=== PATIENT | male | born 1960 | race American Indian/Alaskan Native ===

== ENCOUNTER 2018-06-30 03:14 | Inpatient (IN) | payer MEDICAID, MEDICARE ==
[2018-06-30] MEDS ORDERED: NACL 0.9% 1000 ML 1,000 ML IV ONE ×2 (04:05)
[2018-06-30] MEDS ORDERED: PROVENTIL IH ONE ×2 (04:20→04:24)
[2018-06-30] MEDS ORDERED: D50W (25GM) Syringe IV PRN (04:20)
[2018-06-30 04:25] LABS: Basophils % (Auto) 0.4 % (0.0-1.8); Hematocrit 51.1 % (35.5-45.6); Hemoglobin 16.5 gm/dl (11.8-15.2); Lymphocytes # (Auto) 0.5 K/mm3 (1.2-5.4); Lymphocytes % (Auto) 5.8 % (13.4-35.0); Mean Corpuscular HGB Conc 32 % (32-34); Mean Corpuscular Volume 94 fl (84-94); Monocytes # (Auto) 0.9 K/mm3 (0.0-0.8); Monocytes % (Auto) 9.7 % (0.0-7.3); Platelet Count 204 K/mm3 (140-440); Red Blood Count 5.44 M/mm3 (3.65-5.03)
--- NOTE | 2018-06-30 04:31 | XRay Report ---
PROCEDURE: XR CHEST 1V AP TECHNIQUE: A portable upright view of the chest was submitted. HISTORY: sob, cp COMPARISONS: None FINDINGS: The heart size is normal. The lungs appear mildly congested. There is mild bilateral interstitial julien ma with patchy airspace disease in the lingula. Pleural fluid is not seen. The skeletal structures do not show any acute changes. IMPRESSION: Mild congestive heart failure. Nonspecific patchy airspace disease in the lingula.. This document is electronically signed by Ricky Valencia MD., June 30 2018 04:29:29 AM ET
[2018-06-30] MEDS: HumuLIN R 100 UNITS in NACL 0.9% 99 ML IV SCH ×2 (04:39→23:35)
[2018-06-30 04:41] LABS: INR 1.08 (0.87-1.13)
[2018-06-30 04:47] LABS: Creatine Kinase MB 2.2 ng/mL (0.0-4.0)
[2018-06-30 04:49] LABS: Alanine Aminotransferase 16 units/L (7-56); Albumin 3.7 g/dL (3.9-5); BUN/Creatinine Ratio 15; Blood Urea Nitrogen 23 mg/dL (9-20); Calcium 9.6 mg/dL (8.4-10.2); Hemolysis Index 9
--- NOTE | 2018-06-30 04:49 | Emergency Department Report ---
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 Upon EMS arrival his glucose was in the 500s. Patient apparently only on oral meds. Compliance is unknown since pt is unable to tell me when his last dose of meds w as. Also presents with significantly elevated blood pressure with unknown compliance. Patient's tachypnea and ill appearing. Complains of polyuria and increased thirst has been feeling ill for the past 2-3 days. There is complaints of chest pain with the shortness of breath but denies nausea, vo miting, diarrhea, or fever. - Related Data Home Medications Medication Instructions Recorded Confirmed Last Taken Cholecalciferol (Vitamin D3) 4,000 unit PO QDAY 06/30/18 06/30/18 Unknown [Vitamin D3 2,000 UNIT CAP] Dabigatran Etexilate Mesylate 150 mg PO BID 06/30/18 06/30/18 Unknown [Pradaxa] Lisinopril [Zestril TAB] 40 mg PO QDAY 06/30/18 06/30/18 Unknown Metformin HCl 1,000 mg PO BID 06/30/18 06/30/18 Unknown Simvastatin 80 mg PO QHS 06/30/18 06/30/18 Unknown Allergies Allergy/AdvReac Type Severity Reaction Status Date / Time No Known Allergies Allergy Unverified 06/30/18 04:16 ED Review of Systems ROS: Stated complaint: NOHEMI/DIBETIC Other details as noted in HPI Comment: All other systems reviewed and negative ED Past Medical Hx - Past Medical History Previous Medical History?: Yes Hx Hypertension: Yes Hx CVA: Yes Hx Diabetes: Yes - Surgical History Past Surgical History?: No - Social History Smoking Status: Never Smoker Substance Use Type: None - Medications Home Medications: Home Medications Medication Instructions Recorded Confirmed Last Taken Type Cholecalciferol (Vitamin D3) 4,000 unit PO QDAY 06/30/18 06/30/18 Unknown History [Vitamin D3 2,000 UNIT CAP] Dabigatran Etexilate Mesylate 150 mg PO BID 06/30/18 06/30/18 Unknown History [Pradaxa] Lisinopril [Zestril TAB] 40 mg PO QDAY 06/30/18 06/30/18 Unknown History Metformin HCl 1,000 mg PO BID 06/30/18 06/30/18 Unknown History Simvastatin 80 mg PO QHS 06/30/18 06/30/18 Unknown History ED Physical Exam - General Limitations: No Limitations - Other Other exam information: General: No limitations, patient is alert in no acute distress Head exam: Atraumatic, normocephalic Eyes exam: Normal appearance, pupils equal reactive to light, extraocular movements intact ENT: Dry mucous membranes Neck exam: Normal inspection, full range of motion, no meningismus nontender Respiratory exam: Tachypnea with clear breath sounds Cardiovascular: Tachycardic regular rhythm Abdomen: Soft, nondistended, and nontender, with normal bowel sounds, no rebound, or guarding Extremity: Full range of motion normal inspection no deformity Back: Normal Inspection, full range of motion, no tenderness Neurologic: Mildly depressed mental status but able to follow commands and answer most questions, cranial nerves intact, mild right-sided weakness compared to the left. Psychiatric: normal affect, normal mood Skin: Warm, dry, intact ED Course Vital Signs 06/30/18 06/30/18 06/30/18 03:46 04:00 04:10 Temperature 97.9 F Pulse Rate 127 H 126 H 130 H Pulse Rate [ Anterior Bilateral Throughout] Respiratory 48 H 33 H 36 H Rate Respiratory Rate [Anterior Bilateral Throughout] Blood Pressure 213/106 200/98 213/106 O2 Sat by Pulse 96 96 96 Oximetry 06/30/18 06/30/18 06/30/18 04:16 04:30 04:46 Temperature Pulse Rate 130 H 133 H Pulse Rate [ 121 H Anterior Bilateral Throughout] Respiratory 43 H 45 H 50 H Rate Respiratory 28 H Rate [Anterior Bilateral Throughout] Blood Pressure 202/83 217/188 206/89 O2 Sat by Pulse 95 97 96 Oximetry 06/30/18 06/30/18 06/30/18 05:01 05:06 05:30 Temperature Pulse Rate 141 H Pulse Rate [ 101 H Anterior Bilateral Throughout] Respiratory 48 H 36 H Rate Respiratory 20 Rate [Anterior Bilateral Throughout] Blood Pressure 211/92 O2 Sat by Pulse 95 96 Oximetry - ABG Interpretation Ph: 7.065 PCO2: 12 PO2: 88 Bicarbonate: 3.5 Interpretation: metabolic acidosis Additional Comments: mild hypoxia performed on room air ED Medical Decision Making - Lab Data Result diagrams: 06/30/18 03:50 06/30/18 03:50 Lab Results 06/30/18 06/30/18 06/30/18 Range/Units 03:50 03:50 03:50 WBC 8.8 (4.5-11.0) K/mm3 RBC 5.44 H (3.65-5.03) M/mm3 Hgb 16.5 H (11.8-15.2) gm/dl Hct 51.1 H (35.5-45.6) % MCV 94 (84-94) fl MCH 30 (28-32) pg MCHC 32 (32-34) % RDW 15.0 (13.2-15.2) % Plt Count 204 (140-440) K/mm3 Lymph % (Auto) 5.8 L (13.4-35.0) % [place] % (Auto) 9.7 H (0.0-7.3) % Eos % (Auto) 0.0 (0.0-4.3) % Baso % (Auto) 0.4 (0.0-1.8) % Lymph # 0.5 L (1.2-5.4) K/mm3 [place] # 0.9 H (0.0-0.8) K/mm3 Eos # 0.0 (0.0-0.4) K/mm3 Baso # 0.0 (0.0-0.1) K/mm3 Seg Neutrophils % 84.1 H (40.0-70.0) % Seg Neutrophils # 7.4 (1.8-7.7) K/mm3 PT 14.7 (12.2-14.9) Sec. INR 1.08 (0.87-1.13) APTT 27.0 (24.2-36.6) Sec. POC ABG pH (7.35-7.45) POC ABG pO2 (80-105) POC ABG HCO3 (22-26 mml/L) POC ABG Total CO2 (23-27mmol/L) POC ABG O2 Sat POC ABG Base Excess ((-2) - (+3)mmol/L) FiO2 % Sodium 133 L (137-145) mmol/L Potassium 5.4 H (3.6-5.0) mmol/L Chloride 94.8 L (98-107) mmol/L Carbon Dioxide 5 L* (22-30) mmol/L Anion Gap 39 mmol/L BUN 23 H (9-20) mg/dL Creatinine 1.5 (0.8-1.5) mg/dL Estimated GFR 48 ml/min BUN/Creatinine Ratio 15 % Glucose 556 H* (75-100) mg/dL Ketones Quantitative Moderate (Negative) Calcium 9.6 (8.4-10.2) mg/dL Total Bilirubin 0.30 (0.1-1.2) mg/dL AST 23 (5-40) units/L ALT 16 (7-56) units/L Alkaline Phosphatase 126 (35-129) units/L Total Creatine Kinase 66 (55-170) units/L CK-MB (CK-2) 2.2 (0.0-4.0) ng/mL CK-MB (CK-2) Rel Index 3.3 (0-4) Troponin T 0.011 (0.00-0.029) ng/mL Total Protein 8.3 H (6.3-8.2) g/dL Albumin 3.7 L (3.9-5) g/dL Albumin/Globulin Ratio 0.8 % Urine Color (Yellow) Urine Turbidity (Clear) Urine pH (5.0-7.0) Ur Specific [place] (1.003-1.030) Urine Protein (Negative) mg/dL Urine Glucose (UA) (Negative) mg/dL Urine Ketones (Negative) mg/dL Urine Blood (Negative) Urine Nitrite (Negative) Urine Bilirubin (Negative) Urine Urobilinogen (<2.0) mg/dL Ur Leukocyte Esterase (Negative) Urine WBC (Auto) (0.0-6.0) /HPF Urine RBC (Auto) (0.0-6.0) /HPF U Epithel Cells (Auto) (0-13.0) /HPF Urine Bacteria (Auto) (Negative) /HPF Urine Mucus /HPF Urine Opiates Screen Urine Methadone Screen Ur Barbiturates Screen Ur Phencyclidine Scrn Ur Amphetamines Screen U Benzodiazepines Scrn Urine Cocaine Screen U Marijuana (THC) Screen Drugs of Abuse Note 06/30/18 06/30/18 06/30/18 Range/Units 04:23 04:47 04:47 WBC (4.5-11.0) K/mm3 RBC (3.65-5.03) M/mm3 Hgb (11.8-15.2) gm/dl Hct (35.5-45.6) % MCV (84-94) fl MCH (28-32) pg MCHC (32-34) % RDW (13.2-15.2) % Plt Count (140-440) K/mm3 Lymph % (Auto) (13.4-35.0) % [place] % (Auto) (0.0-7.3) % Eos % (Auto) (0.0-4.3) % Baso % (Auto) (0.0-1.8) % Lymph # (1.2-5.4) K/mm3 [place] # (0.0-0.8) K/mm3 Eos # (0.0-0.4) K/mm3 Baso # (0.0-0.1) K/mm3 Seg Neutrophils % (40.0-70.0) % Seg Neutrophils # (1.8-7.7) K/mm3 PT (12.2-14.9) Sec. INR (0.87-1.13) APTT (24.2-36.6) Sec. POC ABG pH 7.065 L (7.35-7.45) POC ABG pO2 88 (80-105) POC ABG HCO3 3.5 (22-26 mml/L) POC ABG Total CO2 < 5 (23-27mmol/L) POC ABG O2 Sat 92 POC ABG Base Excess -27 ((-2) - (+3)mmol/L) FiO2 21 % Sodium (137-145) mmol/L Potassium (3.6-5.0) mmol/L Chloride (98-107) mmol/L Carbon Dioxide (22-30) mmol/L Anion Gap mmol/L BUN (9-20) mg/dL Creatinine (0.8-1.5) mg/dL Estimated GFR ml/min BUN/Creatinine Ratio % Glucose (75-100) mg/dL Ketones Quantitative (Negative) Calcium (8.4-10.2) mg/dL Total Bilirubin (0.1-1.2) mg/dL AST (5-40) units/L ALT (7-56) units/L Alkaline Phosphatase (35-129) units/L Total Creatine Kinase (55-170) units/L CK-MB (CK-2) (0.0-4.0) ng/mL CK-MB (CK-2) Rel Index (0-4) Troponin T (0.00-0.029) ng/mL Total Protein (6.3-8.2) g/dL Albumin (3.9-5) g/dL Albumin/Globulin Ratio % Urine Color Straw (Yellow) Urine Turbidity Slightly-cloudy (Clear) Urine pH 5.0 (5.0-7.0) Ur Specific [place] 1.028 (1.003-1.030) Urine Protein 100 mg/dl (Negative) mg/dL Urine Glucose (UA) >=500 (Negative) mg/dL Urine Ketones 80 (Negative) mg/dL Urine Blood Mod (Negative) Urine Nitrite Neg (Negative) Urine Bilirubin Neg (Negative) Urine Urobilinogen < 2.0 (<2.0) mg/dL Ur Leukocyte Esterase Neg (Negative) Urine WBC (Auto) 1.0 (0.0-6.0) /HPF Urine RBC (Auto) 10.0 (0.0-6.0) /HPF U Epithel Cells (Auto) 1.0 (0-13.0) /HPF Urine Bacteria (Auto) 1+ (Negative) /HPF Urine Mucus Few /HPF Urine Opiates Screen Presumptive negative Urine Methadone Screen Presumptive negative Ur Barbiturates Screen Presumptive negative Ur Phencyclidine Scrn Presumptive negative Ur Amphetamines Screen Presumptive negative U Benzodiazepines Scrn Presumptive negative Urine Cocaine Screen Presumptive negative U Marijuana (THC) Screen Presumptive negative Drugs of Abuse Note Disclamer - EKG Data -: EKG Interpreted by Ia EKG shows normal: sinus rhythm, axis (qrs 6), QRS complexes (qrsd 88), ST-T waves (peak t waves) Rate: tachycardia (122) - Radiology Data Radiology results: report reviewed PROCEDURE: XR CHEST 1V AP TECHNIQUE: A portable upright view of the chest was submitted. HISTORY: sob, cp COMPARISONS: None FINDINGS: The heart size is normal. The lungs appear mildly congested. There is mild bilateral interstitial edema with patchy airspace disease in the lingula. Pleural fluid is not seen. The skeletal structures do not show any acute changes. IMPRESSION: Mild congestive heart failure. Nonspecific patchy airspace disease in the lingula.. - Medical Decision Making Patient started on albuterol 10 mg based ON significant acidosis and peaked T waves on EKG as well as 1 amp of bicarbonate. Insulin drip initiated without bolus. Initially 2 L of normal saline ordered. Patient received 1.5 L bolus then rate decrease since x-ray shows signs of failure. Patient is critically ill and requires ICU admission for DKA. Cardiac drip also initiated for uncontrolled blood pressure. - Differential Diagnosis DE, PE, DKA, encephalopathy, infection Critical Care Time: Yes Critical care time in (mins) excluding proc time.: 35 Critical care attestation.: If time is entered above; I have spent that time in minutes in the direct care of this critically ill patient, excluding procedure time. ED Disposition Clinical Impression: DKA (diabetic ketoacidoses), Uncontrolled hypertension Disposition: OP ADMIT IP TO THIS HOSP Is pt being admited?: Yes Condition: Fair Instructions: Hypertension (ED) Time of Disposition: 05:17
[2018-06-30 05:05] LABS: Bacteria,Urine 1+ /HPF (Negative); Bilirubin,Urine NEG (Negative); Blood,Urine MOD (Negative); Color,Urine Straw (Yellow); Mucus,Urine FEW /HPF; Urobilinogen,Urine < 2.0 mg/dL (<2.0)
[2018-06-30 05:07] LABS: Amphetamine Screen,Urine PRESUMPTIVE NEGATIVE; Benzodiazepines Screen,Urine PRESUMPTIVE NEGATIVE; Cannabinoid Screen,Urine PRESUMPTIVE NEGATIVE; Cocaine Screen,Urine PRESUMPTIVE NEGATIVE; Methadone Screen,Urine PRESUMPTIVE NEGATIVE; Opiate Screen,Urine PRESUMPTIVE NEGATIVE
[2018-06-30] MEDS ORDERED: CARDIZEM IV ONE (05:27)
[2018-06-30] MEDS ORDERED: SODIUM CHLORIDE FLUSH SYRINGE 10 ML IV PRN (05:52)
[2018-06-30] MEDS ORDERED: AMBIEN PO PRN (05:52)
[2018-06-30] MEDS ORDERED: ZOFRAN IV PRN (05:52)
[2018-06-30] MEDS ORDERED: TYLENOL PO PRN (05:52)
[2018-06-30] MEDS: CARDENE 50 MG in NACL 0.9% 250ML 230 ML IV SCH ×2 (05:53→21:13)
--- NOTE | 2018-06-30 06:12 | History and Physical Report ---
History of Present Illness Date of examination: 06/30/18 Date of admission: 06/30/18 Chief complaint: Shortness of breath History of present illness: Patient is a 57-year-old -[place] male with a history of diabetes mellitus type 2 who presented to the ED on account of 2-3 days history of worsening shortness of breath. He has associated generalized body aches. He also admits to excessive thirst and polyuria. He denied chest pain, palpitation, fever, chills, cough, sore throat, runny nose or congestion, leg swelling, orthopnea or PND. No headaches, nausea, vomiting, syncope or loss of consciousness. No abdominal pain, constipation, diarrhea, dysuria or frequency. Past History Past Medical History: diabetes, hypertension, hyperlipidemia, stroke Past Surgical History: No surgical history Social history: smoking (patient has 20 years history of cigarette smoking. He currently smokes few sticks per day. He denies alcohol or illicit drug use) Family history: other (reviewed and noncontributory) Medications and Allergies Allergies Allergy/AdvReac Type Severity Reaction Status Date / Time No Known Allergies Allergy Unverified 06/30/18 04:16 Home Medications Medication Instructions Recorded Confirmed Last Taken Type Cholecalciferol (Vitamin D3) 4,000 unit PO QDAY 06/30/18 06/30/18 Unknown History [Vitamin D3 2,000 UNIT CAP] Dabigatran Etexilate Mesylate 150 mg PO BID 06/30/18 06/30/18 Unknown History [Pradaxa] Lisinopril [Zestril TAB] 40 mg PO QDAY 06/30/18 06/30/18 Unknown History Metformin HCl 1,000 mg PO BID 06/30/18 06/30/18 Unknown History Simvastatin 80 mg PO QHS 06/30/18 06/30/18 Unknown History Active Meds: Active Medications Acetaminophen (Tylenol) 650 mg PO Q4H PRN PRN Reason: Pain MILD(1-3)/Fever >100.5/FUNEZ Dextrose (D50w (25gm) Syringe) 0 ml IV PRN PRN PRN Reason: Hypoglycemia Enoxaparin Sodium (Lovenox) 30 mg SUB-Q QDAY JT Famotidine (Pepcid) 10 mg IV BID JT Insulin Human Regular 100 (units/ Sodium Chloride) 100 mls @ 1 mls/hr IV TITR JT; Protocol Last Titration: 06/30/18 05:40 Dose: 7 units/hr, 7 mls/hr Documented by: Nicardipine HCl 50 mg/ Sodium (Chloride) 250 mls @ 25 mls/hr IV TITR JT; Protocol Last Admin: 06/30/18 05:53 Dose: 5 mg/hr, 25 mls/hr Documented by: Morphine Sulfate (Morphine) 2 mg IV Q4H PRN PRN Reason: Pain, Moderate (4-6) Ondansetron HCl (Zofran) 4 mg IV Q8H PRN PRN Reason: Nausea And Vomiting Oxycodone/Acetaminophen (Percocet 5/325) 1 tab PO Q6H PRN PRN Reason: Pain, Moderate (4-6) Sodium Chloride (Sodium Chloride Flush Syringe 10 Ml) 10 ml IV BID JT Sodium Chloride (Sodium Chloride Flush Syringe 10 Ml) 10 ml IV PRN PRN PRN Reason: LINE FLUSH Zolpidem Tartrate (Ambien) 5 mg PO QHS PRN PRN Reason: Insomnia Review of Systems All systems: negative (except as documented in the HPI, all other systems were reviewed and negative) Exam - Constitutional Vitals: Temp Pulse Resp BP Pulse Ox 97.9 F 101 H 20 211/92 96 06/30/18 04:10 06/30/18 05:30 06/30/18 05:30 06/30/18 05:01 06/30/18 05:06 General appearance: Present: well-nourished, other (tachypneic with use of accessory muscles) - EENT Eyes: Present: PERRL, EOM intact ENT: hearing intact, clear oral mucosa - Neck Neck: Present: supple, normal ROM - Respiratory Respiratory effort: labored Respiratory: bilateral: CTA - Cardiovascular Rhythm: regular (with tachycardia) Heart Sounds: Present: S1 & S2. Absent: rub, click - Extremities Extremities: No edema Peripheral Pulses: within normal limits - Abdominal General gastrointestinal: Present: soft, non-tender, non-distended, normal bowel sounds Male genitourinary: Present: deferred - Integumentary Integumentary: Present: clear, warm, dry, rash - Musculoskeletal Musculoskeletal: left sided weakness - Psychiatric Psychiatric: appropriate mood/affect, intact judgment & insight - Neurologic Neurologic: moves all extremities Results - Labs CBC & Chem 7: 06/30/18 03:50 06/30/18 03:50 Labs: Laboratory Last Values WBC 8.8 K/mm3 (4.5-11.0) 06/30/18 03:50 RBC 5.44 M/mm3 (3.65-5.03) H 06/30/18 03:50 Hgb 16.5 gm/dl (11.8-15.2) H 06/30/18 03:50 Hct 51.1 % (35.5-45.6) H 06/30/18 03:50 MCV 94 fl (84-94) 06/30/18 03:50 MCH 30 pg (28-32) 06/30/18 03:50 MCHC 32 % (32-34) 06/30/18 03:50 RDW 15.0 % (13.2-15.2) 06/30/18 03:50 Plt Count 204 K/mm3 (140-440) 06/30/18 03:50 Lymph % (Auto) 5.8 % (13.4-35.0) L 06/30/18 03:50 [place] % (Auto) 9.7 % (0.0-7.3) H 06/30/18 03:50 Eos % (Auto) 0.0 % (0.0-4.3) 06/30/18 03:50 Baso % (Auto) 0.4 % (0.0-1.8) 06/30/18 03:50 Lymph # 0.5 K/mm3 (1.2-5.4) L 06/30/18 03:50 [place] # 0.9 K/mm3 (0.0-0.8) H 06/30/18 03:50 Eos # 0.0 K/mm3 (0.0-0.4) 06/30/18 03:50 Baso # 0.0 K/mm3 (0.0-0.1) 06/30/18 03:50 Seg Neutrophils % 84.1 % (40.0-70.0) H 06/30/18 03:50 Seg Neutrophils # 7.4 K/mm3 (1.8-7.7) 06/30/18 03:50 PT 14.7 Sec. (12.2-14.9) 06/30/18 03:50 INR 1.08 (0.87-1.13) 06/30/18 03:50 APTT 27.0 Sec. (24.2-36.6) 06/30/18 03:50 POC ABG pH 7.065 (7.35-7.45) L 06/30/18 04:23 POC ABG pO2 88 (80-105) 06/30/18 04:23 POC ABG HCO3 3.5 (22-26 mml/L) 06/30/18 04:23 POC ABG Total CO2 < 5 (23-27mmol/L) 06/30/18 04:23 POC ABG O2 Sat 92 06/30/18 04:23 POC ABG Base Excess -27 ((-2) - (+3)mmol/L) 06/30/18 04:23 FiO2 21 % 06/30/18 04:23 Sodium 133 mmol/L (137-145) L 06/30/18 03:50 Potassium 5.4 mmol/L (3.6-5.0) H 06/30/18 03:50 Chloride 94.8 mmol/L (98-107) L 06/30/18 03:50 Carbon Dioxide 5 mmol/L (22-30) L* 06/30/18 03:50 Anion Gap 39 mmol/L 06/30/18 03:50 BUN 23 mg/dL (9-20) H 06/30/18 03:50 Creatinine 1.5 mg/dL (0.8-1.5) 06/30/18 03:50 Estimated GFR 48 ml/min 06/30/18 03:50 BUN/Creatinine Ratio 15 % 06/30/18 03:50 Glucose 556 mg/dL (75-100) H* 06/30/18 03:50 Ketones Quantitative Moderate (Negative) 06/30/18 03:50 Calcium 9.6 mg/dL (8.4-10.2) 06/30/18 03:50 Total Bilirubin 0.30 mg/dL (0.1-1.2) 06/30/18 03:50 AST 23 units/L (5-40) 06/30/18 03:50 ALT 16 units/L (7-56) 06/30/18 03:50 Alkaline Phosphatase 126 units/L (35-129) 06/30/18 03:50 Total Creatine Kinase 66 units/L (55-170) 06/30/18 03:50 CK-MB (CK-2) 2.2 ng/mL (0.0-4.0) 06/30/18 03:50 CK-MB (CK-2) Rel Index 3.3 (0-4) 06/30/18 03:50 Troponin T 0.011 ng/mL (0.00-0.029) 06/30/18 03:50 Total Protein 8.3 g/dL (6.3-8.2) H 06/30/18 03:50 Albumin 3.7 g/dL (3.9-5) L 06/30/18 03:50 Albumin/Globulin Ratio 0.8 % 06/30/18 03:50 Urine Color Straw (Yellow) 06/30/18 04:47 Urine Turbidity Slightly-cloudy (Clear) 06/30/18 04:47 Urine pH 5.0 (5.0-7.0) 06/30/18 04:47 Ur Specific [place] 1.028 (1.003-1.030) 06/30/18 04:47 Urine Protein 100 mg/dl mg/dL (Negative) 06/30/18 04:47 Urine Glucose (UA) >=500 mg/dL (Negative) 06/30/18 04:47 Urine Ketones 80 mg/dL (Negative) 06/30/18 04:47 Urine Blood Mod (Negative) 06/30/18 04:47 Urine Nitrite Neg (Negative) 06/30/18 04:47 Urine Bilirubin Neg (Negative) 06/30/18 04:47 Urine Urobilinogen < 2.0 mg/dL (<2.0) 06/30/18 04:47 Ur Leukocyte Esterase Neg (Negative) 06/30/18 04:47 Urine WBC (Auto) 1.0 /HPF (0.0-6.0) 06/30/18 04:47 Urine RBC (Auto) 10.0 /HPF (0.0-6.0) 06/30/18 04:47 U Epithel Cells (Auto) 1.0 /HPF (0-13.0) 06/30/18 04:47 Urine Bacteria (Auto) 1+ /HPF (Negative) 06/30/18 04:47 Urine Mucus Few /HPF 06/30/18 04:47 Urine Opiates Screen Presumptive negative 06/30/18 04:47 Urine Methadone Screen Presumptive negative 06/30/18 04:47 Ur Barbiturates Screen Presumptive negative 06/30/18 04:47 Ur Phencyclidine Scrn Presumptive negative 06/30/18 04:47 Ur Amphetamines Screen Presumptive negative 06/30/18 04:47 U Benzodiazepines Scrn Presumptive negative 06/30/18 04:47 Urine Cocaine Screen Presumptive negative 06/30/18 04:47 U Marijuana (THC) Screen Presumptive negative 06/30/18 04:47 Drugs of Abuse Note Disclamer 06/30/18 04:47 Assessment and Plan Assessment and plan: DKA -On DKA protocol Hypertensive emergency -On IV nicardipine drip Acute respiratory failure likely secondary to DKA -On neb treatments HLD -Resume statin History of CVA with residual left-sided weakness -Resume medications -Continue supportive care DVT prophylaxis with Lovenox I spent 45 minutes providing critical care to this seriously ill patient who requires frequent reassessments of his respiratory status and metabolic profile
[2018-06-30 07:17] LABS: Calcium 8.5 mg/dL (8.4-10.2)
[2018-06-30] MEDS: XOPENEX IH SCH ×2 (08:42→14:48)
[2018-06-30] MEDS: ATROVENT IH SCH ×2 (08:42→14:48)
[2018-06-30 09:27] LABS: Calcium 8.6 mg/dL (8.4-10.2)
[2018-06-30] MEDS ORDERED: LOVENOX SUB-Q SCH (10:00)
[2018-06-30] MEDS ORDERED: PEPCID IV ONE (11:45)
[2018-06-30] MEDS ORDERED: LOVENOX SUB-Q ONE ×3 (11:45→19:22)
[2018-06-30] MEDS: PEPCID IV SCH (12:07)
[2018-06-30] MEDS: SODIUM CHLORIDE FLUSH SYRINGE 10 ML IV SCH (12:07)
[2018-06-30 12:28] LABS: Calcium 9.4 mg/dL (8.4-10.2)
--- NOTE | 2018-06-30 14:14 | Progress Note ---
Assessment and Plan Assessment and plan: 57-year-old man with past medical history of hypertension, CVA with left-sided weakness, type 2 diabetes, presented to the ER with shortness of breath. Per EMS his glucose was above 500. He was on oral hypoglycemics at home he was not on insulin. The patient also complained of polydipsia, polyuria, generalized weakness, and body aches Labs; show CO2 of 7, UDS negative. Chest x-ray; mild CHF, patchy disease in the lingula Diagnoses DKA Hypertensive urgency Sirs Tobacco abuse Acute respiratory failure Hyperlipidemia History of CVA with left-sided deficit Acute metabolic encephalopathy ? Pneumonia Plan Continue insulin drip, continue IV fluids Infectious workup in progress, UA is negative, chest x-ray shows possible infiltrate in the lingula, will obtain 2 view chest x-ray when patient is more stable, continue empiric antibiotics in the meantime Will do tobacco cessation counseling tomorrow, nicotine patches as needed DVT prophylaxis chemical critical care time 31 minutes History Interval history: Review of systems Constitutional: No fevers, no malaise, no joint pains CVS: No chest pain, no orthopnea, no dyspnea on exertion, no pedal edema GI: No abdominal pain, no diarrhea, no vomiting, no constipation Respiratory: No shortness of breath, no wheezing, no coughing Hospitalist Physical - Physical exam Narrative exam: General.: No obvious distress HEENT: Moist mucous membranes, extraocular muscles intact, no lymphadenopathy Neck: supple Cardiac: S1-S2 heard Lungs: clear to auscultation bilaterally Abdomen: soft , nontender, nondistended, bowel sounds positive Extremities: no edema clubbing or cyanosis Skin: no rash or lesions Neurologic: Left hemiparesis, patient is confused Psych: calm, and cooperative - Constitutional Vitals: Temp Pulse Resp BP Pulse Ox 97.9 F 121 H 36 H 140/87 91 06/30/18 04:10 06/30/18 11:35 06/30/18 11:35 06/30/18 11:35 06/30/18 11:35 General appearance: Present: well-nourished, other (tachypneic with use of accessory muscles) Results - Labs CBC & Chem 7: 06/30/18 03:50 06/30/18 11:43 Labs: Laboratory Last Values WBC 8.8 K/mm3 (4.5-11.0) 06/30/18 03:50 RBC 5.44 M/mm3 (3.65-5.03) H 06/30/18 03:50 Hgb 16.5 gm/dl (11.8-15.2) H 06/30/18 03:50 Hct 51.1 % (35.5-45.6) H 06/30/18 03:50 MCV 94 fl (84-94) 06/30/18 03:50 MCH 30 pg (28-32) 06/30/18 03:50 MCHC 32 % (32-34) 06/30/18 03:50 RDW 15.0 % (13.2-15.2) 06/30/18 03:50 Plt Count 204 K/mm3 (140-440) 06/30/18 03:50 Lymph % (Auto) 5.8 % (13.4-35.0) L 06/30/18 03:50 [place] % (Auto) 9.7 % (0.0-7.3) H 06/30/18 03:50 Eos % (Auto) 0.0 % (0.0-4.3) 06/30/18 03:50 Baso % (Auto) 0.4 % (0.0-1.8) 06/30/18 03:50 Lymph # 0.5 K/mm3 (1.2-5.4) L 06/30/18 03:50 [place] # 0.9 K/mm3 (0.0-0.8) H 06/30/18 03:50 Eos # 0.0 K/mm3 (0.0-0.4) 06/30/18 03:50 Baso # 0.0 K/mm3 (0.0-0.1) 06/30/18 03:50 Seg Neutrophils % 84.1 % (40.0-70.0) H 06/30/18 03:50 Seg Neutrophils # 7.4 K/mm3 (1.8-7.7) 06/30/18 03:50 PT 14.7 Sec. (12.2-14.9) 06/30/18 03:50 INR 1.08 (0.87-1.13) 06/30/18 03:50 APTT 27.0 Sec. (24.2-36.6) 06/30/18 03:50 POC ABG pH 7.065 (7.35-7.45) L 06/30/18 04:23 POC ABG pO2 88 (80-105) 06/30/18 04:23 POC ABG HCO3 3.5 (22-26 mml/L) 06/30/18 04:23 POC ABG Total CO2 < 5 (23-27mmol/L) 06/30/18 04:23 POC ABG O2 Sat 92 06/30/18 04:23 POC ABG Base Excess -27 ((-2) - (+3)mmol/L) 06/30/18 04:23 FiO2 21 % 06/30/18 04:23 Sodium 137 mmol/L (137-145) 06/30/18 11:43 Potassium 5.1 mmol/L (3.6-5.0) H 06/30/18 11:43 Chloride 104.4 mmol/L (98-107) 06/30/18 11:43 Carbon Dioxide 7 mmol/L (22-30) L* 06/30/18 11:43 Anion Gap 31 mmol/L 06/30/18 11:43 BUN 23 mg/dL (9-20) H 06/30/18 11:43 Creatinine 1.5 mg/dL (0.8-1.5) 06/30/18 11:43 Estimated GFR 58 ml/min 06/30/18 11:43 BUN/Creatinine Ratio 15 % 06/30/18 11:43 Glucose 400 mg/dL (75-100) H 06/30/18 11:43 POC Glucose 284 (70-105) H 06/30/18 14:12 Ketones Quantitative Moderate (Negative) 06/30/18 03:50 Calcium 9.4 mg/dL (8.4-10.2) 06/30/18 11:43 Total Bilirubin 0.30 mg/dL (0.1-1.2) 06/30/18 03:50 AST 23 units/L (5-40) 06/30/18 03:50 ALT 16 units/L (7-56) 06/30/18 03:50 Alkaline Phosphatase 126 units/L (35-129) 06/30/18 03:50 Total Creatine Kinase 66 units/L (55-170) 06/30/18 03:50 CK-MB (CK-2) 2.2 ng/mL (0.0-4.0) 06/30/18 03:50 CK-MB (CK-2) Rel Index 3.3 (0-4) 06/30/18 03:50 Troponin T < 0.010 ng/mL (0.00-0.029) 06/30/18 11:43 Total Protein 8.3 g/dL (6.3-8.2) H 06/30/18 03:50 Albumin 3.7 g/dL (3.9-5) L 06/30/18 03:50 Albumin/Globulin Ratio 0.8 % 06/30/18 03:50 Urine Color Straw (Yellow) 06/30/18 04:47 Urine Turbidity Slightly-cloudy (Clear) 06/30/18 04:47 Urine pH 5.0 (5.0-7.0) 06/30/18 04:47 Ur Specific [place] 1.028 (1.003-1.030) 06/30/18 04:47 Urine Protein 100 mg/dl mg/dL (Negative) 06/30/18 04:47 Urine Glucose (UA) >=500 mg/dL (Negative) 06/30/18 04:47 Urine Ketones 80 mg/dL (Negative) 06/30/18 04:47 Urine Blood Mod (Negative) 06/30/18 04:47 Urine Nitrite Neg (Negative) 06/30/18 04:47 Urine Bilirubin Neg (Negative) 06/30/18 04:47 Urine Urobilinogen < 2.0 mg/dL (<2.0) 06/30/18 04:47 Ur Leukocyte Esterase Neg (Negative) 06/30/18 04:47 Urine WBC (Auto) 1.0 /HPF (0.0-6.0) 06/30/18 04:47 Urine RBC (Auto) 10.0 /HPF (0.0-6.0) 06/30/18 04:47 U Epithel Cells (Auto) 1.0 /HPF (0-13.0) 06/30/18 04:47 Urine Bacteria (Auto) 1+ /HPF (Negative) 06/30/18 04:47 Urine Mucus Few /HPF 06/30/18 04:47 Urine Opiates Screen Presumptive negative 06/30/18 04:47 Urine Methadone Screen Presumptive negative 06/30/18 04:47 Ur Barbiturates Screen Presumptive negative 06/30/18 04:47 Ur Phencyclidine Scrn Presumptive negative 06/30/18 04:47 Ur Amphetamines Screen Presumptive negative 06/30/18 04:47 U Benzodiazepines Scrn Presumptive negative 06/30/18 04:47 Urine Cocaine Screen Presumptive negative 06/30/18 04:47 U Marijuana (THC) Screen Presumptive negative 06/30/18 04:47 Drugs of Abuse Note Disclamer 06/30/18 04:47 Active Medications - Current Medications Current Medications: Generic Name Dose Route Start Last Admin Trade Name Freq PRN Reason Stop Dose Admin Acetaminophen 650 mg 06/30/18 05:52 Tylenol PO Q4H PRN Pain MILD(1-3)/Fever >100.5/FUNEZ Dextrose 0 ml 06/30/18 04:20 D50w (25gm) Syringe IV PRN PRN Hypoglycemia Enoxaparin Sodium 30 mg 06/30/18 10:00 06/30/18 12:06 Lovenox SUB-Q 30 mg QDAY TJ Administration Famotidine 10 mg 06/30/18 10:00 06/30/18 12:07 Pepcid IV 10 mg BID JT Administration Insulin Human Regular 100 100 mls @ 1 mls/hr 06/30/18 05:00 06/30/18 14:08 units/ Sodium Chloride IV 7 units/hr TITR JT 7 mls/hr Titration Protocol 1 UNITS/HR Nicardipine HCl 50 mg/ Sodium 250 mls @ 25 mls/hr 06/30/18 06:00 06/30/18 06:48 Chloride IV 5 mg/hr TITR JT 25 mls/hr Titration Protocol 5 MG/HR Ipratropium [place] 0.5 mg 06/30/18 08:00 06/30/18 08:42 Atrovent IH 0.5 mg Q6HRT JT Administration Levalbuterol HCl 0.63 mg 06/30/18 08:00 06/30/18 08:42 Xopenex IH 0.63 mg Q6HRT JT Administration Morphine Sulfate 2 mg 06/30/18 05:52 Morphine IV Q4H PRN Pain, Moderate (4-6) Ondansetron HCl 4 mg 06/30/18 05:52 Zofran IV Q8H PRN Nausea And Vomiting Oxycodone/Acetaminophen 1 tab 06/30/18 05:52 Percocet 5/325 PO Q6H PRN Pain, Moderate (4-6) Sodium Chloride 10 ml 06/30/18 10:00 06/30/18 12:07 Sodium Chloride Flush Syringe 10 Ml IV Not Given BID JT Sodium Chloride 10 ml 06/30/18 05:52 Sodium Chloride Flush Syringe 10 Ml IV PRN PRN LINE FLUSH Zolpidem Tartrate 5 mg 06/30/18 05:52 Ambien PO QHS PRN Insomnia Nutrition/Malnutrition Assess - Dietary Evaluation Nutrition/Malnutrition Findings: Nutrition Notes Start: 06/30/18 09:49 Freq: Status: Active Protocol: Document 06/30/18 09:49 COLTON (Rec: 06/30/18 09:54 [email or web address] [id number]) Nutrition Notes Need for Assessment generated from: MD Order,Education Initial or Follow up Assessment Current Diagnosis Diabetes,Hyperlipidemia Other Pertinent Diagnosis DKA, Hypertensive emergency, acute resp failure Current Diet NPO Labs/Tests Reviewed Pertinent Medications Insulin gtt, Nicardipine gtt Height 6 ft 2 in Weight 108.862 kg [place] Body Weight (kg) 86.36 BMI 30.8 Weight Status Obese Subjective/Other Information RD consulted for diet education and NTR recommendations. Pt in ED at this time. He was admitted with S/S of hyperglycemia. Burn Absent Trauma Absent #1 Nutrition Diagnosis Inadequate oral intake Etiology DKA; on insulin drip As Evidenced by Signs and Symptoms pt NPO Is patient on ventilator? No Is Patient Ambulatory and/or Out of Bed No REE-([facility] [place]-confined to bed) 2372.400 Kcal/Kg value to use for calculation 18 Approximate Energy Requirements Using 1960 kcal/Kg Calculation Used for Recommendations Kcal/kg Additional Notes Pro needs 2g/kg IBW: 173g/day Fluid needs 1ml/kcal Nutrition Intervention Change Diet Order: Advance diet when medically feasible Goal #1 Advance diet to meet nutrient needs Goal #2 Improved BG control Anticipated Discharge Needs: CHO-controlled, heart-healthy diet Follow-Up By: 07/02/18 Additional Comments F/U: diet advancement, DM diet education needs
[2018-06-30] MEDS ORDERED: ATROVENT IH ONE (14:37)
[2018-06-30] MEDS: MAXIPIME/NS 2 GM/100 ML 2 GM/100 ML BAG IV SCH (16:20)
[2018-06-30] MEDS ORDERED: ATIVAN ONE (17:50)
[2018-06-30] MEDS: ATIVAN IV PRN (17:57)
[2018-06-30] MEDS ORDERED: HALDOL IM PRN (18:47)
[2018-06-30] MEDS ORDERED: HALDOL IM ONE (18:48)
[2018-06-30] MEDS ORDERED: HALDOL ONE (18:55)
[2018-06-30] MEDS: LOVENOX SUB-Q SCH (19:30)
[2018-06-30] MEDS ORDERED: LASIX ONE (19:41)
[2018-06-30] MEDS ORDERED: LASIX IV ONE (19:53)
[2018-06-30] MEDS: SODIUM BICARBONATE 100 MEQ in STERILE WATER 1,000 ML IV SCH (20:07)
--- NOTE | 2018-06-30 20:58 | XRay Report ---
PROCEDURE: XR CHEST 1V AP HISTORY: sob FINDINGS: Single frontal view of the chest was acquired. There is cardiomegaly. There is a left midlu ng and basilar infiltrate consistent with pneumonia. IMPRESSION: Left midlung and basilar infiltrate consistent with pneumonia This document is electronically signed by Jose Gonzales MD., June 30 2018 08:56:34 PM ET
[2018-06-30] MEDS ORDERED: ZITHROMAX 500 MG in NACL 0.9% 250ML 250 ML IV ONE (21:35)
[2018-06-30] MEDS ORDERED: KETAMINE HCL IV ONE (21:42)
[2018-06-30] MEDS ORDERED: DIPRIVAN 10 MG/ML 1,000 MG/100 ML BOTTLE IV ONE (21:44)
[2018-06-30] MEDS ORDERED: KETALAR IV ONE (21:48)
[2018-06-30] MEDS ORDERED: VASELINE LIP THERAPY TP PRN (21:49)
[2018-06-30] MEDS ORDERED: ARTIFICIAL TEARS OPHTH OINT OU PRN (21:49)
[2018-06-30] MEDS ORDERED: ZEMURON IV ONE (21:50)
[2018-06-30 22:05] LABS: BUN/Creatinine Ratio 16; Blood Urea Nitrogen 18 mg/dL (9-20); Hemolysis Index 10
--- NOTE | 2018-06-30 22:39 | Event Note ---
Date: 06/30/18 Patient presents with acute respiratory failure, and apparently has failed BiPAP all times. The Hospital physician, Dr. Tay has requested intubation for multifactorial respiratory failure. Upon initial evaluation, patient is breathing quite rapidly, has dry mucous membranes, multifactorial acidosis, found to have multilobar pneumonia, has f carlitos BiPAP 2, and requires definitive mechanical ventilation. The aforementioned Hospital physician and myself had administratively and emergently consented the patient for intubation. Patient placed on a nasal cannula at 15 L/m. He also received simultaneous bsg-baruw-asls ventilation. He also has towel rolls inserted underneath the shoulders, to align the ears to the sternal notch. He is induced with 200 mg of ketamine, without paralysis, and direct laryngoscopy is performed with a curved Ald[place] 4 blade. Epiglottis is very floppy, airway is anterior, patient has significant secretions, and is moving in biting down during initial laryngoscopy procedure. Additional 200 mg of ketamine post, and video laryngoscopy is performed with a curved fiberoptic Ald[place] 3 blade. The vocal cords are easily visualized, and a curved bougie catheter is inserted under direct visualization, through the cords, and palpable clicks are appreciated. An 8.0 endotracheal tube is then inserted over the bougie catheter, and the bougie catheter is subsequently removed. Post procedure, photogrammetry airplane pilot balloon is inflated, end-tidal capnography confirmed appropriate tube placement, bilateral breath sounds are appreciated, without stomach breath sounds, and postprocedure x-ray demonstrates appropriate placement of the endotracheal tube. We will defer post intubation management to the inpatient team. The patient tolerated the procedure adequately.
--- NOTE | 2018-06-30 23:19 | XRay Report ---
PROCEDURE: XR CHEST 1V AP TECHNIQUE: Single radiograph of the chest obtained. HISTORY: ETT placement COMPARISONS: 06/30/2017. FINDINGS: ET tube noted with tip at the level of the clavicular heads above the nyla. Multifocal airspace opacities seen throughout the visualized lung millan with more confluent consolid ation seen in the left midlung may represent edema versus pneumonia. No pneumothorax visualized. IMPRESSION: ET tube noted with tip at the level of the clavicular heads above the nyla. .Multifocal airspace opacities seen throughout the visualized lung millan with more confluent consoli dation seen in the left midlung may represent edema versus pneumonia. This document is electronically signed by Marek Gonzalez MD., June 30 2018 11:18:06 PM ET
[2018-07-01] MEDS: DIPRIVAN 10 MG/ML 1,000 MG/100 ML BOTTLE IV SCH ×5 (00:20→19:07)
--- NOTE | 2018-07-01 00:51 | Cat Scan Report ---
PROCEDURE: CT ANGIO CHEST TECHNIQUE: Computerized tomographic angiography of the chest was performed after the IV injection of iodinated nonionic contrast including image processing. The image data was postprocessed using 2-di mensional multiplanar reformatted (MPR) and 3-dimensional (MIP and/or volume rendered) techniques. Au tomated exposure control, adjustment of mA and/or kV according to patient size, or iterative reconstr uction dose optimization techniques were utilized. HISTORY: Shortness of breath r/o PE COMPARISONS: None . FINDINGS: Heart and pericardium: Normal. Thoracic aorta: Normal. Pulmonary vasculature: There is no evidence of pulmonary arterial emboli. Lymph nodes: No enlarged thoracic lymph nodes. Lungs: There are some consolidating scattered infiltrates identified in both lungs. The majority of the infiltrative process in the lower lungs with the left being more involved. There are some chronic obstructive changes in both upper lungs. The endotracheal tube ends approximately 4 cm above the car gabbie.. Pleural space: No effusion or pneumothorax. Musculoskeletal structures: No significant abnormality. Upper abdominal structures: No significant abnormality. IMPRESSION: Scattered consolidating infiltrates identified in both lungs. The majority of the infilt rative processes in the lower lungs with the left being more involved. No effusion or pneumothorax. The endotracheal tube ends proximally 4 cm above the nyla. There is no evidence of pulmonary arterial emboli. . This document is electronically signed by Jodee Ocampo DO., July 01 2018 12:49:57 AM ET
[2018-07-01] MEDS: ATROVENT IH SCH ×5 (01:38→19:57)
[2018-07-01] MEDS: XOPENEX IH SCH ×5 (01:39→19:57)
[2018-07-01] MEDS: SODIUM CHLORIDE FLUSH SYRINGE 10 ML IV SCH ×3 (01:58→21:09)
[2018-07-01] MEDS: PEPCID IV SCH ×3 (02:15→21:08)
[2018-07-01] MEDS: MAXIPIME/NS 2 GM/100 ML 2 GM/100 ML BAG IV SCH ×3 (03:57→16:26)
[2018-07-01] MEDS ORDERED: NACL 0.9% 1000 ML 1,000 ML IV SCH (04:00)
[2018-07-01] MEDS: TYLENOL PR PRN (04:27)
[2018-07-01 05:42] LABS: Basophils % (Auto) 0.1 % (0.0-1.8); Hematocrit 45.7 % (35.5-45.6); Hemoglobin 15.6 gm/dl (11.8-15.2); Lymphocytes # (Auto) 0.3 K/mm3 (1.2-5.4); Lymphocytes % (Auto) 5.1 % (13.4-35.0); Mean Corpuscular HGB Conc 34 % (32-34); Mean Corpuscular Volume 89 fl (84-94); Monocytes # (Auto) 0.5 K/mm3 (0.0-0.8); Monocytes % (Auto) 7.6 % (0.0-7.3); Red Blood Count 5.11 M/mm3 (3.65-5.03); Red Cell Distribution Width 14.3 % (13.2-15.2)
[2018-07-01 05:43] LABS: Platelet Count 160 K/mm3 (140-440)
[2018-07-01 05:56] LABS: BUN/Creatinine Ratio 15; Blood Urea Nitrogen 19 mg/dL (9-20); Hemolysis Index 10
[2018-07-01] MEDS: HumuLIN R 100 UNITS in NACL 0.9% 99 ML IV SCH (06:56)
[2018-07-01] MEDS: SODIUM BICARBONATE 100 MEQ in STERILE WATER 1,000 ML IV SCH (07:56)
[2018-07-01] MEDS: LOVENOX SUB-Q SCH ×2 (08:00→19:49)
[2018-07-01] MEDS ORDERED: D5W/0.45% NACL/KCL 20 MEQ 20 MEQ/1,000 ML BAG IV SCH ×2 (09:00→16:00)
--- NOTE | 2018-07-01 09:07 | XRay Report ---
AP ABDOMEN: HISTORY: Nasogastric tube placement. The nasogastric tube terminates in the antrum of the stomach. The abdominal gas pattern is unremarkable. No masses or organomegaly is identified and there is no gross evidence of free air or fluid. No significant soft tissue calcifications are noted. IMPRESSION: Unremarkable abdomen. The nasogastric tube terminates in the antrum of the stomach.
--- NOTE | 2018-07-01 09:07 | XRay Report ---
AP CHEST: HISTORY: Followup respiratory failure Compared to 06/30/18 at 2158 hrs. The endotracheal tube remains in good position. A nasogastric tube has been inserted. Bilateral patchy infiltrates have decreased by 25-50 %. Near resolution of the right lung opacities is demonstrated. The lingular/left lower lobe opacity appears stable in size but decreased in density. No pleural effusion or pneumothorax has developed. Borderline heart size is stable. IMPRESSION: Improvement in the bilateral infiltrates by 25-50%.
--- NOTE | 2018-07-01 12:09 | Consultation ---
History of Present Illness - Reason for Consult Consult date: 07/01/18 dKA and now acute respiratory failure Requesting physician: REGINE LEONARD - History of Present Illness 57 y/o male admitted with dKA originally but also complained of shortness of breath. Was on bipap therapy but worsened so intubated in the ED. Currently sedated and not able to provide any further history. No family currently at bedside. Past History Past Medical History: COPD (via structural evidence from CT), diabetes, hypertension, hyperlipidemia, stroke Past Surgical History: No surgical history Social history: smoking (patient has 20 years history of cigarette smoking. He currently smokes few sticks per day. He denies alcohol or illicit drug use) Family history: other (reviewed and noncontributory) Medications and Allergies Allergies Allergy/AdvReac Type Severity Reaction Status Date / Time No Known Allergies Allergy Unverified 06/30/18 04:16 Home Medications Medication Instructions Recorded Confirmed Last Taken Type Cholecalciferol (Vitamin D3) 4,000 unit PO QDAY 06/30/18 06/30/18 Unknown History [Vitamin D3 2,000 UNIT CAP] Dabigatran Etexilate Mesylate 150 mg PO BID 06/30/18 06/30/18 Unknown History [Pradaxa] Lisinopril [Zestril TAB] 40 mg PO QDAY 06/30/18 06/30/18 Unknown History Metformin HCl 1,000 mg PO BID 06/30/18 06/30/18 Unknown History Simvastatin 80 mg PO QHS 06/30/18 06/30/18 Unknown History Active Meds: Active Medications Acetaminophen (Tylenol) 650 mg PO Q4H PRN PRN Reason: Pain MILD(1-3)/Fever >100.5/FUNEZ Acetaminophen (Tylenol) 650 mg NV Q4H PRN PRN Reason: Fever >101 Last Admin: 07/01/18 04:27 Dose: 650 mg Documented by: Dextrose (D50w (25gm) Syringe) 0 ml IV PRN PRN PRN Reason: Hypoglycemia Enoxaparin Sodium (Lovenox) 100 mg SUB-Q 0700,1900 [facility] Last Admin: 07/01/18 08:00 Dose: 100 mg Documented by: Famotidine (Pepcid) 10 mg IV BID [facility] Last Admin: 07/01/18 09:24 Dose: 10 mg Documented by: Haloperidol Lactate (Haldol) 5 mg IM Q6H PRN PRN Reason: Agitation Hydrophilic Ointment (Vaseline Lip Therapy) 1 applic TP Q2HR PRN PRN Reason: Dry Lips Insulin Human Regular 100 (units/ Sodium Chloride) 100 mls @ 1 mls/hr IV TITR JT; Protocol Last Titration: 07/01/18 11:00 Dose: 4 units/hr, 4 mls/hr Documented by: Nicardipine HCl 50 mg/ Sodium (Chloride) 250 mls @ 25 mls/hr IV TITR JT; Protocol Last Titration: 07/01/18 01:53 Dose: 0 mg/hr, 0 mls/hr Documented by: Cefepime HCl (Maxipime/Ns 2 Gm/100 Ml) 2 gm in 100 mls @ 200 mls/hr IV Q8H JT; Protocol Last Admin: 07/01/18 08:00 Dose: 200 mls/hr Documented by: Sodium Bicarbonate 100 meq/ (Sterile Water) 1,100 mls @ 100 mls/hr IV DIRECT JT Last Admin: 07/01/18 07:56 Dose: 100 mls/hr Documented by: Propofol (Diprivan 10 Mg/Ml) 1,000 mg in 100 mls @ 3.266 mls/hr IV TITR JT; Protocol Last Titration: 07/01/18 11:27 Dose: 25 mcg/kg/min, 16.329 mls/hr Documented by: Potassium Chloride/Dextrose/Sod Cl (D5w/0.45% Nacl/Kcl 20 Meq) 20 meq in 1,000 mls @ 125 mls/hr IV DIRECT JT Last Admin: 07/01/18 09:19 Dose: 125 mls/hr Documented by: Ipratropium [place] (Atrovent) 0.5 mg IH Q6HRT JT Last Admin: 07/01/18 08:21 Dose: 0.5 mg Documented by: Levalbuterol HCl (Xopenex) 0.63 mg IH Q6HRT JT Last Admin: 07/01/18 08:21 Dose: 0.63 mg Documented by: Lorazepam (Ativan) 1 mg IV Q4H PRN PRN Reason: Anxiety Last Admin: 06/30/18 17:57 Dose: 1 mg Documented by: Morphine Sulfate (Morphine) 2 mg IV Q4H PRN PRN Reason: Pain, Moderate (4-6) Multi-Ingred Cream/Lotion/Oil/Oint (Artificial Tears Ophth Oint) 1 applic OU Q4HR PRN PRN Reason: Dry Eye(s) Ondansetron HCl (Zofran) 4 mg IV Q8H PRN PRN Reason: Nausea And Vomiting Oxycodone/Acetaminophen (Percocet 5/325) 1 tab PO Q6H PRN PRN Reason: Pain, Moderate (4-6) Sodium Chloride (Sodium Chloride Flush Syringe 10 Ml) 10 ml IV BID JT Last Admin: 07/01/18 09:20 Dose: 10 ml Documented by: Sodium Chloride (Sodium Chloride Flush Syringe 10 Ml) 10 ml IV PRN PRN PRN Reason: LINE FLUSH Zolpidem Tartrate (Ambien) 5 mg PO QHS PRN PRN Reason: Insomnia Review of Systems ROS unobtainable: due to endotracheal tube, due to mental status Exam - Constitutional Vitals: Temp Pulse Resp BP Pulse Ox 100.7 F H 131 H 30 H 104/57 96 07/01/18 08:00 07/01/18 11:00 07/01/18 11:00 07/01/18 11:00 07/01/18 11:00 General appearance: Present: no acute distress, other (sedated on vent) - EENT Eyes: Present: PERRL - Neck Neck: Present: supple - Respiratory Respiratory effort: normal Respiratory: left: rhonchi (left anteriorly), bilateral: diminished - Cardiovascular Rhythm: other (sinus tachycardia) - Extremities Extremities: pulses intact - Abdominal General gastrointestinal: Present: soft, non-tender Male genitourinary: Present: deferred - Rectal Rectal Exam: deferred Results - Labs CBC & Chem 7: 07/01/18 05:03 07/01/18 05:03 Labs: Abnormal lab results 06/30/18 06/30/18 06/30/18 Range/Units 09:47 11:43 12:08 RBC (3.65-5.03) M/mm3 Hgb (11.8-15.2) gm/dl Hct (35.5-45.6) % Lymph % (Auto) (13.4-35.0) % [place] % (Auto) (0.0-7.3) % Lymph # (1.2-5.4) K/mm3 Seg Neutrophils % (40.0-70.0) % D-Dimer (0-234) ng/mlDDU POC ABG pH (7.35-7.45) POC ABG pCO2 (35-45) POC ABG pO2 (80-105) Potassium 5.1 H (3.6-5.0) mmol/L Chloride (98-107) mmol/L Carbon Dioxide 7 L* (22-30) mmol/L BUN 23 H (9-20) mg/dL Glucose 400 H (75-100) mg/dL POC Glucose 380 H 296 H (70-105) 06/30/18 06/30/18 06/30/18 Range/Units 12:45 14:12 15:11 RBC (3.65-5.03) M/mm3 Hgb (11.8-15.2) gm/dl Hct (35.5-45.6) % Lymph % (Auto) (13.4-35.0) % [place] % (Auto) (0.0-7.3) % Lymph # (1.2-5.4) K/mm3 Seg Neutrophils % (40.0-70.0) % D-Dimer (0-234) ng/mlDDU POC ABG pH (7.35-7.45) POC ABG pCO2 (35-45) POC ABG pO2 (80-105) Potassium (3.6-5.0) mmol/L Chloride (98-107) mmol/L Carbon Dioxide (22-30) mmol/L BUN (9-20) mg/dL Glucose (75-100) mg/dL POC Glucose 335 H 284 H 260 H (70-105) 06/30/18 06/30/18 06/30/18 Range/Units 15:50 16:56 18:01 RBC (3.65-5.03) M/mm3 Hgb (11.8-15.2) gm/dl Hct (35.5-45.6) % Lymph % (Auto) (13.4-35.0) % [place] % (Auto) (0.0-7.3) % Lymph # (1.2-5.4) K/mm3 Seg Neutrophils % (40.0-70.0) % D-Dimer (0-234) ng/mlDDU POC ABG pH (7.35-7.45) POC ABG pCO2 (35-45) POC ABG pO2 (80-105) Potassium (3.6-5.0) mmol/L Chloride (98-107) mmol/L Carbon Dioxide (22-30) mmol/L BUN (9-20) mg/dL Glucose (75-100) mg/dL POC Glucose 287 H 301 H 273 H (70-105) 06/30/18 06/30/18 06/30/18 Range/Units 19:35 19:55 21:28 RBC (3.65-5.03) M/mm3 Hgb (11.8-15.2) gm/dl Hct (35.5-45.6) % Lymph % (Auto) (13.4-35.0) % [place] % (Auto) (0.0-7.3) % Lymph # (1.2-5.4) K/mm3 Seg Neutrophils % (40.0-70.0) % D-Dimer (0-234) ng/mlDDU POC ABG pH 7.244 L (7.35-7.45) POC ABG pCO2 (35-45) POC ABG pO2 (80-105) Potassium (3.6-5.0) mmol/L Chloride 110.4 H (98-107) mmol/L Carbon Dioxide 12 L (22-30) mmol/L BUN (9-20) mg/dL Glucose 268 H (75-100) mg/dL POC Glucose 270 H (70-105) 06/30/18 06/30/18 06/30/18 Range/Units 22:12 22:31 22:52 RBC (3.65-5.03) M/mm3 Hgb (11.8-15.2) gm/dl Hct (35.5-45.6) % Lymph % (Auto) (13.4-35.0) % [place] % (Auto) (0.0-7.3) % Lymph # (1.2-5.4) K/mm3 Seg Neutrophils % (40.0-70.0) % D-Dimer 849.06 H (0-234) ng/mlDDU POC ABG pH 7.214 L (7.35-7.45) POC ABG pCO2 (35-45) POC ABG pO2 (80-105) Potassium (3.6-5.0) mmol/L Chloride (98-107) mmol/L Carbon Dioxide (22-30) mmol/L BUN (9-20) mg/dL Glucose (75-100) mg/dL POC Glucose 242 H (70-105) 07/01/18 07/01/18 07/01/18 Range/Units 00:48 02:05 03:03 RBC (3.65-5.03) M/mm3 Hgb (11.8-15.2) gm/dl Hct (35.5-45.6) % Lymph % (Auto) (13.4-35.0) % [place] % (Auto) (0.0-7.3) % Lymph # (1.2-5.4) K/mm3 Seg Neutrophils % (40.0-70.0) % D-Dimer (0-234) ng/mlDDU POC ABG pH (7.35-7.45) POC ABG pCO2 (35-45) POC ABG pO2 (80-105) Potassium (3.6-5.0) mmol/L Chloride (98-107) mmol/L Carbon Dioxide (22-30) mmol/L BUN (9-20) mg/dL Glucose (75-100) mg/dL POC Glucose 401 H 156 H 122 H (70-105) 07/01/18 07/01/18 07/01/18 Range/Units 04:04 05:03 05:03 RBC 5.11 H (3.65-5.03) M/mm3 Hgb 15.6 H (11.8-15.2) gm/dl Hct 45.7 H (35.5-45.6) % Lymph % (Auto) 5.1 L (13.4-35.0) % [place] % (Auto) 7.6 H (0.0-7.3) % Lymph # 0.3 L (1.2-5.4) K/mm3 Seg Neutrophils % 87.2 H (40.0-70.0) % D-Dimer (0-234) ng/mlDDU POC ABG pH (7.35-7.45) POC ABG pCO2 (35-45) POC ABG pO2 (80-105) Potassium (3.6-5.0) mmol/L Chloride 111.1 H (98-107) mmol/L Carbon Dioxide 16 L (22-30) mmol/L BUN (9-20) mg/dL Glucose 154 H (75-100) mg/dL POC Glucose 120 H (70-105) 07/01/18 07/01/18 07/01/18 Range/Units 05:09 05:32 06:02 RBC (3.65-5.03) M/mm3 Hgb (11.8-15.2) gm/dl Hct (35.5-45.6) % Lymph % (Auto) (13.4-35.0) % [place] % (Auto) (0.0-7.3) % Lymph # (1.2-5.4) K/mm3 Seg Neutrophils % (40.0-70.0) % D-Dimer (0-234) ng/mlDDU POC ABG pH (7.35-7.45) POC ABG pCO2 30.5 L (35-45) POC ABG pO2 172 H (80-105) Potassium (3.6-5.0) mmol/L Chloride (98-107) mmol/L Carbon Dioxide (22-30) mmol/L BUN (9-20) mg/dL Glucose (75-100) mg/dL POC Glucose 137 H 149 H (70-105) 07/01/18 07/01/18 07/01/18 Range/Units 06:59 08:20 09:23 RBC (3.65-5.03) M/mm3 Hgb (11.8-15.2) gm/dl Hct (35.5-45.6) % Lymph % (Auto) (13.4-35.0) % [place] % (Auto) (0.0-7.3) % Lymph # (1.2-5.4) K/mm3 Seg Neutrophils % (40.0-70.0) % D-Dimer (0-234) ng/mlDDU POC ABG pH (7.35-7.45) POC ABG pCO2 (35-45) POC ABG pO2 (80-105) Potassium (3.6-5.0) mmol/L Chloride (98-107) mmol/L Carbon Dioxide (22-30) mmol/L BUN (9-20) mg/dL Glucose (75-100) mg/dL POC Glucose 164 H 135 H 142 H (70-105) 07/01/18 07/01/18 Range/Units 10:09 11:13 RBC (3.65-5.03) M/mm3 Hgb (11.8-15.2) gm/dl Hct (35.5-45.6) % Lymph % (Auto) (13.4-35.0) % [place] % (Auto) (0.0-7.3) % Lymph # (1.2-5.4) K/mm3 Seg Neutrophils % (40.0-70.0) % D-Dimer (0-234) ng/mlDDU POC ABG pH (7.35-7.45) POC ABG pCO2 (35-45) POC ABG pO2 (80-105) Potassium (3.6-5.0) mmol/L Chloride (98-107) mmol/L Carbon Dioxide (22-30) mmol/L BUN (9-20) mg/dL Glucose (75-100) mg/dL POC Glucose 170 H 163 H (70-105) - Imaging and Cardiology Chest x-ray: image reviewed CT scan - chest: image reviewed (Emphysema in the upper lobes with bilateral alveolar infiltrates, predominantly on the left in the lower lobes) Assessment and Plan 57 y/o male presents with shortness of breath, found to have pneumonia and DKA with structural evidence of COPD 1. Continue Insulin drip as Anion Gap has not closed yet 2. Continue NPO status 3. Patient continues to be febrile but no cultures have been drawn. If he spik es again, will obtain Bldx2 and Urine as well as UA. RT to obtain sputum, may need bronch but O2 requirements are coming down 4. Wean sedation to RASS of 0-to Minus 2 5. Follow up Echo 6. May need to add atypical coverage and possible GPC coverage if temp spikes again CCT 31 minutes.
[2018-07-01] MEDS ORDERED: ZEMURON IV ONE (14:03)
--- NOTE | 2018-07-01 15:14 | Consultation ---
History of Present Illness - Reason for Consult Consult date: 07/01/18 Pneumonia, sepsis Requesting physician: DAMIÁN BELTRAN - History of Present Illness The patient is a 57-year-old male with diabetes mellitus type 2, hypertension, hyperlipidemia, COPD was admitted to the hospital yesterday with shortness of breath. He was found to be in severe DKA. He was placed on BiPAP and later intubated. He is admitted to ICU. Today he spiked a fever of 102.8F, hence infe ctious diseases was consulted. CT chest and chest x-ray were concerning for bilateral pneumonia. History obtained by chart review. Patient unable to provide history. Review of Systems: Cannot be obtained due to intubation and mental status. Past History Past Medical History: COPD (via structural evidence from CT), diabetes, hypert ension, hyperlipidemia, stroke Past Surgical History: No surgical history Social history: smoking (patient has 20 years history of cigarette smoking. He currently smokes few sticks per day. He denies alcohol or illicit drug use) Family history: other (reviewed and noncontributory) Medications and Allergies Allergies Allergy/AdvReac Type Severity Reaction Status Date / Time No Known Allergies Allergy Unverified 06/30/18 04:16 Home Medications Medication Instructions Recorded Confirmed Last Taken Type Cholecalciferol (Vitamin D3) 4,000 unit PO QDAY 06/30/18 06/30/18 Unknown History [Vitamin D3 2,000 UNIT CAP] Dabigatran Etexilate Mesylate 150 mg PO BID 06/30/18 06/30/18 Unknown History [Pradaxa] Lisinopril [Zestril TAB] 40 mg PO QDAY 06/30/18 06/30/18 Unknown History Metformin HCl 1,000 mg PO BID 06/30/18 06/30/18 Unknown History Simvastatin 80 mg PO QHS 06/30/18 06/30/18 Unknown History Active Meds: Active Medications Acetaminophen (Tylenol) 650 mg PO Q4H PRN PRN Reason: Pain MILD(1-3)/Fever >100.5/FUNEZ Acetaminophen (Tylenol) 650 mg [place] Q4H PRN PRN Reason: Fever >101 Last Admin: 07/01/18 04:27 Dose: 650 mg Documented by: Dextrose (D50w (25gm) Syringe) 0 ml IV PRN PRN PRN Reason: Hypoglycemia Enoxaparin Sodium (Lovenox) 100 mg SUB-Q 0700,1900 [facility] Last Admin: 07/01/18 08:00 Dose: 100 mg Documented by: Famotidine (Pepcid) 10 mg IV BID [facility] Last Admin: 07/01/18 09:24 Dose: 10 mg Documented by: Haloperidol Lactate (Haldol) 5 mg IM Q6H PRN PRN Reason: Agitation Hydrophilic Ointment (Vaseline Lip Therapy) 1 applic TP Q2HR PRN PRN Reason: Dry Lips Insulin Human Regular 100 (units/ Sodium Chloride) 100 mls @ 1 mls/hr IV TITR JT; Protocol Last Titration: 07/01/18 14:00 Dose: 0 units/hr, 0 mls/hr Documented by: Nicardipine HCl 50 mg/ Sodium (Chloride) 250 mls @ 25 mls/hr IV TITR JT; Protocol Last Titration: 07/01/18 01:53 Dose: 0 mg/hr, 0 mls/hr Documented by: Cefepime HCl (Maxipime/Ns 2 Gm/100 Ml) 2 gm in 100 mls @ 200 mls/hr IV Q8H JT; Protocol Last Admin: 07/01/18 08:00 Dose: 200 mls/hr Documented by: Propofol (Diprivan 10 Mg/Ml) 1,000 mg in 100 mls @ 3.266 mls/hr IV TITR JT; Protocol Last Titration: 07/01/18 14:36 Dose: 35 mcg/kg/min, 22.861 mls/hr Documented by: Ipratropium [place] (Atrovent) 0.5 mg IH Q6HRT [facility] Last Admin: 07/01/18 08:21 Dose: 0.5 mg Documented by: Levalbuterol HCl (Xopenex) 0.63 mg IH Q6HRT [facility] Last Admin: 07/01/18 08:21 Dose: 0.63 mg Documented by: Lorazepam (Ativan) 1 mg IV Q4H PRN PRN Reason: Anxiety Last Admin: 06/30/18 17:57 Dose: 1 mg Documented by: Morphine Sulfate (Morphine) 2 mg IV Q4H PRN PRN Reason: Pain, Moderate (4-6) Multi-Ingred Cream/Lotion/Oil/Oint (Artificial Tears Ophth Oint) 1 applic OU Q4HR PRN PRN Reason: Dry Eye(s) Ondansetron HCl (Zofran) 4 mg IV Q8H PRN PRN Reason: Nausea And Vomiting Oxycodone/Acetaminophen (Percocet 5/325) 1 tab PO Q6H PRN PRN Reason: Pain, Moderate (4-6) Sodium Chloride (Sodium Chloride Flush Syringe 10 Ml) 10 ml IV BID JT Last Admin: 07/01/18 09:20 Dose: 10 ml Documented by: Sodium Chloride (Sodium Chloride Flush Syringe 10 Ml) 10 ml IV PRN PRN PRN Reason: LINE FLUSH Zolpidem Tartrate (Ambien) 5 mg PO QHS PRN PRN Reason: Insomnia Physical Examination - Physical Exam Narrative exam: Physical Exam: Constitutional: sedated, intubated Head, Ears, Nose: Normocephalic, atraumatic. External ears, nose normal Eyes: Conjunctivae/corneas clear. No icterus. No ptosis. Neck: Supple, no meningeal signs Oral: intubated Cardiovascular: S1, S2 normal, tachycardic Respiratory: Good air entry, clear to auscultation bilaterally GI: Soft, non-tender; bowel sounds normal. No peritoneal signs Musculoskeletal: No pedal edema, no cyanosis. Skin: No rash or abscess Hem/Lymphatic: No palpable cervical or supraclavicular nodes. No lymphangitis Psych: no agitation Neurological: sedated, intubated, on vent - Constitutional Vitals: Vital Signs Temp Pulse Resp BP Pulse Ox 100.7 F H 138 H 40 H 129/78 97 07/01/18 08:00 07/01/18 14:15 07/01/18 14:15 07/01/18 14:15 07/01/18 14:15 Temperature -Last 24 Hours Temperature 100.7 F Temperature 102.8 F Results - Labs CBC & Chem 7: 07/01/18 05:03 07/01/18 05:03 Labs: Abnormal lab results 06/30/18 06/30/18 06/30/18 Range/Units 15:11 15:50 16:56 RBC (3.65-5.03) M/mm3 Hgb (11.8-15.2) gm/dl Hct (35.5-45.6) % Lymph % (Auto) (13.4-35.0) % [place] % (Auto) (0.0-7.3) % Lymph # (1.2-5.4) K/mm3 Seg Neutrophils % (40.0-70.0) % D-Dimer (0-234) ng/mlDDU POC ABG pH (7.35-7.45) POC ABG pCO2 (35-45) POC ABG pO2 (80-105) Chloride (98-107) mmol/L Carbon Dioxide (22-30) mmol/L Glucose (75-100) mg/dL POC Glucose 260 H 287 H 301 H (70-105) NT-Pro-B Natriuret Pep (0-900) pg/mL 06/30/18 06/30/18 06/30/18 Range/Units 18:01 19:35 19:55 RBC (3.65-5.03) M/mm3 Hgb (11.8-15.2) gm/dl Hct (35.5-45.6) % Lymph % (Auto) (13.4-35.0) % [place] % (Auto) (0.0-7.3) % Lymph # (1.2-5.4) K/mm3 Seg Neutrophils % (40.0-70.0) % D-Dimer (0-234) ng/mlDDU POC ABG pH 7.244 L (7.35-7.45) POC ABG pCO2 (35-45) POC ABG pO2 (80-105) Chloride (98-107) mmol/L Carbon Dioxide (22-30) mmol/L Glucose (75-100) mg/dL POC Glucose 273 H 270 H (70-105) NT-Pro-B Natriuret Pep (0-900) pg/mL 06/30/18 06/30/18 06/30/18 Range/Units 21:28 22:12 22:31 RBC (3.65-5.03) M/mm3 Hgb (11.8-15.2) gm/dl Hct (35.5-45.6) % Lymph % (Auto) (13.4-35.0) % [place] % (Auto) (0.0-7.3) % Lymph # (1.2-5.4) K/mm3 Seg Neutrophils % (40.0-70.0) % D-Dimer 849.06 H (0-234) ng/mlDDU POC ABG pH (7.35-7.45) POC ABG pCO2 (35-45) POC ABG pO2 (80-105) Chloride 110.4 H (98-107) mmol/L Carbon Dioxide 12 L (22-30) mmol/L Glucose 268 H (75-100) mg/dL POC Glucose 242 H (70-105) NT-Pro-B Natriuret Pep (0-900) pg/mL 06/30/18 07/01/18 07/01/18 Range/Units 22:52 00:48 02:05 RBC (3.65-5.03) M/mm3 Hgb (11.8-15.2) gm/dl Hct (35.5-45.6) % Lymph % (Auto) (13.4-35.0) % [place] % (Auto) (0.0-7.3) % Lymph # (1.2-5.4) K/mm3 Seg Neutrophils % (40.0-70.0) % D-Dimer (0-234) ng/mlDDU POC ABG pH 7.214 L (7.35-7.45) POC ABG pCO2 (35-45) POC ABG pO2 (80-105) Chloride (98-107) mmol/L Carbon Dioxide (22-30) mmol/L Glucose (75-100) mg/dL POC Glucose 401 H 156 H (70-105) NT-Pro-B Natriuret Pep (0-900) pg/mL 07/01/18 07/01/18 07/01/18 Range/Units 03:03 04:04 05:03 RBC (3.65-5.03) M/mm3 Hgb (11.8-15.2) gm/dl Hct (35.5-45.6) % Lymph % (Auto) (13.4-35.0) % [place] % (Auto) (0.0-7.3) % Lymph # (1.2-5.4) K/mm3 Seg Neutrophils % (40.0-70.0) % D-Dimer (0-234) ng/mlDDU POC ABG pH (7.35-7.45) POC ABG pCO2 (35-45) POC ABG pO2 (80-105) Chloride 111.1 H (98-107) mmol/L Carbon Dioxide 16 L (22-30) mmol/L Glucose 154 H (75-100) mg/dL POC Glucose 122 H 120 H (70-105) NT-Pro-B Natriuret Pep (0-900) pg/mL 07/01/18 07/01/18 07/01/18 Range/Units 05:03 05:09 05:32 RBC 5.11 H (3.65-5.03) M/mm3 Hgb 15.6 H (11.8-15.2) gm/dl Hct 45.7 H (35.5-45.6) % Lymph % (Auto) 5.1 L (13.4-35.0) % [place] % (Auto) 7.6 H (0.0-7.3) % Lymph # 0.3 L (1.2-5.4) K/mm3 Seg Neutrophils % 87.2 H (40.0-70.0) % D-Dimer (0-234) ng/mlDDU POC ABG pH (7.35-7.45) POC ABG pCO2 30.5 L (35-45) POC ABG pO2 172 H (80-105) Chloride (98-107) mmol/L Carbon Dioxide (22-30) mmol/L Glucose (75-100) mg/dL POC Glucose 137 H (70-105) NT-Pro-B Natriuret Pep (0-900) pg/mL 07/01/18 07/01/18 07/01/18 Range/Units 06:02 06:59 08:20 RBC (3.65-5.03) M/mm3 Hgb (11.8-15.2) gm/dl Hct (35.5-45.6) % Lymph % (Auto) (13.4-35.0) % [place] % (Auto) (0.0-7.3) % Lymph # (1.2-5.4) K/mm3 Seg Neutrophils % (40.0-70.0) % D-Dimer (0-234) ng/mlDDU POC ABG pH (7.35-7.45) POC ABG pCO2 (35-45) POC ABG pO2 (80-105) Chloride (98-107) mmol/L Carbon Dioxide (22-30) mmol/L Glucose (75-100) mg/dL POC Glucose 149 H 164 H 135 H (70-105) NT-Pro-B Natriuret Pep (0-900) pg/mL 07/01/18 07/01/18 07/01/18 Range/Units 09:23 10:09 11:13 RBC (3.65-5.03) M/mm3 Hgb (11.8-15.2) gm/dl Hct (35.5-45.6) % Lymph % (Auto) (13.4-35.0) % [place] % (Auto) (0.0-7.3) % Lymph # (1.2-5.4) K/mm3 Seg Neutrophils % (40.0-70.0) % D-Dimer (0-234) ng/mlDDU POC ABG pH (7.35-7.45) POC ABG pCO2 (35-45) POC ABG pO2 (80-105) Chloride (98-107) mmol/L Carbon Dioxide (22-30) mmol/L Glucose (75-100) mg/dL POC Glucose 142 H 170 H 163 H (70-105) NT-Pro-B Natriuret Pep (0-900) pg/mL 07/01/18 Range/Units 11:31 RBC (3.65-5.03) M/mm3 Hgb (11.8-15.2) gm/dl Hct (35.5-45.6) % Lymph % (Auto) (13.4-35.0) % [place] % (Auto) (0.0-7.3) % Lymph # (1.2-5.4) K/mm3 Seg Neutrophils % (40.0-70.0) % D-Dimer (0-234) ng/mlDDU POC ABG pH (7.35-7.45) POC ABG pCO2 (35-45) POC ABG pO2 (80-105) Chloride (98-107) mmol/L Carbon Dioxide (22-30) mmol/L Glucose (75-100) mg/dL POC Glucose (70-105) NT-Pro-B Natriuret Pep 3170 H (0-900) pg/mL - Imaging and Cardiology Chest x-ray: report reviewed, image reviewed (b/l opacities) CT scan - chest: report reviewed, image reviewed (CT chest showed scattered bilateral pneumonia.) Assessment and Plan Cultures: None this admission. A/P: 57-year-old male with diabetes mellitus type 2, hypertension, hyperlipidemia, C OPD was admitted to the hospital yesterday with shortness of breath. He was found to be in severe DKA. Also with: 1) Acute respiratory failure: on vent. 2) Bilateral pneumonia: Severe bilateral pneumonia. Hence, treat with IV cefepime and vancomycin. 3) Diabetic ketoacidosis: On insulin. 4) SENG on admission: resolved. Recs: Blood and sputum culture ordered IV vancomycin and cefepime started MRSA nasal PCR ordered HIV ordered Will follow. Romel Pagan MD [facility] C: [phone] O: [phone] F: [phone]
[2018-07-01] MEDS ORDERED: VANCOMYCIN PHARMACY TO DOSE IV SCH (16:00)
[2018-07-01] MEDS ORDERED: TYLENOL PO ONE (16:15)
[2018-07-01 16:35] LABS: BUN/Creatinine Ratio 16; Blood Urea Nitrogen 22 mg/dL (9-20); Calcium 8.7 mg/dL (8.4-10.2); Hemolysis Index 31
[2018-07-01] MEDS ORDERED: SODIUM PHOSPHATE 45 MMOL in NACL 0.9% 500 ML 500 ML IV ONE ×2 (17:04→17:07)
[2018-07-01] MEDS ORDERED: K-PHOS NEUTRAL PO ONE (17:08)
[2018-07-01] MEDS: VANCOMYCIN 1,250 MG in NACL 0.9% 250ML 250 ML IV SCH (17:12)
[2018-07-01] MEDS: ATIVAN IV PRN (23:10)
[2018-07-02] MEDS ORDERED: LANTUS SUB-Q SCH ×2 (00:22→22:00)
--- NOTE | 2018-07-02 00:53 | Progress Note ---
Assessment and Plan Assessment and plan: 57-year-old man with past medical history of hypertension, CVA with left-sided weakness, type 2 diabetes, presented to the ER with shortness of breath. Per EMS his glucose was above 500. He was on oral hypoglycemics at home he was not on insulin. The patient also complained of polydipsia, polyuria, generalized weakness, and body aches Labs; show CO2 of 7, UDS negative. Chest x-ray; mild CHF, patchy disease in the lingula Diagnoses DKA severe metabolic acidosis Hypertensive urgency Sirs Tobacco abuse Acute respiratory failure on MV >96 hours Hyperlipidemia History of CVA with left-sided deficit Acute metabolic encephalopathy Pneumonia hypernatremia hypokalemia Plan Transitioned to sq insulins, now off bicarb ggt and insulin ggt cont mech vent per pulmonology sepsis/pna; abx per ID Will do tobacco cessation counseling when extubated, nicotine patches as needed free water replacement via G tube -echo shows EF 45, keep euvolemic, cardiology consult -replace K per feedtube -still on full dose lovenox, given prolonged travel, patient will benefit for CTA and LE dopplers Dvt ppx fully anticoagulated critical care time 31 minutes History Interval history: Review of systems Constitutional: febrile overnight, intubated and sedated last night after failing bipap x2 no diarrhea or vomiting no seizure Hospitalist Physical - Physical exam Narrative exam: General.: sedated HEENT: Moist mucous membranes, extraocular muscles intact, no lymphadenopathy Neck: supple Cardiac: S1-S2 heard Lungs: bilat crackles Abdomen: soft , nontender, nondistended, bowel sounds positive Extremities: no edema clubbing or cyanosis Skin: no rash or lesions Neurologic: Left hemiparesis, patient is intubated and sedated Psych: sedated - Constitutional Vitals: Temp Pulse Resp BP Pulse Ox 100.4 F H 129 H 31 H 116/72 95 07/02/18 00:00 07/02/18 00:00 07/02/18 00:00 07/02/18 00:00 07/02/18 00:00 General appearance: Present: no acute distress, other (sedated on vent) Results - Labs CBC & Chem 7: 07/01/18 05:03 07/02/18 14:44 Labs: Laboratory Last Values WBC 6.5 K/mm3 (4.5-11.0) 07/01/18 05:03 RBC 5.11 M/mm3 (3.65-5.03) H 07/01/18 05:03 Hgb 15.6 gm/dl (11.8-15.2) H 07/01/18 05:03 Hct 45.7 % (35.5-45.6) H 07/01/18 05:03 MCV 89 fl (84-94) 07/01/18 05:03 MCH 30 pg (28-32) 07/01/18 05:03 MCHC 34 % (32-34) 07/01/18 05:03 RDW 14.3 % (13.2-15.2) 07/01/18 05:03 Plt Count 160 K/mm3 (140-440) 07/01/18 05:03 Lymph % (Auto) 5.1 % (13.4-35.0) L 07/01/18 05:03 [place] % (Auto) 7.6 % (0.0-7.3) H 07/01/18 05:03 Eos % (Auto) 0.0 % (0.0-4.3) 07/01/18 05:03 Baso % (Auto) 0.1 % (0.0-1.8) 07/01/18 05:03 Lymph # 0.3 K/mm3 (1.2-5.4) L 07/01/18 05:03 [place] # 0.5 K/mm3 (0.0-0.8) 07/01/18 05:03 Eos # 0.0 K/mm3 (0.0-0.4) 07/01/18 05:03 Baso # 0.0 K/mm3 (0.0-0.1) 07/01/18 05:03 Seg Neutrophils % 87.2 % (40.0-70.0) H 07/01/18 05:03 Seg Neutrophils # 5.6 K/mm3 (1.8-7.7) 07/01/18 05:03 PT 14.7 Sec. (12.2-14.9) 06/30/18 03:50 INR 1.08 (0.87-1.13) 06/30/18 03:50 APTT 27.0 Sec. (24.2-36.6) 06/30/18 03:50 D-Dimer 849.06 ng/mlDDU (0-234) H 06/30/18 22:31 POC ABG pH 7.358 (7.35-7.45) 07/01/18 05:32 POC ABG pCO2 30.5 (35-45) L 07/01/18 05:32 POC ABG pO2 172 (80-105) H 07/01/18 05:32 POC ABG HCO3 17.1 (22-26 mml/L) 07/01/18 05:32 POC ABG Total CO2 18 (23-27mmol/L) 07/01/18 05:32 POC ABG O2 Sat 100 07/01/18 05:32 POC ABG Base Excess -8 ((-2) - (+3)mmol/L) 07/01/18 05:32 FiO2 70 % 07/01/18 05:32 Sodium 143 mmol/L (137-145) 07/01/18 15:42 Potassium 3.8 mmol/L (3.6-5.0) 07/01/18 15:42 Chloride 110.8 mmol/L (98-107) H 07/01/18 15:42 Carbon Dioxide 19 mmol/L (22-30) L 07/01/18 15:42 Anion Gap 17 mmol/L 07/01/18 15:42 BUN 22 mg/dL (9-20) H 07/01/18 15:42 Creatinine 1.4 mg/dL (0.8-1.5) 07/01/18 15:42 Estimated GFR > 60 ml/min 07/01/18 15:42 BUN/Creatinine Ratio 16 % 07/01/18 15:42 Glucose 157 mg/dL (75-100) H 07/01/18 15:42 POC Glucose 87 (70-105) 07/02/18 00:09 Ketones Quantitative Moderate (Negative) 06/30/18 03:50 Lactic Acid 1.30 mmol/L (0.7-2.0) 07/01/18 11:31 Calcium 8.7 mg/dL (8.4-10.2) 07/01/18 15:42 Phosphorus 0.70 mg/dL (2.5-4.5) L* 07/01/18 15:42 Magnesium 1.90 mg/dL (1.7-2.3) 07/01/18 15:42 Total Bilirubin 0.30 mg/dL (0.1-1.2) 06/30/18 03:50 AST 23 units/L (5-40) 06/30/18 03:50 ALT 16 units/L (7-56) 06/30/18 03:50 Alkaline Phosphatase 126 units/L (35-129) 06/30/18 03:50 Total Creatine Kinase 66 units/L (55-170) 06/30/18 03:50 CK-MB (CK-2) 2.2 ng/mL (0.0-4.0) 06/30/18 03:50 CK-MB (CK-2) Rel Index 3.3 (0-4) 06/30/18 03:50 Troponin T < 0.010 ng/mL (0.00-0.029) 06/30/18 11:43 NT-Pro-B Natriuret Pep 3170 pg/mL (0-900) H 07/01/18 11:31 Total Protein 8.3 g/dL (6.3-8.2) H 06/30/18 03:50 Albumin 3.7 g/dL (3.9-5) L 06/30/18 03:50 Albumin/Globulin Ratio 0.8 % 06/30/18 03:50 Urine Color Straw (Yellow) 06/30/18 04:47 Urine Turbidity Slightly-cloudy (Clear) 06/30/18 04:47 Urine pH 5.0 (5.0-7.0) 06/30/18 04:47 Ur Specific [place] 1.028 (1.003-1.030) 06/30/18 04:47 Urine Protein 100 mg/dl mg/dL (Negative) 06/30/18 04:47 Urine Glucose (UA) >=500 mg/dL (Negative) 06/30/18 04:47 Urine Ketones 80 mg/dL (Negative) 06/30/18 04:47 Urine Blood Mod (Negative) 06/30/18 04:47 Urine Nitrite Neg (Negative) 06/30/18 04:47 Urine Bilirubin Neg (Negative) 06/30/18 04:47 Urine Urobilinogen < 2.0 mg/dL (<2.0) 06/30/18 04:47 Ur Leukocyte Esterase Neg (Negative) 06/30/18 04:47 Urine WBC (Auto) 1.0 /HPF (0.0-6.0) 06/30/18 04:47 Urine RBC (Auto) 10.0 /HPF (0.0-6.0) 06/30/18 04:47 U Epithel Cells (Auto) 1.0 /HPF (0-13.0) 06/30/18 04:47 Urine Bacteria (Auto) 1+ /HPF (Negative) 06/30/18 04:47 Urine Mucus Few /HPF 06/30/18 04:47 Urine Opiates Screen Presumptive negative 06/30/18 04:47 Urine Methadone Screen Presumptive negative 06/30/18 04:47 Ur Barbiturates Screen Presumptive negative 06/30/18 04:47 Ur Phencyclidine Scrn Presumptive negative 06/30/18 04:47 Ur Amphetamines Screen Presumptive negative 06/30/18 04:47 U Benzodiazepines Scrn Presumptive negative 06/30/18 04:47 Urine Cocaine Screen Presumptive negative 06/30/18 04:47 U Marijuana (THC) Screen Presumptive negative 06/30/18 04:47 Drugs of Abuse Note Disclamer 06/30/18 04:47 Active Medications - Current Medications Current Medications: Generic Name Dose Route Start Last Admin Trade Name Freq PRN Reason Stop Dose Admin Acetaminophen 650 mg 06/30/18 05:52 Tylenol PO Q4H PRN Pain MILD(1-3)/Fever >100.5/FUNEZ Acetaminophen 650 mg 07/01/18 03:35 07/01/18 04:27 Tylenol [place] 650 mg Q4H PRN Administration Fever >101 Dextrose 0 ml 06/30/18 04:20 D50w (25gm) Syringe IV PRN PRN Hypoglycemia Enoxaparin Sodium 100 mg 06/30/18 19:00 07/01/18 19:49 Lovenox SUB-Q 100 mg 0700,1900 JT Administration Famotidine 10 mg 06/30/18 10:00 07/01/18 21:08 Pepcid IV 10 mg BID JT Administration Haloperidol Lactate 5 mg 06/30/18 18:47 Haldol IM Q6H PRN Agitation Hydrophilic Ointment 1 applic 06/30/18 21:49 Vaseline Lip Therapy TP Q2HR PRN Dry Lips Nicardipine HCl 50 mg/ Sodium 250 mls @ 25 mls/hr 06/30/18 06:00 04/11/19 01:53 Chloride IV 0 mg/hr TITR JT 0 mls/hr Titration Protocol 5 MG/HR Cefepime HCl 2 gm in 100 mls @ 200 mls/hr 06/30/18 16:00 07/01/18 19:46 Maxipime/Ns 2 Gm/100 Ml IV Infused Q8H JT Infusion Protocol Propofol 1,000 mg in 100 mls @ 3.266 mls/hr 06/30/18 22:00 07/02/18 00:00 Diprivan 10 Mg/Ml IV 20 mcg/kg/min TITR JT 13.063 mls/hr Titration Protocol 5 MCG/KG/MIN Vancomycin HCl 1,250 mg/ 275 mls @ 137.5 mls/hr 07/01/18 18:00 07/01/18 19:45 Sodium Chloride IV Infused Q12H JT Infusion Insulin Glargine 20 units 07/02/18 00:22 Lantus SUB-Q QHS JT Insulin Human Lispro 0 unit 07/02/18 01:00 Humalog SUB-Q Q6HR [facility] Protocol Ipratropium [place] 0.5 mg 06/30/18 08:00 07/01/18 19:57 Atrovent IH 0.5 mg Q6HRT JT Administration Levalbuterol HCl 0.63 mg 06/30/18 08:00 07/01/18 19:57 Xopenex IH 0.63 mg Q6HRT JT Administration Lorazepam 1 mg 06/30/18 17:46 07/01/18 23:10 Ativan IV 1 mg Q4H PRN Administration Anxiety Morphine Sulfate 2 mg 06/30/18 05:52 Morphine IV Q4H PRN Pain, Moderate (4-6) Multi-Ingred Cream/Lotion/Oil/Oint 1 applic 06/30/18 21:49 Artificial Tears Ophth Oint OU Q4HR PRN Dry Eye(s) Ondansetron HCl 4 mg 06/30/18 05:52 Zofran IV Q8H PRN Nausea And Vomiting Oxycodone/Acetaminophen 1 tab 06/30/18 05:52 Percocet 5/325 PO Q6H PRN Pain, Moderate (4-6) Sodium Chloride 10 ml 06/30/18 10:00 07/01/18 21:09 Sodium Chloride Flush Syringe 10 Ml IV 10 ml BID JT Administration Sodium Chloride 10 ml 06/30/18 05:52 Sodium Chloride Flush Syringe 10 Ml IV PRN PRN LINE FLUSH Zolpidem Tartrate 5 mg 06/30/18 05:52 Ambien PO QHS PRN Insomnia Nutrition/Malnutrition Assess - Dietary Evaluation Nutrition/Malnutrition Findings: Nutrition Notes Start: 06/30/18 09:49 Freq: Status: Active Protocol: Document 07/01/18 13:59 COLTON (Rec: 07/01/18 14:06 COLTON [id number] [email or web address]) Nutrition Notes Need for Assessment generated from: MD Order Initial or Follow up Reassessment Current Diagnosis Diabetes Other Pertinent Diagnosis DKA, Hypertensive emergency, acute resp failure, Pneu Current Diet NPO Labs/Tests BG 154 Pertinent Medications Propofol at 19.6ml/hr ( provides 517 kcal) D5W in 1/2NS + 20mEq KCl at 125ml/hr Height 6 ft 2 in Weight 97.8 kg [place] Body Weight (kg) 86.36 BMI 27.6 Weight change and time frame Current wt obtained from bed scale Weight Status Overweight Subjective/Other Information RD consulted to evaluate nutritional intake. Pt on vent support at this time. OGT placed, however, MD wants to hold off on TF until anion gap closes. Burn Absent Trauma Absent #1 Nutrition Diagnosis Inadequate oral intake Diagnosis Progress(for reassessment Continues documentation) Is patient on ventilator? Yes Is Patient Ambulatory and/or Out of Bed No REE-([facility]-confined to bed) [phone] Calculation Used for Recommendations [facility] Additional Notes Pro needs 1.2-2g/k-196g/ day Fluid needs 1ml/kcal Nutrition Intervention Change Diet Order: Advance diet when medically feasible Nutrition Support: Consider Glucerna 1.2 or Vital AF 1.2 if necessary Goal #1 Either advance diet or start EN support to meet nutrient needs Follow-Up By: 07/02/18 Additional Comments F/U: TF consult vs diet advancement, vent status
[2018-07-02] MEDS ORDERED: SODIUM BICARBONATE FEEDTUBE PRN ×2 (00:54→09:20)
[2018-07-02] MEDS ORDERED: PANCREAZE DR 10,500 UNIT FEEDTUBE PRN ×2 (00:54→09:20)
[2018-07-02] MEDS ORDERED: SIMPLE SYRUP FEEDTUBE PRN ×4 (00:54→09:20)
[2018-07-02] MEDS: DIPRIVAN 10 MG/ML 1,000 MG/100 ML BOTTLE IV SCH ×3 (01:55→08:46)
[2018-07-02] MEDS ORDERED: TYLENOL PO ONE (02:10)
[2018-07-02 02:12] LABS: Alanine Aminotransferase 11 units/L (7-56); Albumin 2.6 g/dL (3.9-5); BUN/Creatinine Ratio 17; Blood Urea Nitrogen 22 mg/dL (9-20); Calcium 8.7 mg/dL (8.4-10.2); Hemolysis Index 89
[2018-07-02] MEDS: MAXIPIME/NS 2 GM/100 ML 2 GM/100 ML BAG IV SCH ×3 (02:29→22:22)
[2018-07-02] MEDS: HumaLOG SUB-Q SCH ×4 (02:30→17:50)
[2018-07-02] MEDS: ATROVENT IH SCH ×4 (02:38→20:39)
[2018-07-02] MEDS: XOPENEX IH SCH ×4 (02:38→20:39)
--- NOTE | 2018-07-02 03:20 | XRay Report ---
PROCEDURE: XR CHEST 1V AP TECHNIQUE: 1 view HISTORY: follow up respiratory failure COMPARISONS: 06/30/2018 FINDINGS/ IMPRESSION: The endotracheal tube ends approximately 8.8 cm above the nyla. Stable since prior exam. The heart size is borderline. There are persistent patchy bilateral airspace opacities. No pleural effusion or pneumothorax is seen. This document is electronically signed by Rafal Titus MD., July 02 2018 03:17:40 AM ET
[2018-07-02 05:41] LABS: Albumin 1.1 g/dL (3.9-5); BUN/Creatinine Ratio 16; Blood Urea Nitrogen 22 mg/dL (9-20); Hemolysis Index 116
[2018-07-02 06:04] LABS: Calcium 7.2 mg/dL (8.4-10.2)
[2018-07-02] MEDS: LOVENOX SUB-Q SCH ×2 (06:39→22:02)
[2018-07-02] MEDS: VANCOMYCIN 1,250 MG in NACL 0.9% 250ML 250 ML IV SCH ×2 (06:40→17:42)
[2018-07-02 06:43] LABS: Alanine Aminotransferase 5 units/L (7-56)
--- NOTE | 2018-07-02 09:32 | Progress Note ---
Assessment and Plan Assessment and plan: 57-year-old man with past medical history of hypertension, CVA with left-sided weakness, type 2 diabetes, presented to the ER with shortness of breath. Per EMS his glucose was above 500. He was on oral hypoglycemics at home he was not on insulin. The patient also complained of polydipsia, polyuria, generalized weakness, and body aches Labs; show CO2 of 7, UDS negative. Chest x-ray; mild CHF, patchy disease in the lingula Diagnoses DKA severe metabolic acidosis Hypertensive urgency Sirs Tobacco abuse Acute respiratory failure on MV >96 hours Hyperlipidemia History of CVA with left-sided deficit Acute metabolic encephalopathy Pneumonia hypernatremia hypokalemia on pradaxa at home Plan Transitioned to sq insulins, now off bicarb ggt and insulin ggt cont mech vent per pulmonology sepsis/pna; abx per ID Will do tobacco cessation counseling when extubated, nicotine patches as needed free water replacement via G tube -echo shows EF 45, keep euvolemic, cardiology consult -replace K per feedtube -still on full dose lovenox, given prolonged travel, patient will benefit for CTA and LE dopplers Dvt ppx fully anticoagulated critical care time 31 minutes History Interval history: Review of systems Constitutional: febrile overnight, intubated and sedated last night after failing bipap x2 no diarrhea or vomiting no seizure Hospitalist Physical - Physical exam Narrative exam: General.: sedated HEENT: Moist mucous membranes, extraocular muscles intact, no lymphadenopathy Neck: supple Cardiac: S1-S2 heard Lungs: bilat crackles Abdomen: soft , nontender, nondistended, bowel sounds positive Extremities: no edema clubbing or cyanosis Skin: no rash or lesions Neurologic: Left hemiparesis, patient is intubated and sedated Psych: sedated - Constitutional Vitals: Temp Pulse Resp BP Pulse Ox 101.0 F H 95 H 24 119/83 98 07/02/18 03:48 07/02/18 08:00 07/02/18 08:00 07/02/18 08:00 07/02/18 08:00 General appearance: Present: no acute distress, other (sedated on vent) Results - Labs CBC & Chem 7: 07/01/18 05:03 07/02/18 14:44 Labs: Laboratory Last Values WBC 6.5 K/mm3 (4.5-11.0) 07/01/18 05:03 RBC 5.11 M/mm3 (3.65-5.03) H 07/01/18 05:03 Hgb 15.6 gm/dl (11.8-15.2) H 07/01/18 05:03 Hct 45.7 % (35.5-45.6) H 07/01/18 05:03 MCV 89 fl (84-94) 07/01/18 05:03 MCH 30 pg (28-32) 07/01/18 05:03 MCHC 34 % (32-34) 07/01/18 05:03 RDW 14.3 % (13.2-15.2) 07/01/18 05:03 Plt Count 160 K/mm3 (140-440) 07/01/18 05:03 Lymph % (Auto) 5.1 % (13.4-35.0) L 07/01/18 05:03 [place] % (Auto) 7.6 % (0.0-7.3) H 07/01/18 05:03 Eos % (Auto) 0.0 % (0.0-4.3) 07/01/18 05:03 Baso % (Auto) 0.1 % (0.0-1.8) 07/01/18 05:03 Lymph # 0.3 K/mm3 (1.2-5.4) L 07/01/18 05:03 [place] # 0.5 K/mm3 (0.0-0.8) 07/01/18 05:03 Eos # 0.0 K/mm3 (0.0-0.4) 07/01/18 05:03 Baso # 0.0 K/mm3 (0.0-0.1) 07/01/18 05:03 Seg Neutrophils % 87.2 % (40.0-70.0) H 07/01/18 05:03 Seg Neutrophils # 5.6 K/mm3 (1.8-7.7) 07/01/18 05:03 PT 14.7 Sec. (12.2-14.9) 06/30/18 03:50 INR 1.08 (0.87-1.13) 06/30/18 03:50 APTT 27.0 Sec. (24.2-36.6) 06/30/18 03:50 D-Dimer 849.06 ng/mlDDU (0-234) H 06/30/18 22:31 POC ABG pH 7.324 (7.35-7.45) L 07/02/18 04:34 POC ABG pCO2 30.5 (35-45) L 07/01/18 05:32 POC ABG pO2 72 (80-105) L 07/02/18 04:34 POC ABG HCO3 13.2 (22-26 mml/L) 07/02/18 04:34 POC ABG Total CO2 14 (23-27mmol/L) 07/02/18 04:34 POC ABG O2 Sat 93 07/02/18 04:34 POC ABG Base Excess -13 ((-2) - (+3)mmol/L) 07/02/18 04:34 FiO2 40 % 07/02/18 04:34 Sodium 132 mmol/L (137-145) L D 07/02/18 04:33 Potassium 3.2 mmol/L (3.6-5.0) L 07/02/18 04:33 Chloride 99.7 mmol/L (98-107) 07/02/18 04:33 Carbon Dioxide 13 mmol/L (22-30) L D 07/02/18 04:33 Anion Gap 23 mmol/L 07/02/18 04:33 BUN 22 mg/dL (9-20) H 07/02/18 04:33 Creatinine 1.4 mg/dL (0.8-1.5) 07/02/18 04:33 Estimated GFR > 60 ml/min 07/02/18 04:33 BUN/Creatinine Ratio 16 % 07/02/18 04:33 Glucose 224 mg/dL (75-100) H 07/02/18 04:33 POC Glucose 218 (70-105) H 07/02/18 05:21 Ketones Quantitative Moderate (Negative) 06/30/18 03:50 Lactic Acid 1.30 mmol/L (0.7-2.0) 07/01/18 11:31 Calcium 7.2 mg/dL (8.4-10.2) L D 07/02/18 04:33 Phosphorus 4.30 mg/dL (2.5-4.5) D 07/02/18 01:34 Magnesium 1.90 mg/dL (1.7-2.3) 07/01/18 15:42 Total Bilirubin 0.50 mg/dL (0.1-1.2) 07/02/18 04:33 AST 25 units/L (5-40) 07/02/18 04:33 ALT 5 units/L (7-56) L 07/02/18 04:33 Alkaline Phosphatase 88 units/L (35-129) 07/02/18 04:33 Total Creatine Kinase 66 units/L (55-170) 06/30/18 03:50 CK-MB (CK-2) 2.2 ng/mL (0.0-4.0) 06/30/18 03:50 CK-MB (CK-2) Rel Index 3.3 (0-4) 06/30/18 03:50 Troponin T < 0.010 ng/mL (0.00-0.029) 06/30/18 11:43 NT-Pro-B Natriuret Pep 3170 pg/mL (0-900) H 07/01/18 11:31 Total Protein 5.8 g/dL (6.3-8.2) L 07/02/18 04:33 Albumin 1.1 g/dL (3.9-5) L 07/02/18 04:33 Albumin/Globulin Ratio 0.2 % 07/02/18 04:33 Urine Color Straw (Yellow) 06/30/18 04:47 Urine Turbidity Slightly-cloudy (Clear) 06/30/18 04:47 Urine pH 5.0 (5.0-7.0) 06/30/18 04:47 Ur Specific [place] 1.028 (1.003-1.030) 06/30/18 04:47 Urine Protein 100 mg/dl mg/dL (Negative) 06/30/18 04:47 Urine Glucose (UA) >=500 mg/dL (Negative) 06/30/18 04:47 Urine Ketones 80 mg/dL (Negative) 06/30/18 04:47 Urine Blood Mod (Negative) 06/30/18 04:47 Urine Nitrite Neg (Negative) 06/30/18 04:47 Urine Bilirubin Neg (Negative) 06/30/18 04:47 Urine Urobilinogen < 2.0 mg/dL (<2.0) 06/30/18 04:47 Ur Leukocyte Esterase Neg (Negative) 06/30/18 04:47 Urine WBC (Auto) 1.0 /HPF (0.0-6.0) 06/30/18 04:47 Urine RBC (Auto) 10.0 /HPF (0.0-6.0) 06/30/18 04:47 U Epithel Cells (Auto) 1.0 /HPF (0-13.0) 06/30/18 04:47 Urine Bacteria (Auto) 1+ /HPF (Negative) 06/30/18 04:47 Urine Mucus Few /HPF 06/30/18 04:47 Urine Opiates Screen Presumptive negative 06/30/18 04:47 Urine Methadone Screen Presumptive negative 06/30/18 04:47 Ur Barbiturates Screen Presumptive negative 06/30/18 04:47 Ur Phencyclidine Scrn Presumptive negative 06/30/18 04:47 Ur Amphetamines Screen Presumptive negative 06/30/18 04:47 U Benzodiazepines Scrn Presumptive negative 06/30/18 04:47 Urine Cocaine Screen Presumptive negative 06/30/18 04:47 U Marijuana (THC) Screen Presumptive negative 06/30/18 04:47 Drugs of Abuse Note Disclamer 06/30/18 04:47 HIV 1&2 Antibody Rapid Non react (Non React) 07/02/18 04:33 HIV P24 Antigen Non react (Non React) 07/02/18 04:33 Active Medications - Current Medications Current Medications: Generic Name Dose Route Start Last Admin Trade Name Freq PRN Reason Stop Dose Admin Acetaminophen 650 mg 06/30/18 05:52 Tylenol PO Q4H PRN Pain MILD(1-3)/Fever >100.5/FUNEZ Acetaminophen 650 mg 07/01/18 03:35 07/01/18 04:27 Tylenol [place] 650 mg Q4H PRN Administration Fever >101 Lipase/Protease/Amylase 1 each 07/02/18 00:54 [place] 10,500 Unit FEEDTUBE PRN PRN For Clogged Feeding Tube Lipase/Protease/Amylase 1 each 07/02/18 09:20 [place] 10,500 Unit FEEDTUBE PRN PRN For Clogged Feeding Tube Dextrose 0 ml 06/30/18 04:20 D50w (25gm) Syringe IV PRN PRN Hypoglycemia Enoxaparin Sodium 100 mg 06/30/18 19:00 07/02/18 06:39 Lovenox SUB-Q 100 mg 0700,1900 JT Administration Famotidine 20 mg 07/02/18 10:00 Pepcid PO BID JT Haloperidol Lactate 5 mg 06/30/18 18:47 Haldol IM Q6H PRN Agitation Hydrophilic Ointment 1 applic 06/30/18 21:49 Vaseline Lip Therapy TP Q2HR PRN Dry Lips Nicardipine HCl 50 mg/ Sodium 250 mls @ 25 mls/hr 06/30/18 06:00 07/01/18 01:53 Chloride IV 0 mg/hr TITR JT 0 mls/hr Titration Protocol 5 MG/HR Cefepime HCl 2 gm in 100 mls @ 200 mls/hr 06/30/18 16:00 07/02/18 08:15 Maxipime/Ns 2 Gm/100 Ml IV 200 mls/hr Q8H JT Administration Protocol Propofol 1,000 mg in 100 mls @ 3.266 mls/hr 06/30/18 22:00 07/02/18 08:46 Diprivan 10 Mg/Ml IV 40 mcg/kg/min TITR JT 26.127 mls/hr Administration Protocol 5 MCG/KG/MIN Vancomycin HCl 1,250 mg/ 275 mls @ 137.5 mls/hr 07/01/18 18:00 07/02/18 06:40 Sodium Chloride IV 137.5 mls/hr Q12H JT Administration Insulin Glargine 20 units 07/02/18 00:22 07/02/18 02:29 Lantus SUB-Q 20 units QHS JT Administration Insulin Human Lispro 0 unit 07/02/18 01:00 07/02/18 06:39 Humalog SUB-Q 3 unit Q6HR JT Administration Protocol Ipratropium [place] 0.5 mg 06/30/18 08:00 07/02/18 08:20 Atrovent IH 0.5 mg Q6HRT JT Administration Levalbuterol HCl 0.63 mg 06/30/18 08:00 07/02/18 08:20 Xopenex IH 0.63 mg Q6HRT JT Administration Lorazepam 1 mg 06/30/18 17:46 07/01/18 23:10 Ativan IV 1 mg Q4H PRN Administration Anxiety Morphine Sulfate 2 mg 06/30/18 05:52 Morphine IV Q4H PRN Pain, Moderate (4-6) Multi-Ingred Cream/Lotion/Oil/Oint 1 applic 06/30/18 21:49 Artificial Tears Ophth Oint OU Q4HR PRN Dry Eye(s) Ondansetron HCl 4 mg 06/30/18 05:52 Zofran IV Q8H PRN Nausea And Vomiting Oxycodone/Acetaminophen 1 tab 06/30/18 05:52 Percocet 5/325 PO Q6H PRN Pain, Moderate (4-6) Potassium Chloride 40 meq 07/02/18 10:00 Potassium Chloride FEEDTUBE 07/02/18 14:01 Q4H JT Simple Syrup 15 ml 07/02/18 00:54 Simple Syrup FEEDTUBE PRN PRN Hypoglycemia Simple Syrup 30 ml 07/02/18 00:54 Simple Syrup FEEDTUBE PRN PRN Hypoglycemia Simple Syrup 15 ml 07/02/18 09:20 Simple Syrup FEEDTUBE PRN PRN Hypoglycemia Simple Syrup 30 ml 07/02/18 09:20 Simple Syrup FEEDTUBE PRN PRN Hypoglycemia Sodium Bicarbonate 325 mg 07/02/18 00:54 Sodium Bicarbonate FEEDTUBE PRN PRN For Clogged Feeding Tube Sodium Bicarbonate 325 mg 07/02/18 09:20 Sodium Bicarbonate FEEDTUBE PRN PRN For Clogged Feeding Tube Sodium Chloride 10 ml 06/30/18 10:00 07/01/18 21:09 Sodium Chloride Flush Syringe 10 Ml IV 10 ml BID JT Administration Sodium Chloride 10 ml 06/30/18 05:52 Sodium Chloride Flush Syringe 10 Ml IV PRN PRN LINE FLUSH Zolpidem Tartrate 5 mg 06/30/18 05:52 Ambien PO QHS PRN Insomnia Nutrition/Malnutrition Assess - Dietary Evaluation Nutrition/Malnutrition Findings: Nutrition Notes Start: 06/30/18 09:49 Freq: Status: Active Protocol: Document 07/02/18 09:15 COLTON (Rec: 07/02/18 09:20 COLTON [id number] [email or web address]) Nutrition Notes Need for Assessment generated from: MD Order Initial or Follow up Brief Note Height 6 ft 2 in Weight 97.8 kg [place] Body Weight (kg) 86.36 BMI 27.6 Subjective/Other Information RD consulted for TF. Pt remains on vent support. Nutrition Intervention Nutrition Support: Glucerna 1.2 at 75ml/hr with 120ml water flush q4h. Kcal 2,160 Protein (gm) 108 Carbohydrates (gm) 206 Fat (gm) 108 Fluid (mL) 1,449 Fiber (gm) 29 Follow-Up By: 07/05/18 Additional Comments F/U: new TF, vent status
--- NOTE | 2018-07-02 10:33 | Progress Note ---
Assessment and Plan Cultures: 07/01/2018 Blood culture: in progress 07/01/2018 urine culture: no growth in 24 hours 07/01/2018 tracheal aspirate culture: in process. Gram stain mixed. MRSA nasal PCR is negative. A/P: 57-year-old male with diabetes mellitus type 2, hypertension, hyperlipidemia, COPD was admitted to the hospital yesterday with shortness of breath. He was found to be in severe DKA. Also with: 1) Acute respiratory failure: on vent. 2) Bilateral pneumonia: Severe bilateral pneumonia. Hence, continue with IV cefepime and vancomycin. HIV negative. 3) Diabetic ketoacidosis: 4) SENG on admission: resolved. Recs: Continue IV Vancomycin and Cefepime (decrease dose to 2 gm q12 hrs), monitor renal function closely follow up blood and sputum cultures. If sputum culture is negative for MRSA, will d/c vancomycin Will follow. Romel Pagan MD [facility] C: [phone] O: [phone] F: [phone] Subjective Date of service: 07/02/18 Interval history: Fever +. Remains on the vent. Remains sedated. Objective - Exam Narrative Exam: Physical Exam: Constitutional: sedated, intubated Head, Ears, Nose: Normocephalic, atraumatic. External ears, nose normal Eyes: Conjunctivae/corneas clear. No icterus. No ptosis. Neck: Supple, no meningeal signs Oral: intubated Cardiovascular: S1, S2 normal Respiratory: Good air entry, bilaterally. No wheeze GI: Soft, non-tender; bowel sounds normal. No peritoneal signs Musculoskeletal: No pedal edema, no cyanosis. Skin: No rash or abscess Hem/Lymphatic: No palpable cervical or supraclavicular nodes. No lymphangitis Psych: no agitation Neurological: sedated, intubated, on vent - Constitutional Vitals: Vital Signs Temp Pulse Resp BP Pulse Ox 101.0 F H 95 H 24 119/83 98 07/02/18 03:48 07/02/18 08:00 07/02/18 08:00 07/02/18 08:00 07/02/18 08:00 Temperature -Last 24 Hours Temperature 101.0 F Temperature 103.1 F Temperature 100.4 F Temperature 98.6 F Temperature 99.5 F Temperature 102.5 F Temperature 100.1 F - Labs CBC & Chem 7: 07/01/18 05:03 07/02/18 04:33 Labs: Abnormal lab results 07/01/18 07/01/18 07/01/18 Range/Units 06:59 08:20 09:23 POC ABG pH (7.35-7.45) POC ABG pO2 (80-105) Sodium (137-145) mmol/L Potassium (3.6-5.0) mmol/L Chloride (98-107) mmol/L Carbon Dioxide (22-30) mmol/L BUN (9-20) mg/dL Glucose (75-100) mg/dL POC Glucose 164 H 135 H 142 H (70-105) Calcium (8.4-10.2) mg/dL Phosphorus (2.5-4.5) mg/dL ALT (7-56) units/L NT-Pro-B Natriuret Pep (0-900) pg/mL Total Protein (6.3-8.2) g/dL Albumin (3.9-5) g/dL 07/01/18 07/01/18 07/01/18 Range/Units 10:09 11:13 11:31 POC ABG pH (7.35-7.45) POC ABG pO2 (80-105) Sodium (137-145) mmol/L Potassium (3.6-5.0) mmol/L Chloride (98-107) mmol/L Carbon Dioxide (22-30) mmol/L BUN (9-20) mg/dL Glucose (75-100) mg/dL POC Glucose 170 H 163 H (70-105) Calcium (8.4-10.2) mg/dL Phosphorus (2.5-4.5) mg/dL ALT (7-56) units/L NT-Pro-B Natriuret Pep 3170 H (0-900) pg/mL Total Protein (6.3-8.2) g/dL Albumin (3.9-5) g/dL 07/01/18 07/01/18 07/01/18 Range/Units 12:09 13:12 15:42 POC ABG pH (7.35-7.45) POC ABG pO2 (80-105) Sodium (137-145) mmol/L Potassium (3.6-5.0) mmol/L Chloride 110.8 H (98-107) mmol/L Carbon Dioxide 19 L (22-30) mmol/L BUN 22 H (9-20) mg/dL Glucose 157 H (75-100) mg/dL POC Glucose 185 H 193 H (70-105) Calcium (8.4-10.2) mg/dL Phosphorus 0.70 L* (2.5-4.5) mg/dL ALT (7-56) units/L NT-Pro-B Natriuret Pep (0-900) pg/mL Total Protein (6.3-8.2) g/dL Albumin (3.9-5) g/dL 07/01/18 07/01/18 07/01/18 Range/Units 15:44 17:18 18:15 POC ABG pH (7.35-7.45) POC ABG pO2 (80-105) Sodium (137-145) mmol/L Potassium (3.6-5.0) mmol/L Chloride (98-107) mmol/L Carbon Dioxide (22-30) mmol/L BUN (9-20) mg/dL Glucose (75-100) mg/dL POC Glucose 189 H 167 H 130 H (70-105) Calcium (8.4-10.2) mg/dL Phosphorus (2.5-4.5) mg/dL ALT (7-56) units/L NT-Pro-B Natriuret Pep (0-900) pg/mL Total Protein (6.3-8.2) g/dL Albumin (3.9-5) g/dL 07/01/18 07/01/18 07/01/18 Range/Units 19:13 20:02 21:11 POC ABG pH (7.35-7.45) POC ABG pO2 (80-105) Sodium (137-145) mmol/L Potassium (3.6-5.0) mmol/L Chloride (98-107) mmol/L Carbon Dioxide (22-30) mmol/L BUN (9-20) mg/dL Glucose (75-100) mg/dL POC Glucose 129 H 147 H 220 H (70-105) Calcium (8.4-10.2) mg/dL Phosphorus (2.5-4.5) mg/dL ALT (7-56) units/L NT-Pro-B Natriuret Pep (0-900) pg/mL Total Protein (6.3-8.2) g/dL Albumin (3.9-5) g/dL 07/01/18 07/01/18 07/02/18 Range/Units 22:12 23:14 01:34 POC ABG pH (7.35-7.45) POC ABG pO2 (80-105) Sodium (137-145) mmol/L Potassium (3.6-5.0) mmol/L Chloride (98-107) mmol/L Carbon Dioxide 20 L (22-30) mmol/L BUN 22 H (9-20) mg/dL Glucose 157 H (75-100) mg/dL POC Glucose 219 H 122 H (70-105) Calcium (8.4-10.2) mg/dL Phosphorus (2.5-4.5) mg/dL ALT (7-56) units/L NT-Pro-B Natriuret Pep (0-900) pg/mL Total Protein (6.3-8.2) g/dL Albumin 2.6 L (3.9-5) g/dL 07/02/18 07/02/18 07/02/18 Range/Units 02:26 04:33 04:34 POC ABG pH 7.324 L (7.35-7.45) POC ABG pO2 72 L (80-105) Sodium 132 L D (137-145) mmol/L Potassium 3.2 L (3.6-5.0) mmol/L Chloride (98-107) mmol/L Carbon Dioxide 13 L D (22-30) mmol/L BUN 22 H (9-20) mg/dL Glucose 224 H (75-100) mg/dL POC Glucose 282 H (70-105) Calcium 7.2 L D (8.4-10.2) mg/dL Phosphorus (2.5-4.5) mg/dL ALT 5 L (7-56) units/L NT-Pro-B Natriuret Pep (0-900) pg/mL Total Protein 5.8 L (6.3-8.2) g/dL Albumin 1.1 L (3.9-5) g/dL 07/02/18 Range/Units 05:21 POC ABG pH (7.35-7.45) POC ABG pO2 (80-105) Sodium (137-145) mmol/L Potassium (3.6-5.0) mmol/L Chloride (98-107) mmol/L Carbon Dioxide (22-30) mmol/L BUN (9-20) mg/dL Glucose (75-100) mg/dL POC Glucose 218 H (70-105) Calcium (8.4-10.2) mg/dL Phosphorus (2.5-4.5) mg/dL ALT (7-56) units/L NT-Pro-B Natriuret Pep (0-900) pg/mL Total Protein (6.3-8.2) g/dL Albumin (3.9-5) g/dL - Imaging and cardiology Chest x-ray: report reviewed, image reviewed (bilateral pneumonia +)
[2018-07-02] MEDS ORDERED: VERSED IV ONE (11:00)
[2018-07-02] MEDS ORDERED: SUBLIMAZE IV ONE (11:00)
[2018-07-02] MEDS: PEPCID PO SCH ×2 (11:25→22:22)
[2018-07-02] MEDS: POTASSIUM CHLORIDE FEEDTUBE SCH ×3 (11:25→17:41)
[2018-07-02] MEDS: SODIUM CHLORIDE FLUSH SYRINGE 10 ML IV SCH ×2 (11:26→22:23)
[2018-07-02] MEDS ORDERED: LANTUS SUB-Q ONE (12:00)
[2018-07-02] MEDS: DEXMEDETOMIDINE 400 MCG in NACL 0.9% 100 ML IV SCH ×3 (12:12→23:18)
--- NOTE | 2018-07-02 12:59 | Progress Note ---
Assessment and Plan 57 y/o male presents with shortness of breath, found to have pneumonia and DKA with structural evidence of COPD 1. Insulin drip off, but patient still with acidemia. could be from [facility]. Agree with lantus but added 5 additional units. 2. Will attempt to feed. 3. Patient continues to be febrile but no cultures have been drawn. Cultures are now pending. Also given recent triglyceride level, need to be concerned about pancreatitis. Will check Amylase Lipase. Continue abx therapy. 4. Wean sedation to RASS of 0-to Minus 2 5. Echo with diastolic dysfunction and mild systolic dysfunction 6. Stop Diprovan and place on Precedex. Gave some Fentanyl and Versed in the interim Long discussion with Daughter at bedside who is in nursing school. Explained the severity of illness based on systems. She also expresses understanding of this. Patient is also vet but she does not know his service connection status. He is from [place] and she would like to get him back there. Not stable enough for transport at this time. CCT 31 minutes. Subjective Date of service: 07/02/18 Interval history: Fever again last nigh causing sinus tach. Resolution of sinus tach once fever addressed. ID following in regards to pneumonia. This am Triglycerides elevated at 1100 so Diprovan stopped and sedation has been switched. Daughter from [place] is here. She is currently in nursing school. Objective Vital Signs - 12hr 07/02/18 07/02/18 07/02/18 01:00 01:15 01:31 Temperature Pulse Rate 137 H 145 H 159 H Pulse Rate [ Anterior Bilateral Throughout] Respiratory 22 26 H 43 H Rate Respiratory Rate [Anterior Bilateral Throughout] Blood Pressure 180/79 174/81 139/100 O2 Sat by Pulse 96 98 97 Oximetry 07/02/18 07/02/18 07/02/18 01:41 01:45 01:51 Temperature Pulse Rate 164 H 168 H 166 H Pulse Rate [ Anterior Bilateral Throughout] Respiratory 47 H 47 H 45 H Rate Respiratory Rate [Anterior Bilateral Throughout] Blood Pressure 139/100 139/100 139/100 O2 Sat by Pulse 98 96 92 Oximetry 07/02/18 07/02/18 07/02/18 01:55 02:01 02:05 Temperature Pulse Rate 164 H 162 H 162 H Pulse Rate [ Anterior Bilateral Throughout] Respiratory 28 H 25 H 23 Rate Respiratory Rate [Anterior Bilateral Throughout] Blood Pressure 155/72 155/72 129/75 O2 Sat by Pulse 97 97 98 Oximetry 07/02/18 07/02/18 07/02/18 02:09 02:11 02:15 Temperature 103.1 F H Pulse Rate 158 H 158 H Pulse Rate [ Anterior Bilateral Throughout] Respiratory 34 H 41 H Rate Respiratory Rate [Anterior Bilateral Throughout] Blood Pressure 129/75 129/75 O2 Sat by Pulse 99 98 Oximetry 07/02/18 07/02/18 07/02/18 02:21 02:25 02:31 Temperature Pulse Rate 157 H 157 H 158 H Pulse Rate [ Anterior Bilateral Throughout] Respiratory 22 21 47 H Rate Respiratory Rate [Anterior Bilateral Throughout] Blood Pressure 128/47 128/47 128/47 O2 Sat by Pulse 98 98 94 Oximetry 07/02/18 07/02/18 07/02/18 02:35 02:38 02:41 Temperature Pulse Rate 154 H 152 H Pulse Rate [ 157 H Anterior Bilateral Throughout] Respiratory 41 H 44 H Rate Respiratory Rate [Anterior Bilateral Throughout] Blood Pressure 141/76 141/76 O2 Sat by Pulse 95 96 Oximetry 07/02/18 07/02/18 07/02/18 02:45 02:51 02:55 Temperature Pulse Rate 151 H 148 H 144 H Pulse Rate [ Anterior Bilateral Throughout] Respiratory 41 H 36 H 19 Rate Respiratory Rate [Anterior Bilateral Throughout] Blood Pressure 141/76 128/47 128/47 O2 Sat by Pulse 94 93 98 Oximetry 07/02/18 07/02/18 07/02/18 03:00 03:05 03:11 Temperature Pulse Rate 143 H 143 H 141 H Pulse Rate [ Anterior Bilateral Throughout] Respiratory 40 H 35 H 34 H Rate Respiratory Rate [Anterior Bilateral Throughout] Blood Pressure 163/67 137/71 137/71 O2 Sat by Pulse 97 95 93 Oximetry 07/02/18 07/02/18 07/02/18 03:15 03:21 03:25 Temperature Pulse Rate 139 H 137 H 136 H Pulse Rate [ Anterior Bilateral Throughout] Respiratory 30 H 30 H 28 H Rate Respiratory Rate [Anterior Bilateral Throughout] Blood Pressure 137/71 163/67 163/67 O2 Sat by Pulse 92 93 93 Oximetry 07/02/18 07/02/18 07/02/18 03:30 03:35 03:41 Temperature Pulse Rate 132 H 133 H 130 H Pulse Rate [ Anterior Bilateral Throughout] Respiratory 29 H 28 H 28 H Rate Respiratory Rate [Anterior Bilateral Throughout] Blood Pressure 105/57 105/57 105/57 O2 Sat by Pulse 92 92 92 Oximetry 07/02/18 07/02/18 07/02/18 03:45 03:48 03:51 Temperature 101.0 F H Pulse Rate 129 H 127 H Pulse Rate [ Anterior Bilateral Throughout] Respiratory 28 H 28 H Rate Respiratory Rate [Anterior Bilateral Throughout] Blood Pressure 98/56 98/56 O2 Sat by Pulse 92 93 Oximetry 07/02/18 07/02/18 07/02/18 03:55 04:00 04:05 Temperature Pulse Rate 126 H 123 H 123 H Pulse Rate [ Anterior Bilateral Throughout] Respiratory 28 H 26 H 27 H Rate Respiratory Rate [Anterior Bilateral Throughout] Blood Pressure 98/56 105/57 105/57 O2 Sat by Pulse 93 93 94 Oximetry 07/02/18 07/02/18 07/02/18 04:11 04:15 04:21 Temperature Pulse Rate 123 H 120 H 119 H Pulse Rate [ Anterior Bilateral Throughout] Respiratory 27 H 25 H 26 H Rate Respiratory Rate [Anterior Bilateral Throughout] Blood Pressure 105/57 95/56 95/56 O2 Sat by Pulse 93 98 94 Oximetry 07/02/18 07/02/18 07/02/18 04:25 04:30 04:31 Temperature Pulse Rate 113 H 112 H 118 H Pulse Rate [ Anterior Bilateral Throughout] Respiratory 29 H 26 H Rate Respiratory Rate [Anterior Bilateral Throughout] Blood Pressure 95/56 118/70 95/56 O2 Sat by Pulse 93 98 94 Oximetry 07/02/18 07/02/18 07/02/18 04:35 04:41 04:45 Temperature Pulse Rate 112 H 114 H 115 H Pulse Rate [ Anterior Bilateral Throughout] Respiratory 27 H 27 H 27 H Rate Respiratory Rate [Anterior Bilateral Throughout] Blood Pressure 118/70 118/70 118/70 O2 Sat by Pulse 97 97 97 Oximetry 07/02/18 07/02/18 07/02/18 04:50 04:55 05:00 Temperature Pulse Rate 116 H 115 H 113 H Pulse Rate [ Anterior Bilateral Throughout] Respiratory 27 H 26 H 27 H Rate Respiratory Rate [Anterior Bilateral Throughout] Blood Pressure 128/73 128/73 109/63 O2 Sat by Pulse 95 95 95 Oximetry 07/02/18 07/02/18 07/02/18 05:05 05:11 05:15 Temperature Pulse Rate 112 H 112 H 111 H Pulse Rate [ Anterior Bilateral Throughout] Respiratory 26 H 26 H 26 H Rate Respiratory Rate [Anterior Bilateral Throughout] Blood Pressure 109/63 109/63 104/61 O2 Sat by Pulse 95 96 94 Oximetry 07/02/18 07/02/18 07/02/18 05:21 05:25 05:30 Temperature Pulse Rate 110 H 109 H 108 H Pulse Rate [ Anterior Bilateral Throughout] Respiratory 25 H 26 H 26 H Rate Respiratory Rate [Anterior Bilateral Throughout] Blood Pressure 128/73 128/73 106/59 O2 Sat by Pulse 95 95 94 Oximetry 07/02/18 07/02/18 07/02/18 05:35 05:41 05:45 Temperature Pulse Rate 108 H 107 H 106 H Pulse Rate [ Anterior Bilateral Throughout] Respiratory 25 H 25 H 25 H Rate Respiratory Rate [Anterior Bilateral Throughout] Blood Pressure 106/59 106/59 97/61 O2 Sat by Pulse 95 95 95 Oximetry 07/02/18 07/02/18 07/02/18 05:51 05:55 06:00 Temperature Pulse Rate 105 H 105 H 103 H Pulse Rate [ Anterior Bilateral Throughout] Respiratory 24 25 H 25 H Rate Respiratory Rate [Anterior Bilateral Throughout] Blood Pressure 97/61 97/61 99/62 O2 Sat by Pulse 96 96 95 Oximetry 07/02/18 07/02/18 07/02/18 06:05 06:11 06:15 Temperature Pulse Rate 101 H 106 H 104 H Pulse Rate [ Anterior Bilateral Throughout] Respiratory 24 24 24 Rate Respiratory Rate [Anterior Bilateral Throughout] Blood Pressure 99/62 99/62 99/62 O2 Sat by Pulse 95 97 99 Oximetry 07/02/18 07/02/18 07/02/18 06:21 06:25 06:30 Temperature Pulse Rate 100 H 100 H 98 H Pulse Rate [ Anterior Bilateral Throughout] Respiratory 24 24 24 Rate Respiratory Rate [Anterior Bilateral Throughout] Blood Pressure 150/91 97/61 116/72 O2 Sat by Pulse 98 99 97 Oximetry 07/02/18 07/02/18 07/02/18 06:35 06:41 06:45 Temperature Pulse Rate 98 H 98 H 98 H Pulse Rate [ Anterior Bilateral Throughout] Respiratory 24 24 24 Rate Respiratory Rate [Anterior Bilateral Throughout] Blood Pressure 116/72 116/72 112/70 O2 Sat by Pulse 98 98 97 Oximetry 07/02/18 07/02/18 07/02/18 06:51 06:55 07:00 Temperature Pulse Rate 98 H 98 H 99 H Pulse Rate [ Anterior Bilateral Throughout] Respiratory 24 24 24 Rate Respiratory Rate [Anterior Bilateral Throughout] Blood Pressure 112/70 112/70 113/68 O2 Sat by Pulse 98 98 100 Oximetry 07/02/18 07/02/18 07/02/18 07:05 08:00 12:00 Temperature Pulse Rate 98 H 95 H 112 H Pulse Rate [ 95 H Anterior Bilateral Throughout] Respiratory 24 Rate Respiratory 24 Rate [Anterior Bilateral Throughout] Blood Pressure 113/68 119/83 138/79 O2 Sat by Pulse 98 98 100 Oximetry Constitutional: other (sedated on vent but does appears uncomfortable) Eyes: non-icteric ENT: other (orally intubated) Neck: supple Effort: mildly labored Ascultation: Left: rhonchi (base), Bilateral: diminished breath sounds Percussion: Bilateral: not dull Cardiovascular: regular rate and rhythm Gastrointestinal: normoactive bowel sounds CBC and BMP: 07/01/18 05:03 07/02/18 04:33 ABG, PT/INR, D-dimer: ABG POC ABG pH 7.324 (7.35-7.45) L 07/02/18 04:34 POC ABG pCO2 30.5 (35-45) L 07/01/18 05:32 POC ABG pO2 72 (80-105) L 07/02/18 04:34 POC ABG HCO3 13.2 (22-26 mml/L) 07/02/18 04:34 POC ABG Total CO2 14 (23-27mmol/L) 07/02/18 04:34 POC ABG O2 Sat 93 07/02/18 04:34 PT/INR, D-dimer PT 14.7 Sec. (12.2-14.9) 06/30/18 03:50 INR 1.08 (0.87-1.13) 06/30/18 03:50 D-Dimer 849.06 ng/mlDDU (0-234) H 06/30/18 22:31 Abnormal lab findings: Abnormal Labs 06/30/18 06/30/18 06/30/18 03:47 03:50 03:50 RBC 5.44 H Hgb 16.5 H Hct 51.1 H Lymph % (Auto) 5.8 L [place] % (Auto) 9.7 H Lymph # 0.5 L [place] # 0.9 H Seg Neutrophils % 84.1 H D-Dimer POC ABG pH POC ABG pCO2 POC ABG pO2 Sodium 133 L Potassium 5.4 H Chloride 94.8 L Carbon Dioxide 5 L* BUN 23 H Glucose 556 H* POC Glucose 360 H Calcium Phosphorus ALT NT-Pro-B Natriuret Pep Total Protein 8.3 H Albumin 3.7 L Triglycerides 06/30/18 06/30/18 06/30/18 04:23 04:43 05:45 RBC Hgb Hct Lymph % (Auto) [place] % (Auto) Lymph # [place] # Seg Neutrophils % D-Dimer POC ABG pH 7.065 L POC ABG pCO2 POC ABG pO2 Sodium Potassium Chloride Carbon Dioxide BUN Glucose POC Glucose 384 H 382 H Calcium Phosphorus ALT NT-Pro-B Natriuret Pep Total Protein Albumin Triglycerides 06/30/18 06/30/18 06/30/18 06:43 06:44 07:55 RBC Hgb Hct Lymph % (Auto) [place] % (Auto) Lymph # [place] # Seg Neutrophils % D-Dimer POC ABG pH POC ABG pCO2 POC ABG pO2 Sodium Potassium Chloride Carbon Dioxide 4 L* BUN 22 H Glucose 511 H* POC Glucose 373 H 386 H Calcium Phosphorus ALT NT-Pro-B Natriuret Pep Total Protein Albumin Triglycerides 06/30/18 06/30/18 06/30/18 08:54 09:02 09:47 RBC Hgb Hct Lymph % (Auto) [place] % (Auto) Lymph # [place] # Seg Neutrophils % D-Dimer POC ABG pH POC ABG pCO2 POC ABG pO2 Sodium 134 L Potassium 5.4 H Chloride Carbon Dioxide 6 L* BUN 23 H Glucose 515 H* POC Glucose 386 H 380 H Calcium Phosphorus ALT NT-Pro-B Natriuret Pep Total Protein Albumin Triglycerides 06/30/18 06/30/18 06/30/18 11:01 11:43 12:08 RBC Hgb Hct Lymph % (Auto) [place] % (Auto) Lymph # [place] # Seg Neutrophils % D-Dimer POC ABG pH POC ABG pCO2 POC ABG pO2 Sodium Potassium 5.1 H Chloride Carbon Dioxide 7 L* BUN 23 H Glucose 400 H POC Glucose 322 H 296 H Calcium Phosphorus ALT NT-Pro-B Natriuret Pep Total Protein Albumin Triglycerides 06/30/18 06/30/1806/30/19 12:45 14:12 15:11 RBC Hgb Hct Lymph % (Auto) [place] % (Auto) Lymph # [place] # Seg Neutrophils % D-Dimer POC ABG pH POC ABG pCO2 POC ABG pO2 Sodium Potassium Chloride Carbon Dioxide BUN Glucose POC Glucose 335 H 284 H 260 H Calcium Phosphorus ALT NT-Pro-B Natriuret Pep Total Protein Albumin Triglycerides 06/30/18 06/30/18 06/30/18 15:50 16:56 18:01 RBC Hgb Hct Lymph % (Auto) [place] % (Auto) Lymph # [place] # Seg Neutrophils % D-Dimer POC ABG pH POC ABG pCO2 POC ABG pO2 Sodium Potassium Chloride Carbon Dioxide BUN Glucose POC Glucose 287 H 301 H 273 H Calcium Phosphorus ALT NT-Pro-B Natriuret Pep Total Protein Albumin Triglycerides 06/30/18 06/30/18 06/30/18 19:35 19:55 21:28 RBC Hgb Hct Lymph % (Auto) [place] % (Auto) Lymph # [place] # Seg Neutrophils % D-Dimer POC ABG pH 7.244 L POC ABG pCO2 POC ABG pO2 Sodium Potassium Chloride 110.4 H Carbon Dioxide 12 L BUN Glucose 268 H POC Glucose 270 H Calcium Phosphorus ALT NT-Pro-B Natriuret Pep Total Protein Albumin Triglycerides 06/30/18 06/30/18 06/30/18 22:12 22:31 22:52 RBC Hgb Hct Lymph % (Auto) [place] % (Auto) Lymph # [place] # Seg Neutrophils % D-Dimer 849.06 H POC ABG pH 7.214 L POC ABG pCO2 POC ABG pO2 Sodium Potassium Chloride Carbon Dioxide BUN Glucose POC Glucose 242 H Calcium Phosphorus ALT NT-Pro-B Natriuret Pep Total Protein Albumin Triglycerides 07/01/18 07/01/18 07/01/18 00:48 02:05 03:03 RBC Hgb Hct Lymph % (Auto) [place] % (Auto) Lymph # [place] # Seg Neutrophils % D-Dimer POC ABG pH POC ABG pCO2 POC ABG pO2 Sodium Potassium Chloride Carbon Dioxide BUN Glucose POC Glucose 401 H 156 H 122 H Calcium Phosphorus ALT NT-Pro-B Natriuret Pep Total Protein Albumin Triglycerides 07/01/18 07/01/18 07/01/18 04:04 05:03 05:03 RBC 5.11 H Hgb 15.6 H Hct 45.7 H Lymph % (Auto) 5.1 L [place] % (Auto) 7.6 H Lymph # 0.3 L [place] # Seg Neutrophils % 87.2 H D-Dimer POC ABG pH POC ABG pCO2 POC ABG pO2 Sodium Potassium Chloride 111.1 H Carbon Dioxide 16 L BUN Glucose 154 H POC Glucose 120 H Calcium Phosphorus ALT NT-Pro-B Natriuret Pep Total Protein Albumin Triglycerides 07/01/18 07/01/18 07/01/18 05:09 05:32 06:02 RBC Hgb Hct Lymph % (Auto) [place] % (Auto) Lymph # [place] # Seg Neutrophils % D-Dimer POC ABG pH POC ABG pCO2 30.5 L POC ABG pO2 172 H Sodium Potassium Chloride Carbon Dioxide BUN Glucose POC Glucose 137 H 149 H Calcium Phosphorus ALT NT-Pro-B Natriuret Pep Total Protein Albumin Triglycerides 07/01/18 07/01/18 07/01/18 06:59 08:20 09:23 RBC Hgb Hct Lymph % (Auto) [place] % (Auto) Lymph # [place] # Seg Neutrophils % D-Dimer POC ABG pH POC ABG pCO2 POC ABG pO2 Sodium Potassium Chloride Carbon Dioxide BUN Glucose POC Glucose 164 H 135 H 142 H Calcium Phosphorus ALT NT-Pro-B Natriuret Pep Total Protein Albumin Triglycerides 07/01/18 07/01/18 07/01/18 10:09 11:13 11:31 RBC Hgb Hct Lymph % (Auto) [place] % (Auto) Lymph # [place] # Seg Neutrophils % D-Dimer POC ABG pH POC ABG pCO2 POC ABG pO2 Sodium Potassium Chloride Carbon Dioxide BUN Glucose POC Glucose 170 H 163 H Calcium Phosphorus ALT NT-Pro-B Natriuret Pep 3170 H Total Protein Albumin Triglycerides 07/01/18 07/01/18 07/01/18 12:09 13:12 15:42 RBC Hgb Hct Lymph % (Auto) [place] % (Auto) Lymph # [place] # Seg Neutrophils % D-Dimer POC ABG pH POC ABG pCO2 POC ABG pO2 Sodium Potassium Chloride 110.8 H Carbon Dioxide 19 L BUN 22 H Glucose 157 H POC Glucose 185 H 193 H Calcium Phosphorus 0.70 L* ALT NT-Pro-B Natriuret Pep Total Protein Albumin Triglycerides 07/01/18 07/01/18 07/01/18 15:44 17:18 18:15 RBC Hgb Hct Lymph % (Auto) [place] % (Auto) Lymph # [place] # Seg Neutrophils % D-Dimer POC ABG pH POC ABG pCO2 POC ABG pO2 Sodium Potassium Chloride Carbon Dioxide BUN Glucose POC Glucose 189 H 167 H 130 H Calcium Phosphorus ALT NT-Pro-B Natriuret Pep Total Protein Albumin Triglycerides 07/01/18 07/01/18 07/01/18 19:13 20:02 21:11 RBC Hgb Hct Lymph % (Auto) [place] % (Auto) Lymph # [place] # Seg Neutrophils % D-Dimer POC ABG pH POC ABG pCO2 POC ABG pO2 Sodium Potassium Chloride Carbon Dioxide BUN Glucose POC Glucose 129 H 147 H 220 H Calcium Phosphorus ALT NT-Pro-B Natriuret Pep Total Protein Albumin Triglycerides 07/01/18 07/01/18 07/02/18 22:12 23:14 01:34 RBC Hgb Hct Lymph % (Auto) [place] % (Auto) Lymph # [place] # Seg Neutrophils % D-Dimer POC ABG pH POC ABG pCO2 POC ABG pO2 Sodium Potassium Chloride Carbon Dioxide 20 L BUN 22 H Glucose 157 H POC Glucose 219 H 122 H Calcium Phosphorus ALT NT-Pro-B Natriuret Pep Total Protein Albumin 2.6 L Triglycerides 07/02/18 07/02/18 07/02/18 02:26 04:32 04:33 RBC Hgb Hct Lymph % (Auto) [place] % (Auto) Lymph # [place] # Seg Neutrophils % D-Dimer POC ABG pH POC ABG pCO2 POC ABG pO2 Sodium 132 L D Potassium 3.2 L Chloride Carbon Dioxide 13 L D BUN 22 H Glucose 224 H POC Glucose 282 H Calcium 7.2 L D Phosphorus ALT 5 L NT-Pro-B Natriuret Pep Total Protein 5.8 L Albumin 1.1 L Triglycerides 1153 H 07/02/18 07/02/18 07/02/18 04:34 05:21 12:28 RBC Hgb Hct Lymph % (Auto) [place] % (Auto) Lymph # [place] # Seg Neutrophils % D-Dimer POC ABG pH 7.324 L POC ABG pCO2 POC ABG pO2 72 L Sodium Potassium Chloride Carbon Dioxide BUN Glucose POC Glucose 218 H 153 H Calcium Phosphorus ALT NT-Pro-B Natriuret Pep Total Protein Albumin Triglycerides
[2018-07-02] MEDS: TYLENOL PR PRN (13:00)
[2018-07-02 15:22] LABS: Albumin 2.4 g/dL (3.9-5); Calcium 7.8 mg/dL (8.4-10.2)
[2018-07-02] MEDS: ATIVAN IV PRN (17:55)
[2018-07-02] MEDS: PERCOCET 5/325 PO PRN (17:56)
[2018-07-02 19:39] LABS: Albumin 1.8 g/dL (3.9-5); BUN/Creatinine Ratio 18; Blood Urea Nitrogen 25 mg/dL (9-20); Calcium 7.5 mg/dL (8.4-10.2); Hemolysis Index 297
[2018-07-02 19:41] LABS: Alanine Aminotransferase 12 units/L (7-56)
[2018-07-03] MEDS: HumaLOG SUB-Q SCH ×5 (00:59→23:58)
[2018-07-03] MEDS: ATROVENT IH SCH ×4 (02:28→20:03)
[2018-07-03] MEDS: XOPENEX IH SCH ×4 (02:28→20:03)
--- NOTE | 2018-07-03 02:54 | XRay Report ---
PROCEDURE: XR CHEST 1V AP TECHNIQUE: PA and lateral chest radiographs were obtained. HISTORY: follow up respiratory failure COMPARISONS: None. FINDINGS: Heart: Normal. Mediastinum/Vessels: Normal. Lungs/Pleural space: Moderate vascular congestion. Slight infiltrate left lower lung. No effusion or pneumothorax. Bony thorax: No acute osseous abnormality. The endotracheal tube ends 4 cm above the nyla. A nasogastric tube ends below the hemidiaphragms IMPRESSION: Moderate vascular congestion with slight infiltrate in the left lower lung. The endotrac heal tube and nasogastric tube are properly positioned.. This document is electronically signed by Jodee Ocampo DO., July 03 2018 02:53:12 AM ET
[2018-07-03] MEDS: DEXMEDETOMIDINE 400 MCG in NACL 0.9% 100 ML IV SCH ×5 (03:00→23:24)
[2018-07-03] MEDS ORDERED: NORMODYNE IV ONE (05:28)
[2018-07-03] MEDS ORDERED: TYLENOL PO PRN (05:31)
[2018-07-03] MEDS: VANCOMYCIN 1,250 MG in NACL 0.9% 250ML 250 ML IV SCH ×2 (05:51→18:32)
[2018-07-03] MEDS: MORPHINE IV PRN (07:33)
[2018-07-03] MEDS: APRESOLINE IV PRN ×2 (08:05→18:32)
[2018-07-03] MEDS: ATIVAN IV PRN (08:17)
[2018-07-03] MEDS: NORVASC PO SCH (08:59)
[2018-07-03] MEDS: LOPRESSOR PO SCH ×2 (09:00→22:15)
[2018-07-03] MEDS: MAXIPIME/NS 2 GM/100 ML 2 GM/100 ML BAG IV SCH ×2 (09:01→22:15)
[2018-07-03] MEDS: LOVENOX SUB-Q SCH ×2 (09:01→18:32)
[2018-07-03] MEDS: SODIUM CHLORIDE FLUSH SYRINGE 10 ML IV SCH (09:03)
[2018-07-03] MEDS: PEPCID PO SCH ×2 (09:05→22:15)
[2018-07-03] MEDS: POTASSIUM CHLORIDE FEEDTUBE SCH (09:12)
[2018-07-03] MEDS: PERCOCET 5/325 PO PRN (09:25)
[2018-07-03] MEDS ORDERED: LANTUS SUB-Q ONE (10:00)
--- NOTE | 2018-07-03 10:55 | Progress Note ---
Assessment and Plan 57 y/o male presents with shortness of breath, found to have pneumonia and DKA with structural evidence of COPD 1. Increase night time Lantus to 35 units and give an additional 10 units now. 2. Continue feeds 3. Spiked another temp this am. On appropriate abx therapy. IMS ordered CTA and Dopplers. Ok with doppler but will hold off on CTA right. ABG continues to improve but DVT could be source of continued fever 4. Wean sedation to RASS of 0-to Minus 2 5. Echo with diastolic dysfunction and mild systolic dysfunction. With e levated BP's overnight will start diuretic therapy with low dose IV lasix 6. Continue Precedex. Continue morphine and added prn fentanyl as well 7. Daughter leaves for [place] tomorrow, asked the girlfriend for them both to be here early tomorrow morning as I suspect he will be the type whom we have to stop sedation and just extubate. After adequate diuresis, will consider an attempt at this tomorrow. As explained, worst case scenario, we would have to re-intubate 07/02/18 Long discussion with Daughter at bedside who is in nursing school. Explained the severity of illness based on systems. She also expresses understanding of this. Patient is also vet but she does not know his service connection status. He is from [place] and she would like to get him back there. Not stable enough for transport at this time. CCT 31 minutes. Subjective Date of service: 07/03/18 Interval history: Patient hypertensive throughout the night. Per staff, felt secondary to agitation. Cardene ordered but not started. Also given a one time dose of Labetalol via the hospitalist order. Tolerated change to precedex well during the day but appears that pain was not controlled at night. Triglycerides have come down significantly and amylase and lipase were both low. Growing MSSA in sputum. Sugar starting to increase again as well. Objective Vital Signs - 12hr 07/02/18 07/02/18 07/02/18 22:50 22:55 23:00 Temperature Pulse Rate 93 H 92 H 93 H Pulse Rate [ Anterior Bilateral Throughout] Respiratory 24 24 24 Rate Respiratory Rate [Anterior Bilateral Throughout] Blood Pressure 147/92 147/92 149/95 O2 Sat by Pulse 100 100 100 Oximetry 07/02/18 07/02/18 07/02/18 23:05 23:11 23:15 Temperature Pulse Rate 92 H 91 H 92 H Pulse Rate [ Anterior Bilateral Throughout] Respiratory 24 24 24 Rate Respiratory Rate [Anterior Bilateral Throughout] Blood Pressure 149/95 149/95 149/95 O2 Sat by Pulse 100 100 100 Oximetry 07/02/18 07/02/18 07/02/18 23:20 23:26 23:30 Temperature Pulse Rate 91 H 90 91 H Pulse Rate [ Anterior Bilateral Throughout] Respiratory 24 24 24 Rate Respiratory Rate [Anterior Bilateral Throughout] Blood Pressure 149/95 149/95 145/88 O2 Sat by Pulse 100 100 99 Oximetry 07/02/18 07/02/18 07/02/18 23:36 23:37 23:40 Temperature 99.2 F Pulse Rate 91 H 90 Pulse Rate [ Anterior Bilateral Throughout] Respiratory 24 24 Rate Respiratory Rate [Anterior Bilateral Throughout] Blood Pressure 145/88 149/95 O2 Sat by Pulse 100 100 Oximetry 07/02/18 07/02/18 07/02/18 23:44 23:46 23:50 Temperature Pulse Rate 91 H 92 H 91 H Pulse Rate [ Anterior Bilateral Throughout] Respiratory 24 24 24 Rate Respiratory Rate [Anterior Bilateral Throughout] Blood Pressure 149/95 149/95 149/95 O2 Sat by Pulse 100 100 100 Oximetry 07/02/18 07/03/18 07/03/18 23:56 00:00 00:02 Temperature Pulse Rate 92 H 92 H 92 H Pulse Rate [ Anterior Bilateral Throughout] Respiratory 24 24 Rate Respiratory Rate [Anterior Bilateral Throughout] Blood Pressure 149/95 153/95 153/95 O2 Sat by Pulse 100 100 100 Oximetry 07/03/18 07/03/18 07/03/18 00:06 00:10 00:16 Temperature Pulse Rate 93 H 93 H 93 H Pulse Rate [ Anterior Bilateral Throughout] Respiratory 24 24 24 Rate Respiratory Rate [Anterior Bilateral Throughout] Blood Pressure 153/95 153/95 145/88 O2 Sat by Pulse 100 100 100 Oximetry 07/03/18 07/03/18 07/03/18 00:20 00:26 00:30 Temperature Pulse Rate 93 H 94 H 94 H Pulse Rate [ Anterior Bilateral Throughout] Respiratory 24 24 24 Rate Respiratory Rate [Anterior Bilateral Throughout] Blood Pressure 145/88 145/88 153/93 O2 Sat by Pulse 100 100 98 Oximetry 07/03/18 07/03/18 07/03/18 00:36 00:40 00:46 Temperature Pulse Rate 95 H 95 H 89 Pulse Rate [ Anterior Bilateral Throughout] Respiratory 24 24 23 Rate Respiratory Rate [Anterior Bilateral Throughout] Blood Pressure 153/93 153/93 153/93 O2 Sat by Pulse 100 100 100 Oximetry 07/03/18 07/03/18 07/03/18 00:50 00:56 01:00 Temperature Pulse Rate 97 H 98 H 97 H Pulse Rate [ Anterior Bilateral Throughout] Respiratory 26 H 26 H 27 H Rate Respiratory Rate [Anterior Bilateral Throughout] Blood Pressure 153/93 153/93 149/93 O2 Sat by Pulse 100 100 99 Oximetry 07/03/18 07/03/18 07/03/18 01:06 01:10 01:16 Temperature Pulse Rate 97 H 98 H 99 H Pulse Rate [ Anterior Bilateral Throughout] Respiratory 28 H 28 H 29 H Rate Respiratory Rate [Anterior Bilateral Throughout] Blood Pressure 149/93 149/93 153/93 O2 Sat by Pulse 100 100 100 Oximetry 07/03/18 07/03/18 07/03/18 01:20 01:26 01:30 Temperature Pulse Rate 99 H 99 H 100 H Pulse Rate [ Anterior Bilateral Throughout] Respiratory 28 H 29 H 28 H Rate Respiratory Rate [Anterior Bilateral Throughout] Blood Pressure 153/93 153/93 161/94 O2 Sat by Pulse 100 100 99 Oximetry 07/03/18 07/03/18 07/03/18 01:36 01:40 01:46 Temperature Pulse Rate 99 H 99 H 100 H Pulse Rate [ Anterior Bilateral Throughout] Respiratory 28 H 28 H 28 H Rate Respiratory Rate [Anterior Bilateral Throughout] Blood Pressure 161/94 161/94 161/94 O2 Sat by Pulse 100 100 100 Oximetry 07/03/18 07/03/18 07/03/18 01:50 01:56 02:00 Temperature Pulse Rate 100 H 100 H 99 H Pulse Rate [ 101 H Anterior Bilateral Throughout] Respiratory 28 H 27 H 28 H Rate Respiratory 24 Rate [Anterior Bilateral Throughout] Blood Pressure 161/94 161/94 167/97 O2 Sat by Pulse 100 100 99 Oximetry 07/03/18 07/03/18 07/03/18 02:06 02:10 02:16 Temperature Pulse Rate 116 H 107 H 103 H Pulse Rate [ Anterior Bilateral Throughout] Respiratory 36 H 30 H 29 H Rate Respiratory Rate [Anterior Bilateral Throughout] Blood Pressure 167/97 167/97 167/97 O2 Sat by Pulse 100 100 100 Oximetry 07/03/18 07/03/18 07/03/18 02:17 02:20 02:26 Temperature Pulse Rate 104 H 104 H Pulse Rate [ 105 H Anterior Bilateral Throughout] Respiratory 31 H 27 H Rate Respiratory 24 Rate [Anterior Bilateral Throughout] Blood Pressure 159/94 159/94 O2 Sat by Pulse 99 100 Oximetry 07/03/18 07/03/18 07/03/18 02:30 02:46 03:00 Temperature Pulse Rate 104 H 102 H 101 H Pulse Rate [ Anterior Bilateral Throughout] Respiratory 29 H 27 H 27 H Rate Respiratory Rate [Anterior Bilateral Throughout] Blood Pressure 157/91 157/91 163/96 O2 Sat by Pulse 99 100 99 Oximetry 07/03/18 07/03/18 07/03/18 03:16 03:19 03:30 Temperature 99.8 F H Pulse Rate 102 H 102 H Pulse Rate [ Anterior Bilateral Throughout] Respiratory 27 H 28 H Rate Respiratory Rate [Anterior Bilateral Throughout] Blood Pressure 163/96 167/100 O2 Sat by Pulse 100 99 Oximetry 07/03/18 07/03/18 07/03/18 03:46 04:00 04:16 Temperature Pulse Rate 100 H 103 H 100 H Pulse Rate [ Anterior Bilateral Throughout] Respiratory 28 H 28 H 29 H Rate Respiratory Rate [Anterior Bilateral Throughout] Blood Pressure 167/100 182/98 177/100 O2 Sat by Pulse 100 100 100 Oximetry 07/03/18 07/03/18 07/03/18 04:30 04:46 05:00 Temperature Pulse Rate 101 H 100 H 101 H Pulse Rate [ Anterior Bilateral Throughout] Respiratory 25 H 28 H 29 H Rate Respiratory Rate [Anterior Bilateral Throughout] Blood Pressure 176/104 176/104 178/103 O2 Sat by Pulse 100 100 100 Oximetry 07/03/18 07/03/18 07/03/18 05:16 05:30 05:43 Temperature Pulse Rate 101 H 100 H 108 H Pulse Rate [ Anterior Bilateral Throughout] Respiratory 29 H 29 H Rate Respiratory Rate [Anterior Bilateral Throughout] Blood Pressure 178/103 182/98 182/98 O2 Sat by Pulse 99 98 Oximetry 07/03/18 07/03/18 07/03/18 05:46 06:00 06:16 Temperature Pulse Rate 107 H 101 H 105 H Pulse Rate [ Anterior Bilateral Throughout] Respiratory 28 H 24 24 Rate Respiratory Rate [Anterior Bilateral Throughout] Blood Pressure 182/98 169/94 169/94 O2 Sat by Pulse 99 96 97 Oximetry 07/03/18 07/03/18 07/03/18 06:30 06:46 07:00 Temperature Pulse Rate 104 H 105 H 104 H Pulse Rate [ Anterior Bilateral Throughout] Respiratory 24 24 24 Rate Respiratory Rate [Anterior Bilateral Throughout] Blood Pressure 167/94 167/94 175/95 O2 Sat by Pulse 96 98 97 Oximetry 07/03/18 07/03/18 07/03/18 07:16 07:30 07:46 Temperature Pulse Rate 105 H 105 H 105 H Pulse Rate [ Anterior Bilateral Throughout] Respiratory 24 24 24 Rate Respiratory Rate [Anterior Bilateral Throughout] Blood Pressure 174/95 174/95 174/95 O2 Sat by Pulse 98 97 98 Oximetry 07/03/18 07/03/18 07/03/18 08:00 08:05 08:16 Temperature Pulse Rate 105 H 105 H 120 H Pulse Rate [ Anterior Bilateral Throughout] Respiratory 24 29 H Rate Respiratory Rate [Anterior Bilateral Throughout] Blood Pressure 180/98 180/98 180/98 O2 Sat by Pulse 97 99 Oximetry 07/03/18 07/03/18 07/03/18 08:30 08:46 08:59 Temperature Pulse Rate 136 H 132 H 116 H Pulse Rate [ Anterior Bilateral Throughout] Respiratory 47 H 17 Rate Respiratory Rate [Anterior Bilateral Throughout] Blood Pressure 154/75 168/105 168/105 O2 Sat by Pulse 98 99 100 Oximetry 07/03/18 07/03/18 07/03/18 09:00 09:15 09:30 Temperature Pulse Rate 116 H 132 H 112 H Pulse Rate [ Anterior Bilateral Throughout] Respiratory 32 H 23 40 H Rate Respiratory Rate [Anterior Bilateral Throughout] Blood Pressure 168/105 144/76 144/76 O2 Sat by Pulse 99 99 98 Oximetry 07/03/18 07/03/18 09:46 10:00 Temperature Pulse Rate 107 H 107 H Pulse Rate [ Anterior Bilateral Throughout] Respiratory 35 H 31 H Rate Respiratory Rate [Anterior Bilateral Throughout] Blood Pressure 117/67 124/74 O2 Sat by Pulse 96 95 Oximetry Constitutional: other (sedated on vent but does appears uncomfortable) Eyes: non-icteric ENT: other (orally intubated) Neck: supple Effort: mildly labored Ascultation: Left: rhonchi (base), Bilateral: diminished breath sounds Percussion: Bilateral: not dull Cardiovascular: regular rate and rhythm Gastrointestinal: normoactive bowel sounds CBC and BMP: 07/01/18 05:03 07/02/18 18:52 ABG, PT/INR, D-dimer: ABG POC ABG pH 7.364 (7.35-7.45) 07/03/18 05:50 POC ABG pCO2 32.2 (35-45) L 07/03/18 05:50 POC ABG pO2 96 (80-105) 07/03/18 05:50 POC ABG HCO3 18.4 (22-26 mml/L) 07/03/18 05:50 POC ABG Total CO2 19 (23-27mmol/L) 07/03/18 05:50 POC ABG O2 Sat 97 07/03/18 05:50 PT/INR, D-dimer PT 14.7 Sec. (12.2-14.9) 06/30/18 03:50 INR 1.08 (0.87-1.13) 06/30/18 03:50 D-Dimer 849.06 ng/mlDDU (0-234) H 06/30/18 22:31 Abnormal lab findings: Abnormal Labs 06/30/18 06/30/18 06/30/18 03:47 03:50 03:50 RBC 5.44 H Hgb 16.5 H Hct 51.1 H Lymph % (Auto) 5.8 L [place] % (Auto) 9.7 H Lymph # 0.5 L [place] # 0.9 H Seg Neutrophils % 84.1 H D-Dimer POC ABG pH POC ABG pCO2 POC ABG pO2 Sodium 133 L Potassium 5.4 H Chloride 94.8 L Carbon Dioxide 5 L* BUN 23 H Glucose 556 H* POC Glucose 360 H Calcium Phosphorus ALT NT-Pro-B Natriuret Pep Total Protein 8.3 H Albumin 3.7 L Triglycerides Amylase Lipase 06/30/18 06/30/18 06/30/18 04:23 04:43 05:45 RBC Hgb Hct Lymph % (Auto) [place] % (Auto) Lymph # [place] # Seg Neutrophils % D-Dimer POC ABG pH 7.065 L POC ABG pCO2 POC ABG pO2 Sodium Potassium Chloride Carbon Dioxide BUN Glucose POC Glucose 384 H 382 H Calcium Phosphorus ALT NT-Pro-B Natriuret Pep Total Protein Albumin Triglycerides Amylase Lipase 06/30/18 06/30/1819 06:43 06:44 07:55 RBC Hgb Hct Lymph % (Auto) [place] % (Auto) Lymph # [place] # Seg Neutrophils % D-Dimer POC ABG pH POC ABG pCO2 POC ABG pO2 Sodium Potassium Chloride Carbon Dioxide 4 L* BUN 22 H Glucose 511 H* POC Glucose 373 H 386 H Calcium Phosphorus ALT NT-Pro-B Natriuret Pep Total Protein Albumin Triglycerides Amylase Lipase 06/30/18 06/30/18 06/30/18 08:54 09:02 09:47 RBC Hgb Hct Lymph % (Auto) [place] % (Auto) Lymph # [place] # Seg Neutrophils % D-Dimer POC ABG pH POC ABG pCO2 POC ABG pO2 Sodium 134 L Potassium 5.4 H Chloride Carbon Dioxide 6 L* BUN 23 H Glucose 515 H* POC Glucose 386 H 380 H Calcium Phosphorus ALT NT-Pro-B Natriuret Pep Total Protein Albumin Triglycerides Amylase Lipase 06/30/18 06/30/18 06/30/18 11:01 11:43 12:08 RBC Hgb Hct Lymph % (Auto) [place] % (Auto) Lymph # [place] # Seg Neutrophils % D-Dimer POC ABG pH POC ABG pCO2 POC ABG pO2 Sodium Potassium 5.1 H Chloride Carbon Dioxide 7 L* BUN 23 H Glucose 400 H POC Glucose 322 H 296 H Calcium Phosphorus ALT NT-Pro-B Natriuret Pep Total Protein Albumin Triglycerides Amylase Lipase 06/30/18 06/30/18 06/30/18 12:45 14:12 15:11 RBC Hgb Hct Lymph % (Auto) [place] % (Auto) Lymph # [place] # Seg Neutrophils % D-Dimer POC ABG pH POC ABG pCO2 POC ABG pO2 Sodium Potassium Chloride Carbon Dioxide BUN Glucose POC Glucose 335 H 284 H 260 H Calcium Phosphorus ALT NT-Pro-B Natriuret Pep Total Protein Albumin Triglycerides Amylase Lipase 06/30/18 06/30/18 06/30/18 15:50 16:56 18:01 RBC Hgb Hct Lymph % (Auto) [place] % (Auto) Lymph # [place] # Seg Neutrophils % D-Dimer POC ABG pH POC ABG pCO2 POC ABG pO2 Sodium Potassium Chloride Carbon Dioxide BUN Glucose POC Glucose 287 H 301 H 273 H Calcium Phosphorus ALT NT-Pro-B Natriuret Pep Total Protein Albumin Triglycerides Amylase Lipase 06/30/18 06/30/18 06/30/18 19:35 19:55 21:28 RBC Hgb Hct Lymph % (Auto) [place] % (Auto) Lymph # [place] # Seg Neutrophils % D-Dimer POC ABG pH 7.244 L POC ABG pCO2 POC ABG pO2 Sodium Potassium Chloride 110.4 H Carbon Dioxide 12 L BUN Glucose 268 H POC Glucose 270 H Calcium Phosphorus ALT NT-Pro-B Natriuret Pep Total Protein Albumin Triglycerides Amylase Lipase 06/30/18 06/30/18 06/30/18 22:12 22:31 22:52 RBC Hgb Hct Lymph % (Auto) [place] % (Auto) Lymph # [place] # Seg Neutrophils % D-Dimer 849.06 H POC ABG pH 7.214 L POC ABG pCO2 POC ABG pO2 Sodium Potassium Chloride Carbon Dioxide BUN Glucose POC Glucose 242 H Calcium Phosphorus ALT NT-Pro-B Natriuret Pep Total Protein Albumin Triglycerides Amylase Lipase 07/01/18 07/01/18 07/01/18 00:48 02:05 03:03 RBC Hgb Hct Lymph % (Auto) [place] % (Auto) Lymph # [place] # Seg Neutrophils % D-Dimer POC ABG pH POC ABG pCO2 POC ABG pO2 Sodium Potassium Chloride Carbon Dioxide BUN Glucose POC Glucose 401 H 156 H 122 H Calcium Phosphorus ALT NT-Pro-B Natriuret Pep Total Protein Albumin Triglycerides Amylase Lipase 07/01/18 07/01/18 07/01/18 04:04 05:03 05:03 RBC 5.11 H Hgb 15.6 H Hct 45.7 H Lymph % (Auto) 5.1 L [place] % (Auto) 7.6 H Lymph # 0.3 L [place] # Seg Neutrophils % 87.2 H D-Dimer POC ABG pH POC ABG pCO2 POC ABG pO2 Sodium Potassium Chloride 111.1 H Carbon Dioxide 16 L BUN Glucose 154 H POC Glucose 120 H Calcium Phosphorus ALT NT-Pro-B Natriuret Pep Total Protein Albumin Triglycerides Amylase Lipase 07/01/18 07/01/18 07/01/18 05:09 05:32 06:02 RBC Hgb Hct Lymph % (Auto) [place] % (Auto) Lymph # [place] # Seg Neutrophils % D-Dimer POC ABG pH POC ABG pCO2 30.5 L POC ABG pO2 172 H Sodium Potassium Chloride Carbon Dioxide BUN Glucose POC Glucose 137 H 149 H Calcium Phosphorus ALT NT-Pro-B Natriuret Pep Total Protein Albumin Triglycerides Amylase Lipase 07/01/18 07/01/18 07/01/18 06:59 08:20 09:23 RBC Hgb Hct Lymph % (Auto) [place] % (Auto) Lymph # [place] # Seg Neutrophils % D-Dimer POC ABG pH POC ABG pCO2 POC ABG pO2 Sodium Potassium Chloride Carbon Dioxide BUN Glucose POC Glucose 164 H 135 H 142 H Calcium Phosphorus ALT NT-Pro-B Natriuret Pep Total Protein Albumin Triglycerides Amylase Lipase 07/01/18 07/01/18 07/01/18 10:09 11:13 11:31 RBC Hgb Hct Lymph % (Auto) [place] % (Auto) Lymph # [place] # Seg Neutrophils % D-Dimer POC ABG pH POC ABG pCO2 POC ABG pO2 Sodium Potassium Chloride Carbon Dioxide BUN Glucose POC Glucose 170 H 163 H Calcium Phosphorus ALT NT-Pro-B Natriuret Pep 3170 H Total Protein Albumin Triglycerides Amylase Lipase 07/01/18 07/01/18 07/01/18 12:09 13:12 15:42 RBC Hgb Hct Lymph % (Auto) [place] % (Auto) Lymph # [place] # Seg Neutrophils % D-Dimer POC ABG pH POC ABG pCO2 POC ABG pO2 Sodium Potassium Chloride 110.8 H Carbon Dioxide 19 L BUN 22 H Glucose 157 H POC Glucose 185 H 193 H Calcium Phosphorus 0.70 L* ALT NT-Pro-B Natriuret Pep Total Protein Albumin Triglycerides Amylase Lipase 07/01/18 07/01/18 07/01/18 15:44 17:18 18:15 RBC Hgb Hct Lymph % (Auto) [place] % (Auto) Lymph # [place] # Seg Neutrophils % D-Dimer POC ABG pH POC ABG pCO2 POC ABG pO2 Sodium Potassium Chloride Carbon Dioxide BUN Glucose POC Glucose 189 H 167 H 130 H Calcium Phosphorus ALT NT-Pro-B Natriuret Pep Total Protein Albumin Triglycerides Amylase Lipase 07/01/18 07/01/18 07/01/18 19:13 20:02 21:11 RBC Hgb Hct Lymph % (Auto) [place] % (Auto) Lymph # [place] # Seg Neutrophils % D-Dimer POC ABG pH POC ABG pCO2 POC ABG pO2 Sodium Potassium Chloride Carbon Dioxide BUN Glucose POC Glucose 129 H 147 H 220 H Calcium Phosphorus ALT NT-Pro-B Natriuret Pep Total Protein Albumin Triglycerides Amylase Lipase 07/01/18 07/01/18 07/02/18 22:12 23:14 01:34 RBC Hgb Hct Lymph % (Auto) [place] % (Auto) Lymph # [place] # Seg Neutrophils % D-Dimer POC ABG pH POC ABG pCO2 POC ABG pO2 Sodium Potassium Chloride Carbon Dioxide 20 L BUN 22 H Glucose 157 H POC Glucose 219 H 122 H Calcium Phosphorus ALT NT-Pro-B Natriuret Pep Total Protein Albumin 2.6 L Triglycerides Amylase Lipase 07/02/18 07/02/18 07/02/18 02:26 04:32 04:33 RBC Hgb Hct Lymph % (Auto) [place] % (Auto) Lymph # [place] # Seg Neutrophils % D-Dimer POC ABG pH POC ABG pCO2 POC ABG pO2 Sodium 132 L D Potassium 3.2 L Chloride Carbon Dioxide 13 L D BUN 22 H Glucose 224 H POC Glucose 282 H Calcium 7.2 L D Phosphorus ALT 5 L NT-Pro-B Natriuret Pep Total Protein 5.8 L Albumin 1.1 L Triglycerides 1153 H Amylase Lipase 07/02/18 07/02/18 07/02/18 04:34 05:21 12:28 RBC Hgb Hct Lymph % (Auto) [place] % (Auto) Lymph # [place] # Seg Neutrophils % D-Dimer POC ABG pH 7.324 L POC ABG pCO2 POC ABG pO2 72 L Sodium Potassium Chloride Carbon Dioxide BUN Glucose POC Glucose 218 H 153 H Calcium Phosphorus ALT NT-Pro-B Natriuret Pep Total Protein Albumin Triglycerides Amylase Lipase 07/02/18 07/02/18 07/02/18 14:44 14:44 17:45 RBC Hgb Hct Lymph % (Auto) [place] % (Auto) Lymph # [place] # Seg Neutrophils % D-Dimer POC ABG pH POC ABG pCO2 POC ABG pO2 Sodium 148 H D Potassium 3.2 L Chloride 112.2 H Carbon Dioxide 20 L D BUN 25 H Glucose 185 H POC Glucose 282 H Calcium 7.8 L Phosphorus ALT NT-Pro-B Natriuret Pep Total Protein 5.3 L Albumin 2.4 L Triglycerides Amylase 22 L Lipase 10 L 07/02/18 07/03/18 07/03/18 18:52 00:07 04:24 RBC Hgb Hct Lymph % (Auto) [place] % (Auto) Lymph # [place] # Seg Neutrophils % D-Dimer POC ABG pH POC ABG pCO2 POC ABG pO2 Sodium Potassium Chloride 113.1 H Carbon Dioxide 16 L BUN 25 H Glucose 280 H POC Glucose 293 H Calcium 7.5 L Phosphorus ALT NT-Pro-B Natriuret Pep Total Protein 6.1 L Albumin 1.8 L Triglycerides 176 H Amylase Lipase 07/03/18 07/03/18 05:14 05:50 RBC Hgb Hct Lymph % (Auto) [place] % (Auto) Lymph # [place] # Seg Neutrophils % D-Dimer POC ABG pH POC ABG pCO2 32.2 L POC ABG pO2 Sodium Potassium Chloride Carbon Dioxide BUN Glucose POC Glucose 336 H Calcium Phosphorus ALT NT-Pro-B Natriuret Pep Total Protein Albumin Triglycerides Amylase Lipase
--- NOTE | 2018-07-03 10:58 | Vascular Lab Report ---
PROCEDURE: VL VENOUS DUPLEX LE BILAT TECHNIQUE: Duplex Doppler sonography of the BILATERAL lower extremities. Mullins scale imaging with and without compression, spectral waveform analysis with and without augmentation, and color flow Dopple r were employed. HISTORY: LE edema COMPARISONS: None FINDINGS: RIGHT LOWER EXTREMITY: Deep Venous Thrombus: None Superficial Venous Thrombus: None Venous valvular incompetence: None Soft tissue abnormality: None LEFT LOWER EXTREMITY: Deep Venous Thrombus: None Superficial Venous Thrombus: None Venous valvular incompetence: None Soft tissue abnormality: None IMPRESSION: No evidence of deep venous thrombosis . This document is electronically signed by Gala Castillo MD., July 03 2018 10:56:23 AM ET
[2018-07-03] MEDS: SUBLIMAZE IV PRN ×2 (11:13→18:09)
--- NOTE | 2018-07-03 12:23 | Consultation ---
History of Present Illness Consult date: 07/03/18 Requesting physician: FORREST ELIZABETH Consult reason: other (cardiomyopathy) History of present illness: Patient is a 57-year-old -Citizen Of [place] male with a history of diabetes mellitus type 2 who presented to the ED on account of 2-3 days history of worsening shortness of breath. He has associated generalized body aches. He also admits to excessive thirst and polyuria. He denied chest pain, palpitation, fever, chills, cough, sore throat, runny nose or congestion, leg swelling, orthopnea or PND. No headaches, nausea, vomiting, syncope or loss of consciousness. No abdominal pain, constipation, diarrhea, dysuria or frequency. The patient was admitted for DKA. His hospitalization the patient has been febrile overnight with a MAXIMUM TEMPERATURE of 102.1. Chest x-ray and CT with evidence of infiltrates. An echocardiogram revealed moderate LVH ejection fraction of 45-50% Past History Past Medical History: COPD (via structural evidence from CT), diabetes, hypertension, hyperlipidemia, stroke Past Surgical History: No surgical history Social history: smoking (patient has 20 years history of cigarette smoking. He currently smokes few sticks per day. He denies alcohol or illicit drug use). denies: IV drug use Family history: other (reviewed and noncontributory) Medications and Allergies Allergies Allergy/AdvReac Type Severity Reaction Status Date / Time No Known Allergies Allergy Unverified 06/30/18 04:16 Home Medications Medication Instructions Recorded Confirmed Last Taken Type Cholecalciferol (Vitamin D3) 4,000 unit PO QDAY 06/30/18 06/30/18 Unknown History [Vitamin D3 2,000 UNIT CAP] Dabigatran Etexilate Mesylate 150 mg PO BID 06/30/18 06/30/18 Unknown History [Pradaxa] Lisinopril [Zestril TAB] 40 mg PO QDAY 06/30/18 06/30/18 Unknown History Metformin HCl 1,000 mg PO BID 06/30/18 06/30/18 Unknown History Simvastatin 80 mg PO QHS 06/30/18 06/30/18 Unknown History Active Meds: Active Medications Acetaminophen (Tylenol) 650 mg [place] Q4H PRN PRN Reason: Fever >101 Last Admin: 07/02/18 13:00 Dose: 650 mg Documented by: Acetaminophen (Tylenol) 250 mg PO Q6H PRN PRN Reason: Pain, Mild (1-3) Amlodipine Besylate (Norvasc) 10 mg PO QDAY [facility] Last Admin: 07/03/18 08:59 Dose: 10 mg Documented by: Lipase/Protease/Amylase ([place] 10,500 Unit) 1 each FEEDTUBE PRN PRN PRN Reason: For Clogged Feeding Tube Dextrose (D50w (25gm) Syringe) 0 ml IV PRN PRN PRN Reason: Hypoglycemia Enoxaparin Sodium (Lovenox) 100 mg SUB-Q 0700,1900 [facility] Last Admin: 07/03/18 09:01 Dose: 100 mg Documented by: Famotidine (Pepcid) 20 mg PO BID [facility] Last Admin: 07/03/18 09:05 Dose: 20 mg Documented by: Fentanyl (Sublimaze) 25 mcg IV Q2H PRN PRN Reason: Pain , Severe (7-10) Last Admin: 07/03/18 11:13 Dose: 25 mcg Documented by: Haloperidol Lactate (Haldol) 5 mg IM Q6H PRN PRN Reason: Agitation Last Admin: 07/03/18 08:59 Dose: 5 mg Documented by: Hydralazine HCl (Apresoline) 20 mg IV Q4HR PRN PRN Reason: Blood Pressure Last Admin: 07/03/18 08:05 Dose: 20 mg Documented by: Hydrophilic Ointment (Vaseline Lip Therapy) 1 applic TP Q2HR PRN PRN Reason: Dry Lips Nicardipine HCl 50 mg/ Sodium (Chloride) 250 mls @ 25 mls/hr IV TITR [facility]; Protocol Last Titration: 07/01/18 01:53 Dose: 0 mg/hr, 0 mls/hr Documented by: Vancomycin HCl 1,250 mg/ (Sodium Chloride) 275 mls @ 137.5 mls/hr IV Q12H JT Last Admin: 07/03/18 05:51 Dose: 137.5 mls/hr Documented by: Cefepime HCl (Maxipime/Ns 2 Gm/100 Ml) 2 gm in 100 mls @ 200 mls/hr IV Q12H JT; Protocol Last Admin: 07/03/18 09:01 Dose: 200 mls/hr Documented by: Dexmedetomidine HCl 400 mcg/ (Sodium Chloride) 104 mls @ 5.086 mls/hr IV TITRATE [facility]; Protocol Last Admin: 07/03/18 11:19 Dose: 1.4 mcg/kg/hr, 35.599 mls/hr Documented by: Insulin Glargine (Lantus) 35 units SUB-Q QHS JT Insulin Human Lispro (Humalog) 0 unit SUB-Q Q6HR [facility]; Protocol Last Admin: 07/03/18 12:04 Dose: 10 unit Documented by: Ipratropium Artemus (Atrovent) 0.5 mg IH Q6HRT [facility] Last Admin: 07/03/18 08:59 Dose: Not Given Documented by: Levalbuterol HCl (Xopenex) 0.63 mg IH Q6HRT [facility] Last Admin: 07/03/18 08:59 Dose: Not Given Documented by: Lorazepam (Ativan) 1 mg IV Q4H PRN PRN Reason: Anxiety Last Admin: 07/03/18 08:17 Dose: 1 mg Documented by: Metoprolol Tartrate (Lopressor) 50 mg PO BID [facility] Last Admin: 07/03/18 09:00 Dose: 50 mg Documented by: Morphine Sulfate (Morphine) 2 mg IV Q4H PRN PRN Reason: Pain, Moderate (4-6) Last Admin: 07/03/18 07:33 Dose: 2 mg Documented by: Multi-Ingred Cream/Lotion/Oil/Oint (Artificial Tears Ophth Oint) 1 applic OU Q4HR PRN PRN Reason: Dry Eye(s) Ondansetron HCl (Zofran) 4 mg IV Q8H PRN PRN Reason: Nausea And Vomiting Oxycodone/Acetaminophen (Percocet 5/325) 1 tab PO Q6H PRN PRN Reason: Pain, Moderate (4-6) Last Admin: 07/03/18 09:25 Dose: 1 tab Documented by: Potassium Chloride (Potassium Chloride) 40 meq FEEDTUBE QDAY [facility] Last Admin: 07/03/18 09:12 Dose: 40 meq Documented by: Simple Syrup (Simple Syrup) 15 ml FEEDTUBE PRN PRN PRN Reason: Hypoglycemia Simple Syrup (Simple Syrup) 30 ml FEEDTUBE PRN PRN PRN Reason: Hypoglycemia Sodium Bicarbonate (Sodium Bicarbonate) 325 mg FEEDTUBE PRN PRN PRN Reason: For Clogged Feeding Tube Sodium Chloride (Sodium Chloride Flush Syringe 10 Ml) 10 ml IV BID JT Last Admin: 07/03/18 09:03 Dose: 10 ml Documented by: Sodium Chloride (Sodium Chloride Flush Syringe 10 Ml) 10 ml IV PRN PRN PRN Reason: LINE FLUSH Zolpidem Tartrate (Ambien) 5 mg PO QHS PRN PRN Reason: Insomnia Review of Systems ROS unobtainable: due to endotracheal tube (intubated), due to mental status (sedated) Physical Examination Vital Signs Pulse Resp BP Pulse Ox 127 H 48 H 213/106 96 06/30/18 03:46 06/30/18 03:46 06/30/18 03:46 06/30/18 03:46 General appearance: no acute distress HEENT: Positive: Other (pupils equal sluggish) Neck: Positive: neck supple, trachea midline Cardiac: Positive: Regular Rhythm, Tachycardia Lungs: Positive: Rhonchi (on vent) Neuro: Positive: Other (patient intubated and sedated) Abdomen: Positive: Soft, Decreased Bowel Sounds. Negative: Distended Male genitourinary: Positive: deferred Skin: Negative: Rash Extremities: Present: warm Results 07/01/18 05:03 07/02/18 18:52 Cardiac Enzymes 07/02/18 07/02/18 Range/Units 14:44 18:52 AST 23 37 (5-40) units/L Lipids 07/03/18 Range/Units 04:24 Triglycerides 176 H (2-149) mg/dL Comprehensive Metabolic Panel 07/02/18 07/02/18 Range/Units 14:44 18:52 Sodium 148 H D 141 (137-145) mmol/L Potassium 3.2 L 4.5 D (3.6-5.0) mmol/L Chloride 112.2 H 113.1 H (98-107) mmol/L Carbon Dioxide 20 L D 16 L (22-30) mmol/L BUN 25 H 25 H (9-20) mg/dL Creatinine 1.5 1.4 (0.8-1.5) mg/dL Glucose 185 H 280 H (75-100) mg/dL Calcium 7.8 L 7.5 L (8.4-10.2) mg/dL AST 23 37 (5-40) units/L ALT 9 12 (7-56) units/L Alkaline Phosphatase 73 75 (35-129) units/L Total Protein 5.3 L 6.1 L (6.3-8.2) g/dL Albumin 2.4 L 1.8 L (3.9-5) g/dL - Imaging and Cardiology Echo: report reviewed (moderate LVH, ejection fraction 45-50%) EKG interpretations - Telemetry EKG Rhythm: Sinus Tachycardia Assessment and Plan 57-year-old male with a past medical history of diabetes, stroke with residual left-sided paresis, and tobacco abuse presents to [facility] emergency department with diabetic ketoacidosis and pneumonia. During his hospitalization the patient was noted to have a mild decrease in his left ventricular function. No obvious signs of ischemia. We'll continue to follow with you DKA Fever overnight Pneumonia/COPD Hypertension CVA/residual left-sided paresis Tobacco abuse
[2018-07-03 14:57] LABS: BUN/Creatinine Ratio 19; Blood Urea Nitrogen 26 mg/dL (9-20); Calcium 8.4 mg/dL (8.4-10.2); Hemolysis Index 15
--- NOTE | 2018-07-03 17:37 | Progress Note ---
Assessment and Plan DKA severe metabolic acidosis Hypertensive urgency Sirs Tobacco abuse Acute respiratory failure on MV >96 hours Hyperlipidemia History of CVA with left-sided deficit Acute metabolic encephalopathy Pneumonia hypernatremia hypokalemia on pradaxa at home Plan Transitioned to sq insulins, now off bicarb ggt and insulin ggt cont mech vent per pulmonology sepsis/pna; abx per ID Will do tobacco cessation counseling when extubated, nicotine patches as needed free water replacement via G tube -echo shows EF 45, keep euvolemic, cardiology consult -replace K per feedtube -still on full dose lovenox, given prolonged travel, patient will benefit for CTA and LE dopplers Dvt ppx fully anticoagulated critical care time 36 minutes Disposition [facility] Subjective Date of service: 07/03/18 Principal diagnosis: DKA,resp failure Interval history: 57-year-old man with past medical history of hypertension, CVA with left-sided weakness, type 2 diabetes, presented to the ER with shortness of breath. Per EMS his glucose was above 500. He was on oral hypoglycemics at home he was not on insulin. The patient also complained of polydipsia, polyuria, generalized weakness, and body aches Objective - Constitutional Vitals: Vital Signs - 12hr 07/03/18 07/03/18 07/03/18 05:43 05:46 06:00 Temperature Pulse Rate 108 H 107 H 101 H Pulse Rate [ Anterior Bilateral Throughout] Respiratory 28 H 24 Rate Respiratory Rate [Anterior Bilateral Throughout] Blood Pressure 182/98 182/98 169/94 O2 Sat by Pulse 99 96 Oximetry 07/03/18 07/03/18 07/03/18 06:16 06:30 06:46 Temperature Pulse Rate 105 H 104 H 105 H Pulse Rate [ Anterior Bilateral Throughout] Respiratory 24 24 24 Rate Respiratory Rate [Anterior Bilateral Throughout] Blood Pressure 169/94 167/94 167/94 O2 Sat by Pulse 97 96 98 Oximetry 07/03/18 07/03/18 07/03/18 07:00 07:16 07:30 Temperature Pulse Rate 104 H 105 H 105 H Pulse Rate [ Anterior Bilateral Throughout] Respiratory 24 24 24 Rate Respiratory Rate [Anterior Bilateral Throughout] Blood Pressure 175/95 174/95 174/95 O2 Sat by Pulse 97 98 97 Oximetry 04/13/19 04/13/19 04/13/19 07:46 08:00 08:05 Temperature 102.1 F H Pulse Rate 105 H 105 H 105 H Pulse Rate [ Anterior Bilateral Throughout] Respiratory 24 24 Rate Respiratory Rate [Anterior Bilateral Throughout] Blood Pressure 174/95 180/98 180/98 O2 Sat by Pulse 98 100 Oximetry 07/03/18 07/03/18 07/03/18 08:16 08:30 08:46 Temperature Pulse Rate 120 H 136 H 132 H Pulse Rate [ Anterior Bilateral Throughout] Respiratory 29 H 47 H 17 Rate Respiratory Rate [Anterior Bilateral Throughout] Blood Pressure 180/98 154/75 168/105 O2 Sat by Pulse 99 98 99 Oximetry 07/03/18 07/03/18 07/03/18 08:59 09:00 09:15 Temperature Pulse Rate 116 H 116 H 132 H Pulse Rate [ Anterior Bilateral Throughout] Respiratory 32 H 23 Rate Respiratory Rate [Anterior Bilateral Throughout] Blood Pressure 168/105 168/105 144/76 O2 Sat by Pulse 100 99 99 Oximetry 07/03/18 07/03/18 07/03/18 09:30 09:46 10:00 Temperature Pulse Rate 112 H 107 H 107 H Pulse Rate [ Anterior Bilateral Throughout] Respiratory 40 H 35 H 31 H Rate Respiratory Rate [Anterior Bilateral Throughout] Blood Pressure 144/76 117/67 124/74 O2 Sat by Pulse 98 96 95 Oximetry 07/03/18 07/03/18 07/03/18 10:16 10:30 10:46 Temperature Pulse Rate 105 H 104 H 104 H Pulse Rate [ Anterior Bilateral Throughout] Respiratory 29 H 28 H 27 H Rate Respiratory Rate [Anterior Bilateral Throughout] Blood Pressure 124/74 145/81 145/81 O2 Sat by Pulse 98 96 99 Oximetry 07/03/18 07/03/18 07/03/18 11:00 11:16 11:30 Temperature Pulse Rate 103 H 102 H 102 H Pulse Rate [ Anterior Bilateral Throughout] Respiratory 27 H 25 H 24 Rate Respiratory Rate [Anterior Bilateral Throughout] Blood Pressure 144/83 144/83 149/84 O2 Sat by Pulse 97 99 97 Oximetry 07/03/18 07/03/18 07/03/18 11:33 11:46 12:00 Temperature 100 F H Pulse Rate 102 H 102 H 101 H Pulse Rate [ Anterior Bilateral Throughout] Respiratory 25 H 25 H Rate Respiratory Rate [Anterior Bilateral Throughout] Blood Pressure 149/84 145/81 138/77 O2 Sat by Pulse 99 99 97 Oximetry 07/03/18 07/03/18 07/03/18 12:16 12:30 12:46 Temperature Pulse Rate 100 H 99 H 99 H Pulse Rate [ Anterior Bilateral Throughout] Respiratory 25 H 26 H 26 H Rate Respiratory Rate [Anterior Bilateral Throughout] Blood Pressure 149/84 139/76 139/76 O2 Sat by Pulse 99 97 99 Oximetry 07/03/18 07/03/18 07/03/18 13:00 13:16 13:29 Temperature Pulse Rate 100 H 100 H Pulse Rate [ 100 H Anterior Bilateral Throughout] Respiratory 27 H 26 H Rate Respiratory 29 H Rate [Anterior Bilateral Throughout] Blood Pressure 144/82 139/76 O2 Sat by Pulse 97 98 Oximetry 07/03/18 07/03/18 07/03/18 13:30 13:46 14:00 Temperature Pulse Rate 100 H 96 H 100 H Pulse Rate [ 95 H Anterior Bilateral Throughout] Respiratory 27 H 24 26 H Rate Respiratory 24 Rate [Anterior Bilateral Throughout] Blood Pressure 140/81 140/81 140/81 O2 Sat by Pulse 96 97 97 Oximetry 07/03/18 16:58 Temperature Pulse Rate 98 H Pulse Rate [ Anterior Bilateral Throughout] Respiratory Rate Respiratory Rate [Anterior Bilateral Throughout] Blood Pressure 151/83 O2 Sat by Pulse 99 Oximetry General appearance: Present: mild distress, well-nourished - EENT Eyes: PERRL, EOM intact ENT: hearing intact, clear oral mucosa Ears: bilateral: normal - Neck Neck: supple, normal ROM - Respiratory Respiratory effort: normal Respiratory: bilateral: CTA - Breasts Breasts: normal - Cardiovascular Rhythm: regular Heart Sounds: Present: S1 & S2. Absent: gallop, rub Extremities: no ischemia, pulses intact, No edema, normal color, Full ROM - Gastrointestinal General gastrointestinal: Present: soft, non-tender, non-distended, normal bowel sounds - Genitourinary Male genitourinary: normal - Integumentary Integumentary: clear, warm, dry - Musculoskeletal Musculoskeletal: generalized weakness - Neurologic Neurologic: moves all extremities - Labs CBC & Chem 7: 07/04/18 04:10 07/04/18 04:10 Labs: Abnormal lab results 07/02/18 07/02/18 07/03/18 Range/Units 17:45 18:52 00:07 POC ABG pCO2 (35-45) Sodium (137-145) mmol/L Chloride 113.1 H (98-107) mmol/L Carbon Dioxide 16 L (22-30) mmol/L BUN 25 H (9-20) mg/dL Glucose 280 H (75-100) mg/dL POC Glucose 282 H 293 H (70-105) Calcium 7.5 L (8.4-10.2) mg/dL Total Protein 6.1 L (6.3-8.2) g/dL Albumin 1.8 L (3.9-5) g/dL Triglycerides (2-149) mg/dL 07/03/18 07/03/18 07/03/18 Range/Units 04:24 05:14 05:50 POC ABG pCO2 32.2 L (35-45) Sodium (137-145) mmol/L Chloride (98-107) mmol/L Carbon Dioxide (22-30) mmol/L BUN (9-20) mg/dL Glucose (75-100) mg/dL POC Glucose 336 H (70-105) Calcium (8.4-10.2) mg/dL Total Protein (6.3-8.2) g/dL Albumin (3.9-5) g/dL Triglycerides 176 H (2-149) mg/dL 07/03/18 07/03/18 Range/Units 12:04 13:44 POC ABG pCO2 (35-45) Sodium 147 H (137-145) mmol/L Chloride 115.7 H (98-107) mmol/L Carbon Dioxide 19 L (22-30) mmol/L BUN 26 H (9-20) mg/dL Glucose 432 H (75-100) mg/dL POC Glucose 392 H (70-105) Calcium (8.4-10.2) mg/dL Total Protein (6.3-8.2) g/dL Albumin (3.9-5) g/dL Triglycerides (2-149) mg/dL
[2018-07-03] MEDS: TYLENOL PR PRN (20:53)
[2018-07-03] MEDS ORDERED: LANTUS SUB-Q SCH (22:00)
[2018-07-04] MEDS: XOPENEX IH SCH ×4 (02:09→20:54)
[2018-07-04] MEDS: ATROVENT IH SCH ×4 (02:10→20:54)
[2018-07-04] MEDS: DEXMEDETOMIDINE 400 MCG in NACL 0.9% 100 ML IV SCH ×2 (02:29→05:36)
[2018-07-04 04:48] LABS: Hematocrit 39.7 % (35.5-45.6); Hemoglobin 13.7 gm/dl (11.8-15.2); Mean Corpuscular HGB Conc 34 % (32-34); Mean Corpuscular Volume 88 fl (84-94); Platelet Count 166 K/mm3 (140-440); Red Blood Count 4.49 M/mm3 (3.65-5.03); Red Cell Distribution Width 14.6 % (13.2-15.2)
[2018-07-04 04:55] LABS: Calcium 8.8 mg/dL (8.4-10.2)
[2018-07-04] MEDS: VANCOMYCIN 1,250 MG in NACL 0.9% 250ML 250 ML IV SCH (05:35)
[2018-07-04] MEDS: HumaLOG SUB-Q SCH ×4 (05:35→23:52)
[2018-07-04 06:02] LABS: Basophils % (Manual) 0 % (0.0-1.8); Eosinophils % (Manual) 0 % (0.0-4.3); Total Cells Counted 100
[2018-07-04 06:03] LABS: Large Platelets 1+; Platelet Clumps Few; Platelet Estimate Consistent w Auto; RBC Morphology Normal
--- NOTE | 2018-07-04 07:11 | XRay Report ---
PROCEDURE: XR CHEST 1V AP TECHNIQUE: A portable view the chest was obtained. HISTORY: follow up respiratory failure COMPARISONS: 07/03/2018 FINDINGS: The heart is mildly enlarged. The lungs remain mildly congested. There is stable patchy airspace dise ase in the lingula and left lower lobe and to lesser extent in the right lung base. Pleural fluid is not seen. The ET tube and NG tube appear in good position. The skeletal structures are unchanged. IMPRESSION: Stable mild congestion with airspace disease in both lung bases unchanged from the previous study.. This document is electronically signed by Ricky Valencia MD., July 04 2018 07:09:40 AM ET
[2018-07-04] MEDS: LOVENOX SUB-Q SCH ×2 (08:16→19:50)
[2018-07-04] MEDS: TYLENOL PR PRN (08:16)
[2018-07-04] MEDS ORDERED: ceFAZolin 2 GM in NACL 0.9% 100 ML IV SCH (09:00)
--- NOTE | 2018-07-04 09:14 | Progress Note ---
Assessment and Plan 57 y/o male presents with shortness of breath, found to have pneumonia and DKA with structural evidence of COPD 1. Increase night time Lantus to 35 units and give an additional 10 units now. Sugars are better but may need more. Will continue to monitor. Will increase to 40 units qhs. 2. Continue feeds 3. Spiked another temp this am. On appropriate abx therapy. IMS ordered CTA and Dopplers. doppler negative. Spoke with pharmacy and will downgrade abx regimen. could be drug fever. 4. Wean sedation to RASS of 0-to Minus 2 5. Echo with diastolic dysfunction and mild systolic dysfunction. Lasix 20mg IV now. 6. Holding all sedation right now. 7. Daughter leaves for [place] today, asked the girlfriend for them both to be here early today which they are here now. As explained, worst case scenario, we would have to re-intubate. Awaiting to see if he will wake up more. Would like to attempt extubation today. 07/02/18 Long discussion with Daughter at bedside who is in nursing school. Explained the severity of illness based on systems. She also expresses understanding of this. Patient is also vet but she does not know his service connection status. He is from [place] and she would like to get him back there. Not stable enough for transport at this time. CCT 31 minutes. Subjective Date of service: 07/04/18 Principal diagnosis: DKA,resp failure Interval history: Off all sedation and currently tolerating PSV. Family at bedside. Patient moving around but not following commands. ABG stable. Objective Vital Signs - 12hr 07/03/18 07/03/18 07/03/18 21:16 21:30 21:46 Temperature Pulse Rate 101 H 101 H 101 H Pulse Rate [ Anterior Bilateral Throughout] Respiratory 28 H 29 H 28 H Rate Respiratory Rate [Anterior Bilateral Throughout] Blood Pressure 166/84 130/65 130/65 O2 Sat by Pulse 97 95 97 Oximetry 07/03/18 07/03/18 07/03/18 22:00 22:15 22:16 Temperature Pulse Rate 95 H 98 H 98 H Pulse Rate [ Anterior Bilateral Throughout] Respiratory 29 H 29 H Rate Respiratory Rate [Anterior Bilateral Throughout] Blood Pressure 134/70 134/70 134/70 O2 Sat by Pulse 96 98 Oximetry 07/03/18 07/03/18 07/03/18 22:25 22:30 22:46 Temperature Pulse Rate 98 H 95 H Pulse Rate [ 94 H Anterior Bilateral Throughout] Respiratory 28 H 27 H Rate Respiratory 28 H Rate [Anterior Bilateral Throughout] Blood Pressure 139/71 139/71 O2 Sat by Pulse 95 99 Oximetry 07/03/18 07/03/18 07/03/18 23:00 23:16 23:30 Temperature Pulse Rate 93 H 92 H 90 Pulse Rate [ Anterior Bilateral Throughout] Respiratory 28 H 26 H 27 H Rate Respiratory Rate [Anterior Bilateral Throughout] Blood Pressure 138/72 138/72 134/73 O2 Sat by Pulse 96 98 Oximetry 07/03/18 07/03/18 07/03/18 23:37 23:46 23:58 Temperature Pulse Rate 90 90 91 H Pulse Rate [ Anterior Bilateral Throughout] Respiratory 27 H 26 H Rate Respiratory Rate [Anterior Bilateral Throughout] Blood Pressure 134/73 134/73 137/72 O2 Sat by Pulse 98 99 98 Oximetry 07/04/18 07/04/18 07/04/18 00:00 00:16 00:30 Temperature 99.1 F Pulse Rate 91 H 92 H 90 Pulse Rate [ Anterior Bilateral Throughout] Respiratory 27 H 28 H 27 H Rate Respiratory Rate [Anterior Bilateral Throughout] Blood Pressure 137/72 137/72 136/72 O2 Sat by Pulse 97 99 97 Oximetry 07/04/18 07/04/18 07/04/18 00:46 01:00 01:16 Temperature Pulse Rate 92 H 92 H 92 H Pulse Rate [ Anterior Bilateral Throughout] Respiratory 27 H 26 H 26 H Rate Respiratory Rate [Anterior Bilateral Throughout] Blood Pressure 136/72 140/74 140/74 O2 Sat by Pulse 98 96 99 Oximetry 07/04/18 07/04/18 07/04/18 01:30 01:46 02:00 Temperature Pulse Rate 92 H 92 H 93 H Pulse Rate [ 95 H Anterior Bilateral Throughout] Respiratory 26 H 25 H 26 H Rate Respiratory 24 Rate [Anterior Bilateral Throughout] Blood Pressure 133/72 133/72 139/75 O2 Sat by Pulse 97 98 97 Oximetry 07/04/18 07/04/18 07/04/18 02:16 02:30 02:46 Temperature Pulse Rate 91 H 92 H 92 H Pulse Rate [ Anterior Bilateral Throughout] Respiratory 22 24 24 Rate Respiratory Rate [Anterior Bilateral Throughout] Blood Pressure 139/75 128/76 128/76 O2 Sat by Pulse 97 96 97 Oximetry 07/04/18 07/04/18 07/04/18 03:00 03:16 03:30 Temperature Pulse Rate 93 H 93 H 93 H Pulse Rate [ Anterior Bilateral Throughout] Respiratory 24 24 24 Rate Respiratory Rate [Anterior Bilateral Throughout] Blood Pressure 134/77 134/77 144/81 O2 Sat by Pulse 95 97 96 Oximetry 07/04/18 07/04/18 07/04/18 03:46 04:00 04:16 Temperature 102.8 F H Pulse Rate 94 H 94 H 95 H Pulse Rate [ Anterior Bilateral Throughout] Respiratory 24 24 24 Rate Respiratory Rate [Anterior Bilateral Throughout] Blood Pressure 144/81 148/81 148/81 O2 Sat by Pulse 97 95 97 Oximetry 07/04/18 07/04/18 07/04/18 04:30 04:46 05:00 Temperature Pulse Rate 98 H 102 H 98 H Pulse Rate [ Anterior Bilateral Throughout] Respiratory 26 H 32 H 29 H Rate Respiratory Rate [Anterior Bilateral Throughout] Blood Pressure 155/85 155/85 130/71 O2 Sat by Pulse 96 96 96 Oximetry 07/04/18 07/04/18 07/04/18 05:16 05:30 05:46 Temperature Pulse Rate 94 H 93 H 91 H Pulse Rate [ Anterior Bilateral Throughout] Respiratory 28 H 28 H 26 H Rate Respiratory Rate [Anterior Bilateral Throughout] Blood Pressure 130/71 145/76 145/76 O2 Sat by Pulse 99 96 99 Oximetry 07/04/18 07/04/18 07/04/18 06:00 06:16 06:30 Temperature Pulse Rate 89 90 89 Pulse Rate [ Anterior Bilateral Throughout] Respiratory 18 27 H 26 H Rate Respiratory Rate [Anterior Bilateral Throughout] Blood Pressure 138/72 138/72 145/77 O2 Sat by Pulse 97 99 97 Oximetry 07/04/18 07/04/18 07/04/18 06:46 07:00 07:16 Temperature Pulse Rate 90 90 91 H Pulse Rate [ Anterior Bilateral Throughout] Respiratory 26 H 26 H 27 H Rate Respiratory Rate [Anterior Bilateral Throughout] Blood Pressure 145/77 140/78 140/78 O2 Sat by Pulse 99 97 99 Oximetry 07/04/18 07/04/18 07/04/18 07:30 07:40 07:42 Temperature Pulse Rate 92 H 91 H 90 Pulse Rate [ Anterior Bilateral Throughout] Respiratory 26 H 27 H Rate Respiratory Rate [Anterior Bilateral Throughout] Blood Pressure 138/77 138/77 138/77 O2 Sat by Pulse 97 99 99 Oximetry 07/04/18 07/04/18 07/04/18 07:44 07:46 07:54 Temperature Pulse Rate 91 H Pulse Rate [ 90 92 H Anterior Bilateral Throughout] Respiratory 27 H Rate Respiratory 28 H 27 H Rate [Anterior Bilateral Throughout] Blood Pressure 138/77 O2 Sat by Pulse 99 Oximetry 07/04/18 07/04/18 08:00 08:16 Temperature 103.1 F H Pulse Rate 92 H 91 H Pulse Rate [ Anterior Bilateral Throughout] Respiratory 26 H 29 H Rate Respiratory Rate [Anterior Bilateral Throughout] Blood Pressure 133/81 133/81 O2 Sat by Pulse 98 100 Oximetry Constitutional: other (sedated on vent but does appears uncomfortable) Eyes: non-icteric ENT: other (orally intubated) Neck: supple Effort: mildly labored Ascultation: Left: rhonchi (base), Bilateral: diminished breath sounds Percussion: Bilateral: not dull Cardiovascular: regular rate and rhythm Gastrointestinal: normoactive bowel sounds CBC and BMP: 07/04/18 04:10 07/04/18 04:10 ABG, PT/INR, D-dimer: ABG POC ABG pH 7.425 (7.35-7.45) 07/04/18 05:28 POC ABG pCO2 33.2 (35-45) L 07/04/18 05:28 POC ABG pO2 75 (80-105) L 07/04/18 05:28 POC ABG HCO3 21.8 (22-26 mml/L) 07/04/18 05:28 POC ABG Total CO2 23 (23-27mmol/L) 07/04/18 05:28 POC ABG O2 Sat 95 07/04/18 05:28 PT/INR, D-dimer PT 14.7 Sec. (12.2-14.9) 06/30/18 03:50 INR 1.08 (0.87-1.13) 06/30/18 03:50 D-Dimer 849.06 ng/mlDDU (0-234) H 06/30/18 22:31 Abnormal lab findings: Abnormal Labs 06/30/18 06/30/18 06/30/18 03:47 03:50 03:50 RBC 5.44 H Hgb 16.5 H Hct 51.1 H Lymph % (Auto) 5.8 L [place] % (Auto) 9.7 H Lymph # 0.5 L [place] # 0.9 H Seg Neutrophils % 84.1 H Seg Neuts % (Manual) Lymphocytes # (Manual) D-Dimer POC ABG pH POC ABG pCO2 POC ABG pO2 Sodium 133 L Potassium 5.4 H Chloride 94.8 L Carbon Dioxide 5 L* BUN 23 H Glucose 556 H* POC Glucose 360 H Calcium Phosphorus ALT NT-Pro-B Natriuret Pep Total Protein 8.3 H Albumin 3.7 L Triglycerides Amylase Lipase 06/30/18 06/30/18 06/30/18 04:23 04:43 05:45 RBC Hgb Hct Lymph % (Auto) [place] % (Auto) Lymph # [place] # Seg Neutrophils % Seg Neuts % (Manual) Lymphocytes # (Manual) D-Dimer POC ABG pH 7.065 L POC ABG pCO2 POC ABG pO2 Sodium Potassium Chloride Carbon Dioxide BUN Glucose POC Glucose 384 H 382 H Calcium Phosphorus ALT NT-Pro-B Natriuret Pep Total Protein Albumin Triglycerides Amylase Lipase 06/30/18 06/30/18 06/30/18 06:43 06:44 07:55 RBC Hgb Hct Lymph % (Auto) [place] % (Auto) Lymph # [place] # Seg Neutrophils % Seg Neuts % (Manual) Lymphocytes # (Manual) D-Dimer POC ABG pH POC ABG pCO2 POC ABG pO2 Sodium Potassium Chloride Carbon Dioxide 4 L* BUN 22 H Glucose 511 H* POC Glucose 373 H 386 H Calcium Phosphorus ALT NT-Pro-B Natriuret Pep Total Protein Albumin Triglycerides Amylase Lipase 06/30/18 06/30/18 06/30/18 08:54 09:02 09:47 RBC Hgb Hct Lymph % (Auto) [place] % (Auto) Lymph # [place] # Seg Neutrophils % Seg Neuts % (Manual) Lymphocytes # (Manual) D-Dimer POC ABG pH POC ABG pCO2 POC ABG pO2 Sodium 134 L Potassium 5.4 H Chloride Carbon Dioxide 6 L* BUN 23 H Glucose 515 H* POC Glucose 386 H 380 H Calcium Phosphorus ALT NT-Pro-B Natriuret Pep Total Protein Albumin Triglycerides Amylase Lipase 06/30/18 06/30/18 06/30/18 11:01 11:43 12:08 RBC Hgb Hct Lymph % (Auto) [place] % (Auto) Lymph # [place] # Seg Neutrophils % Seg Neuts % (Manual) Lymphocytes # (Manual) D-Dimer POC ABG pH POC ABG pCO2 POC ABG pO2 Sodium Potassium 5.1 H Chloride Carbon Dioxide 7 L* BUN 23 H Glucose 400 H POC Glucose 322 H 296 H Calcium Phosphorus ALT NT-Pro-B Natriuret Pep Total Protein Albumin Triglycerides Amylase Lipase 06/30/18 06/30/18 06/30/18 12:45 14:12 15:11 RBC Hgb Hct Lymph % (Auto) [place] % (Auto) Lymph # [place] # Seg Neutrophils % Seg Neuts % (Manual) Lymphocytes # (Manual) D-Dimer POC ABG pH POC ABG pCO2 POC ABG pO2 Sodium Potassium Chloride Carbon Dioxide BUN Glucose POC Glucose 335 H 284 H 260 H Calcium Phosphorus ALT NT-Pro-B Natriuret Pep Total Protein Albumin Triglycerides Amylase Lipase 06/30/18 06/30/18 06/30/18 15:50 16:56 18:01 RBC Hgb Hct Lymph % (Auto) [place] % (Auto) Lymph # [place] # Seg Neutrophils % Seg Neuts % (Manual) Lymphocytes # (Manual) D-Dimer POC ABG pH POC ABG pCO2 POC ABG pO2 Sodium Potassium Chloride Carbon Dioxide BUN Glucose POC Glucose 287 H 301 H 273 H Calcium Phosphorus ALT NT-Pro-B Natriuret Pep Total Protein Albumin Triglycerides Amylase Lipase 06/30/18 06/30/18 06/30/18 19:35 19:55 21:28 RBC Hgb Hct Lymph % (Auto) [place] % (Auto) Lymph # [place] # Seg Neutrophils % Seg Neuts % (Manual) Lymphocytes # (Manual) D-Dimer POC ABG pH 7.244 L POC ABG pCO2 POC ABG pO2 Sodium Potassium Chloride 110.4 H Carbon Dioxide 12 L BUN Glucose 268 H POC Glucose 270 H Calcium Phosphorus ALT NT-Pro-B Natriuret Pep Total Protein Albumin Triglycerides Amylase Lipase 06/30/18 06/30/18 06/30/18 22:12 22:31 22:52 RBC Hgb Hct Lymph % (Auto) [place] % (Auto) Lymph # [place] # Seg Neutrophils % Seg Neuts % (Manual) Lymphocytes # (Manual) D-Dimer 849.06 H POC ABG pH 7.214 L POC ABG pCO2 POC ABG pO2 Sodium Potassium Chloride Carbon Dioxide BUN Glucose POC Glucose 242 H Calcium Phosphorus ALT NT-Pro-B Natriuret Pep Total Protein Albumin Triglycerides Amylase Lipase 07/01/18 07/01/18 07/01/18 00:48 02:05 03:03 RBC Hgb Hct Lymph % (Auto) [place] % (Auto) Lymph # [place] # Seg Neutrophils % Seg Neuts % (Manual) Lymphocytes # (Manual) D-Dimer POC ABG pH POC ABG pCO2 POC ABG pO2 Sodium Potassium Chloride Carbon Dioxide BUN Glucose POC Glucose 401 H 156 H 122 H Calcium Phosphorus ALT NT-Pro-B Natriuret Pep Total Protein Albumin Triglycerides Amylase Lipase 07/01/18 07/01/18 07/01/18 04:04 05:03 05:03 RBC 5.11 H Hgb 15.6 H Hct 45.7 H Lymph % (Auto) 5.1 L [place] % (Auto) 7.6 H Lymph # 0.3 L [place] # Seg Neutrophils % 87.2 H Seg Neuts % (Manual) Lymphocytes # (Manual) D-Dimer POC ABG pH POC ABG pCO2 POC ABG pO2 Sodium Potassium Chloride 111.1 H Carbon Dioxide 16 L BUN Glucose 154 H POC Glucose 120 H Calcium Phosphorus ALT NT-Pro-B Natriuret Pep Total Protein Albumin Triglycerides Amylase Lipase 07/01/18 07/01/18 07/01/18 05:09 05:32 06:02 RBC Hgb Hct Lymph % (Auto) [place] % (Auto) Lymph # [place] # Seg Neutrophils % Seg Neuts % (Manual) Lymphocytes # (Manual) D-Dimer POC ABG pH POC ABG pCO2 30.5 L POC ABG pO2 172 H Sodium Potassium Chloride Carbon Dioxide BUN Glucose POC Glucose 137 H 149 H Calcium Phosphorus ALT NT-Pro-B Natriuret Pep Total Protein Albumin Triglycerides Amylase Lipase 07/01/18 07/01/18 07/01/18 06:59 08:20 09:23 RBC Hgb Hct Lymph % (Auto) [place] % (Auto) Lymph # [place] # Seg Neutrophils % Seg Neuts % (Manual) Lymphocytes # (Manual) D-Dimer POC ABG pH POC ABG pCO2 POC ABG pO2 Sodium Potassium Chloride Carbon Dioxide BUN Glucose POC Glucose 164 H 135 H 142 H Calcium Phosphorus ALT NT-Pro-B Natriuret Pep Total Protein Albumin Triglycerides Amylase Lipase 07/01/18 07/01/18 07/01/18 10:09 11:13 11:31 RBC Hgb Hct Lymph % (Auto) [place] % (Auto) Lymph # [place] # Seg Neutrophils % Seg Neuts % (Manual) Lymphocytes # (Manual) D-Dimer POC ABG pH POC ABG pCO2 POC ABG pO2 Sodium Potassium Chloride Carbon Dioxide BUN Glucose POC Glucose 170 H 163 H Calcium Phosphorus ALT NT-Pro-B Natriuret Pep 3170 H Total Protein Albumin Triglycerides Amylase Lipase 07/01/18 07/01/18 07/01/18 12:09 13:12 15:42 RBC Hgb Hct Lymph % (Auto) [place] % (Auto) Lymph # [place] # Seg Neutrophils % Seg Neuts % (Manual) Lymphocytes # (Manual) D-Dimer POC ABG pH POC ABG pCO2 POC ABG pO2 Sodium Potassium Chloride 110.8 H Carbon Dioxide 19 L BUN 22 H Glucose 157 H POC Glucose 185 H 193 H Calcium Phosphorus 0.70 L* ALT NT-Pro-B Natriuret Pep Total Protein Albumin Triglycerides Amylase Lipase 07/01/18 07/01/18 07/01/18 15:44 17:18 18:15 RBC Hgb Hct Lymph % (Auto) [place] % (Auto) Lymph # [place] # Seg Neutrophils % Seg Neuts % (Manual) Lymphocytes # (Manual) D-Dimer POC ABG pH POC ABG pCO2 POC ABG pO2 Sodium Potassium Chloride Carbon Dioxide BUN Glucose POC Glucose 189 H 167 H 130 H Calcium Phosphorus ALT NT-Pro-B Natriuret Pep Total Protein Albumin Triglycerides Amylase Lipase 07/01/18 07/01/18 07/01/18 19:13 20:02 21:11 RBC Hgb Hct Lymph % (Auto) [place] % (Auto) Lymph # [place] # Seg Neutrophils % Seg Neuts % (Manual) Lymphocytes # (Manual) D-Dimer POC ABG pH POC ABG pCO2 POC ABG pO2 Sodium Potassium Chloride Carbon Dioxide BUN Glucose POC Glucose 129 H 147 H 220 H Calcium Phosphorus ALT NT-Pro-B Natriuret Pep Total Protein Albumin Triglycerides Amylase Lipase 07/01/18 07/01/18 07/02/18 22:12 23:14 01:34 RBC Hgb Hct Lymph % (Auto) [place] % (Auto) Lymph # [place] # Seg Neutrophils % Seg Neuts % (Manual) Lymphocytes # (Manual) D-Dimer POC ABG pH POC ABG pCO2 POC ABG pO2 Sodium Potassium Chloride Carbon Dioxide 20 L BUN 22 H Glucose 157 H POC Glucose 219 H 122 H Calcium Phosphorus ALT NT-Pro-B Natriuret Pep Total Protein Albumin 2.6 L Triglycerides Amylase Lipase 07/02/18 07/02/18 07/02/18 02:26 04:32 04:33 RBC Hgb Hct Lymph % (Auto) [place] % (Auto) Lymph # [place] # Seg Neutrophils % Seg Neuts % (Manual) Lymphocytes # (Manual) D-Dimer POC ABG pH POC ABG pCO2 POC ABG pO2 Sodium 132 L D Potassium 3.2 L Chloride Carbon Dioxide 13 L D BUN 22 H Glucose 224 H POC Glucose 282 H Calcium 7.2 L D Phosphorus ALT 5 L NT-Pro-B Natriuret Pep Total Protein 5.8 L Albumin 1.1 L Triglycerides 1153 H Amylase Lipase 07/02/18 07/02/18 07/02/18 04:34 05:21 12:28 RBC Hgb Hct Lymph % (Auto) [place] % (Auto) Lymph # [place] # Seg Neutrophils % Seg Neuts % (Manual) Lymphocytes # (Manual) D-Dimer POC ABG pH 7.324 L POC ABG pCO2 POC ABG pO2 72 L Sodium Potassium Chloride Carbon Dioxide BUN Glucose POC Glucose 218 H 153 H Calcium Phosphorus ALT NT-Pro-B Natriuret Pep Total Protein Albumin Triglycerides Amylase Lipase 07/02/18 07/02/18 07/02/18 14:44 14:44 17:45 RBC Hgb Hct Lymph % (Auto) [place] % (Auto) Lymph # [place] # Seg Neutrophils % Seg Neuts % (Manual) Lymphocytes # (Manual) D-Dimer POC ABG pH POC ABG pCO2 POC ABG pO2 Sodium 148 H D Potassium 3.2 L Chloride 112.2 H Carbon Dioxide 20 L D BUN 25 H Glucose 185 H POC Glucose 282 H Calcium 7.8 L Phosphorus ALT NT-Pro-B Natriuret Pep Total Protein 5.3 L Albumin 2.4 L Triglycerides Amylase 22 L Lipase 10 L 07/02/18 07/03/18 07/03/18 18:52 00:07 04:24 RBC Hgb Hct Lymph % (Auto) [place] % (Auto) Lymph # [place] # Seg Neutrophils % Seg Neuts % (Manual) Lymphocytes # (Manual) D-Dimer POC ABG pH POC ABG pCO2 POC ABG pO2 Sodium Potassium Chloride 113.1 H Carbon Dioxide 16 L BUN 25 H Glucose 280 H POC Glucose 293 H Calcium 7.5 L Phosphorus ALT NT-Pro-B Natriuret Pep Total Protein 6.1 L Albumin 1.8 L Triglycerides 176 H Amylase Lipase 07/03/18 07/03/18 07/03/18 05:14 05:50 12:04 RBC Hgb Hct Lymph % (Auto) [place] % (Auto) Lymph # [place] # Seg Neutrophils % Seg Neuts % (Manual) Lymphocytes # (Manual) D-Dimer POC ABG pH POC ABG pCO2 32.2 L POC ABG pO2 Sodium Potassium Chloride Carbon Dioxide BUN Glucose POC Glucose 336 H 392 H Calcium Phosphorus ALT NT-Pro-B Natriuret Pep Total Protein Albumin Triglycerides Amylase Lipase 07/03/18 07/03/18 07/03/18 13:44 17:51 23:53 RBC Hgb Hct Lymph % (Auto) [place] % (Auto) Lymph # [place] # Seg Neutrophils % Seg Neuts % (Manual) Lymphocytes # (Manual) D-Dimer POC ABG pH POC ABG pCO2 POC ABG pO2 Sodium 147 H Potassium Chloride 115.7 H Carbon Dioxide 19 L BUN 26 H Glucose 432 H POC Glucose 443 H 240 H Calcium Phosphorus ALT NT-Pro-B Natriuret Pep Total Protein Albumin Triglycerides Amylase Lipase 07/04/18 07/04/18 07/04/18 04:10 04:10 05:25 RBC Hgb Hct Lymph % (Auto) [place] % (Auto) Lymph # [place] # Seg Neutrophils % Seg Neuts % (Manual) 79.0 H Lymphocytes # (Manual) 1.1 L D-Dimer POC ABG pH POC ABG pCO2 POC ABG pO2 Sodium 148 H Potassium Chloride 118.4 H Carbon Dioxide BUN 25 H Glucose 265 H POC Glucose 243 H Calcium Phosphorus ALT NT-Pro-B Natriuret Pep Total Protein Albumin Triglycerides Amylase Lipase 07/04/18 05:28 RBC Hgb Hct Lymph % (Auto) [place] % (Auto) Lymph # [place] # Seg Neutrophils % Seg Neuts % (Manual) Lymphocytes # (Manual) D-Dimer POC ABG pH POC ABG pCO2 33.2 L POC ABG pO2 75 L Sodium Potassium Chloride Carbon Dioxide BUN Glucose POC Glucose Calcium Phosphorus ALT NT-Pro-B Natriuret Pep Total Protein Albumin Triglycerides Amylase Lipase
--- NOTE | 2018-07-04 09:32 | Progress Note ---
Assessment and Plan Assessment and plan: 57-year-old man with past medical history of hypertension, CVA with left-sided weakness, type 2 diabetes, presented to the ER with shortness of breath. Per EMS his glucose was above 500. He was on oral hypoglycemics at home he was not on insulin. The patient also complained of polydipsia, polyuria, generalized weakness, and body aches. he was diagnosed with acute respiratory failure due to pneumonia, DKA. Diagnoses DKA severe metabolic acidosis Hypertensive urgency Sepsis due to pneumonia Pneumonia Tobacco abuse Acute respiratory failure on MV >96 hours, now extubated Hyperlipidemia History of CVA with left-sided deficit Acute metabolic encephalopathy Pneumonia hypernatremia hypokalemia on pradaxa at home Plan Transitioned to sq insulins, now off bicarb ggt and insulin ggt Extubated few hours ago sepsis/pna; abx per ID Will do tobacco cessation counseling when extubated, nicotine patches as needed free water replacement via G tube -echo shows EF 45, keep euvolemic, cardiology consulted, following Extubated today may transfer out of ICU tomorrow if he remains stable Discussed with family at bedside-daughter. The high probability of a clinically significant, sudden or life threatening deterioration of the [3] system(s) required my full and direct attention, intervention and personal management. The aggregate critical care time was [32] minutes. This time is in addition to time spent performing reported procedures but includes the following: [x] Data Review and interpretation [x] Patient assessment and monitoring of vital signs [x] Documentation [x] Medication orders and management History Interval history: Patient was intubated, just extubated this morning Hospitalist Physical - Physical exam Narrative exam: Gen: Not in acute distress, lying in bed, HEENT: Normocephalic, atraumatic Heart: S1 and S2 reg, no murmurs, rubs or gallop Lungs: Clear to auscultation, no crackles, Abd: soft, tender mid to upper abdomen, non distended, normal BS Ext: No edema, no clubbing, no cyanosis, hard lesions plantar feet Neuro: Lethargic, sedated, just extubated, cannot fully assess Psych:Normal mood - Constitutional Vitals: Temp Pulse Resp BP Pulse Ox 103.1 F H 91 H 29 H 133/81 100 07/04/18 08:00 07/04/18 08:16 07/04/18 08:16 07/04/18 08:16 07/04/18 08:16 General appearance: Present: mild distress, well-nourished Results - Labs CBC & Chem 7: 07/04/18 04:10 07/04/18 04:10 Labs: Laboratory Last Values WBC 7.2 K/mm3 (4.5-11.0) 07/04/18 04:10 RBC 4.49 M/mm3 (3.65-5.03) 07/04/18 04:10 Hgb 13.7 gm/dl (11.8-15.2) 07/04/18 04:10 Hct 39.7 % (35.5-45.6) D 07/04/18 04:10 MCV 88 fl (84-94) 07/04/18 04:10 MCH 30 pg (28-32) 07/04/18 04:10 MCHC 34 % (32-34) 07/04/18 04:10 RDW 14.6 % (13.2-15.2) 07/04/18 04:10 Plt Count 166 K/mm3 (140-440) 07/04/18 04:10 Lymph % (Auto) 5.1 % (13.4-35.0) L 07/01/18 05:03 [place] % (Auto) 7.6 % (0.0-7.3) H 07/01/18 05:03 Eos % (Auto) 0.0 % (0.0-4.3) 07/01/18 05:03 Baso % (Auto) 0.1 % (0.0-1.8) 07/01/18 05:03 Lymph # 0.3 K/mm3 (1.2-5.4) L 07/01/18 05:03 [place] # 0.5 K/mm3 (0.0-0.8) 07/01/18 05:03 Eos # 0.0 K/mm3 (0.0-0.4) 07/01/18 05:03 Baso # 0.0 K/mm3 (0.0-0.1) 07/01/18 05:03 Add Manual Diff Complete 07/04/18 04:10 Total Counted 100 07/04/18 04:10 Seg Neutrophils % 87.2 % (40.0-70.0) H 07/01/18 05:03 Seg Neuts % (Manual) 79.0 % (40.0-70.0) H 07/04/18 04:10 Band Neutrophils % 0 % 07/04/18 04:10 Lymphocytes % (Manual) 15.0 % (13.4-35.0) 07/04/18 04:10 Reactive Lymphs % (Man) 0 % 07/04/18 04:10 Monocytes % (Manual) 6.0 % (0.0-7.3) 07/04/18 04:10 Eosinophils % (Manual) 0 % (0.0-4.3) 07/04/18 04:10 Basophils % (Manual) 0 % (0.0-1.8) 07/04/18 04:10 Metamyelocytes % 0 % 07/04/18 04:10 Myelocytes % 0 % 07/04/18 04:10 Promyelocytes % 0 % 07/04/18 04:10 Blast Cells % 0 % 07/04/18 04:10 Nucleated RBC % Not Reportable 07/04/18 04:10 Seg Neutrophils # 5.6 K/mm3 (1.8-7.7) 07/01/18 05:03 Seg Neutrophils # Man 5.7 K/mm3 (1.8-7.7) 07/04/18 04:10 Band Neutrophils # 0.0 K/mm3 07/04/18 04:10 Lymphocytes # (Manual) 1.1 K/mm3 (1.2-5.4) L 07/04/18 04:10 Abs React Lymphs (Man) 0.0 K/mm3 07/04/18 04:10 Monocytes # (Manual) 0.4 K/mm3 (0.0-0.8) 07/04/18 04:10 Eosinophils # (Manual) 0.0 K/mm3 (0.0-0.4) 07/04/18 04:10 Basophils # (Manual) 0.0 K/mm3 (0.0-0.1) 07/04/18 04:10 Metamyelocytes # 0.0 K/mm3 07/04/18 04:10 Myelocytes # 0.0 K/mm3 07/04/18 04:10 Promyelocytes # 0.0 K/mm3 07/04/18 04:10 Blast Cells # 0.0 K/mm3 07/04/18 04:10 WBC Morphology Not Reportable 07/04/18 04:10 Hypersegmented Neuts Not Reportable 07/04/18 04:10 Hyposegmented Neuts Not Reportable 07/04/18 04:10 Hypogranular Neuts Not Reportable 07/04/18 04:10 Smudge Cells Not Reportable 07/04/18 04:10 Toxic Granulation Not Reportable 07/04/18 04:10 Toxic Vacuolation Not Reportable 07/04/18 04:10 Dohle Bodies Not Reportable 07/04/18 04:10 Pelger-Huet Anomaly Not Reportable 07/04/18 04:10 [place] Rods Not Reportable 07/04/18 04:10 Platelet Estimate Consistent w auto 07/04/18 04:10 Clumped Platelets Few 07/04/18 04:10 Plt Clumps, EDTA Not Reportable 07/04/18 04:10 Large Platelets 1+ 07/04/18 04:10 Giant Platelets Not Reportable 07/04/18 04:10 Platelet Satelliting Not Reportable 07/04/18 04:10 Plt Morphology Comment Not Reportable 07/04/18 04:10 RBC Morphology Normal 07/04/18 04:10 Dimorphic RBCs Not Reportable 07/04/18 04:10 Polychromasia Not Reportable 07/04/18 04:10 Hypochromasia Not Reportable 07/04/18 04:10 Poikilocytosis Not Reportable 07/04/18 04:10 Anisocytosis Not Reportable 07/04/18 04:10 Microcytosis Not Reportable 07/04/18 04:10 Macrocytosis Not Reportable 07/04/18 04:10 Spherocytes Not Reportable 07/04/18 04:10 Pappenheimer Bodies Not Reportable 07/04/18 04:10 Sickle Cells Not Reportable 07/04/18 04:10 Target Cells Not Reportable 07/04/18 04:10 Tear Drop Cells Not Reportable 07/04/18 04:10 Ovalocytes Not Reportable 07/04/18 04:10 Helmet Cells Not Reportable 07/04/18 04:10 [place] Bodies Not Reportable 07/04/18 04:10 [place] Rings Not Reportable 07/04/18 04:10 [place] Cells Not Reportable 07/04/18 04:10 Bite Cells Not Reportable 07/04/18 04:10 Crenated Cell Not Reportable 07/04/18 04:10 Elliptocytes Not Reportable 07/04/18 04:10 Acanthocytes (Spur) Not Reportable 07/04/18 04:10 Rouleaux Not Reportable 07/04/18 04:10 Hemoglobin C Crystals Not Reportable 07/04/18 04:10 Schistocytes Not Reportable 07/04/18 04:10 Malaria parasites Not Reportable 07/04/18 04:10 Hector Bodies Not Reportable 07/04/18 04:10 Hem Pathologist Commnt No 07/04/18 04:10 PT 14.7 Sec. (12.2-14.9) 06/30/18 03:50 INR 1.08 (0.87-1.13) 06/30/18 03:50 APTT 27.0 Sec. (24.2-36.6) 06/30/18 03:50 D-Dimer 849.06 ng/mlDDU (0-234) H 06/30/18 22:31 POC ABG pH 7.425 (7.35-7.45) 07/04/18 05:28 POC ABG pCO2 33.2 (35-45) L 07/04/18 05:28 POC ABG pO2 75 (80-105) L 07/04/18 05:28 POC ABG HCO3 21.8 (22-26 mml/L) 07/04/18 05:28 POC ABG Total CO2 23 (23-27mmol/L) 07/04/18 05:28 POC ABG O2 Sat 95 07/04/18 05:28 POC ABG Base Excess -3 ((-2) - (+3)mmol/L) 07/04/18 05:28 FiO2 40 % 07/04/18 05:28 Sodium 148 mmol/L (137-145) H 07/04/18 04:10 Potassium 4.8 mmol/L (3.6-5.0) 07/04/18 04:10 Chloride 118.4 mmol/L (98-107) H 07/04/18 04:10 Carbon Dioxide 22 mmol/L (22-30) 07/04/18 04:10 Anion Gap 12 mmol/L 07/04/18 04:10 BUN 25 mg/dL (9-20) H 07/04/18 04:10 Creatinine 1.5 mg/dL (0.8-1.5) 07/04/18 04:10 Estimated GFR 58 ml/min 07/04/18 04:10 BUN/Creatinine Ratio 17 % 07/04/18 04:10 Glucose 265 mg/dL (75-100) H 07/04/18 04:10 POC Glucose 243 (70-105) H 07/04/18 05:25 Ketones Quantitative Moderate (Negative) 06/30/18 03:50 Lactic Acid 1.30 mmol/L (0.7-2.0) 07/01/18 11:31 Calcium 8.8 mg/dL (8.4-10.2) 07/04/18 04:10 Phosphorus 4.40 mg/dL (2.5-4.5) 07/02/18 14:44 Magnesium 1.90 mg/dL (1.7-2.3) 07/01/18 15:42 Total Bilirubin 0.50 mg/dL (0.1-1.2) 07/02/18 18:52 AST 37 units/L (5-40) 07/02/18 18:52 ALT 12 units/L (7-56) 07/02/18 18:52 Alkaline Phosphatase 75 units/L (35-129) 07/02/18 18:52 Total Creatine Kinase 66 units/L (55-170) 06/30/18 03:50 CK-MB (CK-2) 2.2 ng/mL (0.0-4.0) 06/30/18 03:50 CK-MB (CK-2) Rel Index 3.3 (0-4) 06/30/18 03:50 Troponin T < 0.010 ng/mL (0.00-0.029) 06/30/18 11:43 NT-Pro-B Natriuret Pep 3170 pg/mL (0-900) H 07/01/18 11:31 Total Protein 6.1 g/dL (6.3-8.2) L 07/02/18 18:52 Albumin 1.8 g/dL (3.9-5) L 07/02/18 18:52 Albumin/Globulin Ratio 0.4 % 07/02/18 18:52 Triglycerides 176 mg/dL (2-149) H 07/03/18 04:24 Amylase 22 units/L (27-131) L 07/02/18 14:44 Lipase 10 units/L (13-60) L 07/02/18 14:44 Urine Color Straw (Yellow) 06/30/18 04:47 Urine Turbidity Slightly-cloudy (Clear) 06/30/18 04:47 Urine pH 5.0 (5.0-7.0) 06/30/18 04:47 Ur Specific [place] 1.028 (1.003-1.030) 06/30/18 04:47 Urine Protein 100 mg/dl mg/dL (Negative) 06/30/18 04:47 Urine Glucose (UA) >=500 mg/dL (Negative) 06/30/18 04:47 Urine Ketones 80 mg/dL (Negative) 06/30/18 04:47 Urine Blood Mod (Negative) 06/30/18 04:47 Urine Nitrite Neg (Negative) 06/30/18 04:47 Urine Bilirubin Neg (Negative) 06/30/18 04:47 Urine Urobilinogen < 2.0 mg/dL (<2.0) 06/30/18 04:47 Ur Leukocyte Esterase Neg (Negative) 06/30/18 04:47 Urine WBC (Auto) 1.0 /HPF (0.0-6.0) 06/30/18 04:47 Urine RBC (Auto) 10.0 /HPF (0.0-6.0) 06/30/18 04:47 U Epithel Cells (Auto) 1.0 /HPF (0-13.0) 06/30/18 04:47 Urine Bacteria (Auto) 1+ /HPF (Negative) 06/30/18 04:47 Urine Mucus Few /HPF 06/30/18 04:47 Nasal Screen MRSA (PCR) Negative (Negative) 07/01/18 15:30 Vancomycin Trough 16.0 ug/mL (5.0-20.0) 07/03/18 17:09 Urine Opiates Screen Presumptive negative 06/30/18 04:47 Urine Methadone Screen Presumptive negative 06/30/18 04:47 Ur Barbiturates Screen Presumptive negative 06/30/18 04:47 Ur Phencyclidine Scrn Presumptive negative 06/30/18 04:47 Ur Amphetamines Screen Presumptive negative 06/30/18 04:47 U Benzodiazepines Scrn Presumptive negative 06/30/18 04:47 Urine Cocaine Screen Presumptive negative 06/30/18 04:47 U Marijuana (THC) Screen Presumptive negative 06/30/18 04:47 Drugs of Abuse Note Disclamer 06/30/18 04:47 HIV 1&2 Antibody Rapid Non react (Non React) 07/02/18 04:33 HIV P24 Antigen Non react (Non React) 07/02/18 04:33 Active Medications - Current Medications Current Medications: Generic Name Dose Route Start Last Admin Trade Name Freq PRN Reason Stop Dose Admin Acetaminophen 650 mg 07/01/18 03:35 07/04/18 08:16 Tylenol [place] 650 mg Q4H PRN Administration Fever >101 Acetaminophen 250 mg 07/03/18 05:31 07/04/18 05:37 Tylenol PO 250 mg Q6H PRN Administration Pain, Mild (1-3) Amlodipine Besylate 10 mg 07/03/18 10:00 07/03/18 08:59 Norvasc PO 10 mg QDAY JT Administration Lipase/Protease/Amylase 1 each 07/02/18 00:[address] 10,500 Unit FEEDTUBE PRN PRN For Clogged Feeding Tube Dextrose 0 ml 06/30/18 04:20 D50w (25gm) Syringe IV PRN PRN Hypoglycemia Enoxaparin Sodium 100 mg 06/30/18 19:00 07/04/18 08:16 Lovenox SUB-Q 100 mg 0700,1900 JT Administration Famotidine 20 mg 07/02/18 10:00 07/03/18 22:15 Pepcid PO 20 mg BID JT Administration Fentanyl 25 mcg 07/03/18 10:44 07/03/18 18:09 Sublimaze IV 25 mcg Q2H PRN Administration Pain , Severe (7-10) Furosemide 20 mg 07/04/18 10:00 Lasix IV 07/04/18 10:01 ONCE ONE Haloperidol Lactate 5 mg 06/30/18 18:47 07/03/18 08:59 Haldol IM 5 mg Q6H PRN Administration Agitation Hydralazine HCl 20 mg 07/03/18 05:33 07/03/18 18:32 Apresoline IV 20 mg Q4HR PRN Administration Blood Pressure Hydrophilic Ointment 1 applic 06/30/18 21:49 Vaseline Lip Therapy TP Q2HR PRN Dry Lips Nicardipine HCl 50 mg/ Sodium 250 mls @ 25 mls/hr 06/30/18 06:00 07/01/18 01:53 Chloride IV 0 mg/hr TITR JT 0 mls/hr Titration Protocol 5 MG/HR Dexmedetomidine HCl 400 mcg/ 104 mls @ 5.086 mls/hr 07/02/18 11:00 07/04/18 05:36 Sodium Chloride IV 1 mcg/kg/hr TITRATE JT 25.428 mls/hr Administration Protocol 0.2 MCG/KG/HR Cefazolin Sodium 2 gm/ Sodium 100 mls @ 100 mls/hr 07/04/18 09:00 Chloride IV Q8H JT Insulin Glargine 40 units 07/04/18 22:00 Lantus SUB-Q QHS JT Insulin Glargine 10 units 07/04/18 10:00 Lantus SUB-Q 07/04/18 10:01 ONCE ONE Insulin Human Lispro 0 unit 07/02/18 01:00 07/04/18 05:35 Humalog SUB-Q 4 unit Q6HR JT Administration Protocol Ipratropium [place] 0.5 mg 06/30/18 08:00 07/04/18 07:44 Atrovent IH 0.5 mg Q6HRT JT Administration Levalbuterol HCl 0.63 mg 06/30/18 08:00 07/04/18 07:44 Xopenex IH 0.63 mg Q6HRT JT Administration Lorazepam 1 mg 06/30/18 17:46 07/03/18 08:17 Ativan IV 1 mg Q4H PRN Administration Anxiety Metoprolol Tartrate 50 mg 07/03/18 10:00 07/03/18 22:15 Lopressor PO 50 mg BID JT Administration Morphine Sulfate 2 mg 06/30/18 05:52 07/03/18 07:33 Morphine IV 2 mg Q4H PRN Administration Pain, Moderate (4-6) Multi-Ingred Cream/Lotion/Oil/Oint 1 applic 06/30/18 21:49 Artificial Tears Ophth Oint OU Q4HR PRN Dry Eye(s) Ondansetron HCl 4 mg 06/30/18 05:52 Zofran IV Q8H PRN Nausea And Vomiting Oxycodone/Acetaminophen 1 tab 06/30/18 05:52 07/03/18 09:25 Percocet 5/325 PO 1 tab Q6H PRN Administration Pain, Moderate (4-6) Simple Syrup 15 ml 07/02/18 00:54 Simple Syrup FEEDTUBE PRN PRN Hypoglycemia Simple Syrup 30 ml 07/02/18 00:54 Simple Syrup FEEDTUBE PRN PRN Hypoglycemia Sodium Bicarbonate 325 mg 07/02/18 00:54 Sodium Bicarbonate FEEDTUBE PRN PRN For Clogged Feeding Tube Sodium Chloride 10 ml 06/30/18 10:00 07/03/18 09:03 Sodium Chloride Flush Syringe 10 Ml IV 10 ml BID JT Administration Sodium Chloride 10 ml 06/30/18 05:52 Sodium Chloride Flush Syringe 10 Ml IV PRN PRN LINE FLUSH Zolpidem Tartrate 5 mg 06/30/18 05:52 Ambien PO QHS PRN Insomnia Nutrition/Malnutrition Assess - Dietary Evaluation Nutrition/Malnutrition Findings: Nutrition Notes Start: 06/30/18 09: 49 Freq: Status: Active Protocol: Document 07/02/18 09:15 [place] (Rec: 07/02/18 09:20 [facility] [email or web address]) Nutrition Notes Need for Assessment generated from: MD Order Initial or Follow up Brief Note Height 6 ft 2 in Weight 97.8 kg [place] Body Weight (kg) 86.36 BMI 27.6 Subjective/Other Information RD consulted for TF. Pt remains on vent support. Nutrition Intervention Nutrition Support: Glucerna 1.2 at 75ml/hr with 120ml water flush q4h. Kcal 2,160 Protein (gm) 108 Carbohydrates (gm) 206 Fat (gm) 108 Fluid (mL) 1,449 Fiber (gm) 29 Follow-Up By: 07/05/18 Additional Comments F/U: new TF, vent status
[2018-07-04] MEDS: SODIUM CHLORIDE FLUSH SYRINGE 10 ML IV SCH ×2 (09:57→22:21)
[2018-07-04] MEDS: PEPCID PO SCH ×2 (09:58→21:58)
[2018-07-04] MEDS: LOPRESSOR PO SCH ×2 (09:58→21:58)
[2018-07-04] MEDS: NORVASC PO SCH (09:58)
[2018-07-04] MEDS ORDERED: LASIX IV ONE (10:00)
[2018-07-04] MEDS ORDERED: LANTUS SUB-Q ONE (10:00)
[2018-07-04] MEDS: MORPHINE IV PRN (10:58)
--- NOTE | 2018-07-04 14:23 | Progress Note ---
Assessment and Plan Cultures: 07/01/2018 Blood culture: no growth 07/01/2018 urine culture: no growth in 24 hours 07/01/2018 tracheal aspirate culture: MSSA and Group B Strep MRSA nasal PCR is negative. A/P: 57-year-old male with diabetes mellitus type 2, hypertension, hyperlipidemia, COPD was admitted to the hospital yesterday with shortness of breath. He was found to be in severe DKA. Also with: 1) Acute respiratory failure: on vent. 2) Severe bilateral pneumonia: L>R. Secondary to MSSA and Group B Strep. ?early necrotizing pneumonia. HIV negative. 3) Diabetic ketoacidosis. 4) SENG on admission: improving. Recs: switched abx to IV Nafcillin 2 gm q4 hrs Will follow. Romel Pagan MD [facility] C: [phone] O: [phone] F: [phone] Subjective Date of service: 07/04/18 Principal diagnosis: DKA,resp failure Interval history: Fevers +. Extubated. Cough + with blood tinged sputum. Still slightly confused. Objective - Exam Narrative Exam: Physical Exam: Constitutional: awake, alert, mild distress Head, Ears, Nose: Normocephalic, atraumatic. External ears, nose normal Eyes: Conjunctivae/corneas clear. No icterus. No ptosis. Neck: Supple, no meningeal signs Oral: no thrush Cardiovascular: S1, S2 normal Respiratory: few rhonchi + b/l GI: Soft, non-tender; bowel sounds normal. No peritoneal signs Musculoskeletal: No pedal edema, no cyanosis. Skin: No rash or abscess Hem/Lymphatic: No palpable cervical or supraclavicular nodes. No lymphangitis Psych: restless Neurological: awake, alert, somewhat confused - Constitutional Vitals: Vital Signs Temp Pulse Resp BP Pulse Ox 98.0 F 103 H 25 H 144/91 94 07/04/18 12:00 07/04/18 13:30 07/04/18 13:30 07/04/18 13:30 07/04/18 13:30 Temperature -Last 24 Hours Temperature 98.0 F Temperature 103.1 F Temperature 102.8 F Temperature 99.1 F Temperature 102.4 F Temperature 100.9 F - Labs CBC & Chem 7: 07/04/18 04:10 07/04/18 04:10 Labs: Abnormal lab results 07/03/18 07/03/18 07/03/18 Range/Units 13:44 17:51 23:53 Seg Neuts % (Manual) (40.0-70.0) % Lymphocytes # (Manual) (1.2-5.4) K/mm3 POC ABG pCO2 (35-45) POC ABG pO2 (80-105) Sodium 147 H (137-145) mmol/L Chloride 115.7 H (98-107) mmol/L Carbon Dioxide 19 L (22-30) mmol/L BUN 26 H (9-20) mg/dL Glucose 432 H (75-100) mg/dL POC Glucose 443 H 240 H (70-105) 07/04/18 07/04/18 07/04/18 Range/Units 04:10 04:10 05:25 Seg Neuts % (Manual) 79.0 H (40.0-70.0) % Lymphocytes # (Manual) 1.1 L (1.2-5.4) K/mm3 POC ABG pCO2 (35-45) POC ABG pO2 (80-105) Sodium 148 H (137-145) mmol/L Chloride 118.4 H (98-107) mmol/L Carbon Dioxide (22-30) mmol/L BUN 25 H (9-20) mg/dL Glucose 265 H (75-100) mg/dL POC Glucose 243 H (70-105) 07/04/18 07/04/18 Range/Units 05:28 11:59 Seg Neuts % (Manual) (40.0-70.0) % Lymphocytes # (Manual) (1.2-5.4) K/mm3 POC ABG pCO2 33.2 L (35-45) POC ABG pO2 75 L (80-105) Sodium (137-145) mmol/L Chloride (98-107) mmol/L Carbon Dioxide (22-30) mmol/L BUN (9-20) mg/dL Glucose (75-100) mg/dL POC Glucose 249 H (70-105)
[2018-07-04] MEDS: NAFCILLIN 2 GM in NACL 0.9% 100 ML IV SCH ×3 (16:21→22:21)
[2018-07-04] MEDS: APRESOLINE IV PRN (16:21)
[2018-07-04] MEDS: ATIVAN IV PRN ×2 (17:08→22:21)
[2018-07-04] MEDS: LANTUS SUB-Q SCH (21:59)
[2018-07-05] MEDS: APRESOLINE IV PRN ×2 (01:04→12:00)
[2018-07-05] MEDS: NAFCILLIN 2 GM in NACL 0.9% 100 ML IV SCH ×6 (01:38→22:50)
[2018-07-05] MEDS: ATROVENT IH SCH ×5 (02:41→20:13)
[2018-07-05] MEDS: XOPENEX IH SCH ×4 (02:43→20:14)
[2018-07-05] MEDS: HumaLOG SUB-Q SCH ×4 (05:57→23:42)
[2018-07-05 06:03] LABS: Hematocrit 42.3 % (35.5-45.6); Hemoglobin 14.6 gm/dl (11.8-15.2); Mean Corpuscular HGB Conc 35 % (32-34); Mean Corpuscular Volume 88 fl (84-94); Platelet Count 211 K/mm3 (140-440); Red Cell Distribution Width 14.5 % (13.2-15.2)
[2018-07-05 06:24] LABS: BUN/Creatinine Ratio 21; Blood Urea Nitrogen 23 mg/dL (9-20); Calcium 9.3 mg/dL (8.4-10.2); Hemolysis Index 3
[2018-07-05] MEDS: LOVENOX SUB-Q SCH ×2 (07:00→18:21)
[2018-07-05] MEDS: D5W 1,000 ML IV SCH ×2 (09:23→22:36)
[2018-07-05] MEDS: SODIUM CHLORIDE FLUSH SYRINGE 10 ML IV SCH (09:40)
[2018-07-05] MEDS: LOPRESSOR PO SCH ×2 (10:00→22:36)
[2018-07-05] MEDS: NORVASC PO SCH (10:00)
--- NOTE | 2018-07-05 10:25 | Progress Note ---
Assessment and Plan Assessment and plan: patient is 57-year-old man with past medical history of hypertension, CVA with left-sided weakness, type 2 diabetes, presented to the ER with shortness of breath. Per EMS his glucose was above 500. The patient also complained of polydipsia, polyuria, generalized weakness, and body aches. He was diagnosed with acute respiratory failure due to pneumonia,sepsis, DKA. He was started on Insulin drip, iv fluids, was intubated, admitted to ICU. Blood glucose improved so Insulin drip was discontinued and he was put on subcutaneous insulin. Patient was extubated on 07/04/18. Today he is lethargic, confused. Will obtain CT head. Poss transfer out of ICU today Diagnoses DKA severe metabolic acidosis Hypertensive urgency Sepsis due to pneumonia Pneumonia Tobacco abuse Acute respiratory failure on MV >96 hours, now extubated Hyperlipidemia History of CVA with left-sided deficit Acute metabolic encephalopathy Pneumonia hypernatremia hypokalemia on pradaxa at home Plan Transitioned to sq insulins, now off bicarb ggt and insulin ggt Extubated 07/04/18 sepsis/pna; abx per ID Cont Nafcillin Sputum shows Staph aureus and Beta hemolytic strep Will do tobacco cessation counseling when extubated, nicotine patches as needed free water replacement via G tube Obtain CT head today -echo shows EF 45, keep euvolemic, cardiology consulted, following Extubated 07/04 May transfer out of ICU today if he remains stable Discussed with family at bedside-daughter. The high probability of a clinically significant, sudden or life threatening deterioration of the [3] system(s) required my full and direct attention, intervention and personal management. The aggregate critical care time was [32] minutes. This time is in addition to time spent performing reported procedures but includes the following: [x] Data Review and interpretation [x] Patient assessment and monitoring of vital signs [x] Documentation [x] Medication orders and management History Interval history: Patient was intubated, extubated yesterday 07/04 Refusing BIPAP Pulling out Oxygen tubes Hospitalist Physical - Physical exam Narrative exam: Gen: Not in acute distress, lying in bed, HEENT: Normocephalic, atraumatic Neck;supple, no JVD Heart: S1 and S2 reg, no murmurs, rubs or gallop Lungs: Clear to auscultation bilaterally, no crackles, Abd: soft, non tender, non distended, normal BS Ext: No edema, no clubbing, no cyanosis, Neuro: Lethargic, confused, residual left sided weakness from previous stroke - Constitutional Vitals: Temp Pulse Resp BP Pulse Ox 97.5 F L 130 H 25 H 166/91 96 07/05/18 08:00 07/05/18 07:16 07/05/18 07:16 07/05/18 07:16 07/05/18 07:25 Results - Labs CBC & Chem 7: 07/05/18 04:56 07/05/18 04:56 Labs: Laboratory Last Values WBC 8.6 K/mm3 (4.5-11.0) 07/05/18 04:56 RBC 4.80 M/mm3 (3.65-5.03) 07/05/18 04:56 Hgb 14.6 gm/dl (11.8-15.2) 07/05/18 04:56 Hct 42.3 % (35.5-45.6) 07/05/18 04:56 MCV 88 fl (84-94) 07/05/18 04:56 MCH 31 pg (28-32) 07/05/18 04:56 MCHC 35 % (32-34) H 07/05/18 04:56 RDW 14.5 % (13.2-15.2) 07/05/18 04:56 Plt Count 211 K/mm3 (140-440) 07/05/18 04:56 Lymph % (Auto) 5.1 % (13.4-35.0) L 07/01/18 05:03 [place] % (Auto) 7.6 % (0.0-7.3) H 07/01/18 05:03 Eos % (Auto) 0.0 % (0.0-4.3) 07/01/18 05:03 Baso % (Auto) 0.1 % (0.0-1.8) 07/01/18 05:03 Lymph # 0.3 K/mm3 (1.2-5.4) L 07/01/18 05:03 [place] # 0.5 K/mm3 (0.0-0.8) 07/01/18 05:03 Eos # 0.0 K/mm3 (0.0-0.4) 07/01/18 05:03 Baso # 0.0 K/mm3 (0.0-0.1) 07/01/18 05:03 Add Manual Diff Complete 07/04/18 04:10 Total Counted 100 07/04/18 04:10 Seg Neutrophils % 87.2 % (40.0-70.0) H 07/01/18 05:03 Seg Neuts % (Manual) 79.0 % (40.0-70.0) H 07/04/18 04:10 Band Neutrophils % 0 % 07/04/18 04:10 Lymphocytes % (Manual) 15.0 % (13.4-35.0) 07/04/18 04:10 Reactive Lymphs % (Man) 0 % 07/04/18 04:10 Monocytes % (Manual) 6.0 % (0.0-7.3) 07/04/18 04:10 Eosinophils % (Manual) 0 % (0.0-4.3) 07/04/18 04:10 Basophils % (Manual) 0 % (0.0-1.8) 07/04/18 04:10 Metamyelocytes % 0 % 07/04/18 04:10 Myelocytes % 0 % 07/04/18 04:10 Promyelocytes % 0 % 07/04/18 04:10 Blast Cells % 0 % 07/04/18 04:10 Nucleated RBC % Not Reportable 07/04/18 04:10 Seg Neutrophils # 5.6 K/mm3 (1.8-7.7) 07/01/18 05:03 Seg Neutrophils # Man 5.7 K/mm3 (1.8-7.7) 07/04/18 04:10 Band Neutrophils # 0.0 K/mm3 07/04/18 04:10 Lymphocytes # (Manual) 1.1 K/mm3 (1.2-5.4) L 07/04/18 04:10 Abs React Lymphs (Man) 0.0 K/mm3 07/04/18 04:10 Monocytes # (Manual) 0.4 K/mm3 (0.0-0.8) 07/04/18 04:10 Eosinophils # (Manual) 0.0 K/mm3 (0.0-0.4) 07/04/18 04:10 Basophils # (Manual) 0.0 K/mm3 (0.0-0.1) 07/04/18 04:10 Metamyelocytes # 0.0 K/mm3 07/04/18 04:10 Myelocytes # 0.0 K/mm3 07/04/18 04:10 Promyelocytes # 0.0 K/mm3 07/04/18 04:10 Blast Cells # 0.0 K/mm3 07/04/18 04:10 WBC Morphology Not Reportable 07/04/18 04:10 Hypersegmented Neuts Not Reportable 07/04/18 04:10 Hyposegmented Neuts Not Reportable 07/04/18 04:10 Hypogranular Neuts Not Reportable 07/04/18 04:10 Smudge Cells Not Reportable 07/04/18 04:10 Toxic Granulation Not Reportable 07/04/18 04:10 Toxic Vacuolation Not Reportable 07/04/18 04:10 Dohle Bodies Not Reportable 07/04/18 04:10 Pelger-Huet Anomaly Not Reportable 07/04/18 04:10 [place] Rods Not Reportable 07/04/18 04:10 Platelet Estimate Consistent w auto 07/04/18 04:10 Clumped Platelets Few 07/04/18 04:10 Plt Clumps, EDTA Not Reportable 07/04/18 04:10 Large Platelets 1+ 07/04/18 04:10 Giant Platelets Not Reportable 07/04/18 04:10 Platelet Satelliting Not Reportable 07/04/18 04:10 Plt Morphology Comment Not Reportable 07/04/18 04:10 RBC Morphology Normal 07/04/18 04:10 Dimorphic RBCs Not Reportable 07/04/18 04:10 Polychromasia Not Reportable 07/04/18 04:10 Hypochromasia Not Reportable 07/04/18 04:10 Poikilocytosis Not Reportable 07/04/18 04:10 Anisocytosis Not Reportable 07/04/18 04:10 Microcytosis Not Reportable 07/04/18 04:10 Macrocytosis Not Reportable 07/04/18 04:10 Spherocytes Not Reportable 07/04/18 04:10 Pappenheimer Bodies Not Reportable 07/04/18 04:10 Sickle Cells Not Reportable 07/04/18 04:10 Target Cells Not Reportable 07/04/18 04:10 Tear Drop Cells Not Reportable 07/04/18 04:10 Ovalocytes Not Reportable 07/04/18 04:10 Helmet Cells Not Reportable 07/04/18 04:10 [place] Bodies Not Reportable 07/04/18 04:10 Greene Rings Not Reportable 07/04/18 04:10 Markus Cells Not Reportable 07/04/18 04:10 Bite Cells Not Reportable 07/04/18 04:10 Crenated Cell Not Reportable 07/04/18 04:10 Elliptocytes Not Reportable 07/04/18 04:10 Acanthocytes (Spur) Not Reportable 07/04/18 04:10 Rouleaux Not Reportable 07/04/18 04:10 Hemoglobin C Crystals Not Reportable 07/04/18 04:10 Schistocytes Not Reportable 07/04/18 04:10 Malaria parasites Not Reportable 07/04/18 04:10 Hector Bodies Not Reportable 07/04/18 04:10 Hem Pathologist Commnt No 07/04/18 04:10 PT 14.7 Sec. (12.2-14.9) 06/30/18 03:50 INR 1.08 (0.87-1.13) 06/30/18 03:50 APTT 27.0 Sec. (24.2-36.6) 06/30/18 03:50 D-Dimer 849.06 ng/mlDDU (0-234) H 06/30/18 22:31 POC ABG pH 7.425 (7.35-7.45) 07/04/18 05:28 POC ABG pCO2 33.2 (35-45) L 07/04/18 05:28 POC ABG pO2 75 (80-105) L 07/04/18 05:28 POC ABG HCO3 21.8 (22-26 mml/L) 07/04/18 05:28 POC ABG Total CO2 23 (23-27mmol/L) 07/04/18 05:28 POC ABG O2 Sat 95 07/04/18 05:28 POC ABG Base Excess -3 ((-2) - (+3)mmol/L) 07/04/18 05:28 FiO2 40 % 07/04/18 05:28 Sodium 153 mmol/L (137-145) H 07/05/18 04:56 Potassium 3.2 mmol/L (3.6-5.0) L D 07/05/18 04:56 Chloride 114.5 mmol/L (98-107) H 07/05/18 04:56 Carbon Dioxide 24 mmol/L (22-30) 07/05/18 04:56 Anion Gap 18 mmol/L 07/05/18 04:56 BUN 23 mg/dL (9-20) H 07/05/18 04:56 Creatinine 1.1 mg/dL (0.8-1.5) 07/05/18 04:56 Estimated GFR > 60 ml/min 07/05/18 04:56 BUN/Creatinine Ratio 21 % 07/05/18 04:56 Glucose 239 mg/dL (75-100) H 07/05/18 04:56 POC Glucose 232 (70-105) H 07/05/18 05:23 Ketones Quantitative Moderate (Negative) 06/30/18 03:50 Lactic Acid 1.30 mmol/L (0.7-2.0) 07/01/18 11:31 Calcium 9.3 mg/dL (8.4-10.2) 07/05/18 04:56 Phosphorus 4.40 mg/dL (2.5-4.5) 07/02/18 14:44 Magnesium 1.90 mg/dL (1.7-2.3) 07/01/18 15:42 Total Bilirubin 0.50 mg/dL (0.1-1.2) 07/02/18 18:52 AST 37 units/L (5-40) 07/02/18 18:52 ALT 12 units/L (7-56) 07/02/18 18:52 Alkaline Phosphatase 75 units/L (35-129) 07/02/18 18:52 Total Creatine Kinase 66 units/L (55-170) 06/30/18 03:50 CK-MB (CK-2) 2.2 ng/mL (0.0-4.0) 06/30/18 03:50 CK-MB (CK-2) Rel Index 3.3 (0-4) 06/30/18 03:50 Troponin T < 0.010 ng/mL (0.00-0.029) 06/30/18 11:43 NT-Pro-B Natriuret Pep 3170 pg/mL (0-900) H 07/01/18 11:31 Total Protein 6.1 g/dL (6.3-8.2) L 07/02/18 18:52 Albumin 1.8 g/dL (3.9-5) L 07/02/18 18:52 Albumin/Globulin Ratio 0.4 % 07/02/18 18:52 Triglycerides 176 mg/dL (2-149) H 07/03/18 04:24 Amylase 22 units/L (27-131) L 07/02/18 14:44 Lipase 10 units/L (13-60) L 07/02/18 14:44 Urine Color Straw (Yellow) 06/30/18 04:47 Urine Turbidity Slightly-cloudy (Clear) 06/30/18 04:47 Urine pH 5.0 (5.0-7.0) 06/30/18 04:47 Ur Specific [place] 1.028 (1.003-1.030) 06/30/18 04:47 Urine Protein 100 mg/dl mg/dL (Negative) 06/30/18 04:47 Urine Glucose (UA) >=500 mg/dL (Negative) 06/30/18 04:47 Urine Ketones 80 mg/dL (Negative) 06/30/18 04:47 Urine Blood Mod (Negative) 06/30/18 04:47 Urine Nitrite Neg (Negative) 06/30/18 04:47 Urine Bilirubin Neg (Negative) 06/30/18 04:47 Urine Urobilinogen < 2.0 mg/dL (<2.0) 06/30/18 04:47 Ur Leukocyte Esterase Neg (Negative) 06/30/18 04:47 Urine WBC (Auto) 1.0 /HPF (0.0-6.0) 06/30/18 04:47 Urine RBC (Auto) 10.0 /HPF (0.0-6.0) 06/30/18 04:47 U Epithel Cells (Auto) 1.0 /HPF (0-13.0) 06/30/18 04:47 Urine Bacteria (Auto) 1+ /HPF (Negative) 06/30/18 04:47 Urine Mucus Few /HPF 06/30/18 04:47 Nasal Screen MRSA (PCR) Negative (Negative) 07/01/18 15:30 Vancomycin Trough 16.0 ug/mL (5.0-20.0) 07/03/18 17:09 Urine Opiates Screen Presumptive negative 06/30/18 04:47 Urine Methadone Screen Presumptive negative 06/30/18 04:47 Ur Barbiturates Screen Presumptive negative 06/30/18 04:47 Ur Phencyclidine Scrn Presumptive negative 06/30/18 04:47 Ur Amphetamines Screen Presumptive negative 06/30/18 04:47 U Benzodiazepines Scrn Presumptive negative 06/30/18 04:47 Urine Cocaine Screen Presumptive negative 06/30/18 04:47 U Marijuana (THC) Screen Presumptive negative 06/30/18 04:47 Drugs of Abuse Note Disclamer 06/30/18 04:47 HIV 1&2 Antibody Rapid Non react (Non React) 07/02/18 04:33 HIV P24 Antigen Non react (Non React) 07/02/18 04:33 Active Medications - Current Medications Current Medications: Generic Name Dose Route Start Last Admin Trade Name Freq PRN Reason Stop Dose Admin Acetaminophen 250 mg 07/03/18 05:31 07/04/18 05:37 Tylenol PO 250 mg Q6H PRN Administration Pain, Mild (1-3) Amlodipine Besylate 10 mg 07/03/18 10:00 07/04/18 09:58 Norvasc PO 10 mg QDAY JT Administration Lipase/Protease/Amylase 1 each 07/02/18 00:54 Pancreaze 10,500 Unit FEEDTUBE PRN PRN For Clogged Feeding Tube Dextrose 0 ml 06/30/18 04:20 D50w (25gm) Syringe IV PRN PRN Hypoglycemia Enoxaparin Sodium 100 mg 06/30/18 19:00 07/05/18 07:00 Lovenox SUB-Q 100 mg 0700,1900 JT Administration Haloperidol Lactate 5 mg 06/30/18 18:47 07/03/18 08:59 Haldol IM 5 mg Q6H PRN Administration Agitation Hydralazine HCl 20 mg 07/03/18 05:33 07/05/18 01:04 Apresoline IV 20 mg Q4HR PRN Administration Blood Pressure Hydrophilic Ointment 1 applic 06/30/18 21:49 Vaseline Lip Therapy TP Q2HR PRN Dry Lips Nafcillin Sodium 2 gm/ Sodium 100 mls @ 100 mls/30 min 07/04/18 15:00 07/05/18 09:24 Chloride IV 100 mls/30 min Q4HR JT Administration Protocol Dextrose 1,000 mls @ 75 mls/hr 07/05/18 08:00 07/05/18 09:23 D5w IV 75 mls/hr DIRECT [facility] Administration Insulin Glargine 40 units 07/04/18 22:00 07/04/18 21:59 Lantus SUB-Q Not Given QHS [facility] Insulin Human Lispro 0 unit 07/02/18 01:00 07/05/18 05:57 Humalog SUB-Q 4 unit Q6HR [facility] Administration Protocol Ipratropium [place] 0.5 mg 06/30/18 08:00 07/05/18 07:25 Atrovent IH Not Given Q6HRT [facility] Levalbuterol HCl 0.63 mg 06/30/18 08:00 07/05/18 07:25 Xopenex IH Not Given Q6HRT [facility] Lorazepam 1 mg 06/30/18 17:46 07/04/18 22:21 Ativan IV 1 mg Q4H PRN Administration Anxiety Metoprolol Tartrate 50 mg 07/03/18 10:00 07/04/18 21:58 Lopressor PO Not Given BID [facility] Morphine Sulfate 2 mg 06/30/18 05:52 07/04/18 10:58 Morphine IV 2 mg Q4H PRN Administration Pain, Moderate (4-6) Multi-Ingred Cream/Lotion/Oil/Oint 1 applic 06/30/18 21:49 Artificial Tears Ophth Oint OU Q4HR PRN Dry Eye(s) Ondansetron HCl 4 mg 06/30/18 05:52 Zofran IV Q8H PRN Nausea And Vomiting Oxycodone/Acetaminophen 1 tab 06/30/18 05:52 07/03/18 09:25 Percocet 5/325 PO 1 tab Q6H PRN Administration Pain, Moderate (4-6) Simple Syrup 15 ml 07/02/18 00:54 Simple Syrup FEEDTUBE PRN PRN Hypoglycemia Simple Syrup 30 ml 07/02/18 00:54 Simple Syrup FEEDTUBE PRN PRN Hypoglycemia Sodium Bicarbonate 325 mg 07/02/18 00:54 Sodium Bicarbonate FEEDTUBE PRN PRN For Clogged Feeding Tube Sodium Chloride 10 ml 06/30/18 10:00 07/05/18 09:40 Sodium Chloride Flush Syringe 10 Ml IV 10 ml BID JT Administration Sodium Chloride 10 ml 06/30/18 05:52 Sodium Chloride Flush Syringe 10 Ml IV PRN PRN LINE FLUSH Zolpidem Tartrate 5 mg 06/30/18 05:52 Ambien PO QHS PRN Insomnia Nutrition/Malnutrition Assess - Dietary Evaluation Nutrition/Malnutrition Findings: Nutrition Notes Start: 06/30/18 09:49 Freq: Status: Active Protocol: Document 07/02/18 09:15 COLTON (Rec: 07/02/18 09:20 MALAKESHA [email or web address]) Nutrition Notes Need for Assessment generated from: MD Order Initial or Follow up Brief Note Height 6 ft 2 in Weight 97.8 kg [place] Body Weight (kg) 86.36 BMI 27.6 Subjective/Other Information RD consulted for TF. Pt remains on vent support. Nutrition Intervention Nutrition Support: Glucerna 1.2 at 75ml/hr with 120ml water flush q4h. Kcal 2,160 Protein (gm) 108 Carbohydrates (gm) 206 Fat (gm) 108 Fluid (mL) 1,449 Fiber (gm) 29 Follow-Up By: 07/05/18 Additional Comments F/U: new TF, vent status
--- NOTE | 2018-07-05 11:24 | Progress Note ---
Assessment and Plan Cultures: 07/01/2018 Blood culture: no growth 07/01/2018 urine culture: no growth in 24 hours 07/01/2018 tracheal aspirate culture: MSSA and Group B Strep MRSA nasal PCR is negative. A/P: 57-year-old male with diabetes mellitus type 2, hypertension, hyperlipidemia, COPD was admitted to the hospital yesterday with shortness of breath. He was found to be in severe DKA. Also with: 1) Acute respiratory failure: extubated. On nasal oxygen. Improving 2) Severe bilateral pneumonia: L>R. Secondary to MSSA and Group B Strep. ?early necrotizing pneumonia. HIV negative. 3) Diabetic ketoacidosis. 4) SENG on admission: resolved 5) Acute encephalopathy: multifactorial including high sodium. 6) Rash: f/u RPR. Reportedly had a bedbug infestation recently. Recs: continue IV Nafcillin 2 gm q4 hrs (today is day 4 of overall abx therapy, anticipate oral abx upon discharge) f/u RPR Will follow. Romel Pagan MD [facility] C: [phone] O: [phone] F: [phone] Subjective Date of service: 07/05/18 Principal diagnosis: DKA,resp failure Interval history: No fever. Still somewhat "loopy" per relative at bedside. Denies any complaints. Objective - Exam Narrative Exam: Physical Exam: Constitutional: awake, alert, no distress Head, Ears, Nose: Normocephalic, atraumatic. External ears, nose normal Eyes: Conjunctivae/corneas clear. No icterus. No ptosis. Neck: Supple, no meningeal signs Oral: no thrush Cardiovascular: S1, S2 normal Respiratory: few rhonchi + b/l GI: Soft, non-tender; bowel sounds normal. No peritoneal signs Musculoskeletal: No pedal edema, no cyanosis. Skin: No rash or abscess Hem/Lymphatic: No palpable cervical or supraclavicular nodes. No lymphangitis Psych: restless Neurological: awake, alert, somewhat confused, answering basic questions - Constitutional Vitals: Vital Signs Temp Pulse Resp BP Pulse Ox 97.5 F L 129 H 25 H 167/90 96 07/05/18 08:00 07/05/18 10:00 07/05/18 07:16 07/05/18 10:00 07/05/18 07:25 Temperature -Last 24 Hours Temperature 97.5 F Temperature 98.5 F Temperature 99.3 F Temperature 98.9 F Temperature 97.4 F Temperature 98.0 F - Labs CBC & Chem 7: 07/05/18 04:56 07/05/18 04:56 Labs: Abnormal lab results 07/04/18 07/04/18 07/04/18 Range/Units 11:59 19:00 23:52 MCHC (32-34) % Sodium (137-145) mmol/L Potassium (3.6-5.0) mmol/L Chloride (98-107) mmol/L BUN (9-20) mg/dL Glucose (75-100) mg/dL POC Glucose 249 H 287 H 264 H (70-105) 07/05/18 07/05/18 07/05/18 Range/Units 04:56 04:56 05:23 MCHC 35 H (32-34) % Sodium 153 H (137-145) mmol/L Potassium 3.2 L D (3.6-5.0) mmol/L Chloride 114.5 H (98-107) mmol/L BUN 23 H (9-20) mg/dL Glucose 239 H (75-100) mg/dL POC Glucose 232 H (70-105)
--- NOTE | 2018-07-05 11:43 | Progress Note ---
Assessment and Plan 57-year-old male with a past medical history of diabetes, stroke with residual left-sided paresis, and tobacco abuse presents to [facility] emergency department with diabetic ketoacidosis and pneumonia. During his hospitalization the patient was noted to have a mild decrease in his left ventricular function. No obvious signs of ischemia. We'll continue to follow with you DKA Sinus tachycardia Fever Pneumonia/COPD Hypertension CVA/residual left-sided paresis Tobacco abuse The patient has been seen in conjunction with Dr. Lerner who agrees with the assessment and plan of care. Subjective Date of service: 07/05/18 Principal diagnosis: DKA,resp failure Interval history: pt resting in bed, lethargic, confused, in ST on telemetry. Objective Last Vital Signs Temp 97.5 F L 07/05/18 08:00 Pulse 129 H 07/05/18 10:00 Resp 25 H 07/05/18 07:16 BP 167/90 07/05/18 10:00 Pulse Ox 96 07/05/18 07:25 - Physical Examination General: Other (lethargic, confused) HEENT: Positive: Other (pupils equal sluggish) Neck: Positive: neck supple, trachea midline Cardiac: Positive: Regular Rhythm, S1/S2, Tachycardia Lungs: Positive: Decreased Breath Sounds Neuro: Positive: Other (patient intubated and sedated) Abdomen: Positive: Soft, Decreased Bowel Sounds. Negative: Distended Skin: Negative: Rash Extremities: Present: warm - Labs and Meds CBC 07/05/18 Range/Units 04:56 WBC 8.6 (4.5-11.0) K/mm3 RBC 4.80 (3.65-5.03) M/mm3 Hgb 14.6 (11.8-15.2) gm/dl Hct 42.3 (35.5-45.6) % Plt Count 211 (140-440) K/mm3 Comprehensive Metabolic Panel 07/05/18 Range/Units 04:56 Sodium 153 H (137-145) mmol/L Potassium 3.2 L D (3.6-5.0) mmol/L Chloride 114.5 H (98-107) mmol/L Carbon Dioxide 24 (22-30) mmol/L BUN 23 H (9-20) mg/dL Creatinine 1.1 (0.8-1.5) mg/dL Glucose 239 H (75-100) mg/dL Calcium 9.3 (8.4-10.2) mg/dL - Imaging and Cardiology Echo: report reviewed (moderate LVH, ejection fraction 45-50%)
--- NOTE | 2018-07-05 12:58 | Cat Scan Report ---
CT HEAD WITHOUT CONTRAST: HISTORY: Altered mental status. TECHNIQUE: Sequential 2.5mm CT images. COMPARISON: none. FINDINGS: Cerebral Parenchyma: Within normal limits. Cerebellum: Within normal limits. Brainstem: Within normal limits. Ventricles: Normal. Sella: Normal. Extra-axial spaces: Normal. Basal Cisterns: Normal. Intracranial Hemorrhage: None. Midline Shift: None. Calvarium: Normal. Sinuses: Normal. Mastoid Air Cells: Normal. Visualized Orbits: Normal. IMPRESSION: Cranial CT scan within normal limits.
--- NOTE | 2018-07-05 13:02 | Cat Scan Report ---
CTA CHEST: HISTORY: Short of breath. COMPARISON: 06/21/18. TECHNIQUE: Helical CT in 1.25mm intervals following IV contrast. Pulmonary embolus protocol. Sagittal and coronal reformatted images. Rotational MIP images. FINDINGS: Contrast bolus is satisfactory. No pulmonary embolus is identified. Thyroid gland: Normal. Tracheobronchial tree: Normal. Esophagus: Normal. Heart: Mild cardiomegaly. Pericardium: Normal. Mediastinum: Scattered borderline in AP window and precarinal lymph nodes are stable. Lung Gomez: Patchy bilateral infiltrates have decreased by approximately 50% since the previous exam. Infiltrate is most prominent in the lingula. Mild underlying paraseptal emphysematous changes are again noted. Pleural Spaces: No pleural effusion or pneumothorax. Musculoskeletal: Intact. Mild thoracic spondylosis. Comment: A large calyceal stone in the superior left kidney measures 1.5 x 1.0 cm. IMPRESSION: No evidence for pulmonary embolus. Approximately 50% improvement in the bilateral infiltrates. Mild cardiomegaly. Left renal stone.
[2018-07-05] MEDS: POTASSIUM CHLORIDE FEEDTUBE SCH ×2 (13:27→17:15)
[2018-07-05] MEDS ORDERED: LOPRESSOR IV STA (15:55)
--- NOTE | 2018-07-05 17:46 | Progress Note ---
Assessment and Plan Imp: 1. Pneumonia 2. Sepsis 3. DKA 4. Hypernatremia 5. Acute respiratory failure, hypoxia 6. Hx of CVA Rec: 1. ABX per ID; f/u CXR periodically to ensure resolution of infiltrates 2. ST eval. given CVA hx and pneumonia 3. D5W started; K repleted; f/u labs in AM 4. Stable pulmonary-rice Plan of care reviewed with patient, he understands/agrees Subjective Date of service: 07/05/18 Principal diagnosis: DKA,resp failure Interval history: No events. Extubated. On RA b/c he refuses O2. RA sat 94%. Denies SOB. Has some cough and congestion. Not cooperative with interview or exam. Active Medications Acetaminophen (Tylenol) 250 mg PO Q6H PRN PRN Reason: Pain, Mild (1-3) Last Admin: 07/04/18 05:37 Dose: 250 mg Documented by: Amlodipine Besylate (Norvasc) 10 mg PO QDAY JT Last Admin: 07/05/18 10:00 Dose: 10 mg Documented by: Lipase/Protease/Amylase (Pancreaze Dr 10,500 Unit) 1 each FEEDTUBE PRN PRN PRN Reason: For Clogged Feeding Tube Dextrose (D50w (25gm) Syringe) 0 ml IV PRN PRN PRN Reason: Hypoglycemia Enoxaparin Sodium (Lovenox) 100 mg SUB-Q 0700,1900 JT Last Admin: 07/05/18 07:00 Dose: 100 mg Documented by: Haloperidol Lactate (Haldol) 5 mg IM Q6H PRN PRN Reason: Agitation Last Admin: 07/03/18 08:59 Dose: 5 mg Documented by: Hydralazine HCl (Apresoline) 20 mg IV Q4HR PRN PRN Reason: Blood Pressure Last Admin: 07/05/18 12:00 Dose: 20 mg Documented by: Hydrophilic Ointment (Vaseline Lip Therapy) 1 applic TP Q2HR PRN PRN Reason: Dry Lips Nafcillin Sodium 2 gm/ Sodium (Chloride) 100 mls @ 100 mls/30 min IV Q4HR JT; Protocol Last Admin: 07/05/18 17:15 Dose: 100 mls/30 min Documented by: Dextrose (D5w) 1,000 mls @ 75 mls/hr IV DIRECT JT Last Admin: 07/05/18 09:23 Dose: 75 mls/hr Documented by: Insulin Glargine (Lantus) 40 units SUB-Q QHS [facility] Last Admin: 07/04/18 21:59 Dose: Not Given Documented by: Insulin Human Lispro (Humalog) 0 unit SUB-Q Q6HR [facility]; Protocol Last Admin: 07/05/18 17:35 Dose: 6 unit Documented by: Ipratropium [place] (Atrovent) 0.5 mg IH Q6HRT [facility] Last Admin: 07/05/18 14:01 Dose: 0.5 mg Documented by: Levalbuterol HCl (Xopenex) 0.63 mg IH Q6HRT [facility] Last Admin: 07/05/18 14:01 Dose: 0.63 mg Documented by: Lorazepam (Ativan) 1 mg IV Q4H PRN PRN Reason: Anxiety Last Admin: 07/04/18 22:21 Dose: 1 mg Documented by: Metoprolol Tartrate (Lopressor) 50 mg PO BID [facility] Last Admin: 07/05/18 10:00 Dose: 50 mg Documented by: Morphine Sulfate (Morphine) 2 mg IV Q4H PRN PRN Reason: Pain, Moderate (4-6) Last Admin: 07/04/18 10:58 Dose: 2 mg Documented by: Multi-Ingred Cream/Lotion/Oil/Oint (Artificial Tears Ophth Oint) 1 applic OU Q4HR PRN PRN Reason: Dry Eye(s) Ondansetron HCl (Zofran) 4 mg IV Q8H PRN PRN Reason: Nausea And Vomiting Oxycodone/Acetaminophen (Percocet 5/325) 1 tab PO Q6H PRN PRN Reason: Pain, Moderate (4-6) Last Admin: 07/03/18 09:25 Dose: 1 tab Documented by: Potassium Chloride (Potassium Chloride) 40 meq FEEDTUBE Q4H [facility] Stop: 07/05/18 18:01 Last Admin: 07/05/18 17:15 Dose: 40 meq Documented by: Simple Syrup (Simple Syrup) 15 ml FEEDTUBE PRN PRN PRN Reason: Hypoglycemia Simple Syrup (Simple Syrup) 30 ml FEEDTUBE PRN PRN PRN Reason: Hypoglycemia Sodium Bicarbonate (Sodium Bicarbonate) 325 mg FEEDTUBE PRN PRN PRN Reason: For Clogged Feeding Tube Sodium Chloride (Sodium Chloride Flush Syringe 10 Ml) 10 ml IV BID JT Last Admin: 07/05/18 09:40 Dose: 10 ml Documented by: Sodium Chloride (Sodium Chloride Flush Syringe 10 Ml) 10 ml IV PRN PRN PRN Reason: LINE FLUSH Objective Vital Signs - 12hr 07/05/18 07/05/18 07/05/18 05:46 06:00 06:16 Temperature Pulse Rate 134 H 132 H 130 H Pulse Rate [ Anterior Bilateral Throughout] Respiratory 28 H 33 H 29 H Rate Respiratory Rate [Anterior Bilateral Throughout] Blood Pressure 147/114 149/79 149/79 O2 Sat by Pulse 93 91 95 Oximetry 07/05/18 07/05/18 07/05/18 06:30 06:46 07:00 Temperature Pulse Rate 132 H 129 H 131 H Pulse Rate [ Anterior Bilateral Throughout] Respiratory 26 H 14 20 Rate Respiratory Rate [Anterior Bilateral Throughout] Blood Pressure 149/82 149/82 166/91 O2 Sat by Pulse 93 95 92 Oximetry 07/05/18 07/05/18 07/05/18 07:16 07:25 07:30 Temperature Pulse Rate 130 H 129 H Pulse Rate [ Anterior Bilateral Throughout] Respiratory 25 H 29 H Rate Respiratory Rate [Anterior Bilateral Throughout] Blood Pressure 166/91 155/87 O2 Sat by Pulse 96 96 92 Oximetry 07/05/18 07/05/18 07/05/18 07:46 08:00 08:16 Temperature 97.5 F L Pulse Rate 127 H 127 H 127 H Pulse Rate [ Anterior Bilateral Throughout] Respiratory 22 25 H 22 Rate Respiratory Rate [Anterior Bilateral Throughout] Blood Pressure 166/91 144/88 144/88 O2 Sat by Pulse 94 89 94 Oximetry 07/05/18 07/05/18 07/05/18 08:30 08:46 09:00 Temperature Pulse Rate 127 H 128 H 128 H Pulse Rate [ Anterior Bilateral Throughout] Respiratory 25 H 28 H 16 Rate Respiratory Rate [Anterior Bilateral Throughout] Blood Pressure 160/81 155/87 175/95 O2 Sat by Pulse 88 94 90 Oximetry 07/05/18 07/05/18 07/05/18 09:16 09:30 09:46 Temperature Pulse Rate 125 H 127 H 130 H Pulse Rate [ Anterior Bilateral Throughout] Respiratory 25 H 23 25 H Rate Respiratory Rate [Anterior Bilateral Throughout] Blood Pressure 152/85 159/81 152/85 O2 Sat by Pulse 94 89 93 Oximetry 07/05/18 07/05/18 07/05/18 10:00 10:16 10:30 Temperature Pulse Rate 128 H 126 H 126 H Pulse Rate [ Anterior Bilateral Throughout] Respiratory 26 H 24 22 Rate Respiratory Rate [Anterior Bilateral Throughout] Blood Pressure 166/82 166/82 166/85 O2 Sat by Pulse 89 93 88 Oximetry 07/05/18 07/05/18 07/05/18 10:46 11:00 11:16 Temperature Pulse Rate 128 H 128 H 128 H Pulse Rate [ Anterior Bilateral Throughout] Respiratory 31 H 17 23 Rate Respiratory Rate [Anterior Bilateral Throughout] Blood Pressure 166/82 167/90 167/90 O2 Sat by Pulse 92 90 93 Oximetry 07/05/18 07/05/18 07/05/18 11:30 12:00 14:01 Temperature 98.2 F Pulse Rate 124 H 99 H Pulse Rate [ 114 H Anterior Bilateral Throughout] Respiratory 29 H Rate Respiratory 26 H Rate [Anterior Bilateral Throughout] Blood Pressure 172/104 172/79 O2 Sat by Pulse 93 Oximetry 07/05/18 07/05/18 14:10 16:00 Temperature Pulse Rate 116 H Pulse Rate [ 114 H Anterior Bilateral Throughout] Respiratory Rate Respiratory 22 Rate [Anterior Bilateral Throughout] Blood Pressure 153/90 O2 Sat by Pulse Oximetry Constitutional: no acute distress, alert Eyes: non-icteric ENT: oropharynx moist Neck: supple Effort: normal Ascultation: Bilateral: rhonchi (few bilaterally) Cardiovascular: other (sinus tachy, RR; no mrg) Gastrointestinal: normoactive bowel sounds, soft, non-tender, non-distended Integumentary: normal Extremities: no cyanosis, pink and warm, edema (1+ bilateral LE edema) Neurologic: other (L hemiplegia, slurred speech) Psychiatric: mood appropriate, affect normal CBC and BMP: 07/05/18 04:56 07/05/18 04:56 ABG, PT/INR, D-dimer: ABG POC ABG pH 7.425 (7.35-7.45) 07/04/18 05:28 POC ABG pCO2 33.2 (35-45) L 07/04/18 05:28 POC ABG pO2 75 (80-105) L 07/04/18 05:28 POC ABG HCO3 21.8 (22-26 mml/L) 07/04/18 05:28 POC ABG Total CO2 23 (23-27mmol/L) 07/04/18 05:28 POC ABG O2 Sat 95 07/04/18 05:28 PT/INR, D-dimer PT 14.7 Sec. (12.2-14.9) 06/30/18 03:50 INR 1.08 (0.87-1.13) 06/30/18 03:50 D-Dimer 849.06 ng/mlDDU (0-234) H 06/30/18 22:31 Abnormal lab findings: Abnormal Labs 06/30/18 06/30/18 06/30/18 03:47 03:50 03:50 RBC 5.44 H Hgb 16.5 H Hct 51.1 H MCHC Lymph % (Auto) 5.8 L [place] % (Auto) 9.7 H Lymph # 0.5 L [place] # 0.9 H Seg Neutrophils % 84.1 H Seg Neuts % (Manual) Lymphocytes # (Manual) D-Dimer POC ABG pH POC ABG pCO2 POC ABG pO2 Sodium 133 L Potassium 5.4 H Chloride 94.8 L Carbon Dioxide 5 L* BUN 23 H Glucose 556 H* POC Glucose 360 H Calcium Phosphorus ALT NT-Pro-B Natriuret Pep Total Protein 8.3 H Albumin 3.7 L Triglycerides Amylase Lipase 06/30/18 06/30/18 06/30/18 04:23 04:43 05:45 RBC Hgb Hct MCHC Lymph % (Auto) [place] % (Auto) Lymph # [place] # Seg Neutrophils % Seg Neuts % (Manual) Lymphocytes # (Manual) D-Dimer POC ABG pH 7.065 L POC ABG pCO2 POC ABG pO2 Sodium Potassium Chloride Carbon Dioxide BUN Glucose POC Glucose 384 H 382 H Calcium Phosphorus ALT NT-Pro-B Natriuret Pep Total Protein Albumin Triglycerides Amylase Lipase 06/30/18 06/30/18 06/30/18 06:43 06:44 07:55 RBC Hgb Hct MCHC Lymph % (Auto) [place] % (Auto) Lymph # [place] # Seg Neutrophils % Seg Neuts % (Manual) Lymphocytes # (Manual) D-Dimer POC ABG pH POC ABG pCO2 POC ABG pO2 Sodium Potassium Chloride Carbon Dioxide 4 L* BUN 22 H Glucose 511 H* POC Glucose 373 H 386 H Calcium Phosphorus ALT NT-Pro-B Natriuret Pep Total Protein Albumin Triglycerides Amylase Lipase 06/30/18 06/30/18 06/30/18 08:54 09:02 09:47 RBC Hgb Hct MCHC Lymph % (Auto) [place] % (Auto) Lymph # [place] # Seg Neutrophils % Seg Neuts % (Manual) Lymphocytes # (Manual) D-Dimer POC ABG pH POC ABG pCO2 POC ABG pO2 Sodium 134 L Potassium 5.4 H Chloride Carbon Dioxide 6 L* BUN 23 H Glucose 515 H* POC Glucose 386 H 380 H Calcium Phosphorus ALT NT-Pro-B Natriuret Pep Total Protein Albumin Triglycerides Amylase Lipase 06/30/18 06/30/18 06/30/18 11:01 11:43 12:08 RBC Hgb Hct MCHC Lymph % (Auto) [place] % (Auto) Lymph # [place] # Seg Neutrophils % Seg Neuts % (Manual) Lymphocytes # (Manual) D-Dimer POC ABG pH POC ABG pCO2 POC ABG pO2 Sodium Potassium 5.1 H Chloride Carbon Dioxide 7 L* BUN 23 H Glucose 400 H POC Glucose 322 H 296 H Calcium Phosphorus ALT NT-Pro-B Natriuret Pep Total Protein Albumin Triglycerides Amylase Lipase 06/30/18 06/30/18 06/30/18 12:45 14:12 15:11 RBC Hgb Hct MCHC Lymph % (Auto) [place] % (Auto) Lymph # [place] # Seg Neutrophils % Seg Neuts % (Manual) Lymphocytes # (Manual) D-Dimer POC ABG pH POC ABG pCO2 POC ABG pO2 Sodium Potassium Chloride Carbon Dioxide BUN Glucose POC Glucose 335 H 284 H 260 H Calcium Phosphorus ALT NT-Pro-B Natriuret Pep Total Protein Albumin Triglycerides Amylase Lipase 06/30/18 06/30/18 06/30/18 15:50 16:56 18:01 RBC Hgb Hct MCHC Lymph % (Auto) [place] % (Auto) Lymph # [place] # Seg Neutrophils % Seg Neuts % (Manual) Lymphocytes # (Manual) D-Dimer POC ABG pH POC ABG pCO2 POC ABG pO2 Sodium Potassium Chloride Carbon Dioxide BUN Glucose POC Glucose 287 H 301 H 273 H Calcium Phosphorus ALT NT-Pro-B Natriuret Pep Total Protein Albumin Triglycerides Amylase Lipase 06/30/18 06/30/18 06/30/18 19:35 19:55 21:28 RBC Hgb Hct MCHC Lymph % (Auto) [place] % (Auto) Lymph # [place] # Seg Neutrophils % Seg Neuts % (Manual) Lymphocytes # (Manual) D-Dimer POC ABG pH 7.244 L POC ABG pCO2 POC ABG pO2 Sodium Potassium Chloride 110.4 H Carbon Dioxide 12 L BUN Glucose 268 H POC Glucose 270 H Calcium Phosphorus ALT NT-Pro-B Natriuret Pep Total Protein Albumin Triglycerides Amylase Lipase 06/30/18 06/30/18 06/30/18 22:12 22:31 22:52 RBC Hgb Hct MCHC Lymph % (Auto) [place] % (Auto) Lymph # [place] # Seg Neutrophils % Seg Neuts % (Manual) Lymphocytes # (Manual) D-Dimer 849.06 H POC ABG pH 7.214 L POC ABG pCO2 POC ABG pO2 Sodium Potassium Chloride Carbon Dioxide BUN Glucose POC Glucose 242 H Calcium Phosphorus ALT NT-Pro-B Natriuret Pep Total Protein Albumin Triglycerides Amylase Lipase 07/01/18 07/01/18 07/01/18 00:48 02:05 03:03 RBC Hgb Hct MCHC Lymph % (Auto) [place] % (Auto) Lymph # [place] # Seg Neutrophils % Seg Neuts % (Manual) Lymphocytes # (Manual) D-Dimer POC ABG pH POC ABG pCO2 POC ABG pO2 Sodium Potassium Chloride Carbon Dioxide BUN Glucose POC Glucose 401 H 156 H 122 H Calcium Phosphorus ALT NT-Pro-B Natriuret Pep Total Protein Albumin Triglycerides Amylase Lipase 07/01/18 07/01/18 07/01/18 04:04 05:03 05:03 RBC 5.11 H Hgb 15.6 H Hct 45.7 H MCHC Lymph % (Auto) 5.1 L [place] % (Auto) 7.6 H Lymph # 0.3 L [place] # Seg Neutrophils % 87.2 H Seg Neuts % (Manual) Lymphocytes # (Manual) D-Dimer POC ABG pH POC ABG pCO2 POC ABG pO2 Sodium Potassium Chloride 111.1 H Carbon Dioxide 16 L BUN Glucose 154 H POC Glucose 120 H Calcium Phosphorus ALT NT-Pro-B Natriuret Pep Total Protein Albumin Triglycerides Amylase Lipase 07/01/18 07/01/18 07/01/18 05:09 05:32 06:02 RBC Hgb Hct MCHC Lymph % (Auto) [place] % (Auto) Lymph # [place] # Seg Neutrophils % Seg Neuts % (Manual) Lymphocytes # (Manual) D-Dimer POC ABG pH POC ABG pCO2 30.5 L POC ABG pO2 172 H Sodium Potassium Chloride Carbon Dioxide BUN Glucose POC Glucose 137 H 149 H Calcium Phosphorus ALT NT-Pro-B Natriuret Pep Total Protein Albumin Triglycerides Amylase Lipase 07/01/18 07/01/18 07/01/18 06:59 08:20 09:23 RBC Hgb Hct MCHC Lymph % (Auto) [place] % (Auto) Lymph # [place] # Seg Neutrophils % Seg Neuts % (Manual) Lymphocytes # (Manual) D-Dimer POC ABG pH POC ABG pCO2 POC ABG pO2 Sodium Potassium Chloride Carbon Dioxide BUN Glucose POC Glucose 164 H 135 H 142 H Calcium Phosphorus ALT NT-Pro-B Natriuret Pep Total Protein Albumin Triglycerides Amylase Lipase 07/01/18 07/01/18 07/01/18 10:09 11:13 11:31 RBC Hgb Hct MCHC Lymph % (Auto) [place] % (Auto) Lymph # [place] # Seg Neutrophils % Seg Neuts % (Manual) Lymphocytes # (Manual) D-Dimer POC ABG pH POC ABG pCO2 POC ABG pO2 Sodium Potassium Chloride Carbon Dioxide BUN Glucose POC Glucose 170 H 163 H Calcium Phosphorus ALT NT-Pro-B Natriuret Pep 3170 H Total Protein Albumin Triglycerides Amylase Lipase 07/01/18 07/01/18 07/01/18 12:09 13:12 15:42 RBC Hgb Hct MCHC Lymph % (Auto) [place] % (Auto) Lymph # [place] # Seg Neutrophils % Seg Neuts % (Manual) Lymphocytes # (Manual) D-Dimer POC ABG pH POC ABG pCO2 POC ABG pO2 Sodium Potassium Chloride 110.8 H Carbon Dioxide 19 L BUN 22 H Glucose 157 H POC Glucose 185 H 193 H Calcium Phosphorus 0.70 L* ALT NT-Pro-B Natriuret Pep Total Protein Albumin Triglycerides Amylase Lipase 07/01/18 07/01/18 07/01/18 15:44 17:18 18:15 RBC Hgb Hct MCHC Lymph % (Auto) [place] % (Auto) Lymph # [place] # Seg Neutrophils % Seg Neuts % (Manual) Lymphocytes # (Manual) D-Dimer POC ABG pH POC ABG pCO2 POC ABG pO2 Sodium Potassium Chloride Carbon Dioxide BUN Glucose POC Glucose 189 H 167 H 130 H Calcium Phosphorus ALT NT-Pro-B Natriuret Pep Total Protein Albumin Triglycerides Amylase Lipase 07/01/18 07/01/18 07/01/18 19:13 20:02 21:11 RBC Hgb Hct MCHC Lymph % (Auto) [place] % (Auto) Lymph # [place] # Seg Neutrophils % Seg Neuts % (Manual) Lymphocytes # (Manual) D-Dimer POC ABG pH POC ABG pCO2 POC ABG pO2 Sodium Potassium Chloride Carbon Dioxide BUN Glucose POC Glucose 129 H 147 H 220 H Calcium Phosphorus ALT NT-Pro-B Natriuret Pep Total Protein Albumin Triglycerides Amylase Lipase 07/01/18 07/01/18 07/02/18 22:12 23:14 01:34 RBC Hgb Hct MCHC Lymph % (Auto) [place] % (Auto) Lymph # [place] # Seg Neutrophils % Seg Neuts % (Manual) Lymphocytes # (Manual) D-Dimer POC ABG pH POC ABG pCO2 POC ABG pO2 Sodium Potassium Chloride Carbon Dioxide 20 L BUN 22 H Glucose 157 H POC Glucose 219 H 122 H Calcium Phosphorus ALT NT-Pro-B Natriuret Pep Total Protein Albumin 2.6 L Triglycerides Amylase Lipase 07/02/18 07/02/18 07/02/18 02:26 04:32 04:33 RBC Hgb Hct MCHC Lymph % (Auto) [place] % (Auto) Lymph # [place] # Seg Neutrophils % Seg Neuts % (Manual) Lymphocytes # (Manual) D-Dimer POC ABG pH POC ABG pCO2 POC ABG pO2 Sodium 132 L D Potassium 3.2 L Chloride Carbon Dioxide 13 L D BUN 22 H Glucose 224 H POC Glucose 282 H Calcium 7.2 L D Phosphorus ALT 5 L NT-Pro-B Natriuret Pep Total Protein 5.8 L Albumin 1.1 L Triglycerides 1153 H Amylase Lipase 07/02/18 07/02/18 07/02/18 04:34 05:21 12:28 RBC Hgb Hct MCHC Lymph % (Auto) [place] % (Auto) Lymph # [place] # Seg Neutrophils % Seg Neuts % (Manual) Lymphocytes # (Manual) D-Dimer POC ABG pH 7.324 L POC ABG pCO2 POC ABG pO2 72 L Sodium Potassium Chloride Carbon Dioxide BUN Glucose POC Glucose 218 H 153 H Calcium Phosphorus ALT NT-Pro-B Natriuret Pep Total Protein Albumin Triglycerides Amylase Lipase 07/02/18 07/02/18 07/02/18 14:44 14:44 17:45 RBC Hgb Hct MCHC Lymph % (Auto) [place] % (Auto) Lymph # [place] # Seg Neutrophils % Seg Neuts % (Manual) Lymphocytes # (Manual) D-Dimer POC ABG pH POC ABG pCO2 POC ABG pO2 Sodium 148 H D Potassium 3.2 L Chloride 112.2 H Carbon Dioxide 20 L D BUN 25 H Glucose 185 H POC Glucose 282 H Calcium 7.8 L Phosphorus ALT NT-Pro-B Natriuret Pep Total Protein 5.3 L Albumin 2.4 L Triglycerides Amylase 22 L Lipase 10 L 07/02/18 07/03/18 07/03/18 18:52 00:07 04:24 RBC Hgb Hct MCHC Lymph % (Auto) [place] % (Auto) Lymph # [place] # Seg Neutrophils % Seg Neuts % (Manual) Lymphocytes # (Manual) D-Dimer POC ABG pH POC ABG pCO2 POC ABG pO2 Sodium Potassium Chloride 113.1 H Carbon Dioxide 16 L BUN 25 H Glucose 280 H POC Glucose 293 H Calcium 7.5 L Phosphorus ALT NT-Pro-B Natriuret Pep Total Protein 6.1 L Albumin 1.8 L Triglycerides 176 H Amylase Lipase 07/03/18 07/03/18 07/03/18 05:14 05:50 12:04 RBC Hgb Hct MCHC Lymph % (Auto) [place] % (Auto) Lymph # [place] # Seg Neutrophils % Seg Neuts % (Manual) Lymphocytes # (Manual) D-Dimer POC ABG pH POC ABG pCO2 32.2 L POC ABG pO2 Sodium Potassium Chloride Carbon Dioxide BUN Glucose POC Glucose 336 H 392 H Calcium Phosphorus ALT NT-Pro-B Natriuret Pep Total Protein Albumin Triglycerides Amylase Lipase 07/03/18 07/03/18 07/03/18 13:44 17:51 23:53 RBC Hgb Hct MCHC Lymph % (Auto) [place] % (Auto) Lymph # [place] # Seg Neutrophils % Seg Neuts % (Manual) Lymphocytes # (Manual) D-Dimer POC ABG pH POC ABG pCO2 POC ABG pO2 Sodium 147 H Potassium Chloride 115.7 H Carbon Dioxide 19 L BUN 26 H Glucose 432 H POC Glucose 443 H 240 H Calcium Phosphorus ALT NT-Pro-B Natriuret Pep Total Protein Albumin Triglycerides Amylase Lipase 07/04/18 07/04/18 07/04/18 04:10 04:10 05:25 RBC Hgb Hct MCHC Lymph % (Auto) [place] % (Auto) Lymph # [place] # Seg Neutrophils % Seg Neuts % (Manual) 79.0 H Lymphocytes # (Manual) 1.1 L D-Dimer POC ABG pH POC ABG pCO2 POC ABG pO2 Sodium 148 H Potassium Chloride 118.4 H Carbon Dioxide BUN 25 H Glucose 265 H POC Glucose 243 H Calcium Phosphorus ALT NT-Pro-B Natriuret Pep Total Protein Albumin Triglycerides Amylase Lipase 07/04/18 07/04/18 07/04/18 05:28 11:59 19:00 RBC Hgb Hct MCHC Lymph % (Auto) [place] % (Auto) Lymph # [place] # Seg Neutrophils % Seg Neuts % (Manual) Lymphocytes # (Manual) D-Dimer POC ABG pH POC ABG pCO2 33.2 L POC ABG pO2 75 L Sodium Potassium Chloride Carbon Dioxide BUN Glucose POC Glucose 249 H 287 H Calcium Phosphorus ALT NT-Pro-B Natriuret Pep Total Protein Albumin Triglycerides Amylase Lipase 07/04/18 07/05/18 07/05/18 23:52 04:56 04:56 RBC Hgb Hct MCHC 35 H Lymph % (Auto) [place] % (Auto) Lymph # [place] # Seg Neutrophils % Seg Neuts % (Manual) Lymphocytes # (Manual) D-Dimer POC ABG pH POC ABG pCO2 POC ABG pO2 Sodium 153 H Potassium 3.2 L D Chloride 114.5 H Carbon Dioxide BUN 23 H Glucose 239 H POC Glucose 264 H Calcium Phosphorus ALT NT-Pro-B Natriuret Pep Total Protein Albumin Triglycerides Amylase Lipase 07/05/18 07/05/18 05:23 11:14 RBC Hgb Hct MCHC Lymph % (Auto) [place] % (Auto) Lymph # [place] # Seg Neutrophils % Seg Neuts % (Manual) Lymphocytes # (Manual) D-Dimer POC ABG pH POC ABG pCO2 POC ABG pO2 Sodium Potassium Chloride Carbon Dioxide BUN Glucose POC Glucose 232 H 245 H Calcium Phosphorus ALT NT-Pro-B Natriuret Pep Total Protein Albumin Triglycerides Amylase Lipase Chest x-ray: report reviewed, image reviewed CT scan - chest: report reviewed, image reviewed
[2018-07-05] MEDS: LANTUS SUB-Q SCH (22:34)
[2018-07-06] MEDS: NAFCILLIN 2 GM in NACL 0.9% 100 ML IV SCH ×6 (01:23→21:48)
[2018-07-06] MEDS: ATIVAN IV PRN ×2 (01:24→10:26)
[2018-07-06] MEDS: SODIUM CHLORIDE FLUSH SYRINGE 10 ML IV SCH ×3 (01:25→21:52)
[2018-07-06] MEDS: ATROVENT IH SCH ×5 (02:28→20:24)
[2018-07-06] MEDS: XOPENEX IH SCH ×5 (02:28→20:24)
[2018-07-06] MEDS: HumaLOG SUB-Q SCH ×5 (06:15→18:00)
[2018-07-06] MEDS: LOVENOX SUB-Q SCH ×2 (07:00→19:00)
[2018-07-06 07:07] LABS: Hematocrit 40.8 % (35.5-45.6); Hemoglobin 13.9 gm/dl (11.8-15.2); Mean Corpuscular HGB Conc 34 % (32-34); Mean Corpuscular Volume 90 fl (84-94); Platelet Count 236 K/mm3 (140-440); Red Blood Count 4.55 M/mm3 (3.65-5.03); Red Cell Distribution Width 14.6 % (13.2-15.2)
[2018-07-06 08:02] LABS: BUN/Creatinine Ratio 23; Blood Urea Nitrogen 23 mg/dL (9-20); Calcium 8.7 mg/dL (8.4-10.2); Hemolysis Index 14
[2018-07-06] MEDS ORDERED: POTASSIUM CHLORIDE FEEDTUBE ONE (09:00)
[2018-07-06] MEDS: LOPRESSOR PO SCH ×2 (09:33→21:49)
[2018-07-06] MEDS: POTASSIUM CHLORIDE FEEDTUBE SCH (09:34)
[2018-07-06] MEDS: NORVASC PO SCH (09:34)
[2018-07-06] MEDS ORDERED: SIMPLE SYRUP FEEDTUBE PRN ×2 (11:56)
[2018-07-06] MEDS ORDERED: PANCREAZE DR 10,500 UNIT FEEDTUBE PRN (11:56)
[2018-07-06] MEDS ORDERED: SODIUM BICARBONATE FEEDTUBE PRN (11:56)
--- NOTE | 2018-07-06 12:30 | Progress Note ---
Assessment and Plan Assessment and plan: Sepsis present on admission -likely due to pneumonia -On IV Nafcillin -sputum culture positive for MSSA -blood cultures neg -ID following Acute hypoxic respiratory failure -s/p extubation, stable -pulmonology following MSSA PNA -On IV Nafcillin DKA -Off insulin drip -Blood glucose fairly controlled, insulin regimen adjusted Severe metabolic acidosis -Resolved Acute metabolic encephalopathy -Head CT scan neg, will monitor clinically Hypernatremia -Improving on IVF, will monitor Hypokalemia -on repletion, will monitor -will check mg level Hypertension -stable on current antihypertensives, will adjust as needed Hyperlipidemia -On statin History of CVA with left-sided deficit -cont supportive care Tobacco abuse -Cessation recommended Disp: pt can be transferred out of the ICU if ok by pulmonology. History Interval history: Patient is uncooperative. He continues to be in restraints due to agitation. No other reported issues overnight Hospitalist Physical - Constitutional Vitals: Temp Pulse Resp BP Pulse Ox 98.2 F 98 H 21 158/89 94 07/06/18 12:00 07/06/18 12:00 07/06/18 12:00 07/06/18 12:00 07/06/18 12:00 General appearance: Present: no acute distress, well-nourished - EENT Eyes: Present: PERRL, EOM intact ENT: hearing intact, clear oral mucosa - Neck Neck: Present: supple - Respiratory Respiratory effort: normal Respiratory: bilateral: CTA - Cardiovascular Rhythm: regular Heart Sounds: Present: S1 & S2 - Extremities Extremities: No edema - Abdominal General gastrointestinal: soft, non-tender, non-distended, normal bowel sounds - Integumentary Integumentary: Present: clear, warm, dry - Neurologic Neurologic: moves all extremities Results - Labs CBC & Chem 7: 07/06/18 06:34 07/06/18 06:34 Labs: Laboratory Last Values WBC 6.8 K/mm3 (4.5-11.0) 07/06/18 06:34 RBC 4.55 M/mm3 (3.65-5.03) 07/06/18 06:34 Hgb 13.9 gm/dl (11.8-15.2) 07/06/18 06:34 Hct 40.8 % (35.5-45.6) 07/06/18 06:34 MCV 90 fl (84-94) 07/06/18 06:34 MCH 31 pg (28-32) 07/06/18 06:34 MCHC 34 % (32-34) 07/06/18 06:34 RDW 14.6 % (13.2-15.2) 07/06/18 06:34 Plt Count 236 K/mm3 (140-440) 07/06/18 06:34 Lymph % (Auto) 5.1 % (13.4-35.0) L 07/01/18 05:03 [place] % (Auto) 7.6 % (0.0-7.3) H 07/01/18 05:03 Eos % (Auto) 0.0 % (0.0-4.3) 07/01/18 05:03 Baso % (Auto) 0.1 % (0.0-1.8) 07/01/18 05:03 Lymph # 0.3 K/mm3 (1.2-5.4) L 07/01/18 05:03 [place] # 0.5 K/mm3 (0.0-0.8) 07/01/18 05:03 Eos # 0.0 K/mm3 (0.0-0.4) 07/01/18 05:03 Baso # 0.0 K/mm3 (0.0-0.1) 07/01/18 05:03 Add Manual Diff Complete 07/04/18 04:10 Total Counted 100 07/04/18 04:10 Seg Neutrophils % 87.2 % (40.0-70.0) H 07/01/18 05:03 Seg Neuts % (Manual) 79.0 % (40.0-70.0) H 07/04/18 04:10 Band Neutrophils % 0 % 07/04/18 04:10 Lymphocytes % (Manual) 15.0 % (13.4-35.0) 07/04/18 04:10 Reactive Lymphs % (Man) 0 % 07/04/18 04:10 Monocytes % (Manual) 6.0 % (0.0-7.3) 07/04/18 04:10 Eosinophils % (Manual) 0 % (0.0-4.3) 07/04/18 04:10 Basophils % (Manual) 0 % (0.0-1.8) 07/04/18 04:10 Metamyelocytes % 0 % 07/04/18 04:10 Myelocytes % 0 % 07/04/18 04:10 Promyelocytes % 0 % 07/04/18 04:10 Blast Cells % 0 % 07/04/18 04:10 Nucleated RBC % Not Reportable 07/04/18 04:10 Seg Neutrophils # 5.6 K/mm3 (1.8-7.7) 07/01/18 05:03 Seg Neutrophils # Man 5.7 K/mm3 (1.8-7.7) 07/04/18 04:10 Band Neutrophils # 0.0 K/mm3 07/04/18 04:10 Lymphocytes # (Manual) 1.1 K/mm3 (1.2-5.4) L 07/04/18 04:10 Abs React Lymphs (Man) 0.0 K/mm3 07/04/18 04:10 Monocytes # (Manual) 0.4 K/mm3 (0.0-0.8) 07/04/18 04:10 Eosinophils # (Manual) 0.0 K/mm3 (0.0-0.4) 07/04/18 04:10 Basophils # (Manual) 0.0 K/mm3 (0.0-0.1) 07/04/18 04:10 Metamyelocytes # 0.0 K/mm3 07/04/18 04:10 Myelocytes # 0.0 K/mm3 07/04/18 04:10 Promyelocytes # 0.0 K/mm3 07/04/18 04:10 Blast Cells # 0.0 K/mm3 07/04/18 04:10 WBC Morphology Not Reportable 07/04/18 04:10 Hypersegmented Neuts Not Reportable 07/04/18 04:10 Hyposegmented Neuts Not Reportable 07/04/18 04:10 Hypogranular Neuts Not Reportable 07/04/18 04:10 Smudge Cells Not Reportable 07/04/18 04:10 Toxic Granulation Not Reportable 07/04/18 04:10 Toxic Vacuolation Not Reportable 07/04/18 04:10 Dohle Bodies Not Reportable 07/04/18 04:10 [place]uet Anomaly Not Reportable 07/04/18 04:10 [place] Rods Not Reportable 07/04/18 04:10 Platelet Estimate Consistent w auto 07/04/18 04:10 Clumped Platelets Few 07/04/18 04:10 Plt Clumps, EDTA Not Reportable 07/04/18 04:10 Large Platelets 1+ 07/04/18 04:10 Giant Platelets Not Reportable 07/04/18 04:10 Platelet Satelliting Not Reportable 07/04/18 04:10 Plt Morphology Comment Not Reportable 07/04/18 04:10 RBC Morphology Normal 07/04/18 04:10 Dimorphic RBCs Not Reportable 07/04/18 04:10 Polychromasia Not Reportable 07/04/18 04:10 Hypochromasia Not Reportable 07/04/18 04:10 Poikilocytosis Not Reportable 07/04/18 04:10 Anisocytosis Not Reportable 07/04/18 04:10 Microcytosis Not Reportable 07/04/18 04:10 Macrocytosis Not Reportable 07/04/18 04:10 Spherocytes Not Reportable 07/04/18 04:10 Pappenheimer Bodies Not Reportable 07/04/18 04:10 Sickle Cells Not Reportable 07/04/18 04:10 Target Cells Not Reportable 07/04/18 04:10 Tear Drop Cells Not Reportable 07/04/18 04:10 Ovalocytes Not Reportable 07/04/18 04:10 Helmet Cells Not Reportable 07/04/18 04:10 [place] Bodies Not Reportable 07/04/18 04:10 [place] Rings Not Reportable 07/04/18 04:10 [place] Cells Not Reportable 07/04/18 04:10 Bite Cells Not Reportable 07/04/18 04:10 Crenated Cell Not Reportable 07/04/18 04:10 Elliptocytes Not Reportable 07/04/18 04:10 Acanthocytes (Spur) Not Reportable 07/04/18 04:10 Rouleaux Not Reportable 07/04/18 04:10 Hemoglobin C Crystals Not Reportable 07/04/18 04:10 Schistocytes Not Reportable 07/04/18 04:10 Malaria parasites Not Reportable 07/04/18 04:10 [place] Bodies Not Reportable 07/04/18 04:10 Hem Pathologist Commnt No 07/04/18 04:10 PT 14.7 Sec. (12.2-14.9) 04/10/19 03:50 INR 1.08 (0.87-1.13) 06/30/18 03:50 APTT 27.0 Sec. (24.2-36.6) 06/30/18 03:50 D-Dimer 849.06 ng/mlDDU (0-234) H 06/30/18 22:31 POC ABG pH 7.425 (7.35-7.45) 07/04/18 05:28 POC ABG pCO2 33.2 (35-45) L 07/04/18 05:28 POC ABG pO2 75 (80-105) L 07/04/18 05:28 POC ABG HCO3 21.8 (22-26 mml/L) 07/04/18 05:28 POC ABG Total CO2 23 (23-27mmol/L) 07/04/18 05:28 POC ABG O2 Sat 95 07/04/18 05:28 POC ABG Base Excess -3 ((-2) - (+3)mmol/L) 07/04/18 05:28 FiO2 40 % 07/04/18 05:28 Sodium 151 mmol/L (137-145) H 07/06/18 06:34 Potassium 3.4 mmol/L (3.6-5.0) L 07/06/18 06:34 Chloride 115.5 mmol/L (98-107) H 07/06/18 06:34 Carbon Dioxide 25 mmol/L (22-30) 07/06/18 06:34 Anion Gap 14 mmol/L 07/06/18 06:34 BUN 23 mg/dL (9-20) H 07/06/18 06:34 Creatinine 1.0 mg/dL (0.8-1.5) 07/06/18 06:34 Estimated GFR > 60 ml/min 07/06/18 06:34 BUN/Creatinine Ratio 23 % 07/06/18 06:34 Glucose 224 mg/dL (75-100) H 07/06/18 06:34 POC Glucose 206 (70-105) H 07/06/18 11:54 Ketones Quantitative Moderate (Negative) 06/30/18 03:50 Lactic Acid 1.30 mmol/L (0.7-2.0) 07/01/18 11:31 Calcium 8.7 mg/dL (8.4-10.2) 07/06/18 06:34 Phosphorus 4.40 mg/dL (2.5-4.5) 07/02/18 14:44 Magnesium 1.90 mg/dL (1.7-2.3) 07/01/18 15:42 Total Bilirubin 0.50 mg/dL (0.1-1.2) 07/02/18 18:52 AST 37 units/L (5-40) 07/02/18 18:52 ALT 12 units/L (7-56) 07/02/18 18:52 Alkaline Phosphatase 75 units/L (35-129) 07/02/18 18:52 Total Creatine Kinase 66 units/L (55-170) 06/30/18 03:50 CK-MB (CK-2) 2.2 ng/mL (0.0-4.0) 06/30/18 03:50 CK-MB (CK-2) Rel Index 3.3 (0-4) 06/30/18 03:50 Troponin T < 0.010 ng/mL (0.00-0.029) 06/30/18 11:43 NT-Pro-B Natriuret Pep 3170 pg/mL (0-900) H 07/01/18 11:31 Total Protein 6.1 g/dL (6.3-8.2) L 07/02/18 18:52 Albumin 1.8 g/dL (3.9-5) L 07/02/18 18:52 Albumin/Globulin Ratio 0.4 % 07/02/18 18:52 Triglycerides 176 mg/dL (2-149) H 07/03/18 04:24 Amylase 22 units/L (27-131) L 07/02/18 14:44 Lipase 10 units/L (13-60) L 07/02/18 14:44 Urine Color Straw (Yellow) 06/30/18 04:47 Urine Turbidity Slightly-cloudy (Clear) 06/30/18 04:47 Urine pH 5.0 (5.0-7.0) 06/30/18 04:47 Ur Specific [place] 1.028 (1.003-1.030) 06/30/18 04:47 Urine Protein 100 mg/dl mg/dL (Negative) 06/30/18 04:47 Urine Glucose (UA) >=500 mg/dL (Negative) 06/30/18 04:47 Urine Ketones 80 mg/dL (Negative) 06/30/18 04:47 Urine Blood Mod (Negative) 06/30/18 04:47 Urine Nitrite Neg (Negative) 06/30/18 04:47 Urine Bilirubin Neg (Negative) 06/30/18 04:47 Urine Urobilinogen < 2.0 mg/dL (<2.0) 06/30/18 04:47 Ur Leukocyte Esterase Neg (Negative) 06/30/18 04:47 Urine WBC (Auto) 1.0 /HPF (0.0-6.0) 06/30/18 04:47 Urine RBC (Auto) 10.0 /HPF (0.0-6.0) 06/30/18 04:47 U Epithel Cells (Auto) 1.0 /HPF (0-13.0) 06/30/18 04:47 Urine Bacteria (Auto) 1+ /HPF (Negative) 06/30/18 04:47 Urine Mucus Few /HPF 06/30/18 04:47 Nasal Screen MRSA (PCR) Negative (Negative) 07/01/18 15:30 Vancomycin Trough 16.0 ug/mL (5.0-20.0) 07/03/18 17:09 Urine Opiates Screen Presumptive negative 06/30/18 04:47 Urine Methadone Screen Presumptive negative 06/30/18 04:47 Ur Barbiturates Screen Presumptive negative 06/30/18 04:47 Ur Phencyclidine Scrn Presumptive negative 06/30/18 04:47 Ur Amphetamines Screen Presumptive negative 06/30/18 04:47 U Benzodiazepines Scrn Presumptive negative 06/30/18 04:47 Urine Cocaine Screen Presumptive negative 06/30/18 04:47 U Marijuana (THC) Screen Presumptive negative 06/30/18 04:47 Drugs of Abuse Note Disclamer 06/30/18 04:47 RPR Nonreactive (Nonreactive) 07/05/18 04:56 HIV 1&2 Antibody Rapid Non react (Non React) 07/02/18 04:33 HIV P24 Antigen Non react (Non React) 07/02/18 04:33 Active Medications - Current Medications Current Medications: Generic Name Dose Route Start Last Admin Trade Name Freq PRN Reason Stop Dose Admin Acetaminophen 250 mg 07/03/18 05:31 07/04/18 05:37 Tylenol PO 250 mg Q6H PRN Administration Pain, Mild (1-3) Amlodipine Besylate 10 mg 07/03/18 10:00 07/06/18 09:34 Norvasc PO 10 mg QDAY JT Administration Lipase/Protease/Amylase 1 each 07/02/18 00:54 [place] 10,500 Unit FEEDTUBE PRN PRN For Clogged Feeding Tube Lipase/Protease/Amylase 1 each 07/06/18 11:56 [place] 10,500 Unit FEEDTUBE PRN PRN For Clogged Feeding Tube Dextrose 0 ml 06/30/18 04:20 D50w (25gm) Syringe IV PRN PRN Hypoglycemia Enoxaparin Sodium 100 mg 06/30/18 19:00 07/06/18 07:00 Lovenox SUB-Q 100 mg 0700,1900 JT Administration Haloperidol Lactate 5 mg 06/30/18 18:47 07/03/18 08:59 Haldol IM 5 mg Q6H PRN Administration Agitation Hydralazine HCl 20 mg 07/03/18 05:33 07/05/18 12:00 Apresoline IV 20 mg Q4HR PRN Administration Blood Pressure Hydrophilic Ointment 1 applic 06/30/18 21:49 Vaseline Lip Therapy TP Q2HR PRN Dry Lips Nafcillin Sodium 2 gm/ Sodium 100 mls @ 100 mls/30 min 07/04/18 15:00 07/06/18 10:23 Chloride IV 100 mls/30 min Q4HR JT Administration Protocol Dextrose 1,000 mls @ 75 mls/hr 07/05/18 08:00 07/05/18 22:36 D5w IV 75 mls/hr DIRECT JT Administration Insulin Glargine 45 units 07/06/18 22:00 Lantus SUB-Q QHS JT Insulin Human Lispro 0 unit 07/02/18 01:00 07/06/18 11:59 Humalog SUB-Q 4 unit Q6HR JT Administration Protocol Insulin Human Lispro 5 unit 07/06/18 11:30 07/06/18 11:30 Humalog SUB-Q 5 unit AC JT Administration Ipratropium [place] 0.5 mg 06/30/18 08:00 07/06/18 08:41 Atrovent IH Not Given Q6HRT JT Levalbuterol HCl 0.63 mg 06/30/18 08:00 07/06/18 08:41 Xopenex IH Not Given Q6HRT JT Lorazepam 1 mg 06/30/18 17:46 07/06/18 10:26 Ativan IV 1 mg Q4H PRN Administration Anxiety Metoprolol Tartrate 50 mg 07/03/18 10:00 07/06/18 09:33 Lopressor PO 50 mg BID JT Administration Morphine Sulfate 2 mg 06/30/18 05:52 07/04/18 10:58 Morphine IV 2 mg Q4H PRN Administration Pain, Moderate (4-6) Multi-Ingred Cream/Lotion/Oil/Oint 1 applic 06/30/18 21:49 Artificial Tears Ophth Oint OU Q4HR PRN Dry Eye(s) Ondansetron HCl 4 mg 06/30/18 05:52 Zofran IV Q8H PRN Nausea And Vomiting Oxycodone/Acetaminophen 1 tab 06/30/18 05:52 07/03/18 09:25 Percocet 5/325 PO 1 tab Q6H PRN Administration Pain, Moderate (4-6) Potassium Chloride 20 meq 07/06/18 10:00 07/06/18 09:34 Potassium Chloride FEEDTUBE 07/09/18 09:59 20 meq QDAY JT Administration Simple Syrup 15 ml 07/02/18 00:54 Simple Syrup FEEDTUBE PRN PRN Hypoglycemia Simple Syrup 30 ml 07/02/18 00:54 Simple Syrup FEEDTUBE PRN PRN Hypoglycemia Simple Syrup 15 ml 07/06/18 11:56 Simple Syrup FEEDTUBE PRN PRN Hypoglycemia Simple Syrup 30 ml 07/06/18 11:56 Simple Syrup FEEDTUBE PRN PRN Hypoglycemia Sodium Bicarbonate 325 mg 07/02/18 00:54 Sodium Bicarbonate FEEDTUBE PRN PRN For Clogged Feeding Tube Sodium Bicarbonate 325 mg 07/06/18 11:56 Sodium Bicarbonate FEEDTUBE PRN PRN For Clogged Feeding Tube Sodium Chloride 10 ml 06/30/18 10:00 07/06/18 09:55 Sodium Chloride Flush Syringe 10 Ml IV 10 ml BID JT Administration Sodium Chloride 10 ml 06/30/18 05:52 Sodium Chloride Flush Syringe 10 Ml IV PRN PRN LINE FLUSH Nutrition/Malnutrition Assess - Dietary Evaluation Nutrition/Malnutrition Findings: Nutrition Notes Start: 06/30/18 09:49 Freq: Status: Active Protocol: Document 07/06/18 09:49 CT (Rec: 07/06/18 09:54 CT [id number]) Co-Sign 07/06/18 09:49 LP Nutrition Notes Initial or Follow up Reassessment Current Diagnosis COPD,Diabetes,Hyperlipidemia Other Pertinent Diagnosis DKA, Hypertensive emergency, acute resp failure, Pneu Current Diet TF Labs/Tests Na: 152 K: 3.4 BUN: 23 glucose: 224 Pertinent Medications Reviewed Height 6 ft 2 in Weight 97.8 kg [place] Body Weight (kg) 86.36 BMI 27.6 Weight Status Overweight Subjective/Other Information TF no longer infusing. Per RN , LAW SECRETARY and MD cleared pt for mechnical soft diet. Burn Absent Trauma Absent #1 Nutrition Diagnosis Inadequate oral intake Diagnosis Progress(for reassessment Continues documentation) Is patient on ventilator? Yes Is Patient Ambulatory and/or Out of Bed No REE-([place]-St[place] Jeor-confined to bed) 2239.788 Kcal/Kg value to use for calculation 18 Approximate Energy Requirements Using 1760 kcal/Kg Calculation Used for Recommendations [place]-St Jeor Additional Notes Pro needs 1.2-2g/k-196g/ day Fluid needs 1ml/kcal Nutrition Intervention Change Diet Order: Cardiac/Consistent CHO, Mechanical Soft Goal #1 PO tolerance Goal #2 PO intake to meet atleast 75% of kcal and PRO needs. Follow-Up By: 07/07/18 Additional Comments F/U: PO intake and tolerance
--- NOTE | 2018-07-06 13:03 | Progress Note ---
Assessment and Plan Imp: 1. Pneumonia 2. Sepsis 3. DKA 4. Hypernatremia 5. Acute respiratory failure, hypoxia 6. Hx of CVA Rec: 1. ABX per ID; f/u CXR periodically to ensure resolution of infiltrates 2. ST eval. given CVA hx and pneumonia 3. D5W and monitor sodium; Replete K as needed 4. Would give him Haldol for agitation and try to avoid benzos if possible, or consider changing to oral benzo like Klonopin 5. Needs PT/OT 6. Stable pulmonary-rice on RA, and can be transferred out of ICU from our standpoint Plan of care reviewed with patient/fiance, they understand/agree Subjective Date of service: 07/06/18 Principal diagnosis: DKA,resp failure Interval history: No events. On RA b/c he refuses O2. RA sat 94%. Denies SOB. Has some cough and congestion. Not cooperative with interview or exam. Agitated and biting restraints so Ativan given and now he is awake but confused. Active Medications Acetaminophen (Tylenol) 250 mg PO Q6H PRN PRN Reason: Pain, Mild (1-3) Last Admin: 07/04/18 05:37 Dose: 250 mg Documented by: Amlodipine Besylate (Norvasc) 10 mg PO QDAY JT Last Admin: 07/06/18 09:34 Dose: 10 mg Documented by: Lipase/Protease/Amylase ([place] 10,500 Unit) 1 each FEEDTUBE PRN PRN PRN Reason: For Clogged Feeding Tube Lipase/Protease/Amylase ([place] 10,500 Unit) 1 each FEEDTUBE PRN PRN PRN Reason: For Clogged Feeding Tube Dextrose (D50w (25gm) Syringe) 0 ml IV PRN PRN PRN Reason: Hypoglycemia Enoxaparin Sodium (Lovenox) 100 mg SUB-Q 0700,1900 JT Last Admin: 07/06/18 07:00 Dose: 100 mg Documented by: Haloperidol Lactate (Haldol) 5 mg IM Q6H PRN PRN Reason: Agitation Last Admin: 07/03/18 08:59 Dose: 5 mg Documented by: Hydralazine HCl (Apresoline) 20 mg IV Q4HR PRN PRN Reason: Blood Pressure Last Admin: 07/05/18 12:00 Dose: 20 mg Documented by: Hydrophilic Ointment (Vaseline Lip Therapy) 1 applic TP Q2HR PRN PRN Reason: Dry Lips Nafcillin Sodium 2 gm/ Sodium (Chloride) 100 mls @ 100 mls/30 min IV Q4HR [facility]; Protocol Last Admin: 07/06/18 10:23 Dose: 100 mls/30 min Documented by: Dextrose (D5w) 1,000 mls @ 75 mls/hr IV DIRECT [facility] Last Admin: 07/05/18 22:36 Dose: 75 mls/hr Documented by: Insulin Glargine (Lantus) 45 units SUB-Q QHS [facility] Insulin Human Lispro (Humalog) 0 unit SUB-Q Q6HR [facility]; Protocol Last Admin: 07/06/18 11:59 Dose: 4 unit Documented by: Insulin Human Lispro (Humalog) 5 unit SUB-Q [facility] Last Admin: 07/06/18 11:30 Dose: 5 unit Documented by: Ipratropium [place] (Atrovent) 0.5 mg IH Q6HRT [facility] Last Admin: 07/06/18 08:41 Dose: Not Given Documented by: Levalbuterol HCl (Xopenex) 0.63 mg IH Q6HRT [facility] Last Admin: 07/06/18 08:41 Dose: Not Given Documented by: Lisinopril (Zestril) 40 mg PO QDAY [facility] Lorazepam (Ativan) 1 mg IV Q4H PRN PRN Reason: Anxiety Last Admin: 07/06/18 10:26 Dose: 1 mg Documented by: Metoprolol Tartrate (Lopressor) 50 mg PO BID [facility] Last Admin: 07/06/18 09:33 Dose: 50 mg Documented by: Miscellaneous Medication (Cholecalciferol (Vitamin D3) [Vitamin D3 2,000 Unit Cap]) 4,000 unit PO QDAY [facility] Miscellaneous Medication (Simvastatin [Simvastatin]) 40 mg PO QHS [facility] Morphine Sulfate (Morphine) 2 mg IV Q4H PRN PRN Reason: Pain, Moderate (4-6) Last Admin: 07/04/18 10:58 Dose: 2 mg Documented by: Multi-Ingred Cream/Lotion/Oil/Oint (Artificial Tears Ophth Oint) 1 applic OU Q4HR PRN PRN Reason: Dry Eye(s) Ondansetron HCl (Zofran) 4 mg IV Q8H PRN PRN Reason: Nausea And Vomiting Oxycodone/Acetaminophen (Percocet 5/325) 1 tab PO Q6H PRN PRN Reason: Pain, Moderate (4-6) Last Admin: 07/03/18 09:25 Dose: 1 tab Documented by: Potassium Chloride (Potassium Chloride) 20 meq FEEDTUBE QDAY JT Stop: 07/09/18 09:59 Last Admin: 07/06/18 09:34 Dose: 20 meq Documented by: Simple Syrup (Simple Syrup) 15 ml FEEDTUBE PRN PRN PRN Reason: Hypoglycemia Simple Syrup (Simple Syrup) 30 ml FEEDTUBE PRN PRN PRN Reason: Hypoglycemia Simple Syrup (Simple Syrup) 15 ml FEEDTUBE PRN PRN PRN Reason: Hypoglycemia Simple Syrup (Simple Syrup) 30 ml FEEDTUBE PRN PRN PRN Reason: Hypoglycemia Sodium Bicarbonate (Sodium Bicarbonate) 325 mg FEEDTUBE PRN PRN PRN Reason: For Clogged Feeding Tube Sodium Bicarbonate (Sodium Bicarbonate) 325 mg FEEDTUBE PRN PRN PRN Reason: For Clogged Feeding Tube Sodium Chloride (Sodium Chloride Flush Syringe 10 Ml) 10 ml IV BID JT Last Admin: 07/06/18 09:55 Dose: 10 ml Documented by: Sodium Chloride (Sodium Chloride Flush Syringe 10 Ml) 10 ml IV PRN PRN PRN Reason: LINE FLUSH Objective Vital Signs - 12hr 07/06/18 07/06/18 07/06/18 01:16 01:30 01:46 Temperature Pulse Rate 91 H 92 H 89 Pulse Rate [ Anterior Bilateral Throughout] Respiratory 20 21 21 Rate Respiratory Rate [Anterior Bilateral Throughout] Blood Pressure 148/84 143/88 143/88 O2 Sat by Pulse 95 91 94 Oximetry 07/06/18 07/06/18 07/06/18 02:00 02:16 02:30 Temperature Pulse Rate 85 85 85 Pulse Rate [ Anterior Bilateral Throughout] Respiratory 20 18 24 Rate Respiratory Rate [Anterior Bilateral Throughout] Blood Pressure 146/75 146/75 149/77 O2 Sat by Pulse 90 95 Oximetry 07/06/18 07/06/18 07/06/18 02:46 03:00 03:16 Temperature Pulse Rate 91 H 90 95 H Pulse Rate [ Anterior Bilateral Throughout] Respiratory 27 H 20 25 H Rate Respiratory Rate [Anterior Bilateral Throughout] Blood Pressure 149/77 133/84 133/84 O2 Sat by Pulse 94 92 94 Oximetry 07/06/18 07/06/18 07/06/18 03:25 03:30 03:46 Temperature 98.9 F Pulse Rate 96 H 96 H Pulse Rate [ Anterior Bilateral Throughout] Respiratory 19 21 Rate Respiratory Rate [Anterior Bilateral Throughout] Blood Pressure 139/78 139/78 O2 Sat by Pulse 92 93 Oximetry 07/06/18 07/06/18 07/06/18 04:00 04:16 04:30 Temperature Pulse Rate 95 H 97 H 100 H Pulse Rate [ Anterior Bilateral Throughout] Respiratory 23 24 17 Rate Respiratory Rate [Anterior Bilateral Throughout] Blood Pressure 139/76 139/78 140/106 O2 Sat by Pulse 88 92 88 Oximetry 07/06/18 07/06/18 07/06/18 04:46 05:00 05:16 Temperature Pulse Rate 96 H 100 H 99 H Pulse Rate [ Anterior Bilateral Throughout] Respiratory 21 19 22 Rate Respiratory Rate [Anterior Bilateral Throughout] Blood Pressure 140/106 138/74 138/74 O2 Sat by Pulse 92 88 92 Oximetry 07/06/18 07/06/18 07/06/18 05:30 05:46 06:00 Temperature Pulse Rate 97 H 97 H 98 H Pulse Rate [ Anterior Bilateral Throughout] Respiratory 16 21 21 Rate Respiratory Rate [Anterior Bilateral Throughout] Blood Pressure 131/71 138/74 154/77 O2 Sat by Pulse 88 92 89 Oximetry 07/06/18 07/06/18 07/06/18 06:16 06:30 06:46 Temperature Pulse Rate 98 H 103 H 98 H Pulse Rate [ Anterior Bilateral Throughout] Respiratory 21 23 24 Rate Respiratory Rate [Anterior Bilateral Throughout] Blood Pressure 154/77 152/76 154/77 O2 Sat by Pulse 93 89 92 Oximetry 07/06/18 07/06/18 07/06/18 07:00 07:16 07:30 Temperature Pulse Rate 101 H 104 H 106 H Pulse Rate [ Anterior Bilateral Throughout] Respiratory 17 22 22 Rate Respiratory Rate [Anterior Bilateral Throughout] Blood Pressure 136/84 136/84 134/87 O2 Sat by Pulse 90 94 91 Oximetry 07/06/18 07/06/18 07/06/18 07:46 08:00 08:16 Temperature 98.8 F Pulse Rate 104 H 107 H 103 H Pulse Rate [ Anterior Bilateral Throughout] Respiratory 22 22 22 Rate Respiratory Rate [Anterior Bilateral Throughout] Blood Pressure 134/87 143/89 134/87 O2 Sat by Pulse 92 88 93 Oximetry 07/06/18 07/06/18 07/06/18 08:30 08:37 08:46 Temperature Pulse Rate 110 H 104 H Pulse Rate [ 106 H Anterior Bilateral Throughout] Respiratory 19 22 Rate Respiratory 20 Rate [Anterior Bilateral Throughout] Blood Pressure 134/87 143/89 O2 Sat by Pulse 93 93 93 Oximetry 07/06/18 07/06/18 07/06/18 09:00 09:16 09:30 Temperature Pulse Rate 100 H 102 H 104 H Pulse Rate [ Anterior Bilateral Throughout] Respiratory 22 23 22 Rate Respiratory Rate [Anterior Bilateral Throughout] Blood Pressure 146/81 146/81 156/87 O2 Sat by Pulse 90 94 90 Oximetry 07/06/18 07/06/18 07/06/18 09:33 09:34 09:46 Temperature Pulse Rate 104 H 104 H 107 H Pulse Rate [ Anterior Bilateral Throughout] Respiratory 21 Rate Respiratory Rate [Anterior Bilateral Throughout] Blood Pressure 156/87 156/87 156/87 O2 Sat by Pulse 94 Oximetry 07/06/18 07/06/18 07/06/18 10:00 10:16 10:30 Temperature Pulse Rate 96 H 113 H 103 H Pulse Rate [ Anterior Bilateral Throughout] Respiratory 23 14 25 H Rate Respiratory Rate [Anterior Bilateral Throughout] Blood Pressure 155/84 155/84 152/83 O2 Sat by Pulse 88 94 90 Oximetry 07/06/18 07/06/18 07/06/18 10:46 11:00 11:16 Temperature Pulse Rate 102 H 96 H 94 H Pulse Rate [ Anterior Bilateral Throughout] Respiratory 17 22 15 Rate Respiratory Rate [Anterior Bilateral Throughout] Blood Pressure 152/83 126/78 126/78 O2 Sat by Pulse 92 90 94 Oximetry 07/06/18 07/06/18 07/06/18 11:30 11:46 12:00 Temperature 98.2 F Pulse Rate 98 H 99 H 98 H Pulse Rate [ Anterior Bilateral Throughout] Respiratory 26 H 24 24 Rate Respiratory Rate [Anterior Bilateral Throughout] Blood Pressure 149/88 149/88 158/89 O2 Sat by Pulse 90 94 89 Oximetry Constitutional: no acute distress, alert Eyes: non-icteric ENT: oropharynx moist Neck: supple Effort: normal Ascultation: Bilateral: clear Cardiovascular: other (sinus tachy, RR; no mrg) Gastrointestinal: normoactive bowel sounds, soft, non-tender, non-distended Integumentary: normal Extremities: no cyanosis, pink and warm, edema (1+ bilateral LE edema) Neurologic: other (L hemiplegia, slurred speech) Psychiatric: mood appropriate, affect normal CBC and BMP: 07/06/18 06:34 07/06/18 06:34 ABG, PT/INR, D-dimer: ABG POC ABG pH 7.425 (7.35-7.45) 07/04/18 05:28 POC ABG pCO2 33.2 (35-45) L 07/04/18 05:28 POC ABG pO2 75 (80-105) L 07/04/18 05:28 POC ABG HCO3 21.8 (22-26 mml/L) 07/04/18 05:28 POC ABG Total CO2 23 (23-27mmol/L) 07/04/18 05:28 POC ABG O2 Sat 95 07/04/18 05:28 PT/INR, D-dimer PT 14.7 Sec. (12.2-14.9) 06/30/18 03:50 INR 1.08 (0.87-1.13) 06/30/18 03:50 D-Dimer 849.06 ng/mlDDU (0-234) H 06/30/18 22:31 Abnormal lab findings: Abnormal Labs 06/30/18 06/30/18 06/30/18 03:47 03:50 03:50 RBC 5.44 H Hgb 16.5 H Hct 51.1 H MCHC Lymph % (Auto) 5.8 L Bartholomew % (Auto) 9.7 H Lymph # 0.5 L Bartholomew # 0.9 H Seg Neutrophils % 84.1 H Seg Neuts % (Manual) Lymphocytes # (Manual) D-Dimer POC ABG pH POC ABG pCO2 POC ABG pO2 Sodium 133 L Potassium 5.4 H Chloride 94.8 L Carbon Dioxide 5 L* BUN 23 H Glucose 556 H* POC Glucose 360 H Calcium Phosphorus ALT NT-Pro-B Natriuret Pep Total Protein 8.3 H Albumin 3.7 L Triglycerides Amylase Lipase 06/30/18 06/30/18 06/30/18 04:23 04:43 05:45 RBC Hgb Hct MCHC Lymph % (Auto) Bartholomew % (Auto) Lymph # Bartholomew # Seg Neutrophils % Seg Neuts % (Manual) Lymphocytes # (Manual) D-Dimer POC ABG pH 7.065 L POC ABG pCO2 POC ABG pO2 Sodium Potassium Chloride Carbon Dioxide BUN Glucose POC Glucose 384 H 382 H Calcium Phosphorus ALT NT-Pro-B Natriuret Pep Total Protein Albumin Triglycerides Amylase Lipase 06/30/18 06/30/18 06/30/18 06:43 06:44 07:55 RBC Hgb Hct MCHC Lymph % (Auto) Bartholomew % (Auto) Lymph # [place]omew # Seg Neutrophils % Seg Neuts % (Manual) Lymphocytes # (Manual) D-Dimer POC ABG pH POC ABG pCO2 POC ABG pO2 Sodium Potassium Chloride Carbon Dioxide 4 L* BUN 22 H Glucose 511 H* POC Glucose 373 H 386 H Calcium Phosphorus ALT NT-Pro-B Natriuret Pep Total Protein Albumin Triglycerides Amylase Lipase 06/30/18 06/30/18 06/30/18 08:54 09:02 09:47 RBC Hgb Hct MCHC Lymph % (Auto) Bartholomew % (Auto) Lymph # [place]w # Seg Neutrophils % Seg Neuts % (Manual) Lymphocytes # (Manual) D-Dimer POC ABG pH POC ABG pCO2 POC ABG pO2 Sodium 134 L Potassium 5.4 H Chloride Carbon Dioxide 6 L* BUN 23 H Glucose 515 H* POC Glucose 386 H 380 H Calcium Phosphorus ALT NT-Pro-B Natriuret Pep Total Protein Albumin Triglycerides Amylase Lipase 06/30/18 06/30/18 06/30/18 11:01 11:43 12:08 RBC Hgb Hct MCHC Lymph % (Auto) Barth[place]omew % (Auto) Lymph # [place]w # Seg Neutrophils % Seg Neuts % (Manual) Lymphocytes # (Manual) D-Dimer POC ABG pH POC ABG pCO2 POC ABG pO2 Sodium Potassium 5.1 H Chloride Carbon Dioxide 7 L* BUN 23 H Glucose 400 H POC Glucose 322 H 296 H Calcium Phosphorus ALT NT-Pro-B Natriuret Pep Total Protein Albumin Triglycerides Amylase Lipase 06/30/18 06/30/18 06/30/18 12:45 14:12 15:11 RBC Hgb Hct MCHC Lymph % (Auto) [place]w % (Auto) Lymph # [place]w # Seg Neutrophils % Seg Neuts % (Manual) Lymphocytes # (Manual) D-Dimer POC ABG pH POC ABG pCO2 POC ABG pO2 Sodium Potassium Chloride Carbon Dioxide BUN Glucose POC Glucose 335 H 284 H 260 H Calcium Phosphorus ALT NT-Pro-B Natriuret Pep Total Protein Albumin Triglycerides Amylase Lipase 06/30/18 06/30/18 06/30/18 15:50 16:56 18:01 RBC Hgb Hct MCHC Lymph % (Auto) Bar[place]w % (Auto) Lymph # [place]w # Seg Neutrophils % Seg Neuts % (Manual) Lymphocytes # (Manual) D-Dimer POC ABG pH POC ABG pCO2 POC ABG pO2 Sodium Potassium Chloride Carbon Dioxide BUN Glucose POC Glucose 287 H 301 H 273 H Calcium Phosphorus ALT NT-Pro-B Natriuret Pep Total Protein Albumin Triglycerides Amylase Lipase 06/30/18 06/30/18 06/30/18 19:35 19:55 21:28 RBC Hgb Hct MCHC Lymph % (Auto) [place]w % (Auto) Lymph # [place]w # Seg Neutrophils % Seg Neuts % (Manual) Lymphocytes # (Manual) D-Dimer POC ABG pH 7.244 L POC ABG pCO2 POC ABG pO2 Sodium Potassium Chloride 110.4 H Carbon Dioxide 12 L BUN Glucose 268 H POC Glucose 270 H Calcium Phosphorus ALT NT-Pro-B Natriuret Pep Total Protein Albumin Triglycerides Amylase Lipase 06/30/18 06/30/18 06/30/18 22:12 22:31 22:52 RBC Hgb Hct MCHC Lymph % (Auto) Bar[place]omew % (Auto) Lymph # [place]omew # Seg Neutrophils % Seg Neuts % (Manual) Lymphocytes # (Manual) D-Dimer 849.06 H POC ABG pH 7.214 L POC ABG pCO2 POC ABG pO2 Sodium Potassium Chloride Carbon Dioxide BUN Glucose POC Glucose 242 H Calcium Phosphorus ALT NT-Pro-B Natriuret Pep Total Protein Albumin Triglycerides Amylase Lipase 07/01/18 07/01/18 07/01/18 00:48 02:05 03:03 RBC Hgb Hct MCHC Lymph % (Auto) [place]w % (Auto) Lymph # [place]w # Seg Neutrophils % Seg Neuts % (Manual) Lymphocytes # (Manual) D-Dimer POC ABG pH POC ABG pCO2 POC ABG pO2 Sodium Potassium Chloride Carbon Dioxide BUN Glucose POC Glucose 401 H 156 H 122 H Calcium Phosphorus ALT NT-Pro-B Natriuret Pep Total Protein Albumin Triglycerides Amylase Lipase 07/01/18 07/01/18 07/01/18 04:04 05:03 05:03 RBC 5.11 H Hgb 15.6 H Hct 45.7 H MCHC Lymph % (Auto) 5.1 L [place]w % (Auto) 7.6 H Lymph # 0.3 L Bartholomew # Seg Neutrophils % 87.2 H Seg Neuts % (Manual) Lymphocytes # (Manual) D-Dimer POC ABG pH POC ABG pCO2 POC ABG pO2 Sodium Potassium Chloride 111.1 H Carbon Dioxide 16 L BUN Glucose 154 H POC Glucose 120 H Calcium Phosphorus ALT NT-Pro-B Natriuret Pep Total Protein Albumin Triglycerides Amylase Lipase 07/01/18 07/01/18 07/01/18 05:09 05:32 06:02 RBC Hgb Hct MCHC Lymph % (Auto) Bartholomew % (Auto) Lymph # [place]omew # Seg Neutrophils % Seg Neuts % (Manual) Lymphocytes # (Manual) D-Dimer POC ABG pH POC ABG pCO2 30.5 L POC ABG pO2 172 H Sodium Potassium Chloride Carbon Dioxide BUN Glucose POC Glucose 137 H 149 H Calcium Phosphorus ALT NT-Pro-B Natriuret Pep Total Protein Albumin Triglycerides Amylase Lipase 07/01/18 07/01/18 07/01/18 06:59 08:20 09:23 RBC Hgb Hct MCHC Lymph % (Auto) Bartholomew % (Auto) Lymph # [place]omew # Seg Neutrophils % Seg Neuts % (Manual) Lymphocytes # (Manual) D-Dimer POC ABG pH POC ABG pCO2 POC ABG pO2 Sodium Potassium Chloride Carbon Dioxide BUN Glucose POC Glucose 164 H 135 H 142 H Calcium Phosphorus ALT NT-Pro-B Natriuret Pep Total Protein Albumin Triglycerides Amylase Lipase 07/01/18 07/01/18 07/01/18 10:09 11:13 11:31 RBC Hgb Hct MCHC Lymph % (Auto) Bartholomew % (Auto) Lymph # [place]omew # Seg Neutrophils % Seg Neuts % (Manual) Lymphocytes # (Manual) D-Dimer POC ABG pH POC ABG pCO2 POC ABG pO2 Sodium Potassium Chloride Carbon Dioxide BUN Glucose POC Glucose 170 H 163 H Calcium Phosphorus ALT NT-Pro-B Natriuret Pep 3170 H Total Protein Albumin Triglycerides Amylase Lipase 07/01/18 07/01/18 07/01/18 12:09 13:12 15:42 RBC Hgb Hct MCHC Lymph % (Auto) Bartholomew % (Auto) Lymph # [place]omew # Seg Neutrophils % Seg Neuts % (Manual) Lymphocytes # (Manual) D-Dimer POC ABG pH POC ABG pCO2 POC ABG pO2 Sodium Potassium Chloride 110.8 H Carbon Dioxide 19 L BUN 22 H Glucose 157 H POC Glucose 185 H 193 H Calcium Phosphorus 0.70 L* ALT NT-Pro-B Natriuret Pep Total Protein Albumin Triglycerides Amylase Lipase 07/01/18 07/01/18 07/01/18 15:44 17:18 18:15 RBC Hgb Hct MCHC Lymph % (Auto) Bartholomew % (Auto) Lymph # Bartholomew # Seg Neutrophils % Seg Neuts % (Manual) Lymphocytes # (Manual) D-Dimer POC ABG pH POC ABG pCO2 POC ABG pO2 Sodium Potassium Chloride Carbon Dioxide BUN Glucose POC Glucose 189 H 167 H 130 H Calcium Phosphorus ALT NT-Pro-B Natriuret Pep Total Protein Albumin Triglycerides Amylase Lipase 07/01/18 07/01/18 07/01/18 19:13 20:02 21:11 RBC Hgb Hct MCHC Lymph % (Auto) Bartholomew % (Auto) Lymph # Bartholomew # Seg Neutrophils % Seg Neuts % (Manual) Lymphocytes # (Manual) D-Dimer POC ABG pH POC ABG pCO2 POC ABG pO2 Sodium Potassium Chloride Carbon Dioxide BUN Glucose POC Glucose 129 H 147 H 220 H Calcium Phosphorus ALT NT-Pro-B Natriuret Pep Total Protein Albumin Triglycerides Amylase Lipase 07/01/18 07/01/18 07/02/18 22:12 23:14 01:34 RBC Hgb Hct MCHC Lymph % (Auto) Bartholomew % (Auto) Lymph # Bartholomew # Seg Neutrophils % Seg Neuts % (Manual) Lymphocytes # (Manual) D-Dimer POC ABG pH POC ABG pCO2 POC ABG pO2 Sodium Potassium Chloride Carbon Dioxide 20 L BUN 22 H Glucose 157 H POC Glucose 219 H 122 H Calcium Phosphorus ALT NT-Pro-B Natriuret Pep Total Protein Albumin 2.6 L Triglycerides Amylase Lipase 07/02/18 07/02/18 07/02/18 02:26 04:32 04:33 RBC Hgb Hct MCHC Lymph % (Auto) Bartholomew % (Auto) Lymph # Bartholomew # Seg Neutrophils % Seg Neuts % (Manual) Lymphocytes # (Manual) D-Dimer POC ABG pH POC ABG pCO2 POC ABG pO2 Sodium 132 L D Potassium 3.2 L Chloride Carbon Dioxide 13 L D BUN 22 H Glucose 224 H POC Glucose 282 H Calcium 7.2 L D Phosphorus ALT 5 L NT-Pro-B Natriuret Pep Total Protein 5.8 L Albumin 1.1 L Triglycerides 1153 H Amylase Lipase 07/02/18 07/02/18 07/02/18 04:34 05:21 12:28 RBC Hgb Hct MCHC Lymph % (Auto) Bartholomew % (Auto) Lymph # Bartholomew # Seg Neutrophils % Seg Neuts % (Manual) Lymphocytes # (Manual) D-Dimer POC ABG pH 7.324 L POC ABG pCO2 POC ABG pO2 72 L Sodium Potassium Chloride Carbon Dioxide BUN Glucose POC Glucose 218 H 153 H Calcium Phosphorus ALT NT-Pro-B Natriuret Pep Total Protein Albumin Triglycerides Amylase Lipase 07/02/18 07/02/18 07/02/18 14:44 14:44 17:45 RBC Hgb Hct MCHC Lymph % (Auto) Bartholomew % (Auto) Lymph # Bartholomew # Seg Neutrophils % Seg Neuts % (Manual) Lymphocytes # (Manual) D-Dimer POC ABG pH POC ABG pCO2 POC ABG pO2 Sodium 148 H D Potassium 3.2 L Chloride 112.2 H Carbon Dioxide 20 L D BUN 25 H Glucose 185 H POC Glucose 282 H Calcium 7.8 L Phosphorus ALT NT-Pro-B Natriuret Pep Total Protein 5.3 L Albumin 2.4 L Triglycerides Amylase 22 L Lipase 10 L 07/02/18 07/03/18 07/03/18 18:52 00:07 04:24 RBC Hgb Hct MCHC Lymph % (Auto) Bartholomew % (Auto) Lymph # Bartholomew # Seg Neutrophils % Seg Neuts % (Manual) Lymphocytes # (Manual) D-Dimer POC ABG pH POC ABG pCO2 POC ABG pO2 Sodium Potassium Chloride 113.1 H Carbon Dioxide 16 L BUN 25 H Glucose 280 H POC Glucose 293 H Calcium 7.5 L Phosphorus ALT NT-Pro-B Natriuret Pep Total Protein 6.1 L Albumin 1.8 L Triglycerides 176 H Amylase Lipase 07/03/18 07/03/18 07/03/18 05:14 05:50 12:04 RBC Hgb Hct MCHC Lymph % (Auto) Bartholomew % (Auto) Lymph # Bartholomew # Seg Neutrophils % Seg Neuts % (Manual) Lymphocytes # (Manual) D-Dimer POC ABG pH POC ABG pCO2 32.2 L POC ABG pO2 Sodium Potassium Chloride Carbon Dioxide BUN Glucose POC Glucose 336 H 392 H Calcium Phosphorus ALT NT-Pro-B Natriuret Pep Total Protein Albumin Triglycerides Amylase Lipase 07/03/18 07/03/18 07/03/18 13:44 17:51 23:53 RBC Hgb Hct MCHC Lymph % (Auto) Bartholomew % (Auto) Lymph # Bartholomew # Seg Neutrophils % Seg Neuts % (Manual) Lymphocytes # (Manual) D-Dimer POC ABG pH POC ABG pCO2 POC ABG pO2 Sodium 147 H Potassium Chloride 115.7 H Carbon Dioxide 19 L BUN 26 H Glucose 432 H POC Glucose 443 H 240 H Calcium Phosphorus ALT NT-Pro-B Natriuret Pep Total Protein Albumin Triglycerides Amylase Lipase 07/04/18 07/04/18 07/04/18 04:10 04:10 05:25 RBC Hgb Hct MCHC Lymph % (Auto) Bartholomew % (Auto) Lymph # Bartholomew # Seg Neutrophils % Seg Neuts % (Manual) 79.0 H Lymphocytes # (Manual) 1.1 L D-Dimer POC ABG pH POC ABG pCO2 POC ABG pO2 Sodium 148 H Potassium Chloride 118.4 H Carbon Dioxide BUN 25 H Glucose 265 H POC Glucose 243 H Calcium Phosphorus ALT NT-Pro-B Natriuret Pep Total Protein Albumin Triglycerides Amylase Lipase 07/04/18 07/04/18 07/04/18 05:28 11:59 19:00 RBC Hgb Hct MCHC Lymph % (Auto) Bartholomew % (Auto) Lymph # Bartholomew # Seg Neutrophils % Seg Neuts % (Manual) Lymphocytes # (Manual) D-Dimer POC ABG pH POC ABG pCO2 33.2 L POC ABG pO2 75 L Sodium Potassium Chloride Carbon Dioxide BUN Glucose POC Glucose 249 H 287 H Calcium Phosphorus ALT NT-Pro-B Natriuret Pep Total Protein Albumin Triglycerides Amylase Lipase 07/04/18 07/05/18 07/05/18 23:52 04:56 04:56 RBC Hgb Hct MCHC 35 H Lymph % (Auto) Bartholomew % (Auto) Lymph # Bartholomew # Seg Neutrophils % Seg Neuts % (Manual) Lymphocytes # (Manual) D-Dimer POC ABG pH POC ABG pCO2 POC ABG pO2 Sodium 153 H Potassium 3.2 L D Chloride 114.5 H Carbon Dioxide BUN 23 H Glucose 239 H POC Glucose 264 H Calcium Phosphorus ALT NT-Pro-B Natriuret Pep Total Protein Albumin Triglycerides Amylase Lipase 07/05/18 07/05/18 07/05/18 05:23 11:14 17:37 RBC Hgb Hct MCHC Lymph % (Auto) Bartholomew % (Auto) Lymph # Bartholomew # Seg Neutrophils % Seg Neuts % (Manual) Lymphocytes # (Manual) D-Dimer POC ABG pH POC ABG pCO2 POC ABG pO2 Sodium Potassium Chloride Carbon Dioxide BUN Glucose POC Glucose 232 H 245 H 281 H Calcium Phosphorus ALT NT-Pro-B Natriuret Pep Total Protein Albumin Triglycerides Amylase Lipase 07/05/18 07/06/18 07/06/18 21:38 05:27 06:34 RBC Hgb Hct MCHC Lymph % (Auto) Bartholomew % (Auto) Lymph # Bartholomew # Seg Neutrophils % Seg Neuts % (Manual) Lymphocytes # (Manual) D-Dimer POC ABG pH POC ABG pCO2 POC ABG pO2 Sodium 151 H Potassium 3.4 L Chloride 115.5 H Carbon Dioxide BUN 23 H Glucose 224 H POC Glucose 287 H 194 H Calcium Phosphorus ALT NT-Pro-B Natriuret Pep Total Protein Albumin Triglycerides Amylase Lipase 07/06/18 11:54 RBC Hgb Hct MCHC Lymph % (Auto) Bartholomew % (Auto) Lymph # Barthol[place]w # Seg Neutrophils % Seg Neuts % (Manual) Lymphocytes # (Manual) D-Dimer POC ABG pH POC ABG pCO2 POC ABG pO2 Sodium Potassium Chloride Carbon Dioxide BUN Glucose POC Glucose 206 H Calcium Phosphorus ALT NT-Pro-B Natriuret Pep Total Protein Albumin Triglycerides Amylase Lipase Chest x-ray: report reviewed, image reviewed CT scan - chest: report reviewed, image reviewed
--- NOTE | 2018-07-06 13:19 | Progress Note ---
Assessment and Plan Assessment: DKA Sinus tachycardia - improving Mild LV dysfunction - moderate LVH ejection fraction of 45-50% Pneumonia COPD Sepsis Hypertension CVA/residual left-sided paresis Tobacco abuse Plan: Currently stable cardiac status. Nothing further to add from cardiac perspective at this time. Will follow on as needed basis. The patient has been seen in conjunction with Dr. Hellen Gonzáles who agrees with the assessment and plan of care. Subjective Date of service: 07/06/18 Principal diagnosis: DKA,resp failure Interval history: pt resting in bed, lethargic, confused, in ST HR 100s on tele. Objective Last Vital Signs Temp 98.2 F 07/06/18 12:00 Pulse 98 H 07/06/18 12:00 Resp 21 07/06/18 12:00 BP 158/89 07/06/18 12:00 Pulse Ox 94 07/06/18 12:00 - Physical Examination General: Other (lethargic, confused) HEENT: Positive: Other (pupils equal sluggish) Neck: Positive: neck supple, trachea midline Cardiac: Positive: Regular Rhythm, S1/S2 Lungs: Positive: Decreased Breath Sounds Neuro: Positive: Other (patient intubated and sedated) Abdomen: Positive: Soft, Decreased Bowel Sounds. Negative: Distended Skin: Negative: Rash Extremities: Present: warm - Labs and Meds CBC 07/06/18 Range/Units 06:34 WBC 6.8 (4.5-11.0) K/mm3 RBC 4.55 (3.65-5.03) M/mm3 Hgb 13.9 (11.8-15.2) gm/dl Hct 40.8 (35.5-45.6) % Plt Count 236 (140-440) K/mm3 Comprehensive Metabolic Panel 07/06/18 Range/Units 06:34 Sodium 151 H (137-145) mmol/L Potassium 3.4 L (3.6-5.0) mmol/L Chloride 115.5 H (98-107) mmol/L Carbon Dioxide 25 (22-30) mmol/L BUN 23 H (9-20) mg/dL Creatinine 1.0 (0.8-1.5) mg/dL Glucose 224 H (75-100) mg/dL Calcium 8.7 (8.4-10.2) mg/dL - Imaging and Cardiology Echo: report reviewed (moderate LVH, ejection fraction 45-50%)
[2018-07-06] MEDS: ZESTRIL PO SCH (13:43)
[2018-07-06] MEDS: VITAMIN D3 PO SCH (13:46)
--- NOTE | 2018-07-06 14:55 | Progress Note ---
Assessment and Plan Cultures: 07/01/2018 Blood culture: no growth 07/01/2018 urine culture: no growth in 24 hours 07/01/2018 tracheal aspirate culture: MSSA and Group B Strep MRSA nasal PCR is negative. A/P: 57-year-old male with diabetes mellitus type 2, hypertension, hyperlipidemia, COPD was admitted to the hospital yesterday with shortness of breath. He was found to be in severe DKA. Also with: 1) Acute respiratory failure: extubated. On nasal oxygen. Improving 2) Severe bilateral pneumonia: L>R. Secondary to MSSA and Group B Strep. CTA from yesterday shows much interval improvement. 3) Diabetic ketoacidosis. 4) SENG on admission: resolved. 5) Acute encephalopathy: multifactorial including hypernatremia. 6) Rash: RPR non reactive. Reportedly had a bedbug infestation recently. Recs: CT chest from yesterday shows much interval improvement continue IV Nafcillin 2 gm q4 hrs (today is day 5 of overall 14 abx therapy, anticipate switch to oral abx once mental status is improved) Will follow. Romel Pagan MD [facility] C: [phone] O: [phone] F: [phone] Subjective Date of service: 07/06/18 Principal diagnosis: DKA,resp failure Interval history: Afebrile. Remains off oxygen. Still somewhat confused. History and ROS limited. Objective - Exam Narrative Exam: Physical Exam: Constitutional: awake, but confused Head, Ears, Nose: Normocephalic, atraumatic. External ears, nose normal Eyes: Conjunctivae/corneas clear. No icterus. No ptosis. Neck: Supple, no meningeal signs Oral: no thrush Cardiovascular: S1, S2 normal Respiratory: scattered rhonchi b/l GI: Soft, non-tender; bowel sounds normal. No peritoneal signs Musculoskeletal: No pedal edema, no cyanosis. Skin: No rash or abscess Hem/Lymphatic: No palpable cervical or supraclavicular nodes. No lymphangitis Psych: no agitation Neurological: awake, alert, somewhat confused, answering basic questions - Constitutional Vitals: Vital Signs Temp Pulse Resp BP Pulse Ox 98.2 F 100 H 24 141/84 90 07/06/18 12:00 07/06/18 13:43 07/06/18 13:30 07/06/18 13:43 07/06/18 13:30 Temperature -Last 24 Hours Temperature 98.2 F Temperature 98.8 F Temperature 98.9 F Temperature 98.6 F Temperature 98 F Temperature 97.4 F - Labs CBC & Chem 7: 07/06/18 06:34 07/06/18 06:34 Labs: Abnormal lab results 07/05/18 07/05/18 07/06/18 Range/Units 17:37 21:38 05:27 Sodium (137-145) mmol/L Potassium (3.6-5.0) mmol/L Chloride (98-107) mmol/L BUN (9-20) mg/dL Glucose (75-100) mg/dL POC Glucose 281 H 287 H 194 H (70-105) 07/06/18 07/06/18 Range/Units 06:34 11:54 Sodium 151 H (137-145) mmol/L Potassium 3.4 L (3.6-5.0) mmol/L Chloride 115.5 H (98-107) mmol/L BUN 23 H (9-20) mg/dL Glucose 224 H (75-100) mg/dL POC Glucose 206 H (70-105) - Imaging and cardiology CT scan - chest: report reviewed, image reviewed (interval improvement in Left sided infiltrates.)
[2018-07-06] MEDS: D5W 1,000 ML IV SCH (16:22)
[2018-07-06] MEDS: PRAVACHOL PO SCH (21:48)
[2018-07-06] MEDS ORDERED: LANTUS SUB-Q SCH (22:00)
[2018-07-07] MEDS: HumaLOG SUB-Q SCH ×5 (00:37→23:55)
[2018-07-07] MEDS: ROBITUSSIN AC PO PRN (01:26)
[2018-07-07] MEDS: NAFCILLIN 2 GM in NACL 0.9% 100 ML IV SCH ×6 (02:01→22:03)
[2018-07-07] MEDS: XOPENEX IH SCH ×4 (03:18→20:35)
[2018-07-07] MEDS: ATROVENT IH SCH ×4 (03:18→20:35)
[2018-07-07 05:42] LABS: BUN/Creatinine Ratio 21; Blood Urea Nitrogen 21 mg/dL (9-20); Calcium 8.8 mg/dL (8.4-10.2); Hemolysis Index 14
[2018-07-07] MEDS: LOVENOX SUB-Q SCH (06:09)
[2018-07-07] MEDS: D5W 1,000 ML IV SCH (09:30)
[2018-07-07] MEDS: VITAMIN D3 PO SCH (10:26)
[2018-07-07] MEDS: ZESTRIL PO SCH (10:27)
[2018-07-07] MEDS: LOPRESSOR PO SCH ×2 (10:27→22:03)
[2018-07-07] MEDS: NORVASC PO SCH (10:28)
[2018-07-07] MEDS: POTASSIUM CHLORIDE FEEDTUBE SCH (10:28)
[2018-07-07] MEDS: SODIUM CHLORIDE FLUSH SYRINGE 10 ML IV SCH ×2 (10:53→22:03)
[2018-07-07] MEDS: D5W/0.45% NACL/KCL 20 MEQ 20 MEQ/1,000 ML BAG IV SCH ×2 (10:53→11:02)
[2018-07-07] MEDS ORDERED: KCL 10MEQ/100ML 10 MEQ/100 ML BAG IV SCH (11:00)
[2018-07-07] MEDS ORDERED: HumaLOG SUB-Q SCH (11:30)
--- NOTE | 2018-07-07 12:28 | Progress Note ---
Assessment and Plan Imp: 1. Pneumonia 2. Sepsis 3. DKA 4. Hypernatremia 5. Acute respiratory failure, hypoxia 6. Hx of CVA Rec: 1. ABX per ID; f/u CXR in AM 2. Diet as recommended per ST, note reviewed 3. On hypotonic IVFs; monitor sodium; encourage free water intake; Replete K as needed, done today per primary 4. Would give him Haldol for agitation and try to avoid benzos if possible 5. Needs PT/OT 6. Stable pulmonary-rice on RA, and can be transferred out of ICU from our standpoint Plan of care reviewed with patient/fiance, they understand/agree Subjective Date of service: 07/07/18 Principal diagnosis: DKA,resp failure Interval history: No events. On RA b/c he refuses O2. RA sat 92%. Denies SOB. Has some cough and congestion, no sputum. More alert and appropriate today. No new complaints. Active Medications Acetaminophen (Tylenol) 250 mg PO Q6H PRN PRN Reason: Pain, Mild (1-3) Last Admin: 07/04/18 05:37 Dose: 250 mg Documented by: Amlodipine Besylate (Norvasc) 10 mg PO QDAY [facility] Last Admin: 07/07/18 10:28 Dose: 10 mg Documented by: Lipase/Protease/Amylase ([place] 10,500 Unit) 1 each FEEDTUBE PRN PRN PRN Reason: For Clogged Feeding Tube Cholecalciferol (Vitamin D3) 4,000 unit PO DAILY [facility] Last Admin: 07/07/18 10:26 Dose: 4,000 unit Documented by: Dextrose (D50w (25gm) Syringe) 0 ml IV PRN PRN PRN Reason: Hypoglycemia Enoxaparin Sodium (Lovenox) 100 mg SUB-Q 0700,1900 [facility] Last Admin: 07/07/18 06:09 Dose: 100 mg Documented by: Haloperidol Lactate (Haldol) 5 mg IM Q6H PRN PRN Reason: Agitation Last Admin: 07/03/18 08:59 Dose: 5 mg Documented by: Hydralazine HCl (Apresoline) 20 mg IV Q4HR PRN PRN Reason: Blood Pressure Last Admin: 07/05/18 12:00 Dose: 20 mg Documented by: Hydrophilic Ointment (Vaseline Lip Therapy) 1 applic TP Q2HR PRN PRN Reason: Dry Lips Nafcillin Sodium 2 gm/ Sodium (Chloride) 100 mls @ 100 mls/30 min IV Q4HR [facility]; Protocol Last Admin: 07/07/18 10:25 Dose: 100 mls/30 min Documented by: Potassium Chloride/Dextrose/Sod Cl (D5w/0.45% Nacl/Kcl 20 Meq) 20 meq in 1,000 mls @ 100 mls/hr IV DIRECT [facility] Last Admin: 07/07/18 11:02 Dose: 100 mls/hr Documented by: Potassium Chloride (Kcl 10meq/100ml) 10 meq in 100 mls @ 100 mls/hr IV Q1H JT Stop: 07/07/18 14:59 Last Admin: 07/07/18 10:54 Dose: 100 mls/hr Documented by: Insulin Glargine (Lantus) 20 units SUB-Q QHS JT Insulin Human Lispro (Humalog) 0 unit SUB-Q ACHS JT; Protocol Ipratropium [place] (Atrovent) 0.5 mg IH Q6HRT [facility] Last Admin: 07/07/18 08:50 Dose: 0.5 mg Documented by: Levalbuterol HCl (Xopenex) 0.63 mg IH Q6HRT [facility] Last Admin: 07/07/18 08:50 Dose: 0.63 mg Documented by: Lisinopril (Zestril) 40 mg PO QDAY [facility] Last Admin: 07/07/18 10:27 Dose: 40 mg Documented by: Lorazepam (Ativan) 1 mg IV Q4H PRN PRN Reason: Anxiety Last Admin: 07/06/18 10:26 Dose: 1 mg Documented by: Metoprolol Tartrate (Lopressor) 50 mg PO BID [facility] Last Admin: 07/07/18 10:27 Dose: 50 mg Documented by: Morphine Sulfate (Morphine) 2 mg IV Q4H PRN PRN Reason: Pain, Moderate (4-6) Last Admin: 07/04/18 10:58 Dose: 2 mg Documented by: Multi-Ingred Cream/Lotion/Oil/Oint (Artificial Tears Ophth Oint) 1 applic OU Q4HR PRN PRN Reason: Dry Eye(s) Ondansetron HCl (Zofran) 4 mg IV Q8H PRN PRN Reason: Nausea And Vomiting Oxycodone/Acetaminophen (Percocet 5/325) 1 tab PO Q6H PRN PRN Reason: Pain, Moderate (4-6) Last Admin: 07/03/18 09:25 Dose: 1 tab Documented by: Potassium Chloride (Potassium Chloride) 20 meq FEEDTUBE QDAY [facility] Stop: 07/09/18 09:59 Last Admin: 07/07/18 10:28 Dose: 20 meq Documented by: Pravastatin Sodium (Pravachol) 80 mg PO QHS [facility] Last Admin: 07/06/18 21:48 Dose: 80 mg Documented by: Pseudoephedrine/Acetam/Chlorphenir (Robitussin Ac) 10 ml PO Q6HR PRN PRN Reason: Cough Last Admin: 07/07/18 01:26 Dose: 10 ml Documented by: Simple Syrup (Simple Syrup) 15 ml FEEDTUBE PRN PRN PRN Reason: Hypoglycemia Simple Syrup (Simple Syrup) 30 ml FEEDTUBE PRN PRN PRN Reason: Hypoglycemia Sodium Bicarbonate (Sodium Bicarbonate) 325 mg FEEDTUBE PRN PRN PRN Reason: For Clogged Feeding Tube Sodium Chloride (Sodium Chloride Flush Syringe 10 Ml) 10 ml IV BID [facility] Last Admin: 07/07/18 10:53 Dose: 10 ml Documented by: Sodium Chloride (Sodium Chloride Flush Syringe 10 Ml) 10 ml IV PRN PRN PRN Reason: LINE FLUSH Objective Vital Signs - 12hr 07/07/18 07/07/18 07/07/18 00:31 00:45 01:00 Temperature Pulse Rate 86 87 81 Pulse Rate [ Anterior Bilateral Throughout] Respiratory 34 H 27 H 20 Rate Respiratory Rate [Anterior Bilateral Throughout] Blood Pressure 129/78 129/78 150/79 O2 Sat by Pulse 94 93 91 Oximetry 07/07/18 07/07/18 07/07/18 01:15 01:31 01:45 Temperature Pulse Rate 84 89 88 Pulse Rate [ Anterior Bilateral Throughout] Respiratory 23 25 H 21 Rate Respiratory Rate [Anterior Bilateral Throughout] Blood Pressure 150/79 150/79 142/78 O2 Sat by Pulse 89 Oximetry 07/07/18 07/07/18 07/07/18 02:01 02:15 02:31 Temperature Pulse Rate 87 83 82 Pulse Rate [ Anterior Bilateral Throughout] Respiratory 20 23 23 Rate Respiratory Rate [Anterior Bilateral Throughout] Blood Pressure 163/87 163/87 163/87 O2 Sat by Pulse 93 93 Oximetry 07/07/18 07/07/18 07/07/18 02:45 03:00 03:15 Temperature Pulse Rate 88 89 84 Pulse Rate [ Anterior Bilateral Throughout] Respiratory 19 24 22 Rate Respiratory Rate [Anterior Bilateral Throughout] Blood Pressure 163/87 163/87 155/90 O2 Sat by Pulse 94 92 93 Oximetry 07/07/18 07/07/18 07/07/18 03:31 03:45 04:00 Temperature 99.0 F Pulse Rate 80 80 82 Pulse Rate [ Anterior Bilateral Throughout] Respiratory 20 20 20 Rate Respiratory Rate [Anterior Bilateral Throughout] Blood Pressure 155/90 155/90 155/90 O2 Sat by Pulse 92 93 93 Oximetry 07/07/18 07/07/18 07/07/18 04:15 04:31 04:45 Temperature Pulse Rate 79 80 84 Pulse Rate [ Anterior Bilateral Throughout] Respiratory 20 22 22 Rate Respiratory Rate [Anterior Bilateral Throughout] Blood Pressure 157/82 157/82 157/82 O2 Sat by Pulse 92 93 92 Oximetry 07/07/18 07/07/18 07/07/18 05:00 05:15 05:31 Temperature Pulse Rate 79 77 79 Pulse Rate [ Anterior Bilateral Throughout] Respiratory 19 18 23 Rate Respiratory Rate [Anterior Bilateral Throughout] Blood Pressure 157/82 157/82 157/82 O2 Sat by Pulse 93 94 95 Oximetry 07/07/18 07/07/18 07/07/18 05:45 06:00 06:15 Temperature Pulse Rate 78 90 83 Pulse Rate [ Anterior Bilateral Throughout] Respiratory 22 21 20 Rate Respiratory Rate [Anterior Bilateral Throughout] Blood Pressure 133/77 147/86 147/86 O2 Sat by Pulse 89 91 Oximetry 07/07/18 07/07/18 07/07/18 06:31 06:45 07:00 Temperature Pulse Rate 82 85 92 H Pulse Rate [ Anterior Bilateral Throughout] Respiratory 19 21 13 Rate Respiratory Rate [Anterior Bilateral Throughout] Blood Pressure 147/86 147/86 147/86 O2 Sat by Pulse 92 90 96 Oximetry 07/07/18 07/07/18 07/07/18 07:15 07:31 07:45 Temperature Pulse Rate 95 H 96 H 96 H Pulse Rate [ Anterior Bilateral Throughout] Respiratory 18 17 15 Rate Respiratory Rate [Anterior Bilateral Throughout] Blood Pressure 153/86 153/86 153/86 O2 Sat by Pulse 93 92 93 Oximetry 07/07/18 07/07/18 07/07/18 08:00 08:15 08:31 Temperature 97.9 F Pulse Rate 94 H 97 H 102 H Pulse Rate [ Anterior Bilateral Throughout] Respiratory 22 19 15 Rate Respiratory Rate [Anterior Bilateral Throughout] Blood Pressure 163/80 163/80 163/80 O2 Sat by Pulse 94 93 94 Oximetry 07/07/18 07/07/18 07/07/18 08:45 08:53 09:00 Temperature Pulse Rate 97 H 102 H Pulse Rate [ 101 H Anterior Bilateral Throughout] Respiratory 15 24 Rate Respiratory 17 Rate [Anterior Bilateral Throughout] Blood Pressure 163/80 163/80 O2 Sat by Pulse 91 94 91 Oximetry 07/07/18 07/07/18 07/07/18 09:03 09:15 09:31 Temperature Pulse Rate 97 H 98 H Pulse Rate [ 105 H Anterior Bilateral Throughout] Respiratory 20 22 Rate Respiratory 18 Rate [Anterior Bilateral Throughout] Blood Pressure 140/71 140/71 O2 Sat by Pulse 89 92 Oximetry 07/07/18 07/07/18 07/07/18 09:45 10:00 10:15 Temperature Pulse Rate 96 H 96 H 107 H Pulse Rate [ Anterior Bilateral Throughout] Respiratory 16 18 31 H Rate Respiratory Rate [Anterior Bilateral Throughout] Blood Pressure 140/71 154/72 154/72 O2 Sat by Pulse 93 92 89 Oximetry 07/07/18 07/07/18 07/07/18 10:27 10:28 10:31 Temperature Pulse Rate 108 H 105 H 108 H Pulse Rate [ Anterior Bilateral Throughout] Respiratory 26 H Rate Respiratory Rate [Anterior Bilateral Throughout] Blood Pressure 154/72 154/72 154/72 O2 Sat by Pulse 91 Oximetry 07/07/18 07/07/18 10:45 11:00 Temperature Pulse Rate 108 H 106 H Pulse Rate [ Anterior Bilateral Throughout] Respiratory 25 H 22 Rate Respiratory Rate [Anterior Bilateral Throughout] Blood Pressure 154/72 138/83 O2 Sat by Pulse 90 88 Oximetry Constitutional: no acute distress, alert Eyes: non-icteric ENT: oropharynx moist Neck: supple Effort: normal Ascultation: Bilateral: wheezes (faint expiratory bilaterally), rhonchi (few bilaterally) Cardiovascular: regular rate and rhythm (no mrg) Gastrointestinal: normoactive bowel sounds, soft, non-tender, non-distended Integumentary: normal Extremities: no cyanosis, pink and warm, edema (1+ bilateral LE edema) Neurologic: other (L hemiplegia, slurred speech) Psychiatric: mood appropriate, affect normal CBC and BMP: 07/06/18 06:34 07/07/18 05:03 ABG, PT/INR, D-dimer: ABG POC ABG pH 7.425 (7.35-7.45) 07/04/18 05:28 POC ABG pCO2 33.2 (35-45) L 07/04/18 05:28 POC ABG pO2 75 (80-105) L 07/04/18 05:28 POC ABG HCO3 21.8 (22-26 mml/L) 07/04/18 05:28 POC ABG Total CO2 23 (23-27mmol/L) 07/04/18 05:28 POC ABG O2 Sat 95 07/04/18 05:28 PT/INR, D-dimer PT 14.7 Sec. (12.2-14.9) 06/30/18 03:50 INR 1.08 (0.87-1.13) 06/30/18 03:50 D-Dimer 849.06 ng/mlDDU (0-234) H 06/30/18 22:31 Abnormal lab findings: Abnormal Labs 06/30/18 06/30/18 06/30/18 03:47 03:50 03:50 RBC 5.44 H Hgb 16.5 H Hct 51.1 H MCHC Lymph % (Auto) 5.8 L [place] % (Auto) 9.7 H Lymph # 0.5 L [place] # 0.9 H Seg Neutrophils % 84.1 H Seg Neuts % (Manual) Lymphocytes # (Manual) D-Dimer POC ABG pH POC ABG pCO2 POC ABG pO2 Sodium 133 L Potassium 5.4 H Chloride 94.8 L Carbon Dioxide 5 L* BUN 23 H Glucose 556 H* POC Glucose 360 H Calcium Phosphorus ALT NT-Pro-B Natriuret Pep Total Protein 8.3 H Albumin 3.7 L Triglycerides Amylase Lipase 06/30/18 06/30/18 06/30/18 04:23 04:43 05:45 RBC Hgb Hct MCHC Lymph % (Auto) [place] % (Auto) Lymph # [place] # Seg Neutrophils % Seg Neuts % (Manual) Lymphocytes # (Manual) D-Dimer POC ABG pH 7.065 L POC ABG pCO2 POC ABG pO2 Sodium Potassium Chloride Carbon Dioxide BUN Glucose POC Glucose 384 H 382 H Calcium Phosphorus ALT NT-Pro-B Natriuret Pep Total Protein Albumin Triglycerides Amylase Lipase 06/30/18 06/30/18 06/30/18 06:43 06:44 07:55 RBC Hgb Hct MCHC Lymph % (Auto) [place] % (Auto) Lymph # [place] # Seg Neutrophils % Seg Neuts % (Manual) Lymphocytes # (Manual) D-Dimer POC ABG pH POC ABG pCO2 POC ABG pO2 Sodium Potassium Chloride Carbon Dioxide 4 L* BUN 22 H Glucose 511 H* POC Glucose 373 H 386 H Calcium Phosphorus ALT NT-Pro-B Natriuret Pep Total Protein Albumin Triglycerides Amylase Lipase 06/30/18 06/30/18 06/30/18 08:54 09:02 09:47 RBC Hgb Hct MCHC Lymph % (Auto) [place] % (Auto) Lymph # [place] # Seg Neutrophils % Seg Neuts % (Manual) Lymphocytes # (Manual) D-Dimer POC ABG pH POC ABG pCO2 POC ABG pO2 Sodium 134 L Potassium 5.4 H Chloride Carbon Dioxide 6 L* BUN 23 H Glucose 515 H* POC Glucose 386 H 380 H Calcium Phosphorus ALT NT-Pro-B Natriuret Pep Total Protein Albumin Triglycerides Amylase Lipase 06/30/18 06/30/18 06/30/18 11:01 11:43 12:08 RBC Hgb Hct MCHC Lymph % (Auto) [place] % (Auto) Lymph # [place] # Seg Neutrophils % Seg Neuts % (Manual) Lymphocytes # (Manual) D-Dimer POC ABG pH POC ABG pCO2 POC ABG pO2 Sodium Potassium 5.1 H Chloride Carbon Dioxide 7 L* BUN 23 H Glucose 400 H POC Glucose 322 H 296 H Calcium Phosphorus ALT NT-Pro-B Natriuret Pep Total Protein Albumin Triglycerides Amylase Lipase 06/30/18 06/30/18 06/30/18 12:45 14:12 15:11 RBC Hgb Hct MCHC Lymph % (Auto) [place] % (Auto) Lymph # [place] # Seg Neutrophils % Seg Neuts % (Manual) Lymphocytes # (Manual) D-Dimer POC ABG pH POC ABG pCO2 POC ABG pO2 Sodium Potassium Chloride Carbon Dioxide BUN Glucose POC Glucose 335 H 284 H 260 H Calcium Phosphorus ALT NT-Pro-B Natriuret Pep Total Protein Albumin Triglycerides Amylase Lipase 06/30/18 06/30/18 06/30/18 15:50 16:56 18:01 RBC Hgb Hct MCHC Lymph % (Auto) [place] % (Auto) Lymph # [place] # Seg Neutrophils % Seg Neuts % (Manual) Lymphocytes # (Manual) D-Dimer POC ABG pH POC ABG pCO2 POC ABG pO2 Sodium Potassium Chloride Carbon Dioxide BUN Glucose POC Glucose 287 H 301 H 273 H Calcium Phosphorus ALT NT-Pro-B Natriuret Pep Total Protein Albumin Triglycerides Amylase Lipase 06/30/18 06/30/18 06/30/18 19:35 19:55 21:28 RBC Hgb Hct MCHC Lymph % (Auto) [place] % (Auto) Lymph # [place] # Seg Neutrophils % Seg Neuts % (Manual) Lymphocytes # (Manual) D-Dimer POC ABG pH 7.244 L POC ABG pCO2 POC ABG pO2 Sodium Potassium Chloride 110.4 H Carbon Dioxide 12 L BUN Glucose 268 H POC Glucose 270 H Calcium Phosphorus ALT NT-Pro-B Natriuret Pep Total Protein Albumin Triglycerides Amylase Lipase 06/30/18 06/30/18 06/30/18 22:12 22:31 22:52 RBC Hgb Hct MCHC Lymph % (Auto) [place] % (Auto) Lymph # [place] # Seg Neutrophils % Seg Neuts % (Manual) Lymphocytes # (Manual) D-Dimer 849.06 H POC ABG pH 7.214 L POC ABG pCO2 POC ABG pO2 Sodium Potassium Chloride Carbon Dioxide BUN Glucose POC Glucose 242 H Calcium Phosphorus ALT NT-Pro-B Natriuret Pep Total Protein Albumin Triglycerides Amylase Lipase 07/01/18 07/01/18 07/01/18 00:48 02:05 03:03 RBC Hgb Hct MCHC Lymph % (Auto) [place] % (Auto) Lymph # [place] # Seg Neutrophils % Seg Neuts % (Manual) Lymphocytes # (Manual) D-Dimer POC ABG pH POC ABG pCO2 POC ABG pO2 Sodium Potassium Chloride Carbon Dioxide BUN Glucose POC Glucose 401 H 156 H 122 H Calcium Phosphorus ALT NT-Pro-B Natriuret Pep Total Protein Albumin Triglycerides Amylase Lipase 07/01/18 07/01/18 07/01/18 04:04 05:03 05:03 RBC 5.11 H Hgb 15.6 H Hct 45.7 H MCHC Lymph % (Auto) 5.1 L [place] % (Auto) 7.6 H Lymph # 0.3 L [place] # Seg Neutrophils % 87.2 H Seg Neuts % (Manual) Lymphocytes # (Manual) D-Dimer POC ABG pH POC ABG pCO2 POC ABG pO2 Sodium Potassium Chloride 111.1 H Carbon Dioxide 16 L BUN Glucose 154 H POC Glucose 120 H Calcium Phosphorus ALT NT-Pro-B Natriuret Pep Total Protein Albumin Triglycerides Amylase Lipase 07/01/18 07/01/18 07/01/18 05:09 05:32 06:02 RBC Hgb Hct MCHC Lymph % (Auto) [place] % (Auto) Lymph # [place] # Seg Neutrophils % Seg Neuts % (Manual) Lymphocytes # (Manual) D-Dimer POC ABG pH POC ABG pCO2 30.5 L POC ABG pO2 172 H Sodium Potassium Chloride Carbon Dioxide BUN Glucose POC Glucose 137 H 149 H Calcium Phosphorus ALT NT-Pro-B Natriuret Pep Total Protein Albumin Triglycerides Amylase Lipase 07/01/18 07/01/18 07/01/18 06:59 08:20 09:23 RBC Hgb Hct MCHC Lymph % (Auto) [place] % (Auto) Lymph # [place] # Seg Neutrophils % Seg Neuts % (Manual) Lymphocytes # (Manual) D-Dimer POC ABG pH POC ABG pCO2 POC ABG pO2 Sodium Potassium Chloride Carbon Dioxide BUN Glucose POC Glucose 164 H 135 H 142 H Calcium Phosphorus ALT NT-Pro-B Natriuret Pep Total Protein Albumin Triglycerides Amylase Lipase 07/01/18 07/01/18 07/01/18 10:09 11:13 11:31 RBC Hgb Hct MCHC Lymph % (Auto) [place] % (Auto) Lymph # [place] # Seg Neutrophils % Seg Neuts % (Manual) Lymphocytes # (Manual) D-Dimer POC ABG pH POC ABG pCO2 POC ABG pO2 Sodium Potassium Chloride Carbon Dioxide BUN Glucose POC Glucose 170 H 163 H Calcium Phosphorus ALT NT-Pro-B Natriuret Pep 3170 H Total Protein Albumin Triglycerides Amylase Lipase 07/01/18 07/01/18 07/01/18 12:09 13:12 15:42 RBC Hgb Hct MCHC Lymph % (Auto) [place] % (Auto) Lymph # [place] # Seg Neutrophils % Seg Neuts % (Manual) Lymphocytes # (Manual) D-Dimer POC ABG pH POC ABG pCO2 POC ABG pO2 Sodium Potassium Chloride 110.8 H Carbon Dioxide 19 L BUN 22 H Glucose 157 H POC Glucose 185 H 193 H Calcium Phosphorus 0.70 L* ALT NT-Pro-B Natriuret Pep Total Protein Albumin Triglycerides Amylase Lipase 07/01/18 07/01/18 07/01/18 15:44 17:18 18:15 RBC Hgb Hct MCHC Lymph % (Auto) [place] % (Auto) Lymph # [place] # Seg Neutrophils % Seg Neuts % (Manual) Lymphocytes # (Manual) D-Dimer POC ABG pH POC ABG pCO2 POC ABG pO2 Sodium Potassium Chloride Carbon Dioxide BUN Glucose POC Glucose 189 H 167 H 130 H Calcium Phosphorus ALT NT-Pro-B Natriuret Pep Total Protein Albumin Triglycerides Amylase Lipase 07/01/18 07/01/18 07/01/18 19:13 20:02 21:11 RBC Hgb Hct MCHC Lymph % (Auto) [place] % (Auto) Lymph # [place] # Seg Neutrophils % Seg Neuts % (Manual) Lymphocytes # (Manual) D-Dimer POC ABG pH POC ABG pCO2 POC ABG pO2 Sodium Potassium Chloride Carbon Dioxide BUN Glucose POC Glucose 129 H 147 H 220 H Calcium Phosphorus ALT NT-Pro-B Natriuret Pep Total Protein Albumin Triglycerides Amylase Lipase 07/01/18 07/01/18 07/02/18 22:12 23:14 01:34 RBC Hgb Hct MCHC Lymph % (Auto) [place] % (Auto) Lymph # [place] # Seg Neutrophils % Seg Neuts % (Manual) Lymphocytes # (Manual) D-Dimer POC ABG pH POC ABG pCO2 POC ABG pO2 Sodium Potassium Chloride Carbon Dioxide 20 L BUN 22 H Glucose 157 H POC Glucose 219 H 122 H Calcium Phosphorus ALT NT-Pro-B Natriuret Pep Total Protein Albumin 2.6 L Triglycerides Amylase Lipase 07/02/18 07/02/18 07/02/18 02:26 04:32 04:33 RBC Hgb Hct MCHC Lymph % (Auto) [place] % (Auto) Lymph # [place] # Seg Neutrophils % Seg Neuts % (Manual) Lymphocytes # (Manual) D-Dimer POC ABG pH POC ABG pCO2 POC ABG pO2 Sodium 132 L D Potassium 3.2 L Chloride Carbon Dioxide 13 L D BUN 22 H Glucose 224 H POC Glucose 282 H Calcium 7.2 L D Phosphorus ALT 5 L NT-Pro-B Natriuret Pep Total Protein 5.8 L Albumin 1.1 L Triglycerides 1153 H Amylase Lipase 07/02/18 07/02/18 07/02/18 04:34 05:21 12:28 RBC Hgb Hct MCHC Lymph % (Auto) [place] % (Auto) Lymph # [place] # Seg Neutrophils % Seg Neuts % (Manual) Lymphocytes # (Manual) D-Dimer POC ABG pH 7.324 L POC ABG pCO2 POC ABG pO2 72 L Sodium Potassium Chloride Carbon Dioxide BUN Glucose POC Glucose 218 H 153 H Calcium Phosphorus ALT NT-Pro-B Natriuret Pep Total Protein Albumin Triglycerides Amylase Lipase 07/02/18 07/02/18 07/02/18 14:44 14:44 17:45 RBC Hgb Hct MCHC Lymph % (Auto) [place] % (Auto) Lymph # [place] # Seg Neutrophils % Seg Neuts % (Manual) Lymphocytes # (Manual) D-Dimer POC ABG pH POC ABG pCO2 POC ABG pO2 Sodium 148 H D Potassium 3.2 L Chloride 112.2 H Carbon Dioxide 20 L D BUN 25 H Glucose 185 H POC Glucose 282 H Calcium 7.8 L Phosphorus ALT NT-Pro-B Natriuret Pep Total Protein 5.3 L Albumin 2.4 L Triglycerides Amylase 22 L Lipase 10 L 07/02/18 07/03/18 07/03/18 18:52 00:07 04:24 RBC Hgb Hct MCHC Lymph % (Auto) [place] % (Auto) Lymph # [place] # Seg Neutrophils % Seg Neuts % (Manual) Lymphocytes # (Manual) D-Dimer POC ABG pH POC ABG pCO2 POC ABG pO2 Sodium Potassium Chloride 113.1 H Carbon Dioxide 16 L BUN 25 H Glucose 280 H POC Glucose 293 H Calcium 7.5 L Phosphorus ALT NT-Pro-B Natriuret Pep Total Protein 6.1 L Albumin 1.8 L Triglycerides 176 H Amylase Lipase 07/03/18 07/03/18 07/03/18 05:14 05:50 12:04 RBC Hgb Hct MCHC Lymph % (Auto) [place] % (Auto) Lymph # [place] # Seg Neutrophils % Seg Neuts % (Manual) Lymphocytes # (Manual) D-Dimer POC ABG pH POC ABG pCO2 32.2 L POC ABG pO2 Sodium Potassium Chloride Carbon Dioxide BUN Glucose POC Glucose 336 H 392 H Calcium Phosphorus ALT NT-Pro-B Natriuret Pep Total Protein Albumin Triglycerides Amylase Lipase 07/03/18 07/03/18 07/03/18 13:44 17:51 23:53 RBC Hgb Hct MCHC Lymph % (Auto) [place] % (Auto) Lymph # [place] # Seg Neutrophils % Seg Neuts % (Manual) Lymphocytes # (Manual) D-Dimer POC ABG pH POC ABG pCO2 POC ABG pO2 Sodium 147 H Potassium Chloride 115.7 H Carbon Dioxide 19 L BUN 26 H Glucose 432 H POC Glucose 443 H 240 H Calcium Phosphorus ALT NT-Pro-B Natriuret Pep Total Protein Albumin Triglycerides Amylase Lipase 07/04/18 07/04/18 07/04/18 04:10 04:10 05:25 RBC Hgb Hct MCHC Lymph % (Auto) [place] % (Auto) Lymph # [place] # Seg Neutrophils % Seg Neuts % (Manual) 79.0 H Lymphocytes # (Manual) 1.1 L D-Dimer POC ABG pH POC ABG pCO2 POC ABG pO2 Sodium 148 H Potassium Chloride 118.4 H Carbon Dioxide BUN 25 H Glucose 265 H POC Glucose 243 H Calcium Phosphorus ALT NT-Pro-B Natriuret Pep Total Protein Albumin Triglycerides Amylase Lipase 07/04/18 07/04/18 07/04/18 05:28 11:59 19:00 RBC Hgb Hct MCHC Lymph % (Auto) [place] % (Auto) Lymph # [place] # Seg Neutrophils % Seg Neuts % (Manual) Lymphocytes # (Manual) D-Dimer POC ABG pH POC ABG pCO2 33.2 L POC ABG pO2 75 L Sodium Potassium Chloride Carbon Dioxide BUN Glucose POC Glucose 249 H 287 H Calcium Phosphorus ALT NT-Pro-B Natriuret Pep Total Protein Albumin Triglycerides Amylase Lipase 07/04/18 07/05/18 07/05/18 23:52 04:56 04:56 RBC Hgb Hct MCHC 35 H Lymph % (Auto) [place] % (Auto) Lymph # [place] # Seg Neutrophils % Seg Neuts % (Manual) Lymphocytes # (Manual) D-Dimer POC ABG pH POC ABG pCO2 POC ABG pO2 Sodium 153 H Potassium 3.2 L D Chloride 114.5 H Carbon Dioxide BUN 23 H Glucose 239 H POC Glucose 264 H Calcium Phosphorus ALT NT-Pro-B Natriuret Pep Total Protein Albumin Triglycerides Amylase Lipase 07/05/18 07/05/18 07/05/18 05:23 11:14 17:37 RBC Hgb Hct MCHC Lymph % (Auto) [place] % (Auto) Lymph # [place] # Seg Neutrophils % Seg Neuts % (Manual) Lymphocytes # (Manual) D-Dimer POC ABG pH POC ABG pCO2 POC ABG pO2 Sodium Potassium Chloride Carbon Dioxide BUN Glucose POC Glucose 232 H 245 H 281 H Calcium Phosphorus ALT NT-Pro-B Natriuret Pep Total Protein Albumin Triglycerides Amylase Lipase 07/05/18 07/06/18 07/06/18 21:38 05:27 06:34 RBC Hgb Hct MCHC Lymph % (Auto) [place] % (Auto) Lymph # [place] # Seg Neutrophils % Seg Neuts % (Manual) Lymphocytes # (Manual) D-Dimer POC ABG pH POC ABG pCO2 POC ABG pO2 Sodium 151 H Potassium 3.4 L Chloride 115.5 H Carbon Dioxide BUN 23 H Glucose 224 H POC Glucose 287 H 194 H Calcium Phosphorus ALT NT-Pro-B Natriuret Pep Total Protein Albumin Triglycerides Amylase Lipase 07/06/18 07/06/18 07/06/18 11:54 18:01 22:17 RBC Hgb Hct MCHC Lymph % (Auto) [place] % (Auto) Lymph # [place] # Seg Neutrophils % Seg Neuts % (Manual) Lymphocytes # (Manual) D-Dimer POC ABG pH POC ABG pCO2 POC ABG pO2 Sodium Potassium Chloride Carbon Dioxide BUN Glucose POC Glucose 206 H 225 H 213 H Calcium Phosphorus ALT NT-Pro-B Natriuret Pep Total Protein Albumin Triglycerides Amylase Lipase 07/06/18 07/07/18 07/07/18 23:26 05:03 12:11 RBC Hgb Hct MCHC Lymph % (Auto) Grainger % (Auto) Lymph # Grainger # Seg Neutrophils % Seg Neuts % (Manual) Lymphocytes # (Manual) D-Dimer POC ABG pH POC ABG pCO2 POC ABG pO2 Sodium 149 H Potassium 3.0 L Chloride 112.9 H Carbon Dioxide BUN 21 H Glucose 102 H POC Glucose 189 H 153 H Calcium Phosphorus ALT NT-Pro-B Natriuret Pep Total Protein Albumin Triglycerides Amylase Lipase Chest x-ray: report reviewed, image reviewed CT scan - chest: report reviewed, image reviewed
--- NOTE | 2018-07-07 12:47 | Progress Note ---
Assessment and Plan Cultures: 07/01/2018 Blood culture: no growth 07/01/2018 urine culture: no growth in 24 hours 07/01/2018 tracheal aspirate culture: MSSA and Group B Strep MRSA nasal PCR is negative. A/P: 57-year-old male with diabetes mellitus type 2, hypertension, hyperlipidemia, COPD was admitted to the hospital yesterday with shortness of breath. He was found to be in severe DKA. Also with: 1) Acute respiratory failure: extubated. On nasal oxygen. Improving 2) Severe bilateral pneumonia: L>R. Secondary to MSSA and Group B Strep. CTA from 07/05/2018 showed much interval improvement. 3) Diabetic ketoacidosis. 4) SENG on admission: resolved. 5) Acute encephalopathy: multifactorial including hypernatremia. Improving. 6) Rash: RPR non reactive. Reportedly had a bedbug infestation recently. Recs: continue IV Nafcillin 2 gm q4 hrs (today is day 6 of overall 14 abx therapy, anticipate switch to oral abx tomorrow) Will follow. Romel Pagan MD [facility], [place] [facility] C: [phone] O: [phone] F: [phone] Subjective Date of service: 07/07/18 Principal diagnosis: DKA,resp failure Interval history: No fever. Feeling better. Fiance at bedside. More appropriate mentally. Tolerating antimicrobials. Objective - Exam Narrative Exam: Physical Exam: Constitutional: awake, alert, no distress Head, Ears, Nose: Normocephalic, atraumatic. External ears, nose normal Eyes: Conjunctivae/corneas clear. No icterus. No ptosis. Neck: Supple, no meningeal signs Oral: no thrush Cardiovascular: S1, S2 normal Respiratory: few scattered rhonchi b/l GI: Soft, non-tender; bowel sounds normal. No peritoneal signs Musculoskeletal: No pedal edema, no cyanosis. Skin: No rash or abscess Hem/Lymphatic: No palpable cervical or supraclavicular nodes. No lymphangitis Psych: no agitation Neurological: awake, alert, answering basic questions - Constitutional Vitals: Vital Signs Temp Pulse Resp BP Pulse Ox 97.9 F 106 H 22 138/83 88 07/07/18 08:00 07/07/18 11:00 07/07/18 11:00 07/07/18 11:00 07/07/18 11:00 Temperature -Last 24 Hours Temperature 97.9 F Temperature 99.0 F Temperature 99.3 F Temperature 98.8 F Temperature 98.4 F - Labs CBC & Chem 7: 07/06/18 06:34 07/07/18 05:03 Labs: Abnormal lab results 07/06/18 07/06/18 07/06/18 Range/Units 18:01 22:17 23:26 Sodium (137-145) mmol/L Potassium (3.6-5.0) mmol/L Chloride (98-107) mmol/L BUN (9-20) mg/dL Glucose (75-100) mg/dL POC Glucose 225 H 213 H 189 H (70-105) 07/07/18 07/07/18 Range/Units 05:03 12:11 Sodium 149 H (137-145) mmol/L Potassium 3.0 L (3.6-5.0) mmol/L Chloride 112.9 H (98-107) mmol/L BUN 21 H (9-20) mg/dL Glucose 102 H (75-100) mg/dL POC Glucose 153 H (70-105)
--- NOTE | 2018-07-07 13:48 | Progress Note ---
Assessment and Plan Assessment and plan: Sepsis present on admission -likely due to pneumonia -On IV Nafcillin -sputum culture positive for MSSA -blood cultures neg -ID following Acute hypoxic respiratory failure -s/p extubation, stable -pulmonology following MSSA PNA -On IV Nafcillin DKA -Off insulin drip -Blood glucose fairly controlled, insulin regimen adjusted Severe metabolic acidosis -Resolved Acute metabolic encephalopathy -Head CT scan neg, will monitor clinically Hypernatremia -Improving on IVF, will monitor Hypokalemia -on repletion, will monitor Hypertension -stable on current antihypertensives, will adjust as needed Hyperlipidemia -On statin History of CVA with left-sided deficit -cont supportive care Physical deconditioning -PT/OT consulted Tobacco abuse -Cessation recommended Disp: pt will be transferred out of the ICU History Interval history: Patient reports feeling better today. He was off restraints this morning. No new complaints. Hospitalist Physical - Constitutional Vitals: Temp Pulse Resp BP Pulse Ox 98.6 F 93 H 20 133/96 94 07/07/18 13:15 07/07/18 13:15 07/07/18 13:15 07/07/18 13:15 07/07/18 13:15 General appearance: Present: no acute distress, well-nourished - EENT Eyes: Present: PERRL, EOM intact ENT: hearing intact, clear oral mucosa - Neck Neck: Present: supple - Respiratory Respiratory effort: normal Respiratory: bilateral: CTA - Cardiovascular Rhythm: regular Heart Sounds: Present: S1 & S2 - Extremities Extremity abnormal: edema (LT LE) - Abdominal General gastrointestinal: soft, non-tender, normal bowel sounds - Integumentary Integumentary: Present: rash (in BLE) - Neurologic Neurologic: moves all extremities Results - Labs CBC & Chem 7: 07/06/18 06:34 07/07/18 05:03 Labs: Laboratory Last Values WBC 6.8 K/mm3 (4.5-11.0) 07/06/18 06:34 RBC 4.55 M/mm3 (3.65-5.03) 07/06/18 06:34 Hgb 13.9 gm/dl (11.8-15.2) 07/06/18 06:34 Hct 40.8 % (35.5-45.6) 07/06/18 06:34 MCV 90 fl (84-94) 07/06/18 06:34 MCH 31 pg (28-32) 07/06/18 06:34 MCHC 34 % (32-34) 07/06/18 06:34 RDW 14.6 % (13.2-15.2) 07/06/18 06:34 Plt Count 236 K/mm3 (140-440) 07/06/18 06:34 Lymph % (Auto) 5.1 % (13.4-35.0) L 07/01/18 05:03 [place] % (Auto) 7.6 % (0.0-7.3) H 07/01/18 05:03 Eos % (Auto) 0.0 % (0.0-4.3) 07/01/18 05:03 Baso % (Auto) 0.1 % (0.0-1.8) 07/01/18 05:03 Lymph # 0.3 K/mm3 (1.2-5.4) L 07/01/18 05:03 [place] # 0.5 K/mm3 (0.0-0.8) 07/01/18 05:03 Eos # 0.0 K/mm3 (0.0-0.4) 07/01/18 05:03 Baso # 0.0 K/mm3 (0.0-0.1) 07/01/18 05:03 Add Manual Diff Complete 07/04/18 04:10 Total Counted 100 07/04/18 04:10 Seg Neutrophils % 87.2 % (40.0-70.0) H 07/01/18 05:03 Seg Neuts % (Manual) 79.0 % (40.0-70.0) H 07/04/18 04:10 Band Neutrophils % 0 % 07/04/18 04:10 Lymphocytes % (Manual) 15.0 % (13.4-35.0) 07/04/18 04:10 Reactive Lymphs % (Man) 0 % 07/04/18 04:10 Monocytes % (Manual) 6.0 % (0.0-7.3) 07/04/18 04:10 Eosinophils % (Manual) 0 % (0.0-4.3) 07/04/18 04:10 Basophils % (Manual) 0 % (0.0-1.8) 07/04/18 04:10 Metamyelocytes % 0 % 07/04/18 04:10 Myelocytes % 0 % 07/04/18 04:10 Promyelocytes % 0 % 07/04/18 04:10 Blast Cells % 0 % 07/04/18 04:10 Nucleated RBC % Not Reportable 07/04/18 04:10 Seg Neutrophils # 5.6 K/mm3 (1.8-7.7) 07/01/18 05:03 Seg Neutrophils # Man 5.7 K/mm3 (1.8-7.7) 07/04/18 04:10 Band Neutrophils # 0.0 K/mm3 07/04/18 04:10 Lymphocytes # (Manual) 1.1 K/mm3 (1.2-5.4) L 07/04/18 04:10 Abs React Lymphs (Man) 0.0 K/mm3 07/04/18 04:10 Monocytes # (Manual) 0.4 K/mm3 (0.0-0.8) 07/04/18 04:10 Eosinophils # (Manual) 0.0 K/mm3 (0.0-0.4) 07/04/18 04:10 Basophils # (Manual) 0.0 K/mm3 (0.0-0.1) 07/04/18 04:10 Metamyelocytes # 0.0 K/mm3 07/04/18 04:10 Myelocytes # 0.0 K/mm3 07/04/18 04:10 Promyelocytes # 0.0 K/mm3 07/04/18 04:10 Blast Cells # 0.0 K/mm3 07/04/18 04:10 WBC Morphology Not Reportable 07/04/18 04:10 Hypersegmented Neuts Not Reportable 07/04/18 04:10 Hyposegmented Neuts Not Reportable 07/04/18 04:10 Hypogranular Neuts Not Reportable 07/04/18 04:10 Smudge Cells Not Reportable 07/04/18 04:10 Toxic Granulation Not Reportable 07/04/18 04:10 Toxic Vacuolation Not Reportable 07/04/18 04:10 Dohle Bodies Not Reportable 07/04/18 04:10 Pelger-Huet Anomaly Not Reportable 07/04/18 04:10 [place] Rods Not Reportable 07/04/18 04:10 Platelet Estimate Consistent w auto 07/04/18 04:10 Clumped Platelets Few 07/04/18 04:10 Plt Clumps, EDTA Not Reportable 07/04/18 04:10 Large Platelets 1+ 07/04/18 04:10 Giant Platelets Not Reportable 07/04/18 04:10 Platelet Satelliting Not Reportable 07/04/18 04:10 Plt Morphology Comment Not Reportable 07/04/18 04:10 RBC Morphology Normal 07/04/18 04:10 Dimorphic RBCs Not Reportable 07/04/18 04:10 Polychromasia Not Reportable 07/04/18 04:10 Hypochromasia Not Reportable 07/04/18 04:10 Poikilocytosis Not Reportable 07/04/18 04:10 Anisocytosis Not Reportable 07/04/18 04:10 Microcytosis Not Reportable 07/04/18 04:10 Macrocytosis Not Reportable 07/04/18 04:10 Spherocytes Not Reportable 07/04/18 04:10 Pappenheimer Bodies Not Reportable 07/04/18 04:10 Sickle Cells Not Reportable 07/04/18 04:10 Target Cells Not Reportable 07/04/18 04:10 Tear Drop Cells Not Reportable 07/04/18 04:10 Ovalocytes Not Reportable 07/04/18 04:10 Helmet Cells Not Reportable 07/04/18 04:10 [place] Bodies Not Reportable 07/04/18 04:10 [place] Not Reportable 07/04/18 04:10 [place] Cells Not Reportable 07/04/18 04:10 Bite Cells Not Reportable 07/04/18 04:10 Crenated Cell Not Reportable 07/04/18 04:10 Elliptocytes Not Reportable 07/04/18 04:10 Acanthocytes (Spur) Not Reportable 07/04/18 04:10 Rouleaux Not Reportable 07/04/18 04:10 Hemoglobin C Crystals Not Reportable 07/04/18 04:10 Schistocytes Not Reportable 07/04/18 04:10 Malaria parasites Not Reportable 07/04/18 04:10 Hector Bodies Not Reportable 07/04/18 04:10 Hem Pathologist Commnt No 07/04/18 04:10 PT 14.7 Sec. (12.2-14.9) 06/30/18 03:50 INR 1.08 (0.87-1.13) 06/30/18 03:50 APTT 27.0 Sec. (24.2-36.6) 06/30/18 03:50 D-Dimer 849.06 ng/mlDDU (0-234) H 06/30/18 22:31 POC ABG pH 7.425 (7.35-7.45) 07/04/18 05:28 POC ABG pCO2 33.2 (35-45) L 07/04/18 05:28 POC ABG pO2 75 (80-105) L 07/04/18 05:28 POC ABG HCO3 21.8 (22-26 mml/L) 07/04/18 05:28 POC ABG Total CO2 23 (23-27mmol/L) 07/04/18 05:28 POC ABG O2 Sat 95 07/04/18 05:28 POC ABG Base Excess -3 ((-2) - (+3)mmol/L) 07/04/18 05:28 FiO2 40 % 07/04/18 05:28 Sodium 149 mmol/L (137-145) H 07/07/18 05:03 Potassium 3.0 mmol/L (3.6-5.0) L 07/07/18 05:03 Chloride 112.9 mmol/L (98-107) H 07/07/18 05:03 Carbon Dioxide 26 mmol/L (22-30) 07/07/18 05:03 Anion Gap 13 mmol/L 07/07/18 05:03 BUN 21 mg/dL (9-20) H 07/07/18 05:03 Creatinine 1.0 mg/dL (0.8-1.5) 07/07/18 05:03 Estimated GFR > 60 ml/min 07/07/18 05:03 BUN/Creatinine Ratio 21 % 07/07/18 05:03 Glucose 102 mg/dL (75-100) H 07/07/18 05:03 POC Glucose 153 (70-105) H 07/07/18 12:11 Ketones Quantitative Moderate (Negative) 06/30/18 03:50 Lactic Acid 1.30 mmol/L (0.7-2.0) 07/01/18 11:31 Calcium 8.8 mg/dL (8.4-10.2) 07/07/18 05:03 Phosphorus 4.40 mg/dL (2.5-4.5) 07/02/18 14:44 Magnesium 2.10 mg/dL (1.7-2.3) 07/07/18 05:03 Total Bilirubin 0.50 mg/dL (0.1-1.2) 07/02/18 18:52 AST 37 units/L (5-40) 07/02/18 18:52 ALT 12 units/L (7-56) 07/02/18 18:52 Alkaline Phosphatase 75 units/L (35-129) 07/02/18 18:52 Total Creatine Kinase 66 units/L (55-170) 06/30/18 03:50 CK-MB (CK-2) 2.2 ng/mL (0.0-4.0) 06/30/18 03:50 CK-MB (CK-2) Rel Index 3.3 (0-4) 06/30/18 03:50 Troponin T < 0.010 ng/mL (0.00-0.029) 06/30/18 11:43 NT-Pro-B Natriuret Pep 3170 pg/mL (0-900) H 07/01/18 11:31 Total Protein 6.1 g/dL (6.3-8.2) L 07/02/18 18:52 Albumin 1.8 g/dL (3.9-5) L 07/02/18 18:52 Albumin/Globulin Ratio 0.4 % 07/02/18 18:52 Triglycerides 176 mg/dL (2-149) H 07/03/18 04:24 Amylase 22 units/L (27-131) L 07/02/18 14:44 Lipase 10 units/L (13-60) L 07/02/18 14:44 Urine Color Straw (Yellow) 06/30/18 04:47 Urine Turbidity Slightly-cloudy (Clear) 06/30/18 04:47 Urine pH 5.0 (5.0-7.0) 06/30/18 04:47 Ur Specific [place] 1.028 (1.003-1.030) 06/30/18 04:47 Urine Protein 100 mg/dl mg/dL (Negative) 06/30/18 04:47 Urine Glucose (UA) >=500 mg/dL (Negative) 06/30/18 04:47 Urine Ketones 80 mg/dL (Negative) 06/30/18 04:47 Urine Blood Mod (Negative) 06/30/18 04:47 Urine Nitrite Neg (Negative) 06/30/18 04:47 Urine Bilirubin Neg (Negative) 06/30/18 04:47 Urine Urobilinogen < 2.0 mg/dL (<2.0) 06/30/18 04:47 Ur Leukocyte Esterase Neg (Negative) 06/30/18 04:47 Urine WBC (Auto) 1.0 /HPF (0.0-6.0) 06/30/18 04:47 Urine RBC (Auto) 10.0 /HPF (0.0-6.0) 06/30/18 04:47 U Epithel Cells (Auto) 1.0 /HPF (0-13.0) 06/30/18 04:47 Urine Bacteria (Auto) 1+ /HPF (Negative) 06/30/18 04:47 Urine Mucus Few /HPF 06/30/18 04:47 Nasal Screen MRSA (PCR) Negative (Negative) 07/01/18 15:30 Vancomycin Trough 16.0 ug/mL (5.0-20.0) 07/03/18 17:09 Urine Opiates Screen Presumptive negative 06/30/18 04:47 Urine Methadone Screen Presumptive negative 06/30/18 04:47 Ur Barbiturates Screen Presumptive negative 06/30/18 04:47 Ur Phencyclidine Scrn Presumptive negative 06/30/18 04:47 Ur Amphetamines Screen Presumptive negative 06/30/18 04:47 U Benzodiazepines Scrn Presumptive negative 06/30/18 04:47 Urine Cocaine Screen Presumptive negative 06/30/18 04:47 U Marijuana (THC) Screen Presumptive negative 06/30/18 04:47 Drugs of Abuse Note Disclamer 06/30/18 04:47 RPR Nonreactive (Nonreactive) 07/05/18 04:56 HIV 1&2 Antibody Rapid Non react (Non React) 07/02/18 04:33 HIV P24 Antigen Non react (Non React) 07/02/18 04:33 Active Medications - Current Medications Current Medications: Generic Name Dose Route Start Last Admin Trade Name Freq PRN Reason Stop Dose Admin Acetaminophen 250 mg 07/03/18 05:31 07/04/18 05:37 Tylenol PO 250 mg Q6H PRN Administration Pain, Mild (1-3) Amlodipine Besylate 10 mg 07/03/18 10:00 07/07/18 10:28 Norvasc PO 10 mg QDAY JT Administration Lipase/Protease/Amylase 1 each 07/02/18 00:54 Pancreaze 10,500 Unit FEEDTUBE PRN PRN For Clogged Feeding Tube Cholecalciferol 4,000 unit 07/06/18 14:00 07/07/18 10:26 Vitamin D3 PO 4,000 unit DAILY JT Administration Dextrose 0 ml 06/30/18 04:20 D50w (25gm) Syringe IV PRN PRN Hypoglycemia Enoxaparin Sodium 100 mg 06/30/18 19:00 07/07/18 06:09 Lovenox SUB-Q 100 mg 0700,1900 JT Administration Haloperidol Lactate 5 mg 06/30/18 18:47 07/03/18 08:59 Haldol IM 5 mg Q6H PRN Administration Agitation Hydralazine HCl 20 mg 07/03/18 05:33 07/05/18 12:00 Apresoline IV 20 mg Q4HR PRN Administration Blood Pressure Hydrophilic Ointment 1 applic 06/30/18 21:49 Vaseline Lip Therapy TP Q2HR PRN Dry Lips Nafcillin Sodium 2 gm/ Sodium 100 mls @ 100 mls/30 min 07/04/18 15:00 07/07/18 10:25 Chloride IV 100 mls/30 min Q4HR JT Administration Protocol Potassium Chloride/Dextrose/Sod Cl 20 meq in 1,000 mls @ 100 mls/hr 07/07/18 10:00 07/07/18 11:02 D5w/0.45% Nacl/Kcl 20 Meq IV 100 mls/hr DIRECT JT Administration Potassium Chloride 10 meq in 100 mls @ 100 mls/hr 07/07/18 11:00 07/07/18 10:54 Kcl 10meq/100ml IV 07/07/18 14:59 100 mls/hr Q1H JT Administration Insulin Glargine 20 units 07/07/18 22:00 Lantus SUB-Q QHS JT Insulin Human Lispro 0 unit 07/07/18 11:30 Humalog SUB-Q ACHS JT Protocol Ipratropium Mobile 0.5 mg 06/30/18 08:00 07/07/18 08:50 Atrovent IH 0.5 mg Q6HRT JT Administration Levalbuterol HCl 0.63 mg 06/30/18 08:00 07/07/18 08:50 Xopenex IH 0.63 mg Q6HRT JT Administration Lisinopril 40 mg 07/06/18 14:00 07/07/18 10:27 Zestril PO 40 mg QDAY JT Administration Lorazepam 1 mg 06/30/18 17:46 07/06/18 10:26 Ativan IV 1 mg Q4H PRN Administration Anxiety Metoprolol Tartrate 50 mg 07/03/18 10:00 07/07/18 10:27 Lopressor PO 50 mg BID JT Administration Morphine Sulfate 2 mg 06/30/18 05:52 07/04/18 10:58 Morphine IV 2 mg Q4H PRN Administration Pain, Moderate (4-6) Multi-Ingred Cream/Lotion/Oil/Oint 1 applic 06/30/18 21:49 Artificial Tears Ophth Oint OU Q4HR PRN Dry Eye(s) Ondansetron HCl 4 mg 06/30/18 05:52 Zofran IV Q8H PRN Nausea And Vomiting Oxycodone/Acetaminophen 1 tab 06/30/18 05:52 07/03/18 09:25 Percocet 5/325 PO 1 tab Q6H PRN Administration Pain, Moderate (4-6) Potassium Chloride 20 meq 07/06/18 10:00 07/07/18 10:28 Potassium Chloride FEEDTUBE 07/09/18 09:59 20 meq QDAY [facility] Administration Pravastatin Sodium 80 mg 07/06/18 22:00 07/06/18 21:48 Pravachol PO 80 mg QHS [facility] Administration Pseudoephedrine/Acetam/Chlorphenir 10 ml 07/07/18 00:52 07/07/18 01:26 Robitussin Ac PO 10 ml Q6HR PRN Administration Cough Simple Syrup 15 ml 07/02/18 00:54 Simple Syrup FEEDTUBE PRN PRN Hypoglycemia Simple Syrup 30 ml 07/02/18 00:54 Simple Syrup FEEDTUBE PRN PRN Hypoglycemia Sodium Bicarbonate 325 mg 07/02/18 00:54 Sodium Bicarbonate FEEDTUBE PRN PRN For Clogged Feeding Tube Sodium Chloride 10 ml 06/30/18 10:00 07/07/18 10:53 Sodium Chloride Flush Syringe 10 Ml IV 10 ml BID JT Administration Sodium Chloride 10 ml 06/30/18 05:52 Sodium Chloride Flush Syringe 10 Ml IV PRN PRN LINE FLUSH Nutrition/Malnutrition Assess - Dietary Evaluation Nutrition/Malnutrition Findings: Nutrition Notes Start: 06/30/18 09:49 Freq: Status: Active Protocol: Document 07/07/18 10:11 CT (Rec: 07/07/18 10:32 CT [id number]) Co-Sign 07/07/18 10:11 LP Nutrition Notes Initial or Follow up Reassessment Current Diagnosis COPD,Diabetes,Hyperlipidemia Other Pertinent Diagnosis DKA, Hypertensive emergency, acute resp failure, Pneu, acute encephalopathy Current Diet Mechanical Soft- Cardiac Consistet Carb Labs/Tests Na: 149 K: 3.0 BUN: 21 Pertinent Medications Reviewed. Height 6 ft 2 in Weight 103.3 kg [place] Body Weight (kg) 86.36 BMI 29.2 Weight Status Overweight Subjective/Other Information Per RN pt has poor PO intake, does not want to eat mechanical soft diet, and prefers liquids. Burn Absent Trauma Absent #1 Nutrition Diagnosis Inadequate oral intake Diagnosis Progress(for reassessment Continues documentation) Is patient on ventilator? No Is Patient Ambulatory and/or Out of Bed No REE-([facility]-confined to bed) 2305.728 Kcal/Kg value to use for calculation 18 Approximate Energy Requirements Using 1859 kcal/Kg Calculation Used for Recommendations [facility] Additional Notes PRO: 124-176g/day (1.2-1.7g/kg ) Fluid: 1ml/kcal Nutrition Intervention Change Diet Order: Continue Cardiac/Consistent CHO, Mechanical Soft Add Supplement/Snack (indicate name/kcal Glucerna daily /protein ) Provides kCal: 220 Provides Protein (gm) 10 Goal #1 PO and ONS tolerance Goal #2 PO and ONS intake to meet atleast 75% of kcal and PRO needs. Anticipated Discharge Needs: Unable to determine at this time. Follow-Up By: 07/09/18 Additional Comments F/U: PO intake and tolerance
[2018-07-07] MEDS ORDERED: LANTUS SUB-Q SCH (22:00)
[2018-07-07] MEDS: PRAVACHOL PO SCH (22:38)
[2018-07-08] MEDS: LOVENOX SUB-Q SCH ×2 (00:18→09:14)
[2018-07-08] MEDS: NAFCILLIN 2 GM in NACL 0.9% 100 ML IV SCH ×3 (03:07→10:12)
[2018-07-08] MEDS: XOPENEX IH SCH ×3 (04:15→13:04)
[2018-07-08] MEDS: ATROVENT IH SCH ×3 (04:15→13:04)
[2018-07-08 06:46] LABS: BUN/Creatinine Ratio 13; Blood Urea Nitrogen 13 mg/dL (9-20); Calcium 8.1 mg/dL (8.4-10.2); Hemolysis Index 1
--- NOTE | 2018-07-08 08:56 | XRay Report ---
AP CHEST: HISTORY: Pneumonia The lingular and left lower lobe opacity has decreased by 25% since 07/04/18. The right lung remains generally clear. No pleural effusion or pneumothorax. Mild cardiomegaly is stable. IMPRESSION: Mild improvement in left lung infiltrate.
[2018-07-08] MEDS: HumaLOG SUB-Q SCH (09:09)
[2018-07-08] MEDS: VITAMIN D3 PO SCH (10:12)
[2018-07-08] MEDS: POTASSIUM CHLORIDE FEEDTUBE SCH (10:13)
[2018-07-08] MEDS: NORVASC PO SCH (10:16)
[2018-07-08] MEDS: ZESTRIL PO SCH (10:16)
[2018-07-08] MEDS: LOPRESSOR PO SCH (10:17)
[2018-07-08] MEDS: ROBITUSSIN AC PO PRN (10:32)
--- NOTE | 2018-07-08 11:13 | Progress Note ---
Assessment and Plan Cultures: 07/01/2018 Blood culture: no growth 07/01/2018 urine culture: no growth in 24 hours 07/01/2018 tracheal aspirate culture: MSSA and Group B Strep MRSA nasal PCR is negative. A/P: 57-year-old male with diabetes mellitus type 2, hypertension, hyperlipidemia, COPD was admitted to the hospital yesterday with shortness of breath. He was found to be in severe DKA. Also with: 1) Acute respiratory failure: extubated. Resolved. Off oxygen. 2) Severe bilateral pneumonia: L>R. Secondary to MSSA and Group B Strep. CTA from 07/05/2018 showed much interval improvement. 3) Diabetic ketoacidosis. 4) SENG on admission: resolved. 5) Acute encephalopathy: multifactorial including hypernatremia. Improved. 6) Rash: RPR non reactive. Reportedly had a bedbug infestation recently. Recs: OK to discharge on PO Keflex 500 mg QID x 7 days (prescription left on chart) Will sign off. D/W Dr. Bhandari. Romel Pagan MD [facility] C: [phone] O: [phone] F: [phone] Subjective Date of service: 07/08/18 Principal diagnosis: DKA,resp failure Interval history: No fever. Remains off oxygen. Sleepy this morning. Eating drinking well. Ambulating. No complaints. Objective - Exam Narrative Exam: Physical Exam: Constitutional: awake, alert, no distress Head, Ears, Nose: Normocephalic, atraumatic. External ears, nose normal Eyes: Conjunctivae/corneas clear. No icterus. No ptosis. Neck: Supple, no meningeal signs Oral: no thrush Cardiovascular: S1, S2 normal Respiratory: AE equal bilaterally. No crackles GI: Soft, non-tender; bowel sounds normal. No peritoneal signs Musculoskeletal: No pedal edema, no cyanosis. Skin: No rash or abscess Hem/Lymphatic: No palpable cervical or supraclavicular nodes. No lymphangitis Psych: no agitation Neurological: awake, alert, oriented x 3. - Constitutional Vitals: Vital Signs Temp Pulse Resp BP Pulse Ox 98.3 F 89 18 163/96 94 07/08/18 05:10 07/08/18 07:47 07/08/18 07:47 07/08/18 10:17 07/08/18 07:26 Temperature -Last 24 Hours Temperature 98.3 F Temperature 98.2 F Temperature 98.2 F Temperature 98.6 F Temperature 99.4 F - Labs CBC & Chem 7: 07/06/18 06:34 07/08/18 05:29 Labs: Abnormal lab results 07/07/18 07/07/18 07/07/18 Range/Units 12:11 16:40 23:48 Potassium (3.6-5.0) mmol/L Chloride (98-107) mmol/L Glucose (75-100) mg/dL POC Glucose 153 H 215 H 183 H (70-105) Calcium (8.4-10.2) mg/dL 07/08/18 07/08/18 Range/Units 05:29 05:57 Potassium 3.2 L (3.6-5.0) mmol/L Chloride 108.0 H (98-107) mmol/L Glucose 158 H (75-100) mg/dL POC Glucose 145 H (70-105) Calcium 8.1 L (8.4-10.2) mg/dL
--- NOTE | 2018-07-08 11:29 | Discharge Summary ---
Providers - Providers Date of Admission: 06/30/18 05:52 Date of discharge: 07/08/18 Attending physician: DAQUAN DENIS 06/30/18 04:20 Consult to Dietitian/Nutrition [CONS] Routine Physician Instructions: Reason For Exam: DKA Reason for Consult: Nutrition Recommendations Reason for Consult: Diet education 06/30/18 05:52 Consult to Physician [CONS] Routine Comment: Consulting Provider: MARIA ANTONIA CHAPA Physician Instructions: Reason For Exam: DKA 06/30/18 21:49 Consult to Dietitian/Nutrition [CONS] Routine Physician Instructions: Reason For Exam: Reason for Consult: Evaluate nutritional intake 07/01/18 11:45 Consult to Physician [CONS] Routine Comment: Consulting Provider: PATRICIO ABREU Physician Instructions: Reason For Exam: pna, sepsis 07/02/18 00:54 Consult to Dietitian/Nutrition [CONS] Routine Physician Instructions: Assess nutrtn needs, initiate, modify, manage TF Reason For Exam: Reason for Consult: Write/Manage Tube Feeding Reason for Consult: Write/Manage Tube Feeding 07/03/18 10:44 Consult to PICC Line RN [CONS] Urgent Reason For Exam: Additional IV access needed Type Line:: Midline 07/05/18 17:41 Speech Therapy Evaluation and Treat [CONS] Routine Reason For Exam: Hx of CVA, now w/ pneumonia; eval. swallow & treat 07/06/18 13:03 Physical Therapy Evaluation and Treat [CONS] Routine Comment: Reason For Exam: Hx of CVA, deconditioning s/p pneumonia 07/06/18 13:04 Occupational Therapy Evaluate and Treat [CONS] Routine Comment: Reason For Exam: Hx of CVA, deconditioning s/p pneumonia [facility] Reason for admission: Pneumonia, sepsis Condition: Fair Hospital course: The patient is a 57-year-old male with diabetes mellitus type 2, hypertension, hyperlipidemia, COPD was admitted to the hospital on 06/30/18 with diagnosis of DKA, acute hypoxemic respiratory failure, sepsis, MSSA pneumonia, acute kidney injury, toxic metabolic encephalopathy, hyponatremia and severe metabolic acidosis. He was placed on the DKA pathway and treated with IV insulin, IV fluid hydration and supportive care. He was placed on BiPAP and later intubated for his respiratory failure. He was admitted to ICU. CT chest and chest x-ray were concerning for bilateral pneumonia. Imaging revealed left greater than right infiltrates. Cultures reveal MSSA and group B strep. The patient was seen by infectious disease, cardiology and pulmonary consultations. Infectious disease identified the cultures and adjust antibiotics accordingly. With regards to his respiratory failure, there was some concern of heart failure and therefore echocardiogram was obtained which revealed moderate LVH ejection fraction of 45- 50%. CTA ruled out PE and showed some significant interval improvement in pulmonary treatments. Patient was later extubated and transferred to the floor. The acute kidney injury and encephalopathy improved after admission with the treatment of the sepsis which was the underlying etiology. ID felt patient could be discharged home with PO Keflex 500 mg QID x 7 days (prescription left on chart). Dedicated discharge time 36 minutes. Disposition: DC-01 TO HOME OR SELFCARE Time spent for discharge: 36 - Discharge Diagnoses (1) MSSA (methicillin susceptible Staphylococcus aureus) pneumonia Status: Acute (2) Sepsis Status: Acute (3) SENG (acute kidney injury) Status: Acute (4) ATN (acute tubular necrosis) Status: Acute (5) Acute hypoxemic respiratory failure Status: Acute (6) DKA (diabetic ketoacidoses) Status: Acute (7) Uncontrolled hypertension Status: Acute Core Measure Documentation - Palliative Care Palliative Care/ Comfort Measures: Not Applicable - Core Measures Any of the following diagnoses?: none Exam - Constitutional Vitals: Temp Pulse Resp BP Pulse Ox 98.3 F 89 18 163/96 94 07/08/18 05:10 07/08/18 07:47 07/08/18 07:47 07/08/18 10:17 07/08/18 07:26 General appearance: Present: no acute distress, well-nourished - EENT Eyes: Present: PERRL ENT: hearing intact, clear oral mucosa - Neck Neck: Present: supple, normal ROM - Respiratory Respiratory effort: normal Respiratory: bilateral: CTA - Cardiovascular Heart Sounds: Present: S1 & S2. Absent: rub, click - Extremities Extremities: pulses symmetrical, No edema Peripheral Pulses: within normal limits - Abdominal General gastrointestinal: Present: soft, non-tender, non-distended, normal bowel sounds Male genitourinary: Present: normal - Integumentary Integumentary: Present: clear, warm, dry - Musculoskeletal Musculoskeletal: gait normal, strength equal bilaterally - Psychiatric Psychiatric: appropriate mood/affect, intact judgment & insight - Neurologic Neurologic: CNII-XII intact, moves all extremities Plan Activity: advance as tolerated Weight Bearing Status: Weight Bear as Tolerated Diet: diabetic [facility] [Primary Care Provider] - 3-5 Days PATRICIO ABREU MD [Staff Physician] - 7 Days ALEX HOLLEY MD [Staff Physician] - 7 Days Prescriptions: Cephalexin [Keflex] 500 mg PO QID 7 Days #28 capsule Insulin Glargine [Lantus VIAL] 20 units SUB-Q QHS 30 Days units Metoprolol [Lopressor TAB] 50 mg PO BID #60 tablet Metformin HCl 1,000 mg PO BID #60 tablet amLODIPine [Norvasc] 10 mg PO QDAY #30 tablet oxyCODONE /ACETAMINOPHEN [Percocet 5/325 mg] 1 tab PO Q6H PRN #8 tablet PRN Reason: Pain, Moderate (4-6) Simvastatin 80 mg PO QHS #30 tablet Lisinopril [Zestril TAB] 40 mg PO QDAY #30 tablet
[2018-07-08] MEDS ORDERED: KEFLEX PO SCH (12:00)
[2018-07-08 12:38] VITALS: BP 137/67
--- NOTE | 2018-07-08 16:54 | Progress Note ---
Assessment and Plan Imp: 1. Pneumonia 2. Sepsis 3. DKA 4. Hypernatremia 5. Acute respiratory failure, hypoxia 6. Hx of CVA Rec: 1. ABX per ID; CXR 07/08/18 shows mild improvement in L lung pneumonia; suspect radiographic lag -> recommend another CXR in ~ 2 weeks outpatient, patient/girlfriend understand 2. Diet as recommended per ST, note reviewed 3. K repletion per primary 4. Needs PT/OT 5. Note plans for d/c; RA sats remain acceptable; needs f/u in [place] in 2 weeks where he lives as per above, although if he is still in [place] he can certainly f/u with us Plan of care reviewed with patient/fiance, they understand/agree Subjective Date of service: 07/08/18 Principal diagnosis: DKA,resp failure Interval history: No events. On RA b/c he refuses O2. RA sats remain good. Denies SOB. Has continued cough. No new complaints. Active Medications Acetaminophen (Tylenol) 250 mg PO Q6H PRN PRN Reason: Pain, Mild (1-3) Last Admin: 07/04/18 05:37 Dose: 250 mg Documented by: Amlodipine Besylate (Norvasc) 10 mg PO QDAY [facility] Last Admin: 07/08/18 10:16 Dose: 10 mg Documented by: Lipase/Protease/Amylase ([place] 10,500 Unit) 1 each FEEDTUBE PRN PRN PRN Reason: For Clogged Feeding Tube Cephalexin (Keflex) 500 mg PO Q6HR [facility] Stop: 07/15/18 06:01 Cholecalciferol (Vitamin D3) 4,000 unit PO DAILY [facility] Last Admin: 07/08/18 10:12 Dose: 4,000 unit Documented by: Dextrose (D50w (25gm) Syringe) 0 ml IV PRN PRN PRN Reason: Hypoglycemia Enoxaparin Sodium (Lovenox) 100 mg SUB-Q 0700,1900 [facility] Last Admin: 07/08/18 09:14 Dose: 100 mg Documented by: Haloperidol Lactate (Haldol) 5 mg IM Q6H PRN PRN Reason: Agitation Last Admin: 07/03/18 08:59 Dose: 5 mg Documented by: Hydralazine HCl (Apresoline) 20 mg IV Q4HR PRN PRN Reason: Blood Pressure Last Admin: 07/05/18 12:00 Dose: 20 mg Documented by: Hydrophilic Ointment (Vaseline Lip Therapy) 1 applic TP Q2HR PRN PRN Reason: Dry Lips Potassium Chloride/Dextrose/Sod Cl (D5w/0.45% Nacl/Kcl 20 Meq) 20 meq in 1,000 mls @ 100 mls/hr IV DIRECT [facility] Last Admin: 07/07/18 11:02 Dose: 100 mls/hr Documented by: Insulin Glargine (Lantus) 20 units SUB-Q QHS [facility] Last Admin: 07/07/18 23:55 Dose: 20 units Documented by: Insulin Human Lispro (Humalog) 0 unit SUB-Q ACHS [facility]; Protocol Last Admin: 07/08/18 09:09 Dose: Not Given Documented by: Ipratropium [place] (Atrovent) 0.5 mg IH Q6HRT [facility] Last Admin: 07/08/18 13:04 Dose: 0.5 mg Documented by: Levalbuterol HCl (Xopenex) 0.63 mg IH Q6HRT [facility] Last Admin: 07/08/18 13:04 Dose: 0.63 mg Documented by: Lisinopril (Zestril) 40 mg PO QDAY [facility] Last Admin: 07/08/18 10:16 Dose: 40 mg Documented by: Lorazepam (Ativan) 1 mg IV Q4H PRN PRN Reason: Anxiety Last Admin: 07/06/18 10:26 Dose: 1 mg Documented by: Metoprolol Tartrate (Lopressor) 50 mg PO BID [facility] Last Admin: 07/08/18 10:17 Dose: 50 mg Documented by: Morphine Sulfate (Morphine) 2 mg IV Q4H PRN PRN Reason: Pain, Moderate (4-6) Last Admin: 07/04/18 10:58 Dose: 2 mg Documented by: Multi-Ingred Cream/Lotion/Oil/Oint (Artificial Tears Ophth Oint) 1 applic OU Q4HR PRN PRN Reason: Dry Eye(s) Ondansetron HCl (Zofran) 4 mg IV Q8H PRN PRN Reason: Nausea And Vomiting Oxycodone/Acetaminophen (Percocet 5/325) 1 tab PO Q6H PRN PRN Reason: Pain, Moderate (4-6) Last Admin: 07/03/18 09:25 Dose: 1 tab Documented by: Potassium Chloride (Potassium Chloride) 20 meq FEEDTUBE QDAY [facility] Stop: 07/09/18 09:59 Last Admin: 07/08/18 10:13 Dose: 20 meq Documented by: Pravastatin Sodium (Pravachol) 80 mg PO QHS [facility] Last Admin: 07/07/18 22:38 Dose: 80 mg Documented by: Pseudoephedrine/Acetam/Chlorphenir (Robitussin Ac) 10 ml PO Q6HR PRN PRN Reason: Cough Last Admin: 07/08/18 10:32 Dose: 10 ml Documented by: Simple Syrup (Simple Syrup) 15 ml FEEDTUBE PRN PRN PRN Reason: Hypoglycemia Simple Syrup (Simple Syrup) 30 ml FEEDTUBE PRN PRN PRN Reason: Hypoglycemia Sodium Bicarbonate (Sodium Bicarbonate) 325 mg FEEDTUBE PRN PRN PRN Reason: For Clogged Feeding Tube Sodium Chloride (Sodium Chloride Flush Syringe 10 Ml) 10 ml IV BID [facility] Last Admin: 07/07/18 22:03 Dose: 10 ml Documented by: Sodium Chloride (Sodium Chloride Flush Syringe 10 Ml) 10 ml IV PRN PRN PRN Reason: LINE FLUSH Objective Vital Signs - 12hr 07/08/18 07/08/18 07/08/18 05:10 07:26 07:28 Temperature 98.3 F Pulse Rate 90 Pulse Rate [ 88 Anterior Bilateral Throughout] Respiratory 20 Rate Respiratory 20 Rate [Anterior Bilateral Throughout] Blood Pressure 124/84 O2 Sat by Pulse 94 94 Oximetry 07/08/18 07/08/18 07/08/18 07:47 10:00 10:16 Temperature Pulse Rate 87 Pulse Rate [ 89 Anterior Bilateral Throughout] Respiratory Rate Respiratory 18 Rate [Anterior Bilateral Throughout] Blood Pressure 163/96 O2 Sat by Pulse Oximetry 07/08/18 07/08/18 07/08/18 10:17 11:40 13:04 Temperature 98.6 F Pulse Rate 87 Pulse Rate [ 80 Anterior Bilateral Throughout] Respiratory 22 Rate Respiratory 20 Rate [Anterior Bilateral Throughout] Blood Pressure 163/96 137/67 O2 Sat by Pulse 94 Oximetry 07/08/18 13:20 Temperature Pulse Rate Pulse Rate [ 80 Anterior Bilateral Throughout] Respiratory Rate Respiratory 20 Rate [Anterior Bilateral Throughout] Blood Pressure O2 Sat by Pulse Oximetry Constitutional: no acute distress, alert Eyes: non-icteric ENT: oropharynx moist Neck: supple Effort: normal Ascultation: Bilateral: clear Cardiovascular: regular rate and rhythm (no mrg) Gastrointestinal: normoactive bowel sounds, soft, non-tender, non-distended Integumentary: normal Extremities: no cyanosis, pink and warm, edema (1+ bilateral LE edema) Neurologic: other (L hemiplegia, slurred speech) Psychiatric: mood appropriate, affect normal CBC and BMP: 07/06/18 06:34 07/08/18 05:29 ABG, PT/INR, D-dimer: ABG POC ABG pH 7.425 (7.35-7.45) 07/04/18 05:28 POC ABG pCO2 33.2 (35-45) L 07/04/18 05:28 POC ABG pO2 75 (80-105) L 07/04/18 05:28 POC ABG HCO3 21.8 (22-26 mml/L) 07/04/18 05:28 POC ABG Total CO2 23 (23-27mmol/L) 07/04/18 05:28 POC ABG O2 Sat 95 07/04/18 05:28 PT/INR, D-dimer PT 14.7 Sec. (12.2-14.9) 06/30/18 03:50 INR 1.08 (0.87-1.13) 06/30/18 03:50 D-Dimer 849.06 ng/mlDDU (0-234) H 06/30/18 22:31 Abnormal lab findings: Abnormal Labs 06/30/18 06/30/18 06/30/18 03:47 03:50 03:50 RBC 5.44 H Hgb 16.5 H Hct 51.1 H MCHC Lymph % (Auto) 5.8 L [place] % (Auto) 9.7 H Lymph # 0.5 L [place] # 0.9 H Seg Neutrophils % 84.1 H Seg Neuts % (Manual) Lymphocytes # (Manual) D-Dimer POC ABG pH POC ABG pCO2 POC ABG pO2 Sodium 133 L Potassium 5.4 H Chloride 94.8 L Carbon Dioxide 5 L* BUN 23 H Glucose 556 H* POC Glucose 360 H Calcium Phosphorus ALT NT-Pro-B Natriuret Pep Total Protein 8.3 H Albumin 3.7 L Triglycerides Amylase Lipase 06/30/18 06/30/18 06/30/18 04:23 04:43 05:45 RBC Hgb Hct MCHC Lymph % (Auto) [place] % (Auto) Lymph # [place] # Seg Neutrophils % Seg Neuts % (Manual) Lymphocytes # (Manual) D-Dimer POC ABG pH 7.065 L POC ABG pCO2 POC ABG pO2 Sodium Potassium Chloride Carbon Dioxide BUN Glucose POC Glucose 384 H 382 H Calcium Phosphorus ALT NT-Pro-B Natriuret Pep Total Protein Albumin Triglycerides Amylase Lipase 06/30/18 06/30/18 06/30/18 06:43 06:44 07:55 RBC Hgb Hct MCHC Lymph % (Auto) [place] % (Auto) Lymph # [place] # Seg Neutrophils % Seg Neuts % (Manual) Lymphocytes # (Manual) D-Dimer POC ABG pH POC ABG pCO2 POC ABG pO2 Sodium Potassium Chloride Carbon Dioxide 4 L* BUN 22 H Glucose 511 H* POC Glucose 373 H 386 H Calcium Phosphorus ALT NT-Pro-B Natriuret Pep Total Protein Albumin Triglycerides Amylase Lipase 06/30/18 06/30/18 06/30/18 08:54 09:02 09:47 RBC Hgb Hct MCHC Lymph % (Auto) [place] % (Auto) Lymph # [place] # Seg Neutrophils % Seg Neuts % (Manual) Lymphocytes # (Manual) D-Dimer POC ABG pH POC ABG pCO2 POC ABG pO2 Sodium 134 L Potassium 5.4 H Chloride Carbon Dioxide 6 L* BUN 23 H Glucose 515 H* POC Glucose 386 H 380 H Calcium Phosphorus ALT NT-Pro-B Natriuret Pep Total Protein Albumin Triglycerides Amylase Lipase 06/30/18 06/30/18 06/30/18 11:01 11:43 12:08 RBC Hgb Hct MCHC Lymph % (Auto) [place] % (Auto) Lymph # [place] # Seg Neutrophils % Seg Neuts % (Manual) Lymphocytes # (Manual) D-Dimer POC ABG pH POC ABG pCO2 POC ABG pO2 Sodium Potassium 5.1 H Chloride Carbon Dioxide 7 L* BUN 23 H Glucose 400 H POC Glucose 322 H 296 H Calcium Phosphorus ALT NT-Pro-B Natriuret Pep Total Protein Albumin Triglycerides Amylase Lipase 06/30/18 06/30/18 06/30/18 12:45 14:12 15:11 RBC Hgb Hct MCHC Lymph % (Auto) [place] % (Auto) Lymph # [place] # Seg Neutrophils % Seg Neuts % (Manual) Lymphocytes # (Manual) D-Dimer POC ABG pH POC ABG pCO2 POC ABG pO2 Sodium Potassium Chloride Carbon Dioxide BUN Glucose POC Glucose 335 H 284 H 260 H Calcium Phosphorus ALT NT-Pro-B Natriuret Pep Total Protein Albumin Triglycerides Amylase Lipase 06/30/18 06/30/18 06/30/18 15:50 16:56 18:01 RBC Hgb Hct MCHC Lymph % (Auto) [place] % (Auto) Lymph # [place] # Seg Neutrophils % Seg Neuts % (Manual) Lymphocytes # (Manual) D-Dimer POC ABG pH POC ABG pCO2 POC ABG pO2 Sodium Potassium Chloride Carbon Dioxide BUN Glucose POC Glucose 287 H 301 H 273 H Calcium Phosphorus ALT NT-Pro-B Natriuret Pep Total Protein Albumin Triglycerides Amylase Lipase 06/30/18 06/30/18 06/30/18 19:35 19:55 21:28 RBC Hgb Hct MCHC Lymph % (Auto) [place] % (Auto) Lymph # [place] # Seg Neutrophils % Seg Neuts % (Manual) Lymphocytes # (Manual) D-Dimer POC ABG pH 7.244 L POC ABG pCO2 POC ABG pO2 Sodium Potassium Chloride 110.4 H Carbon Dioxide 12 L BUN Glucose 268 H POC Glucose 270 H Calcium Phosphorus ALT NT-Pro-B Natriuret Pep Total Protein Albumin Triglycerides Amylase Lipase 06/30/18 06/30/18 06/30/18 22:12 22:31 22:52 RBC Hgb Hct MCHC Lymph % (Auto) [place] % (Auto) Lymph # [place] # Seg Neutrophils % Seg Neuts % (Manual) Lymphocytes # (Manual) D-Dimer 849.06 H POC ABG pH 7.214 L POC ABG pCO2 POC ABG pO2 Sodium Potassium Chloride Carbon Dioxide BUN Glucose POC Glucose 242 H Calcium Phosphorus ALT NT-Pro-B Natriuret Pep Total Protein Albumin Triglycerides Amylase Lipase 07/01/18 07/01/18 07/01/18 00:48 02:05 03:03 RBC Hgb Hct MCHC Lymph % (Auto) [place] % (Auto) Lymph # [place] # Seg Neutrophils % Seg Neuts % (Manual) Lymphocytes # (Manual) D-Dimer POC ABG pH POC ABG pCO2 POC ABG pO2 Sodium Potassium Chloride Carbon Dioxide BUN Glucose POC Glucose 401 H 156 H 122 H Calcium Phosphorus ALT NT-Pro-B Natriuret Pep Total Protein Albumin Triglycerides Amylase Lipase 07/01/18 07/01/18 07/01/18 04:04 05:03 05:03 RBC 5.11 H Hgb 15.6 H Hct 45.7 H MCHC Lymph % (Auto) 5.1 L [place] % (Auto) 7.6 H Lymph # 0.3 L [place] # Seg Neutrophils % 87.2 H Seg Neuts % (Manual) Lymphocytes # (Manual) D-Dimer POC ABG pH POC ABG pCO2 POC ABG pO2 Sodium Potassium Chloride 111.1 H Carbon Dioxide 16 L BUN Glucose 154 H POC Glucose 120 H Calcium Phosphorus ALT NT-Pro-B Natriuret Pep Total Protein Albumin Triglycerides Amylase Lipase 07/01/18 07/01/18 07/01/18 05:09 05:32 06:02 RBC Hgb Hct MCHC Lymph % (Auto) [place] % (Auto) Lymph # [place] # Seg Neutrophils % Seg Neuts % (Manual) Lymphocytes # (Manual) D-Dimer POC ABG pH POC ABG pCO2 30.5 L POC ABG pO2 172 H Sodium Potassium Chloride Carbon Dioxide BUN Glucose POC Glucose 137 H 149 H Calcium Phosphorus ALT NT-Pro-B Natriuret Pep Total Protein Albumin Triglycerides Amylase Lipase 07/01/18 07/01/18 07/01/18 06:59 08:20 09:23 RBC Hgb Hct MCHC Lymph % (Auto) [place] % (Auto) Lymph # [place] # Seg Neutrophils % Seg Neuts % (Manual) Lymphocytes # (Manual) D-Dimer POC ABG pH POC ABG pCO2 POC ABG pO2 Sodium Potassium Chloride Carbon Dioxide BUN Glucose POC Glucose 164 H 135 H 142 H Calcium Phosphorus ALT NT-Pro-B Natriuret Pep Total Protein Albumin Triglycerides Amylase Lipase 07/01/18 07/01/18 07/01/18 10:09 11:13 11:31 RBC Hgb Hct MCHC Lymph % (Auto) [place] % (Auto) Lymph # [place] # Seg Neutrophils % Seg Neuts % (Manual) Lymphocytes # (Manual) D-Dimer POC ABG pH POC ABG pCO2 POC ABG pO2 Sodium Potassium Chloride Carbon Dioxide BUN Glucose POC Glucose 170 H 163 H Calcium Phosphorus ALT NT-Pro-B Natriuret Pep 3170 H Total Protein Albumin Triglycerides Amylase Lipase 07/01/18 07/01/18 07/01/18 12:09 13:12 15:42 RBC Hgb Hct MCHC Lymph % (Auto) [place] % (Auto) Lymph # [place] # Seg Neutrophils % Seg Neuts % (Manual) Lymphocytes # (Manual) D-Dimer POC ABG pH POC ABG pCO2 POC ABG pO2 Sodium Potassium Chloride 110.8 H Carbon Dioxide 19 L BUN 22 H Glucose 157 H POC Glucose 185 H 193 H Calcium Phosphorus 0.70 L* ALT NT-Pro-B Natriuret Pep Total Protein Albumin Triglycerides Amylase Lipase 07/01/18 07/01/18 07/01/18 15:44 17:18 18:15 RBC Hgb Hct MCHC Lymph % (Auto) [place] % (Auto) Lymph # [place] # Seg Neutrophils % Seg Neuts % (Manual) Lymphocytes # (Manual) D-Dimer POC ABG pH POC ABG pCO2 POC ABG pO2 Sodium Potassium Chloride Carbon Dioxide BUN Glucose POC Glucose 189 H 167 H 130 H Calcium Phosphorus ALT NT-Pro-B Natriuret Pep Total Protein Albumin Triglycerides Amylase Lipase 07/01/18 07/01/18 07/01/18 19:13 20:02 21:11 RBC Hgb Hct MCHC Lymph % (Auto) [place] % (Auto) Lymph # [place] # Seg Neutrophils % Seg Neuts % (Manual) Lymphocytes # (Manual) D-Dimer POC ABG pH POC ABG pCO2 POC ABG pO2 Sodium Potassium Chloride Carbon Dioxide BUN Glucose POC Glucose 129 H 147 H 220 H Calcium Phosphorus ALT NT-Pro-B Natriuret Pep Total Protein Albumin Triglycerides Amylase Lipase 07/01/18 07/01/18 07/02/18 22:12 23:14 01:34 RBC Hgb Hct MCHC Lymph % (Auto) [place] % (Auto) Lymph # [place] # Seg Neutrophils % Seg Neuts % (Manual) Lymphocytes # (Manual) D-Dimer POC ABG pH POC ABG pCO2 POC ABG pO2 Sodium Potassium Chloride Carbon Dioxide 20 L BUN 22 H Glucose 157 H POC Glucose 219 H 122 H Calcium Phosphorus ALT NT-Pro-B Natriuret Pep Total Protein Albumin 2.6 L Triglycerides Amylase Lipase 07/02/18 07/02/18 07/02/18 02:26 04:32 04:33 RBC Hgb Hct MCHC Lymph % (Auto) [place] % (Auto) Lymph # [place] # Seg Neutrophils % Seg Neuts % (Manual) Lymphocytes # (Manual) D-Dimer POC ABG pH POC ABG pCO2 POC ABG pO2 Sodium 132 L D Potassium 3.2 L Chloride Carbon Dioxide 13 L D BUN 22 H Glucose 224 H POC Glucose 282 H Calcium 7.2 L D Phosphorus ALT 5 L NT-Pro-B Natriuret Pep Total Protein 5.8 L Albumin 1.1 L Triglycerides 1153 H Amylase Lipase 07/02/18 07/02/18 07/02/18 04:34 05:21 12:28 RBC Hgb Hct MCHC Lymph % (Auto) [place] % (Auto) Lymph # [place] # Seg Neutrophils % Seg Neuts % (Manual) Lymphocytes # (Manual) D-Dimer POC ABG pH 7.324 L POC ABG pCO2 POC ABG pO2 72 L Sodium Potassium Chloride Carbon Dioxide BUN Glucose POC Glucose 218 H 153 H Calcium Phosphorus ALT NT-Pro-B Natriuret Pep Total Protein Albumin Triglycerides Amylase Lipase 07/02/18 07/02/18 07/02/18 14:44 14:44 17:45 RBC Hgb Hct MCHC Lymph % (Auto) [place] % (Auto) Lymph # [place] # Seg Neutrophils % Seg Neuts % (Manual) Lymphocytes # (Manual) D-Dimer POC ABG pH POC ABG pCO2 POC ABG pO2 Sodium 148 H D Potassium 3.2 L Chloride 112.2 H Carbon Dioxide 20 L D BUN 25 H Glucose 185 H POC Glucose 282 H Calcium 7.8 L Phosphorus ALT NT-Pro-B Natriuret Pep Total Protein 5.3 L Albumin 2.4 L Triglycerides Amylase 22 L Lipase 10 L 07/02/18 07/03/18 07/03/18 18:52 00:07 04:24 RBC Hgb Hct MCHC Lymph % (Auto) [place] % (Auto) Lymph # [place] # Seg Neutrophils % Seg Neuts % (Manual) Lymphocytes # (Manual) D-Dimer POC ABG pH POC ABG pCO2 POC ABG pO2 Sodium Potassium Chloride 113.1 H Carbon Dioxide 16 L BUN 25 H Glucose 280 H POC Glucose 293 H Calcium 7.5 L Phosphorus ALT NT-Pro-B Natriuret Pep Total Protein 6.1 L Albumin 1.8 L Triglycerides 176 H Amylase Lipase 07/03/18 07/03/18 07/03/18 05:14 05:50 12:04 RBC Hgb Hct MCHC Lymph % (Auto) [place] % (Auto) Lymph # [place] # Seg Neutrophils % Seg Neuts % (Manual) Lymphocytes # (Manual) D-Dimer POC ABG pH POC ABG pCO2 32.2 L POC ABG pO2 Sodium Potassium Chloride Carbon Dioxide BUN Glucose POC Glucose 336 H 392 H Calcium Phosphorus ALT NT-Pro-B Natriuret Pep Total Protein Albumin Triglycerides Amylase Lipase 07/03/18 07/03/18 07/03/18 13:44 17:51 23:53 RBC Hgb Hct MCHC Lymph % (Auto) [place] % (Auto) Lymph # [place] # Seg Neutrophils % Seg Neuts % (Manual) Lymphocytes # (Manual) D-Dimer POC ABG pH POC ABG pCO2 POC ABG pO2 Sodium 147 H Potassium Chloride 115.7 H Carbon Dioxide 19 L BUN 26 H Glucose 432 H POC Glucose 443 H 240 H Calcium Phosphorus ALT NT-Pro-B Natriuret Pep Total Protein Albumin Triglycerides Amylase Lipase 07/04/18 07/04/18 07/04/18 04:10 04:10 05:25 RBC Hgb Hct MCHC Lymph % (Auto) [place] % (Auto) Lymph # [place] # Seg Neutrophils % Seg Neuts % (Manual) 79.0 H Lymphocytes # (Manual) 1.1 L D-Dimer POC ABG pH POC ABG pCO2 POC ABG pO2 Sodium 148 H Potassium Chloride 118.4 H Carbon Dioxide BUN 25 H Glucose 265 H POC Glucose 243 H Calcium Phosphorus ALT NT-Pro-B Natriuret Pep Total Protein Albumin Triglycerides Amylase Lipase 07/04/18 07/04/18 07/04/18 05:28 11:59 19:00 RBC Hgb Hct MCHC Lymph % (Auto) [place] % (Auto) Lymph # [place] # Seg Neutrophils % Seg Neuts % (Manual) Lymphocytes # (Manual) D-Dimer POC ABG pH POC ABG pCO2 33.2 L POC ABG pO2 75 L Sodium Potassium Chloride Carbon Dioxide BUN Glucose POC Glucose 249 H 287 H Calcium Phosphorus ALT NT-Pro-B Natriuret Pep Total Protein Albumin Triglycerides Amylase Lipase 07/04/18 07/05/18 07/05/18 23:52 04:56 04:56 RBC Hgb Hct MCHC 35 H Lymph % (Auto) [place] % (Auto) Lymph # [place] # Seg Neutrophils % Seg Neuts % (Manual) Lymphocytes # (Manual) D-Dimer POC ABG pH POC ABG pCO2 POC ABG pO2 Sodium 153 H Potassium 3.2 L D Chloride 114.5 H Carbon Dioxide BUN 23 H Glucose 239 H POC Glucose 264 H Calcium Phosphorus ALT NT-Pro-B Natriuret Pep Total Protein Albumin Triglycerides Amylase Lipase 07/05/18 07/05/18 07/05/18 05:23 11:14 17:37 RBC Hgb Hct MCHC Lymph % (Auto) [place] % (Auto) Lymph # [place] # Seg Neutrophils % Seg Neuts % (Manual) Lymphocytes # (Manual) D-Dimer POC ABG pH POC ABG pCO2 POC ABG pO2 Sodium Potassium Chloride Carbon Dioxide BUN Glucose POC Glucose 232 H 245 H 281 H Calcium Phosphorus ALT NT-Pro-B Natriuret Pep Total Protein Albumin Triglycerides Amylase Lipase 07/05/18 07/06/18 07/06/18 21:38 05:27 06:34 RBC Hgb Hct MCHC Lymph % (Auto) [place] % (Auto) Lymph # [place] # Seg Neutrophils % Seg Neuts % (Manual) Lymphocytes # (Manual) D-Dimer POC ABG pH POC ABG pCO2 POC ABG pO2 Sodium 151 H Potassium 3.4 L Chloride 115.5 H Carbon Dioxide BUN 23 H Glucose 224 H POC Glucose 287 H 194 H Calcium Phosphorus ALT NT-Pro-B Natriuret Pep Total Protein Albumin Triglycerides Amylase Lipase 07/06/18 07/06/18 07/06/18 11:54 18:01 22:17 RBC Hgb Hct MCHC Lymph % (Auto) [place] % (Auto) Lymph # [place] # Seg Neutrophils % Seg Neuts % (Manual) Lymphocytes # (Manual) D-Dimer POC ABG pH POC ABG pCO2 POC ABG pO2 Sodium Potassium Chloride Carbon Dioxide BUN Glucose POC Glucose 206 H 225 H 213 H Calcium Phosphorus ALT NT-Pro-B Natriuret Pep Total Protein Albumin Triglycerides Amylase Lipase 07/06/18 07/07/18 07/07/18 23:26 05:03 12:11 RBC Hgb Hct MCHC Lymph % (Auto) [place] % (Auto) Lymph # [place] # Seg Neutrophils % Seg Neuts % (Manual) Lymphocytes # (Manual) D-Dimer POC ABG pH POC ABG pCO2 POC ABG pO2 Sodium 149 H Potassium 3.0 L Chloride 112.9 H Carbon Dioxide BUN 21 H Glucose 102 H POC Glucose 189 H 153 H Calcium Phosphorus ALT NT-Pro-B Natriuret Pep Total Protein Albumin Triglycerides Amylase Lipase 07/07/18 07/07/18 07/08/18 16:40 23:48 05:29 RBC Hgb Hct MCHC Lymph % (Auto) [place] % (Auto) Lymph # [place] # Seg Neutrophils % Seg Neuts % (Manual) Lymphocytes # (Manual) D-Dimer POC ABG pH POC ABG pCO2 POC ABG pO2 Sodium Potassium 3.2 L Chloride 108.0 H Carbon Dioxide BUN Glucose 158 H POC Glucose 215 H 183 H Calcium 8.1 L Phosphorus ALT NT-Pro-B Natriuret Pep Total Protein Albumin Triglycerides Amylase Lipase 07/08/18 07/08/18 05:57 11:46 RBC Hgb Hct MCHC Lymph % (Auto) [place] % (Auto) Lymph # [place] # Seg Neutrophils % Seg Neuts % (Manual) Lymphocytes # (Manual) D-Dimer POC ABG pH POC ABG pCO2 POC ABG pO2 Sodium Potassium Chloride Carbon Dioxide BUN Glucose POC Glucose 145 H 276 H Calcium Phosphorus ALT NT-Pro-B Natriuret Pep Total Protein Albumin Triglycerides Amylase Lipase Chest x-ray: report reviewed, image reviewed
[2018-07-08] MEDS: SODIUM CHLORIDE FLUSH SYRINGE 10 ML IV SCH (16:56)
== END 2018-07-08 17:30 | disposition home or self-care (01) | DRG 871 ==
LOC: ED 03:14 → CC1 05:52 → 3A 07-07 13:20
PROVIDERS: ADMIT Internal Medicine; ATTEND Hospitalist
PROC: 5A1945Z Respiratory Ventilation, 24-96 Consecutive Hours (ICD-10-PCS; principal; 2018-06-30)
PROC: 0BH17EZ Insertion of Endotracheal Airway into Trachea, Via Natural or Artificial Opening (ICD-10-PCS; 2018-06-30)
PROC: 4A033R1 Measurement of Arterial Saturation, Peripheral, Percutaneous Approach (ICD-10-PCS; 2018-06-30)
DX: A41.9 Sepsis, unspecified organism (principal); N17.0 Acute kidney failure with tubular necrosis; J96.01 Acute respiratory failure with hypoxia; E11.10 Type 2 diabetes mellitus with ketoacidosis without coma; J15.211 Pneumonia due to Methicillin susceptible Staphylococcus aureus; G92 Toxic encephalopathy; J44.0 Chronic obstructive pulmonary disease with (acute) lower respiratory infection; I10 Essential (primary) hypertension; E87.1 Hypo-osmolality and hyponatremia; I16.1 Hypertensive emergency; E87.0 Hyperosmolality and hypernatremia; E87.6 Hypokalemia; L81.9 Disorder of pigmentation, unspecified; E78.5 Hyperlipidemia, unspecified; F17.213 Nicotine dependence, cigarettes, with withdrawal; Z79.899 Other long term (current) drug therapy; I69.354 Hemiplegia and hemiparesis following cerebral infarction affecting left non-dominant side
CPT/HCPCS: 36415; 36600; 70450; 71045; 71275; 74018; 80048; 80053; 80202; 80307; 81001; 82010; 82140; 82150; 82550; 82553; 82803; 82962; 83690; 83735; 83880; 84100; 84478; 84484; 85007; 85025; 85027; 85379; 85610; 85730; 86592; 87040; 87070; 87076; 87086; 87186; 87205; 87641; 87806; 93005; 93010; 93306; 93970; 94002; 94003; 94640; 94760; G0378; A9270-GY; J0360; J0456; J0690; J0692; J1630; J1650; J1815; J1940; J2060; J2250; J2270; J2704; J3010; J3370; J3480; J3490; J7030; J7040; J7050; J7070; Q9967